=== PATIENT | female | born 1930 | race Caucasian/White ===

== ENCOUNTER 2016-09-17 13:21 | Emergency (ER) | payer MEDICARE ==
[~2016-09-17] VITALS: Ht 160 cm; Wt 59.0 kg
[~2016-09-17 13:21] MED LIST: ACET325T9 PO; AMLO5TAB2 PO; ASPI-630 PO; CALC200T3 PO; CHLO25TA PO; CLON0.1T PO; CLON0.1T12 PO; CRESTOR40 MG PO; DOCU-109 PO; FAMO20TA5 PO; HYDR-2869 PO; LEVO100T5 PO; LEVO112T4 PO; LISI-334 PO; METO50TA10 PO; NITR0.4T SL; POLY17PO5 PO; PRAV80TA2 PO; RANI300T3 PO; VALS320T2 PO
[2016-09-17 13:58] LABS: BASO % 1 % (0-3); EOS # 0.1 x10^3/uL (0.0-0.7); EOS % 2 % (0-3); HEMATOCRIT 37.8 % (36.0-47.0); HEMOGLOBIN 12.8 g/dL (12.0-15.5); LYMPH # 0.8 x10^3/uL (1.0-4.8); LYMPH % 13 % (24-48); MEAN CORPUSCULAR HEMOGLOBIN 30 pg (25-35); MEAN CORPUSCULAR HGB CONC 34 g/dL (31-37); MEAN CORPUSCULAR VOLUME 88 fL (79-100); MONO # 0.6 x10^3/uL (0.0-1.1); MONO % 10 % (0-9); NEUT # 4.7 x10^3uL (1.8-7.7); NEUT % 75 % (31-73); PLATELET COUNT 157 x10^3/uL (140-400); RED BLOOD COUNT 4.28 x10^6/uL (3.50-5.40); RED CELL DISTRIBUTION WIDTH 13.7 % (11.5-14.5); WHITE BLOOD COUNT 6.2 x10^3/uL (4.0-11.0)
--- NOTE | 2016-09-17 14:01 | RAD ---
AP chest, 09/17/2016: History: CVA, leg weakness Comparison is made to a study from 06/15/2016. Surgical clips overlie the lower neck on the right. The heart is at the upper limits of normal in size. There is calcific plaquing of the aorta. A coronary artery stent overlies the superior aspect of the left side of the heart. The pulmonary vascularity is normal. No pulmonary infiltrates are seen. There is no evidence of pleural fluid. IMPRESSION: No acute cardiopulmonary abnormality is detected.
--- NOTE | 2016-09-17 14:01 | RAD ---
Indication sudden onset of weakness and dizziness. Code stroke. Noncontrast images of the head were obtained. No prior imaging of the head is available. Preliminary results were communicated to Dr. Woodard, in the emergency room, at the time of dictation. The calvarium appears unremarkable. The visualized paranasal sinuses appear normal. There is no subdural or epidural hematoma. Ventricles and sulci are normal given the patient's age. 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 There is no mass or midline shift. No hemorrhage is seen. A definite acute finding is not apparent. IMPRESSION: No definite acute finding seen on noncontrast CT images of the head. There are lucencies in the left deep white matter. The chronicity is uncertain but they are probably old PQRS Compliance Statement: One or more of the following individualized dose reduction techniques were utilized for this examination: 1. Automated exposure control 2. Adjustment of the mA and/or kV according to patient size 3. Use of iterative reconstruction technique
--- NOTE | 2016-09-17 14:07 | EKG ---
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
--- NOTE | 2016-09-17 14:11 | PHYS DOC ---
General Chief Complaint: NEURO SYMPTOMS/DEFICITS Stated Complaint: NUMBNESS LOWER EXTREMITIES, DIFFICULTY SWALLOWING Time Seen by MD: 13:33 Source: patient Exam Limitations: no limitations Problems: History of Present Illness Initial Comments Pt is 85/F to ED c/o leg weakness. Pt states immediately prior to arrival she was outside "working in the yard." States she has large yard and works in it meticulously. Today while bending over working states she felt b/l leg weakness. No falls or impaired gait, just felt as if her legs were weak. She had been outside working for some time, also noticed her mouth was dry. No dysphagia/cp/sob/hoyos/focal neurodeficits/ bowel or bladder sx. No trauma. Sx resolved by ED arrival, no pain or weakness complaints and dry mouth resolved with water prior to arrival. 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 Today's sx not consistent with prior CVA. VSS NIHSS reassuring Timing/Duration: 1/2 hour Severity: moderate Modifying Factors: worse with movement, improves with rest Associated Symptoms: weakness, other Allergies: Coded Allergies: Beta-Blockers (Beta-Adrenergic Bloc (Verified Allergy, Intermediate, Bradycardia, 07/01/16) amlodipine (Verified Allergy, Intermediate, 05/28/16) atorvastatin (Verified Allergy, Intermediate, 05/28/16) chlorthalidone (Verified Allergy, Intermediate, hyponatremia, 07/01/16) clonidine (Verified Allergy, Intermediate, bradycardia, 07/01/16) iodine (Verified Allergy, Intermediate, 05/28/16) Past Medical History Medical History: cancer (thyroid), hypertension Surgical History: noncontributory Social History Smoker: non-smoker Alcohol: none Drugs: none Review of Systems Constitutional: see HPI, denies chills, denies fever Respiratory: denies cough, denies shortness of breath, denies wheezing Cardiovascular: denies chest pain, denies palpitations, denies syncope Gastrointestinal: denies abdominal pain, denies diarrhea, denies nausea, denies vomiting Genitourinary: denies discharge, denies frequency, denies hematuria, denies pain Musculoskeletal: denies back pain, denies joint pain, denies joint swelling, denies muscle stiffness, denies neck pain Psychiatric/Neurological: see HPI, denies headache Physical Exam General Appearance: WD/WN, no apparent distress Eyes: bilateral eye normal inspection, bilateral eye PERRL, bilateral eye EOMI Ear, Nose, Throat: hearing grossly normal, normal ENT inspection, normal pharynx Neck: non-tender, supple Respiratory: normal breath sounds, no respiratory distress Cardiovascular: normal peripheral pulses, regular rate, rhythm Gastrointestinal: non tender, soft Back: no CVA tenderness, no vertebral tenderness Extremities: normal range of motion, non-tender, normal inspection 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 PHYSICIAN: RENZO MOORE DO REASON: cva PROCEDURE: CHEST AP ONLY AP chest, 09/17/2016: History: CVA, leg weakness Comparison is made to a study from 06/15/2016. Surgical clips overlie the lower neck on the right. The heart is at the upper limits of normal in size. There is calcific plaquing of the aorta. A coronary artery stent overlies the superior aspect of the left side of the heart. The pulmonary vascularity is normal. No pulmonary infiltrates are seen. There is no evidence of pleural fluid. IMPRESSION: No acute cardiopulmonary abnormality is detected. DICTATED AND SIGNED BY: MAGGIE MAS MD DATE: 09/17/16 [id number] CC: LANNY MAGALLON MD; RENZO MOORE DO ~ PATIENT: STEPHANIE HOUSTON ACCOUNT: [id number] : 1930 LOCATION: ER AGE: 85 SEX: F EXAM STATUS: REG ER ORD. PHYSICIAN: RENZO MOORE DO REASON: cva PROCEDURE: CT CODE STROKE HEAD WO Indication sudden onset of weakness and dizziness. Code stroke. Noncontrast images of the head were obtained. No prior imaging of the head is available. Preliminary results were communicated to Dr. Moore, in the emergency room, at the time of dictation. The calvarium appears unremarkable. The visualized paranasal sinuses appear normal. There is no subdural or epidural hematoma. Ventricles and sulci are normal given the patient's age. 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 There is no mass or midline shift. No hemorrhage is seen. A definite acute finding is not apparent. IMPRESSION: No definite acute finding seen on noncontrast CT images of the head. There are lucencies in the left deep white matter. The chronicity is uncertain but they are probably old PQRS Compliance Statement: One or more of the following individualized dose reduction techniques were utilized for this examination: 1. Automated exposure control 2. Adjustment of the mA and/or kV according to patient size 3. Use of iterative reconstruction technique DICTATED AND SIGNED BY: AMPARO FU MD DATE: 09/17/16 [id number] CC: LANNY MAGALLON MD; RENZO MOORE DO ~ 1517: Time in department 1h 56min. Still waiting for labs/urine, pt will have prolonged ED course due to RAD delay. d-dimer 1.06, BUN 29, Cr 1.2, BNP 1051 1613: Pt ambulated thru ED no weakness, states she feels at baseline. I discussed possibility of OBS admission, pt refuses states she feels at her baseline. "I think I just overdid it in the yard. I'm better now." No new/ progressive sx thru ED course. Will return to ED if needed. Departure Time of Disposition: 16:14 Disposition: 01 HOME, SELF-CARE Diagnosis: weakness NOS, CKD Condition: GOOD Patient Instructions: Chronic Renal Insufficiency, Weakness, [id number] Additional Instructions: Continue current meds/care. Follow up with your doctor Wednesday for recheck. Return to ED with new or changing symptoms. RENZO MOORE DO September 17, 2016 14:11
[2016-09-17 14:14] LABS: ALBUMIN 3.7 g/dL (3.4-5.0); ALBUMIN/GLOBULIN RATIO 1.1 (1.0-1.7); CALCIUM 8.8 mg/dL (8.5-10.1); CREATININE 1.2 mg/dL (0.6-1.0); GFR 42.6; POTASSIUM 4.2 mmol/L (3.5-5.1); TOTAL BILIRUBIN 0.5 mg/dL (0.2-1.0)
[2016-09-17 15:03] LABS: SEDIMENTATION RATE 9 (0-25)
[2016-09-17 15:16] LABS: AMPHETAMINE/METHAMPHETAMINE NEG (NEG); BARBITURATES NEG (NEG); BENZODIAZEPINES NEG (NEG); CANNABINOIDS NEG (NEG); COCAINE NEG (NEG); METHADONE NEG (NEG); OPIATES NEG (NEG); PHENCYCLIDINE NEG (NEG)
[2016-09-17 15:33] LABS: BACTERIA,URINE 0 /HPF (0-FEW); BILIRUBIN,URINE NEG (NEG); CLARITY,URINE CLEAR; COLOR,URINE YELLOW; GLUCOSE,URINE NEG (NEG); NITRITE,URINE NEG (NEG); RBC,URINE 0 /HPF (0-2); SQUAMOUS EPITHELIAL CELL,UR OCC /LPF; UROBILINOGEN,URINE 0.2 mg/dL (0.2 mg/dL); WBC,URINE 0 /HPF (0-4)
[2016-09-17 17:13] VITALS: BP 142/81
== END 2016-09-17 17:13 | disposition home or self-care (01) ==
LOC: ER 13:21
DX: R53.1 Weakness (principal); N18.9 Chronic kidney disease, unspecified; I12.9 Hypertensive chronic kidney disease with stage 1 through stage 4 chronic kidney disease, or unspecified chronic kidney disease; Z88.8 Allergy status to other drugs, medicaments and biological substances; Z91.041 Radiographic dye allergy status
CPT/HCPCS: 36415; 70450; 71010; 80053; 80305; 81001; 82550; 83605; 83690; 83880; 84484; 85027; 85379; 85610; 85651; 85730; 93005; G0481; 99285-25

== ENCOUNTER 2016-11-09 14:31 | Observation (INO) | payer MEDICARE ==
[~2016-11-09] VITALS: Ht 157.5 cm; Wt 59.5 kg
--- NOTE | 2016-11-09 15:09 | EKG ---
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
--- NOTE | 2016-11-09 15:10 | PHYS DOC ---
Past History Past Medical History: CAD, Cancer, Hypertension, [place], Stroke Past Surgical History: Hysterectomy, Other Alcohol Use: None Drug Use: None Adult General Chief Complaint Chief Complaint: DIZZY/LIGHT HEADED HPI HPI Nhung is a 56-year-old female who began having dizziness this morning. She does not describe vertigo. She has been able to walk without difficulty during the day. She describes nasal congestion postnasal drip and ear pressure mainly on the right. She does not have chest pain shortness of breath or abdominal pain. No other associated symptoms. Review of Systems Review of Systems Constitutional: Denies fever or chills [] Eyes: Denies change in visual acuity, redness, or eye pain [] HENT: neg except HPI Respiratory: Denies cough or shortness of breath [] Cardiovascular: No additional information not addressed in HPI [] GI: Denies abdominal pain, nausea, vomiting, bloody stools or diarrhea [] : Denies dysuria or hematuria [] Musculoskeletal: Denies back pain or joint pain [] Integument: Denies rash or skin lesions [] Neurologic: Denies headache, focal weakness or sensory changes [] Endocrine: Denies polyuria or polydipsia [] Allergies Allergies Allergies Coded Allergies Type Severity Reaction Last Updated Verified Beta-Blockers (Beta-Adrenergic Bloc Allergy Intermediate Bradycardia 07/01/16 Yes amlodipine Allergy Intermediate 05/28/16 Yes atorvastatin Allergy Intermediate 05/28/16 Yes chlorthalidone Allergy Intermediate hyponatremia 07/01/16 Yes clonidine Allergy Intermediate bradycardia 07/01/16 Yes iodine Allergy Intermediate 05/28/16 Yes Physical Exam Physical Exam Constitutional: Well developed, well nourished, no acute distress, non-toxic appearance. [] HENT: Normocephalic, atraumatic, bilateral nasal congestion with erythema and mild swelling. Mild ear canal erythema without signs of middle ear infection. TM normal bilaterally Eyes: PERRLA, EOMI, conjunctiva normal, no discharge. [] Neck: Normal range of motion, no tenderness, supple, no stridor. [] Cardiovascular:Heart rate regular rhythm,[] Lungs & Thorax: Bilateral breath sounds clear to auscultation [] Abdomen: Bowel sounds normal, soft, no tenderness, no masses, no pulsatile masses. [] Skin: Warm, dry, no erythema, no rash. [] Back: No tenderness, no CVA tenderness. [] Extremities: No tenderness, no cyanosis, no clubbing, ROM intact, no edema. [] Neurologic: Alert and oriented X 3, normal motor function, normal sensory function, no focal deficits noted. [] Psychologic: Affect normal, judgement normal, mood normal. [] Current Patient Data Vital Signs Vital Signs Date Time Temp Pulse Resp B/P (MAP) Pulse Ox O2 Delivery O2 Flow Rate FiO2 11/09/16 14:43 98.1 89 18 98 Room Air Lab Results Laboratory Tests Test 11/09/16 14:56 11/09/16 15:08 Sodium Level 135 mmol/L Potassium Level 3.9 mmol/L Chloride Level 102 mmol/L Carbon Dioxide Level 25 mmol/L Anion Gap 8 Blood Urea Nitrogen 25 mg/dL Creatinine 1.1 mg/dL Estimated GFR (Cockcroft-Gault) 47.0 Glucose Level 114 mg/dL Calcium Level 8.7 mg/dL White Blood Count 5.5 x10^3/uL Red Blood Count 4.10 x10^6/uL Hemoglobin 12.4 g/dL Hematocrit 35.4 % Mean Corpuscular Volume 86 fL Mean Corpuscular Hemoglobin 30 pg Mean Corpuscular Hemoglobin Concent 35 g/dL Red Cell Distribution Width 13.7 % Platelet Count 137 x10^3/uL Neutrophils (%) (Auto) 78 % Lymphocytes (%) (Auto) 12 % Monocytes (%) (Auto) 8 % Eosinophils (%) (Auto) 1 % Basophils (%) (Auto) 1 % Neutrophils # (Auto) 4.3 x10^3uL Lymphocytes # (Auto) 0.7 x10^3/uL Monocytes # (Auto) 0.5 x10^3/uL Eosinophils # (Auto) 0.1 x10^3/uL Basophils # (Auto) 0.0 x10^3/uL EKG EKG ECG: NSR without changes when compared to previous Radiology/Procedures Radiology/Procedures [] Course & Med Decision Making Course & Med Decision Making She does not feel safe at home Dragon Disclaimer Dragon Disclaimer This chart was dictated in whole or in part using Voice Recognition software in a busy, high-work load, and often noisy Emergency Department environment. It may contain unintended and wholly unrecognized errors or omissions. Departure Departure: Impression: Primary Impression: Upper respiratory infection Additional Impression: Dizziness Disposition: 09 ADMITTED INPATIENT Condition: STABLE Referrals: LANNY MAGALLON MD (PCP) Patient Instructions: Upper Respiratory Infection, Adult Problem Qualifiers Primary Impression: Upper respiratory infection URI type: unspecified viral URI Qualified Codes: J06.9 - Acute upper respiratory infection, unspecified; B97.89 - Other viral agents as the cause of diseases classified elsewhere LANNY ALMENDAREZ MD Nov 09, 2016 15:10
[2016-11-09 15:22] LABS: BASO % 1 % (0-3); EOS # 0.1 x10^3/uL (0.0-0.7); EOS % 1 % (0-3); HEMATOCRIT 35.4 % (36.0-47.0); HEMOGLOBIN 12.4 g/dL (12.0-15.5); LYMPH # 0.7 x10^3/uL (1.0-4.8); LYMPH % 12 % (24-48); MEAN CORPUSCULAR HEMOGLOBIN 30 pg (25-35); MEAN CORPUSCULAR HGB CONC 35 g/dL (31-37); MEAN CORPUSCULAR VOLUME 86 fL (79-100); MONO # 0.5 x10^3/uL (0.0-1.1); MONO % 8 % (0-9); NEUT # 4.3 x10^3uL (1.8-7.7); NEUT % 78 % (31-73); PLATELET COUNT 137 x10^3/uL (140-400); RED CELL DISTRIBUTION WIDTH 13.7 % (11.5-14.5); WHITE BLOOD COUNT 5.5 x10^3/uL (4.0-11.0)
[2016-11-09 15:30] LABS: CALCIUM 8.7 mg/dL (8.5-10.1); CREATININE 1.1 mg/dL (0.6-1.0); POTASSIUM 3.9 mmol/L (3.5-5.1)
[2016-11-09 17:46] VITALS: BP 181/74
[2016-11-09] MEDS ORDERED: ACETAMINOPHEN 325 MG TABLET PO PRN (19:30)
[2016-11-09] MEDS ORDERED: NITROGLYCERIN SUBLINGUAL 0.4 MG BOTTLE OF 25. SL PRN (19:30)
[2016-11-09] MEDS ORDERED: CALCIUM CARBONATE 500 MG TAB.CHEW PO PRN (19:30)
[2016-11-09 19:57] VITALS: BP 163/78
[2016-11-09] MEDS ORDERED: PRAVASTATIN 20 MG TABLET. PO SCH (21:00)
[2016-11-09] MEDS ORDERED: ENOXAPARIN 30 MG/0.3 ML DISP.SYRIN. SQ SCH (21:00)
[2016-11-09] MEDS ORDERED: FAMOTIDINE 20 MG TABLET PO PRN (21:15)
[2016-11-09 22:01] VITALS: BP 155/68
[2016-11-09 22:02] VITALS: BP_SYST 156; BP_SYST 172; BP_DIAS 64; BP_DIAS 67
--- NOTE | 2016-11-10 04:04 | ACF ---
Admission Criteria Forms DIZZINESS Clinical Indications for Admission to Inpatient Care (Place 'X' for any and all applicable criteria): Admission is indicated for ANY ONE of the following(1)(2)(3)(4): [x]I. Inpatient admission required rather than observation care (Also use Dizziness: Observation Care as appropriate) because of ANY ONE of the following: [ ]a) Hemodynamic instability that is severe or persistent [ ]b) Signs or symptoms that are severe or persistent (eg, vomit, orthostasis, inability to ambulate) [ ]c) Cardiac arrhythmias of immediate concern [ ]d) Severe (new) neurologic findings requiring inpatient care as indicated by ANY ONE of the following(6)(7): [ ]1) Cerebral bleeding, ischemia, or vasospasm(8)(9) [ ]2) Increased intracranial pressure or hydrocephalus(10)(11)(12) [ ]3) Papilledema [ ]4) Cerebral edema [ ]5) Mass effect on CT scan [ ]e) Continuous IV infusion of anticoagulation, platelet inhibitor, vasoactive, or antiarrhythmic medication [ ]f) Cerebral bleeding, hydrocephalus, or vasospasm monitoring(14) [ ]g) Increased intracranial pressure or cerebral edema monitoring [ ]h) Vomiting that is severe or persistent [x]i) Other condition, treatment or monitoring requiring inpatient admission [ ]II. A suspected etiology that requires admission for treatment [ ]III. Acute bacterial labyrinthitis [ ]IV. Cerebellar, brainstem, or cerebral ischemia or hemorrhage (5) Extended stay beyond goal length of stay may be needed for evaluating and treating a specific cause of dizziness, including(32) [ ]a) Head injury (Also use Traumatic Brain Injury, Nonsurgical Treatment guideline) [ ]b) New-onset vertebrobasilar vascular insufficiency [ ]c) Acute Meniere disease with intractable symptoms [ ]d) Cardiac arrhythmias or conduction defects [ ]e) Acute neurologic event causing dizziness [ ]f) Myocardial ischemia [ ]g) Acute bacterial labyrinthitis. [ ]h) Severe acute vestibular neuronitis The original [facility] content created by [employer] has been revised. The portions of the content which have been revised are identified through the use of italic text or in bold, and [facility] [employer] [employer] has neither reviewed nor approved the modified material. All other unmodified content is copyright [facility]. Please see references footnoted in the original [facility] edition 2016 Admission Criteria Met?: Yes FELI AGEE Nov 10, 2016 04:04
[2016-11-10 05:20] VITALS: BP 146/59
[2016-11-10] MEDS ORDERED: LEVOTHYROXINE 100 MCG TABLET PO SCH (06:00)
[2016-11-10 06:39] LABS: BASO # 0.1 x10^3/uL (0.0-0.2); BASO % 1 % (0-3); EOS # 0.1 x10^3/uL (0.0-0.7); EOS % 3 % (0-3); HEMATOCRIT 32.7 % (36.0-47.0); HEMOGLOBIN 11.2 g/dL (12.0-15.5); LYMPH # 0.7 x10^3/uL (1.0-4.8); LYMPH % 18 % (24-48); MEAN CORPUSCULAR HEMOGLOBIN 30 pg (25-35); MEAN CORPUSCULAR HGB CONC 34 g/dL (31-37); MEAN CORPUSCULAR VOLUME 87 fL (79-100); MONO # 0.5 x10^3/uL (0.0-1.1); MONO % 13 % (0-9); NEUT # 2.6 x10^3uL (1.8-7.7); NEUT % 65 % (31-73); PLATELET COUNT 140 x10^3/uL (140-400); RED BLOOD COUNT 3.77 x10^6/uL (3.50-5.40); RED CELL DISTRIBUTION WIDTH 13.7 % (11.5-14.5)
[2016-11-10 06:46] LABS: CALCIUM 8.2 mg/dL (8.5-10.1); CREATININE 1.2 mg/dL (0.6-1.0); GFR 42.5; POTASSIUM 3.9 mmol/L (3.5-5.1)
[2016-11-10] MEDS ORDERED: FAMOTIDINE 20 MG TABLET PO SCH (09:00)
[2016-11-10] MEDS ORDERED: DOCUSATE SODIUM 100 MG CAPSULE PO SCH (09:00)
[2016-11-10] MEDS ORDERED: LISINOPRIL 20 MG TABLET PO SCH (09:00)
[2016-11-10] MEDS ORDERED: NITROGLYCERIN 0.2MG/HR PATCH. TD SCH (09:00)
[2016-11-10] MEDS ORDERED: ASPIRIN 81 MG TAB.CHEW PO SCH (09:00)
[2016-11-10] MEDS ORDERED: POLYETHYLENE GLYCOL 3350 17 GM PACKET. PO SCH (09:00)
--- NOTE | 2016-11-10 09:51 | PDOC1 ---
HISTORY & PHYSICAL HPI: HPI: [facility] [address] [place] [address] [id number] Patient: NHUNG HOUSTON Acct:[id number] Unit: [id number] : 1930 Loc: Room/Bed: Age/Sex: 86 / F ADM Status: ADM Date: 11/09/16 Adult General Chief Complaint Chief Complaint: /LIGHT HEADED HPI Nhung is a 86-year-old female who began having lighfheadness this morning. She does not describe vertigo. She has been able to walk without difficulty during the day. She describes nasal congestion postnasal drip and ear pressure mainly on the right. She does not have chest pain shortness of breath or abdominal pain. No other associated symptoms. she denies c-p but explains more l pretty lightheadheness not vertigol.P Past History Past Medical History: CAD, Cancer, Hypertension, [place], Stroke Past Surgical History: Hysterectomy, Other Alcohol Use: None Drug Use: None no smoking FH negtaive Review of Systems Constitutional: Denies fever or chills [] Eyes: Denies change in visual acuity, redness, or eye pain [] HENT: neg except HPI Respiratory: Denies cough or shortness of breath [] Cardiovascular: No additional information not addressed in HPI [] GI: Denies abdominal pain, nausea, vomiting, bloody stools or diarrhea [] : Denies dysuria or hematuria [] Musculoskeletal: Denies back pain or joint pain [] Integument: Denies rash or skin lesions [] Neurologic: Denies headache, focal weakness or sensory changes [] Endocrine: Denies polyuria or polydipsia [] Allergies Coded Allergies Type Severity Reaction Last Updated Verified Beta-Blockers (Beta-Adrenergic Bloc Allergy Intermediate Bradycardia 07/01/16 Yes amlodipine Allergy Intermediate 05/28/16 Yes atorvastatin Allergy Intermediate 05/28/16 Yes chlorthalidone Allergy Intermediate hyponatremia 07/01/16 Yes clonidine Allergy Intermediate bradycardia 07/01/16 Yes iodine Allergy Intermediate 05/28/16 Yes Physical Exam Physical Exam Constitutional: Well developed, well nourished, no acute distress, non-toxic appearance. [] HENT: Normocephalic, atraumatic, bilateral nasal congestion with erythema and mild swelling. Mild ear canal erythema without signs of middle ear infection. TM normal bilaterally Eyes: PERRLA, EOMI, conjunctiva normal, no discharge. [] Neck: Normal range of motion, no tenderness, supple, no stridor. [] Cardiovascular:Heart rate regular rhythm,[] Lungs & Thorax: Bilateral breath sounds clear to auscultation [] Abdomen: Bowel sounds normal, soft, no tenderness, no masses, no pulsatile masses. [] Skin: Warm, dry, no erythema, no rash. [] Back: No tenderness, no CVA tenderness. [] Extremities: No tenderness, no cyanosis, no clubbing, ROM intact, no edema. [] Neurologic: Alert and oriented X 3, normal motor function, normal sensory function, no focal deficits noted. [] Psychologic: Affect normal, judgement normal, mood normal. [] Current Patient Data Vital Signs Vital Signs Date Time Temp Pulse Resp B/P (MAP) Pulse Ox O2 Delivery O2 Flow Rate FiO2 11/09/16 14:43 98.1 89 18 98 Room Air Lab Results Laboratory Tests Test 11/09/16 14:56 11/09/16 15:08 Sodium Level 135 mmol/L Potassium Level 3.9 mmol/L Chloride Level 102 mmol/L Carbon Dioxide Level 25 mmol/L Anion Gap 8 Blood Urea Nitrogen 25 mg/dL Creatinine 1.1 mg/dL Estimated GFR (Cockcroft-Gault) 47.0 Glucose Level 114 mg/dL Calcium Level 8.7 mg/dL White Blood Count 5.5 x10^3/uL Red Blood Count 4.10 x10^6/uL Hemoglobin 12.4 g/dL Hematocrit 35.4 % Mean Corpuscular Volume 86 fL Mean Corpuscular Hemoglobin 30 pg Mean Corpuscular Hemoglobin Concent 35 g/dL Red Cell Distribution Width 13.7 % Platelet Count 137 x10^3/uL Neutrophils (%) (Auto) 78 % Lymphocytes (%) (Auto) 12 % Monocytes (%) (Auto) 8 % Eosinophils (%) (Auto) 1 % Basophils (%) (Auto) 1 % Neutrophils # (Auto) 4.3 x10^3uL Lymphocytes # (Auto) 0.7 x10^3/uL Monocytes # (Auto) 0.5 x10^3/uL Eosinophils # (Auto) 0.1 x10^3/uL Basophils # (Auto) 0.0 x10^3/uL EKG EKG ECG: NSR without changes when compared to previous Radiology/Procedures Radiology/Procedures [] PROBLEMS: Problems lighfgheadnes ALLERGIES: Allergies Coded Allergies Type Severity Reaction Last Updated Verified Beta-Blockers (Beta-Adrenergic Bloc Allergy Intermediate Bradycardia 07/01/16 Yes amlodipine Allergy Intermediate 05/28/16 Yes atorvastatin Allergy Intermediate 05/28/16 Yes chlorthalidone Allergy Intermediate hyponatremia 07/01/16 Yes clonidine Allergy Intermediate bradycardia 07/01/16 Yes iodine Allergy Intermediate 05/28/16 Yes MEDS: MEDICATIONS: Current Medications Medications (Trade) Dose Ordered Sig/Umesh Start Time Stop Time Status Last Admin Dose Admin Acetaminophen (Tylenol) 650 mg PRN Q6HRS PRN 11/09/16 19:30 11/10/16 04:54 650 MG Aspirin (Children'S Aspirin) 81 mg DAILY 11/10/16 09:00 11/10/16 08:28 81 MG Calcium Carbonate/ Glycine (Tums) 250 mg PRN AFTMEALHC PRN 11/09/16 19:30 Docusate Sodium (Colace) 100 mg DAILY 11/10/16 09:00 11/10/16 08:31 100 MG Enoxaparin Sodium (Lovenox) 30 mg Q24H 11/09/16 21:00 11/09/16 20:46 30 MG Famotidine (Pepcid) 20 mg PRN BID PRN 11/09/16 21:15 11/09/16 21:52 20 MG Hydralazine HCl (Apresoline) 100 mg TID 11/09/16 21:00 11/10/16 08:28 100 MG Levothyroxine Sodium (Synthroid) 100 mcg DAILY06 11/10/16 06:00 11/10/16 05:52 100 MCG Lisinopril (Prinivil) 40 mg DAILY 11/10/16 09:00 11/10/16 08:28 40 MG Nitroglycerin (Nitro-Dur 0.2mg) 1 patch DAILY 11/10/16 09:00 11/10/16 08:29 1 PATCH Nitroglycerin (Nitrostat) 0.4 mg PRN Q15MIN PRN 11/09/16 19:30 Polyethylene Glycol (miraLAX) 17 gm DAILY 11/10/16 09:00 11/10/16 08:29 17 GM Pravastatin Sodium (Pravachol) 80 mg QHS 11/09/16 21:00 11/09/16 20:47 80 MG VITALS: Vital Signs Date Time Temp Pulse Resp B/P (MAP) Pulse Ox O2 Delivery O2 Flow Rate FiO2 11/10/16 08:39 Room Air 11/10/16 08:28 60 146/59 11/10/16 05:20 98.0 18 97 LABS: Laboratory Tests Test 11/09/16 14:56 11/09/16 15:08 11/10/16 06:10 Sodium Level 135 mmol/L (136-145) 139 mmol/L (136-145) Potassium Level 3.9 mmol/L (3.5-5.1) 3.9 mmol/L (3.5-5.1) Chloride Level 102 mmol/L (98-107) 105 mmol/L (98-107) Carbon Dioxide Level 25 mmol/L (21-32) 27 mmol/L (21-32) Anion Gap 8 (6-14) 7 (6-14) Blood Urea Nitrogen 25 mg/dL (7-20) 23 mg/dL (7-20) Creatinine 1.1 mg/dL (0.6-1.0) 1.2 mg/dL (0.6-1.0) Estimated GFR (Cockcroft-Gault) 47.0 42.5 Glucose Level 114 mg/dL (70-99) 94 mg/dL (70-99) Calcium Level 8.7 mg/dL (8.5-10.1) 8.2 mg/dL (8.5-10.1) White Blood Count 5.5 x10^3/uL (4.0-11.0) 4.0 x10^3/uL (4.0-11.0) Red Blood Count 4.10 x10^6/uL (3.50-5.40) 3.77 x10^6/uL (3.50-5.40) Hemoglobin 12.4 g/dL (12.0-15.5) 11.2 g/dL (12.0-15.5) Hematocrit 35.4 % (36.0-47.0) 32.7 % (36.0-47.0) Mean Corpuscular Volume 86 fL (79-100) 87 fL (79-100) Mean Corpuscular Hemoglobin 30 pg (25-35) 30 pg (25-35) Mean Corpuscular Hemoglobin Concent 35 g/dL (31-37) 34 g/dL (31-37) Red Cell Distribution Width 13.7 % (11.5-14.5) 13.7 % (11.5-14.5) Platelet Count 137 x10^3/uL (140-400) 140 x10^3/uL (140-400) Neutrophils (%) (Auto) 78 % (31-73) 65 % (31-73) Lymphocytes (%) (Auto) 12 % (24-48) 18 % (24-48) Monocytes (%) (Auto) 8 % (0-9) 13 % (0-9) Eosinophils (%) (Auto) 1 % (0-3) 3 % (0-3) Basophils (%) (Auto) 1 % (0-3) 1 % (0-3) Neutrophils # (Auto) 4.3 x10^3uL (1.8-7.7) 2.6 x10^3uL (1.8-7.7) Lymphocytes # (Auto) 0.7 x10^3/uL (1.0-4.8) 0.7 x10^3/uL (1.0-4.8) Monocytes # (Auto) 0.5 x10^3/uL (0.0-1.1) 0.5 x10^3/uL (0.0-1.1) Eosinophils # (Auto) 0.1 x10^3/uL (0.0-0.7) 0.1 x10^3/uL (0.0-0.7) Basophils # (Auto) 0.0 x10^3/uL (0.0-0.2) 0.1 x10^3/uL (0.0-0.2) VTE PROPHYLAXIS: VTE Prophylaxis Devices: Contrainidicated ASSESSMENT/PLAN ASSESSMENT: lightheheadness near syncope. PLAN: monitor and do pt and ot a use support s tockings iv fluids and monitor for any LANNY MAGALLON MD Nov 10, 2016 09:51
[2016-11-10 11:04] VITALS: BP 121/50
== END 2016-11-10 14:00 | disposition home health service (06) ==
LOC: ER 14:31 → 1 SOUTH 16:54
PROVIDERS: ADMIT Family Medicine; ATTEND Family Medicine
DX: R42 Dizziness and giddiness (principal); R55 Syncope and collapse; I25.10 Atherosclerotic heart disease of native coronary artery without angina pectoris; I10 Essential (primary) hypertension; J06.9 Acute upper respiratory infection, unspecified; I25.2 Old myocardial infarction; Z90.710 Acquired absence of both cervix and uterus; Z85.9 Personal history of malignant neoplasm, unspecified; Z86.73 Personal history of transient ischemic attack (TIA), and cerebral infarction without residual deficits
CPT/HCPCS: 36415; 80048; 85027; 93005; 96372; 97162; 97166; 99285; G0378; G8978; G8979; G8980; G8987; G8989; J1650; G0379

== ENCOUNTER 2016-12-02 17:44 | Inpatient (IN) | payer MEDICARE ==
[~2016-12-02] VITALS: Ht 160 cm; Wt 59.9 kg
[2016-12-02] MEDS ORDERED: IV NORMAL SALINE 1,000ML 1,000 ML IV SCH (18:17)
[2016-12-02] MEDS ORDERED: hydrALAZINE 20 MG/ML VIAL. IV ONE (18:45)
[2016-12-02 18:59] LABS: BASO % 1 % (0-3); EOS # 0.1 x10^3/uL (0.0-0.7); EOS % 2 % (0-3); HEMATOCRIT 34.9 % (36.0-47.0); HEMOGLOBIN 11.9 g/dL (12.0-15.5); LYMPH # 0.7 x10^3/uL (1.0-4.8); LYMPH % 15 % (24-48); MEAN CORPUSCULAR HEMOGLOBIN 30 pg (25-35); MEAN CORPUSCULAR HGB CONC 34 g/dL (31-37); MEAN CORPUSCULAR VOLUME 87 fL (79-100); MONO # 0.5 x10^3/uL (0.0-1.1); MONO % 10 % (0-9); NEUT # 3.4 x10^3uL (1.8-7.7); NEUT % 73 % (31-73); PLATELET COUNT 149 x10^3/uL (140-400); RED BLOOD COUNT 4.02 x10^6/uL (3.50-5.40); RED CELL DISTRIBUTION WIDTH 13.8 % (11.5-14.5); WHITE BLOOD COUNT 4.7 x10^3/uL (4.0-11.0)
[2016-12-02 19:07] LABS: ALBUMIN 3.4 g/dL (3.4-5.0); ALBUMIN/GLOBULIN RATIO 1.1 (1.0-1.7); CALCIUM 8.5 mg/dL (8.5-10.1); CREATININE 1.1 mg/dL (0.6-1.0); MAGNESIUM 1.9 mg/dL (1.8-2.4); POTASSIUM 3.5 mmol/L (3.5-5.1); TOTAL BILIRUBIN 0.6 mg/dL (0.2-1.0); TOTAL PROTEIN 6.6 g/dL (6.4-8.2)
[2016-12-02 19:45] LABS: BILIRUBIN,URINE NEG (NEG); CLARITY,URINE CLOUDY; COLOR,URINE YELLOW; GLUCOSE,URINE NEG (NEG); UROBILINOGEN,URINE 0.2 mg/dL (0.2 mg/dL)
[2016-12-02 19:46] LABS: BACTERIA,URINE 0 /HPF (0-FEW); NITRITE,URINE NEG (NEG); SQUAMOUS EPITHELIAL CELL,UR FEW /LPF; WBC,URINE >40 /HPF (0-4)
--- NOTE | 2016-12-02 20:14 | PHYS DOC ---
Past History Past Medical History: CAD, Cancer, Hypertension, [place], Stroke Past Surgical History: Hysterectomy, Other Alcohol Use: None Drug Use: None Adult General Chief Complaint Chief Complaint: WEAKNESS/GENERALIZED HPI HPI Patient is a 86 year old female who presents with complaint of generalized weakness and high blood pressure. The patient states that her symptoms started worsening upon awakening this morning. Patient has history of hypertension, coronary artery disease, and was recently admitted for treatment of hyponatremia in the hospital. The patient states that she started getting generalized weakness and mild headache. The patient took her blood pressure and noted that it was "high." The patient was evaluated by her home health provider who recommended that the patient come to the emergency department for evaluation. Patient denies any fevers or nausea. Patient states she is having lower abdominal pain which she describes as burning and pressure. The patient states that she had a normal bowel movement yesterday. Patient rates her pain currently as 8 out of 10. Patient has not taken any medications to help with her symptoms at this time. Review of Systems Review of Systems Constitutional: Generalized weakness, chills, denies fever [] Eyes: Denies change in visual acuity, redness, or eye pain [] HENT: Denies nasal congestion or sore throat [] Respiratory: Denies cough or shortness of breath [] Cardiovascular: Denies chest pain or edema [] GI: Lower abdominal pain, denies nausea, vomiting, bloody stools or diarrhea [] : Denies dysuria or hematuria [] Musculoskeletal: Denies back pain or joint pain [] Integument: Denies rash or skin lesions [] Neurologic: Headache, denies focal weakness or sensory changes [] Current Medications Current Medications Current Medications Medications (Trade) Dose Ordered Sig/Umesh Start Time Stop Time Status Last Admin Dose Admin Ceftriaxone Sodium 1 gm/ Sodium Chloride 50 ml @ 100 mls/hr 1X ONCE 12/02/16 20:00 12/02/16 20:29 Hydralazine HCl (Apresoline) 10 mg 1X ONCE 12/02/16 18:45 12/02/16 18:46 DC 12/02/16 18:45 10 MG Sodium Chloride 1,000 ml @ 100 mls/hr Q10H 12/02/16 18:17 12/03/16 04:16 12/02/16 18:49 100 MLS/HR Allergies Allergies Allergies Coded Allergies Type Severity Reaction Last Updated Verified Beta-Blockers (Beta-Adrenergic Bloc Allergy Intermediate Bradycardia 07/01/16 Yes amlodipine Allergy Intermediate 05/28/16 Yes atorvastatin Allergy Intermediate 05/28/16 Yes chlorthalidone Allergy Intermediate hyponatremia 07/01/16 Yes clonidine Allergy Intermediate bradycardia 07/01/16 Yes iodine Allergy Intermediate 05/28/16 Yes Physical Exam Physical Exam Constitutional: Alert, afebrile, appears fatigued. [] HENT: Normocephalic, atraumatic, bilateral external ears normal, oropharynx moist, no oral exudates, nose normal. [] Eyes: PERRLA, EOMI, conjunctiva normal, no discharge. [] Neck: Normal range of motion, no tenderness, supple, no stridor. [] Cardiovascular:Heart rate regular rhythm, no murmur [] Lungs & Thorax: Bilateral breath sounds clear to auscultation [] Abdomen: Bowel sounds normal, soft, suprapubic tenderness to palpation with mild guarding, no rebound tenderness, no masses, no pulsatile masses. [] Skin: Warm, dry, no erythema, no rash. [] Back: No tenderness, no CVA tenderness. [] Extremities: No tenderness, no cyanosis, no clubbing, ROM intact, no edema. [] Neurologic: Alert and oriented X 3, normal motor function, normal sensory function, no focal deficits noted. [] Current Patient Data Vital Signs Vital Signs Date Time Temp Pulse Resp B/P (MAP) Pulse Ox O2 Delivery O2 Flow Rate FiO2 12/02/16 18:45 72 173/68 12/02/16 17:44 98.0 25 98 Room Air Lab Results Laboratory Tests Test 12/02/16 18:45 12/02/16 19:15 White Blood Count 4.7 x10^3/uL (4.0-11.0) Red Blood Count 4.02 x10^6/uL (3.50-5.40) Hemoglobin 11.9 g/dL (12.0-15.5) L Hematocrit 34.9 % (36.0-47.0) L Mean Corpuscular Volume 87 fL (79-100) Mean Corpuscular Hemoglobin 30 pg (25-35) Mean Corpuscular Hemoglobin Concent 34 g/dL (31-37) Red Cell Distribution Width 13.8 % (11.5-14.5) Platelet Count 149 x10^3/uL (140-400) Neutrophils (%) (Auto) 73 % (31-73) Lymphocytes (%) (Auto) 15 % (24-48) L Monocytes (%) (Auto) 10 % (0-9) H Eosinophils (%) (Auto) 2 % (0-3) Basophils (%) (Auto) 1 % (0-3) Neutrophils # (Auto) 3.4 x10^3uL (1.8-7.7) Lymphocytes # (Auto) 0.7 x10^3/uL (1.0-4.8) L Monocytes # (Auto) 0.5 x10^3/uL (0.0-1.1) Eosinophils # (Auto) 0.1 x10^3/uL (0.0-0.7) Basophils # (Auto) 0.0 x10^3/uL (0.0-0.2) Sodium Level 131 mmol/L (136-145) L Potassium Level 3.5 mmol/L (3.5-5.1) Chloride Level 97 mmol/L (98-107) L Carbon Dioxide Level 26 mmol/L (21-32) Anion Gap 8 (6-14) Blood Urea Nitrogen 23 mg/dL (7-20) H Creatinine 1.1 mg/dL (0.6-1.0) H Estimated GFR (Cockcroft-Gault) 47.0 BUN/Creatinine Ratio 21 (6-20) H Glucose Level 99 mg/dL (70-99) Calcium Level 8.5 mg/dL (8.5-10.1) Magnesium Level 1.9 mg/dL (1.8-2.4) Total Bilirubin 0.6 mg/dL (0.2-1.0) Aspartate Amino Transferase (AST) 10 U/L (15-37) L Alanine Aminotransferase (ALT) 11 U/L (14-59) L Alkaline Phosphatase 61 U/L (46-116) Total Protein 6.6 g/dL (6.4-8.2) Albumin 3.4 g/dL (3.4-5.0) Albumin/Globulin Ratio 1.1 (1.0-1.7) Urine Collection Type Void Urine Color Yellow Urine Clarity Cloudy Urine pH 6.5 Urine Specific Mcclure 1.010 Urine Protein Neg (NEG-TRACE) Urine Glucose (UA) Neg mg/dL (NEG) Urine Ketones (Stick) Neg mg/dL (NEG) Urine Blood Neg (NEG) Urine Nitrite Neg (NEG) Urine Bilirubin Neg (NEG) Urine Urobilinogen Dipstick 0.2 mg/dL (0.2 mg/dL) Urine Leukocyte Esterase Large (NEG) Urine RBC 3-5 /HPF (0-2) Urine WBC >40 /HPF (0-4) Urine Squamous Epithelial Cells Few /LPF Urine Transitional Epithelial Cells Few /LPF Urine Bacteria 0 /HPF (0-FEW) EKG EKG Interpreted by me: Heart rate 71, sinus rhythm, normal intervals, left axis deviation, no acute ST/T-wave abnormalities present [] Radiology/Procedures Radiology/Procedures Two-view abdominal x-ray series interpreted by me: Nonobstructive bowel gas pattern, no free air under the diaphragm, moderate amount of retained stool in colon [] Course & Med Decision Making Course & Med Decision Making Pertinent Labs and Imaging studies reviewed. (See chart for details) Patient started on IV fluids in the emergency department and was given IV hydralazine with modest reduction in blood pressure. The patient was found to have urinary tract infection. Due to sudden decrease in functional status with presence of urinary tract infection, the patient will require admission to the hospital for treatment with IV antibiotics and fluids. I spoke with Dr. Alas who accepted care patient in hospital. Dragon Disclaimer Dragon Disclaimer This chart was dictated in whole or in part using Voice Recognition software in a busy, high-work load, and often noisy Emergency Department environment. It may contain unintended and wholly unrecognized errors or omissions. Departure Departure: Impression: Primary Impression: Urinary tract infection Additional Impressions: Generalized weakness Accelerated hypertension Disposition: ADMITTED INPATIENT Admitting Physician: Paco Alas Condition: STABLE Referrals: PACO ALAS MD (PCP) Problem Qualifiers Primary Impression: Urinary tract infection Urinary tract infection type: site unspecified Hematuria presence: without hematuria Qualified Codes: N39.0 - Urinary tract infection, site not specified BISMARK QIU MD Dec 02, 2016 20:14
[2016-12-02] MEDS ORDERED: ACETAMINOPHEN 325 MG TABLET PO PRN ×2 (20:15→22:45)
[2016-12-02] MEDS ORDERED: fentaNYL PF 100 MCG/2 ML VIAL IV PRN (20:15)
[2016-12-02] MEDS ORDERED: ONDANSETRON PF 4 MG/2 ML VIAL. IV PRN (20:15)
[2016-12-02] MEDS ORDERED: IV NORMAL SALINE 50ML 50 ML ONE (20:19)
[2016-12-02] MEDS ORDERED: cefTRIAXone SODIUM 1 GM VIAL IV ONE (20:19)
[2016-12-02] MEDS ORDERED: ONDANSETRON PF 4 MG/2 ML VIAL. ONE (20:20)
[2016-12-02] MEDS: IV NORMAL SALINE 1,000ML 1,000 ML IV SCH (21:55)
[2016-12-02 22:00] VITALS: BP 176/80
[2016-12-02] MEDS ORDERED: RANI150T6 PO (22:25)
[2016-12-02] MEDS ORDERED: DOCU-109 PO (22:37)
[2016-12-02] MEDS ORDERED: POLY17PO5 PO (22:37)
[2016-12-02] MEDS ORDERED: POLYETHYLENE GLYCOL 3350 17 GM PACKET. PO PRN (22:45)
[2016-12-02] MEDS ORDERED: NITROGLYCERIN SUBLINGUAL 0.4 MG BOTTLE OF 25. SL PRN (22:45)
[2016-12-02] MEDS ORDERED: DOCUSATE SODIUM 100 MG CAPSULE PO PRN (22:45)
[2016-12-02] MEDS ORDERED: CALCIUM CARBONATE 500 MG TAB.CHEW PO PRN (22:45)
[2016-12-02] MEDS: PRAVASTATIN 20 MG TABLET. PO SCH (22:51)
[2016-12-02] MEDS: LISINOPRIL 20 MG TABLET PO SCH (22:52)
[2016-12-02 23:06] VITALS: BP 153/77
[2016-12-02 23:54] VITALS: BP 118/56
[2016-12-03] VITALS (8 sets, daily range): BP systolic 122–160; BP diastolic 52–75
--- NOTE | 2016-12-03 01:58 | ACF ---
Admission Criteria Forms URINARY COMPLICATIONS Clinical Indications for Inpatient Care (Place 'X' for any and all applicable criteria): Ongoing inpatient care may be indicated for urinary complications with ANY ONE of the following: [X]I. Urinary tract infection requiring inpatient care as indicated by ANY ONE of the following(8)(19)(20): [ ]a) Severe symptoms (eg, high fever, severe pain) [ ]b) Vomiting or dehydration requiring ongoing inpatient care [X]c) IV antibiotic needs that cannot be managed at lower level of care [ ]d) Hemodynamic instability [ ]e) Obstruction of collecting system by stone or tumor [ ]II. Urinary retention requiring drainage or surgery (3)(4)(5)(17)(18) [ ]III. Renal failure (Use Renal Failure Criteria for further information.) [ ]IV. Oliguria(30) [ ]V. Post obstructive diuresis requiring close monitoring of urine output and intravenous compensation for excessive fluid losses(33) Extended stay beyond goal length of stay for primary condition may be needed until ALL of the following are present(3)(4)(5)(8): [ ]a) Renal function (creatinine) at baseline, or daily decreases in creatinine consistent with renal function return [ ]b) Voiding adequately or with urinary catheter or percutaneous suprapubic tube and management regimen in place that is performable at lower level of care. [ ]c) Urine output adequate [ ]d) Fever absent or resolving [ ]e) Infection absent or treatable at next level of care The original [employer] content created by [employer] has been revised. The portions of the content which have been revised are identified through the use of italic text or in bold, and [facility] has neither reviewed nor approved the modified material. All other unmodified content is copyright [employer] Please see references footnoted in the original [employer] edition 2016 Admission Criteria Met?: Yes FELI AGEE Dec 03, 2016 01:58
[2016-12-03] MEDS: IV NORMAL SALINE 1,000ML 1,000 ML IV SCH ×2 (04:53→19:14)
[2016-12-03] MEDS: LEVOTHYROXINE 100 MCG TABLET PO SCH (05:43)
[2016-12-03 06:41] LABS: BASO % 1 % (0-3); EOS # 0.1 x10^3/uL (0.0-0.7); EOS % 2 % (0-3); HEMATOCRIT 30.3 % (36.0-47.0); HEMOGLOBIN 10.5 g/dL (12.0-15.5); LYMPH # 0.6 x10^3/uL (1.0-4.8); LYMPH % 15 % (24-48); MEAN CORPUSCULAR HEMOGLOBIN 30 pg (25-35); MEAN CORPUSCULAR HGB CONC 35 g/dL (31-37); MEAN CORPUSCULAR VOLUME 88 fL (79-100); MONO # 0.5 x10^3/uL (0.0-1.1); MONO % 13 % (0-9); NEUT # 2.6 x10^3uL (1.8-7.7); NEUT % 69 % (31-73); PLATELET COUNT 132 x10^3/uL (140-400); RED BLOOD COUNT 3.46 x10^6/uL (3.50-5.40); WHITE BLOOD COUNT 3.7 x10^3/uL (4.0-11.0)
[2016-12-03 06:45] LABS: CALCIUM 7.8 mg/dL (8.5-10.1); CREATININE 1.1 mg/dL (0.6-1.0); POTASSIUM 3.9 mmol/L (3.5-5.1)
--- NOTE | 2016-12-03 06:46 | EKG ---
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 RI6.01 Unconfirmed report Electronically Signed On 12-07-2016 9:50:50 CDT by Rishi Culver
[2016-12-03] MEDS: ASPIRIN 81 MG TAB.CHEW PO SCH (08:27)
[2016-12-03] MEDS: LISINOPRIL 20 MG TABLET PO SCH ×2 (08:28→20:11)
[2016-12-03] MEDS: FAMOTIDINE 20 MG TABLET PO SCH (08:28)
--- NOTE | 2016-12-03 08:56 | RAD ---
Two-view abdomen radiographs 12/02/2016 Clinical history: Abdominal pain and distention. Two portable AP erect and AP supine digital radiographs of the abdomen/pelvis were obtained. The lung bases are clear. The abdominal bowel gas pattern is nonobstructive. A moderate amount of stool is seen throughout the colon. No free air is seen. No radiopaque calculus is noted. There is diffuse osteopenia of the visualized bony structures. Mild S-shaped curvature of the thoracolumbar spine is seen. Degenerative changes are seen involving the lower thoracic and throughout the lumbar spine and both hips. Impression: Nonobstructive bowel gas pattern.
[2016-12-03] MEDS ORDERED: RANITIDINE HCL 75 MG PO SCH (09:00)
--- NOTE | 2016-12-03 19:25 | HP ---
ADMIT DATE: 12/02/2016 HISTORY OF PRESENT ILLNESS: An 86-year-old female with generalized weakness and elevated blood pressure. She lives at home, and home health from ___ home health saw her, blood pressure was approximately 210/120. The patient came into the Emergency Room where she was evaluated. She was also having mild headache with generalized weakness. Pain level was 8/10. The patient was found to have a significant urinary tract infection, which may have been contributing along with her hypertension and her dehydration. She is admitted to the hospital for such. PAST MEDICAL HISTORY: Coronary artery disease, cancer, hypertension. She has had previous history of myocardial infarction or stroke. She has had adenoidectomy, tonsillectomy, tinnitus, thyroid disease. She has had cardiac surgery x 2, hypertension, irritable bowel, gastroesophageal reflux, reproductive disorders, hysterectomy, urinary tract infections, __ stress incontinence. She has had problems with thyroid cancer, thyroidectomy and cancer as noted radiation therapy. FAMILY HISTORY: Father with prostate cancer and brother and son, also history of hypertension, and mother and father also had cancer as noted. ALLERGIES: THE PATIENT HAS ALLERGIES TO BETA BLOCKERS, NORVASC, LIPITOR, CHLORTHALIDONE, CLONIDINE, AND IODINE. PRESENT MEDICATIONS: Include that of Tylenol, aspirin 81, Colace, Pepcid 20 mg b.i.d., levofloxacin 100 mcg daily, lisinopril 20 mg a day, nitroglycerin 0.4 mg a day, pravastatin 80, Zantac 150. REVIEW OF SYSTEMS: The patient has generalized weakness, although she denies chest pain, shortness of breath. Denies abdominal pain per se. She does have some epigastric discomfort. She has some mild nausea. Denies problem with her bowels, does have some incontinence of urine. Neurologically baseline, but generalized weakness for this patient. PHYSICAL EXAMINATION: GENERAL: The patient on exam is a very pleasant white female looking stated age, somewhat worn out and tired. VITAL SIGNS: Blood pressure is noted initially was over 200 systolic/68, respiratory rate 25, pulse 70, afebrile. Her oxygen saturation normal. The patient's weight 127 pounds. HEENT: The patient's head was atraumatic, normocephalic. Eyes: PERRLA without jaundice. Mouth and throat show poor dentition. NECK: Supple, without JVD, carotid bruits. No thyromegaly. LUNGS: With diminished throughout, poor movement of air but clear. CARDIOVASCULAR: Regular sinus rhythm, S1, S2, with I/ systolic ejection murmur. ABDOMEN: Soft, nontender, no rebound, no guarding, positive bowel sounds, no hepatosplenomegaly was noted. EXTREMITIES: No clubbing, cyanosis. No edema. NEUROLOGIC: Baseline for her. She has some mild dementia. LABORATORY DATA: White count 4, hemoglobin and hematocrit 11 and 34. The patient's sodium and potassium 131, 3.5; 23 and 1.1. Urine showed greater than 40 white blood cells per high powered field. IMPRESSION: Therefore, systemic inflammatory response syndrome, urgent hypertension, mild dementia, generalized weakness, hyponatremia. PLAN: The patient will be admitted, placed back on her blood pressure medications, make further evaluation on her as indicated per those results. Continue on IV antibiotic therapy as noted. LANNY MAGALLON MD DR: JERRI/richard JOB#: [id number] / [id number]
[2016-12-03] MEDS: PRAVASTATIN 20 MG TABLET. PO SCH (20:07)
[2016-12-04 05:00] VITALS: BP 155/64
[2016-12-04] MEDS: LEVOTHYROXINE 100 MCG TABLET PO SCH (05:12)
[2016-12-04 07:28] LABS: BASO % 1 % (0-3); EOS # 0.2 x10^3/uL (0.0-0.7); EOS % 5 % (0-3); HEMATOCRIT 32.2 % (36.0-47.0); LYMPH # 0.6 x10^3/uL (1.0-4.8); LYMPH % 16 % (24-48); MEAN CORPUSCULAR HEMOGLOBIN 30 pg (25-35); MEAN CORPUSCULAR HGB CONC 34 g/dL (31-37); MEAN CORPUSCULAR VOLUME 88 fL (79-100); MONO # 0.4 x10^3/uL (0.0-1.1); MONO % 10 % (0-9); NEUT # 2.7 x10^3uL (1.8-7.7); NEUT % 68 % (31-73); PLATELET COUNT 131 x10^3/uL (140-400); RED BLOOD COUNT 3.67 x10^6/uL (3.50-5.40); WHITE BLOOD COUNT 3.9 x10^3/uL (4.0-11.0)
[2016-12-04 07:38] LABS: CALCIUM 7.7 mg/dL (8.5-10.1); GFR 52.4; POTASSIUM 4.2 mmol/L (3.5-5.1)
[2016-12-04 08:13] VITALS: BP 189/64
[2016-12-04] MEDS: ASPIRIN 81 MG TAB.CHEW PO SCH (08:39)
[2016-12-04] MEDS: FAMOTIDINE 20 MG TABLET PO SCH (08:39)
[2016-12-04 08:40] VITALS: BP 189/64
[2016-12-04] MEDS: LISINOPRIL 20 MG TABLET PO SCH (08:40)
--- NOTE | 2016-12-09 23:17 | DS ---
DATE OF DISCHARGE: 12/04/2016 HOSPITAL COURSE: The patient came in with generalized weakness, was noted by home health to have a blood pressure 210/120, came in through the Emergency Room and was found to have a significant urinary tract infection. As a result of this, the patient was admitted to the hospital for further evaluation, IV antibiotic therapy. The patient's allover white count was basically unremarkable. Sodium was slightly low at 131. Creatinine was 1.1. Urine did show greater than 40 white blood cells per high-powered field. The patient's urine was nonspecific, but did have greater than 100,000, may have been related to the fact that the urine may have been collected after the antibiotics were started. In any case, the patient made a good progress during the rest of her hospitalization. The patient's blood pressure did come down gradually to approximately 180/64. The patient's blood pressure came down to 189/64, pulse of 57, respiratory rate 18. The patient made a good progress. She was discharged back home for her rate question and she will be followed up as an outpatient and make further evaluation on her as indicated. The patient will be transferred to a skilled unit for further evaluation, IV antibiotic therapy and alike. IMPRESSION: Systemic inflammatory response syndrome, urinary tract infection, organism unspecified, mild dementia, hyponatremia, anemia of chronic disease, generalized weakness, hypertensive urgency. The patient will be discharged to the skilled unit. See MRAD. DISCHARGE INSTRUCTIONS: Decrease activity. PT/OT on that facility. LANNY MAGALLON MD DR: JERRI/richard JOB#: [id number] / [id number]
== END 2016-12-04 14:15 | disposition home health service (06) | DRG 872 ==
LOC: ER 17:44 → ICU 20:00 → 1 SOUTH 12-03 19:06
PROVIDERS: ADMIT Family Medicine; ATTEND Family Medicine
DX: A41.9 Sepsis, unspecified organism (principal); N39.0 Urinary tract infection, site not specified; E87.1 Hypo-osmolality and hyponatremia; F03.90 Unspecified dementia, unspecified severity, without behavioral disturbance, psychotic disturbance, mood disturbance, and anxiety; E86.0 Dehydration; K21.9 Gastro-esophageal reflux disease without esophagitis; K58.9 Irritable bowel syndrome, unspecified; I10 Essential (primary) hypertension; I25.10 Atherosclerotic heart disease of native coronary artery without angina pectoris; I25.2 Old myocardial infarction; Z80.42 Family history of malignant neoplasm of prostate; Z82.49 Family history of ischemic heart disease and other diseases of the circulatory system; Z85.850 Personal history of malignant neoplasm of thyroid; Z86.73 Personal history of transient ischemic attack (TIA), and cerebral infarction without residual deficits; Z90.710 Acquired absence of both cervix and uterus; Z90.49 Acquired absence of other specified parts of digestive tract; Z88.8 Allergy status to other drugs, medicaments and biological substances; Z91.041 Radiographic dye allergy status; D63.8 Anemia in other chronic diseases classified elsewhere; I16.0 Hypertensive urgency
CPT/HCPCS: 36415; 74020; 80048; 80053; 81001; 83605; 83735; 85027; 87040; 87086; 87641; 93005; 96361; 96374; J0360; J0696; J2405; J3010; 97110; 97116; 97530; 99285-25; J7030

== ENCOUNTER 2016-12-10 16:38 | Emergency (ER) | payer MEDICARE ==
[~2016-12-10] VITALS: Ht 160 cm; Wt 61.3 kg
[~2016-12-10 16:38] MED LIST changes: +RANI150T6 PO
[2016-12-10 16:47] VITALS: BP 182/98
--- NOTE | 2016-12-10 16:51 | PHYS DOC ---
Past History Past Medical History: CAD, Cancer, Hypertension, [place], Stroke Past Surgical History: Hysterectomy, Other Alcohol Use: None Drug Use: None Adult General Chief Complaint Chief Complaint: HEMORRHOIDS HPI HPI Patient is a 86 year old female who presents with complaint of rectal hemorrhoids and rectal pain after manual disimpaction for last 2 hours attending to remove constipated bowel. Patient has had a history of hemorrhoids and been seen multiple times in the year for similar complaints to include rectal pain and rectal hemorrhoids formation and lower extremity weakness. Noted the symptoms are not new. She says that she gets constipated with any new medications or change in her medications. She denies abdominal pain, denies any sick contacts, denies any new symptoms. Patient had a normal bowel movement yesterday. Patient rates her pain currently as 6 out of 10. She has taken Metamucil, Colace and manual disimpaction help with her symptoms. Review of Systems Review of Systems Constitutional: Denies fever or chills [] Eyes: Denies change in visual acuity, redness, or eye pain [] HENT: Denies nasal congestion or sore throat [] Respiratory: Denies cough or shortness of breath [] Cardiovascular: No additional information not addressed in HPI [] GI: Denies abdominal pain, nausea, vomiting, bloody stools or diarrhea [] : Denies dysuria or hematuria [] Musculoskeletal: Denies back pain or joint pain [] Integument: Denies rash or skin lesions [] Neurologic: Denies headache, described as weakness in her lower legs bilaterally. Endocrine: Denies polyuria or polydipsia [] Allergies Allergies Allergies Coded Allergies Type Severity Reaction Last Updated Verified Beta-Blockers (Beta-Adrenergic Bloc Allergy Intermediate Bradycardia 07/01/16 Yes amlodipine Allergy Intermediate 05/28/16 Yes atorvastatin Allergy Intermediate 05/28/16 Yes chlorthalidone Allergy Intermediate hyponatremia 07/01/16 Yes clonidine Allergy Intermediate bradycardia 07/01/16 Yes iodine Allergy Intermediate 05/28/16 Yes Physical Exam Physical Exam Vital signs have a heart rate of 74 blood pressure 182/118 saturation 90% on room air. Constitutional: Well developed, well nourished, no acute distress, non-toxic appearance. [] HENT: Normocephalic, atraumatic, bilateral external ears normal, oropharynx moist, no oral exudates, nose normal. [] Cardiovascular:Heart rate regular rhythm, no murmur [] Lungs & Thorax: Bilateral breath sounds clear to auscultation [] Abdomen: Bowel sounds normal, soft, no tenderness, no masses, no pulsatile masses. Exam shows multiple hemorrhoids in various states of inflammation. There is no evidence of perirectal or rectal cellulitis or abscess. There is no rectal fissure she has decent rectal tone on rectal exam she has minimal limited if any stool in the rectal vault. No obvious bleeding is minimal pain on my exam. [] Skin: Warm, dry, no erythema, no rash. [] Extremities: No tenderness, no cyanosis, no clubbing, ROM intact, no edema. [] Neurologic: Alert and oriented X 3, is able to roll on her right and left-sided without issue she is complaining of weakness in her lower legs but nothing new today. Psychologic: Affect normal, judgement normal, mood normal. [] EKG EKG [] Radiology/Procedures Radiology/Procedures [] Review acute abdominal series read by me timed 5:08 PM 12/10/2016 demonstrates no subcutaneous air no subdiaphragmatic air there is significant amount of stool without the colon without evidence of small bowel resection. Patient has scoliosis and noted on the x-ray with some osteoporosis well but no cold fractures. X-rays read by Dr. Calderón Course & Med Decision Making Course & Med Decision Making Pertinent Labs and Imaging studies reviewed. (See chart for details) Impression tells me that she lives alone and is independent and she is able to complete activities of daily living. She is concerned that she was constipated and is unable to have a bowel movement. On my exam very clearly she has minimal stool in the vault she has hemorrhoids that are minimally thrombosed not requiring local excision. There is no evidence of perirectal or rectal cellulitis or rectal abscess. Patient is no blood in her stool is found on exam. Patient's acute abdominal series demonstrates stool throughout the colon without evidence of bowel obstruction. Erp Technical Lead note: Dr. Stubbs Erp Technical Lead called at of the service 4:55 PM Consult called back at 4:55 PM Discussed the case I presented and they agreed with inpatient keep her follow- up appointment tomorrow and placing her on viscous lidocaine for rectal discomfort. [] Dragon Disclaimer Dragon Disclaimer This chart was dictated in whole or in part using Voice Recognition software in a busy, high-work load, and often noisy Emergency Department environment. It may contain unintended and wholly unrecognized errors or omissions. Departure Departure: Impression: Primary Impression: Generalized muscle weakness Additional Impressions: Hypertension Hemorrhoids Constipation Disposition: 01 HOME, SELF-CARE Admitting Physician: Paco Magallon Condition: STABLE Referrals: PACO MAGALLON MD (PCP) Patient Instructions: Constipation, Adult, Hemorrhoids Additional Instructions: Please follow-up with your primary care doctor's scheduled tomorrow. Please return for any new rectal pain, fevers, rectal swelling, despite given viscous lidocaine for your hemorrhoids. Please use Anusol HC as prescribed. Use Colace and stool softeners to help bulk her stool. Please drink a great deal of water in the 6-8 glasses of clear water a day help with your stool movements. Scripts Hydrocortisone Acetate (ANUSOL-HC) 25 Mg Supp.rect 1 SUPP RC BID, #28 SUPP 1 Refill Prov: FLOR CALDERÓN MD 12/10/16 Lidocaine (ANECREAM) 5 Gm Cream..g. 5 GM TP TID for 7 Days, EACH Prov: FLOR CALDERÓN MD 12/10/16 Problem Qualifiers FLOR CALDERÓN MD Dec 10, 2016 16:51
[2016-12-10] MEDS ORDERED: LIDO5CRE9 TP (17:12)
[2016-12-10] MEDS ORDERED: HYDR25SU18 RC (17:12)
[2016-12-10] MEDS ORDERED: LIDOCAINE 5% TOPICAL OINTMENT 35GM TUBE. TP ONE (17:15)
--- NOTE | 2016-12-10 17:16 | RAD ---
Acute abdomen series with chest, 3 views, 12/10/2016: History: Constipation with hemorrhoids There is a moderate amount of stool scattered throughout the colon. The abdominal gas pattern is otherwise unremarkable. No free air is seen in the abdomen. There is no evidence of organomegaly. Scattered arterial calcifications are present. There is moderate multilevel degenerative change in the spine. The bony structures are demineralized. The left ventricle is mildly prominent. The pulmonary vascularity is normal. No pulmonary infiltrates are seen. There is no evidence of pleural fluid. Surgical clips are projected over the right supraclavicular region. IMPRESSION: 1. Increased stool in the colon. 2. Otherwise no acute abdominal abnormality is detected.
== END 2016-12-10 18:40 | disposition home or self-care (01) ==
LOC: ER 16:38
DX: K64.8 Other hemorrhoids (principal); K59.00 Constipation, unspecified; R53.1 Weakness; I25.10 Atherosclerotic heart disease of native coronary artery without angina pectoris; I10 Essential (primary) hypertension; I25.2 Old myocardial infarction; Z86.73 Personal history of transient ischemic attack (TIA), and cerebral infarction without residual deficits; Z88.8 Allergy status to other drugs, medicaments and biological substances; Z91.041 Radiographic dye allergy status
CPT/HCPCS: 74022; 99284

== ENCOUNTER 2016-12-21 12:31 | Inpatient (IN) | payer MEDICARE ==
[~2016-12-21] VITALS: Ht 160 cm; Wt 58.1 kg
[~2016-12-21 12:31] MED LIST changes: +HYDR25SU18 RC; +LIDO5CRE9 TP
[2016-12-21 13:02] VITALS: BP 197/77
[2016-12-21] MEDS ORDERED: PHENYLEPH/MINERAL OIL/PETROLAT RECTAL OINTMENT 28GM TUBE. RC PRN (13:15)
[2016-12-21] MEDS ORDERED: GLYCERIN/WITCH HAZEL TOPICAL PADS 40'S JAR. TP ONE (13:15)
[2016-12-21] MEDS ORDERED: GLYCERIN/WITCH HAZEL TOPICAL PADS 40'S JAR. TP PRN (13:45)
[2016-12-21] MEDS ORDERED: MAGNESIUM CITRATE 296 ML SOLUTION. PO ONE (13:45)
[2016-12-21 13:48] LABS: BASO % 1 % (0-3); EOS % 1 % (0-3); HEMATOCRIT 33.9 % (36.0-47.0); HEMOGLOBIN 11.7 g/dL (12.0-15.5); LYMPH # 0.6 x10^3/uL (1.0-4.8); LYMPH % 14 % (24-48); MEAN CORPUSCULAR HEMOGLOBIN 30 pg (25-35); MEAN CORPUSCULAR HGB CONC 35 g/dL (31-37); MEAN CORPUSCULAR VOLUME 86 fL (79-100); MONO # 0.4 x10^3/uL (0.0-1.1); MONO % 10 % (0-9); NEUT # 3.1 x10^3uL (1.8-7.7); NEUT % 75 % (31-73); PLATELET COUNT 151 x10^3/uL (140-400); RED BLOOD COUNT 3.94 x10^6/uL (3.50-5.40); RED CELL DISTRIBUTION WIDTH 13.8 % (11.5-14.5); WHITE BLOOD COUNT 4.1 x10^3/uL (4.0-11.0)
[2016-12-21] MEDS: IV NORMAL SALINE 1,000ML 1,000 ML IV SCH ×2 (13:54→22:59)
[2016-12-21] MEDS: ENOXAPARIN 30 MG/0.3 ML DISP.SYRIN. SQ SCH (13:58)
[2016-12-21 14:00] LABS: ALBUMIN 3.5 g/dL (3.4-5.0); ALBUMIN/GLOBULIN RATIO 1.2 (1.0-1.7); CALCIUM 8.8 mg/dL (8.5-10.1); GFR 52.4; MAGNESIUM 1.7 mg/dL (1.8-2.4); POTASSIUM 3.7 mmol/L (3.5-5.1); TOTAL BILIRUBIN 0.9 mg/dL (0.2-1.0); TOTAL PROTEIN 6.4 g/dL (6.4-8.2)
[2016-12-21 15:54] VITALS: BP 193/70
[2016-12-21 15:57] VITALS: BP 178/71
[2016-12-21 16:00] VITALS: BP 151/73
[2016-12-21 17:09] LABS: BACTERIA,URINE 0 /HPF (0-FEW); BILIRUBIN,URINE NEG (NEG); CLARITY,URINE CLEAR; COLOR,URINE YELLOW; GLUCOSE,URINE NEG (NEG); NITRITE,URINE NEG (NEG); SQUAMOUS EPITHELIAL CELL,UR FEW /LPF; UROBILINOGEN,URINE 0.2 mg/dL (0.2 mg/dL)
[2016-12-21] MEDS ORDERED: CALCIUM CARBONATE 500 MG TAB.CHEW PO PRN (18:15)
[2016-12-21] MEDS ORDERED: POLYETHYLENE GLYCOL 3350 17 GM PACKET. PO PRN (18:15)
[2016-12-21] MEDS ORDERED: DOCUSATE SODIUM 100 MG CAPSULE PO PRN (18:15)
[2016-12-21] MEDS ORDERED: NITROGLYCERIN SUBLINGUAL 0.4 MG BOTTLE OF 25. SL PRN (18:15)
[2016-12-21] MEDS ORDERED: ACETAMINOPHEN 325 MG TABLET PO PRN (18:15)
[2016-12-21 19:42] VITALS: BP 168/63
[2016-12-21] MEDS: LISINOPRIL 20 MG TABLET PO SCH (20:12)
[2016-12-21] MEDS: HYDROCORTISONE ACETATE 25 MG SUPP.RECT RC SCH (20:13)
[2016-12-21] MEDS ORDERED: LIDOCAINE TP SCH (21:00)
[2016-12-21 22:44] VITALS: BP 121/55
[2016-12-22 04:08] VITALS: BP 160/70
[2016-12-22] MEDS: LEVOTHYROXINE 100 MCG TABLET PO SCH (04:19)
[2016-12-22] MEDS ORDERED: PANTOPRAZOLE IV PUSH 40 MG VIAL. IVP SCH (07:30)
[2016-12-22 08:20] LABS: CALCIUM 8.4 mg/dL (8.5-10.1); CREATININE 0.9 mg/dL (0.6-1.0); GFR 59.2; POTASSIUM 3.9 mmol/L (3.5-5.1)
[2016-12-22 08:24] LABS: BASO % 1 % (0-3); EOS % 1 % (0-3); HEMOGLOBIN 10.6 g/dL (12.0-15.5); LYMPH # 0.5 x10^3/uL (1.0-4.8); LYMPH % 20 % (24-48); MEAN CORPUSCULAR HEMOGLOBIN 30 pg (25-35); MEAN CORPUSCULAR HGB CONC 34 g/dL (31-37); MEAN CORPUSCULAR VOLUME 87 fL (79-100); MONO # 0.3 x10^3/uL (0.0-1.1); MONO % 14 % (0-9); NEUT # 1.7 x10^3uL (1.8-7.7); NEUT % 64 % (31-73); PLATELET COUNT 135 x10^3/uL (140-400); RED BLOOD COUNT 3.57 x10^6/uL (3.50-5.40); RED CELL DISTRIBUTION WIDTH 13.7 % (11.5-14.5); WHITE BLOOD COUNT 2.6 x10^3/uL (4.0-11.0)
[2016-12-22] MEDS: IV NORMAL SALINE 1,000ML 1,000 ML IV SCH ×2 (08:49→19:36)
[2016-12-22] MEDS: HYDROCORTISONE ACETATE 25 MG SUPP.RECT RC SCH ×2 (08:55→20:34)
[2016-12-22] MEDS: LISINOPRIL 20 MG TABLET PO SCH ×2 (08:56→20:35)
[2016-12-22] MEDS: ASPIRIN 81 MG TAB.CHEW PO SCH (08:57)
[2016-12-22] MEDS ORDERED: FAMOTIDINE 20 MG TABLET PO SCH (09:00)
[2016-12-22 09:19] VITALS: BP 180/72
--- NOTE | 2016-12-22 10:15 | RAD ---
AP portable chest radiograph 12/21/2016 Clinical History: Shortness of breath. An AP portable erect digital radiograph of the chest was obtained. Comparison study is dated 12/10/2016. The cardiac silhouette is mildly enlarged. Atherosclerotic calcification of the thoracic aorta is seen. The thoracic aorta is mildly tortuous. Surgical clips overlie the base of the neck. No acute pulmonary infiltrate is seen. No pleural effusion or pneumothorax is noted. The osseous structures are unchanged. Impression: No acute abnormality is seen.
[2016-12-22] MEDS: ENOXAPARIN 30 MG/0.3 ML DISP.SYRIN. SQ SCH (14:40)
[2016-12-22 14:46] VITALS: BP 153/71
[2016-12-22 16:53] VITALS: BP 148/62
[2016-12-22 19:14] VITALS: BP 153/70
[2016-12-22 22:46] VITALS: BP 141/78
[2016-12-23] MEDS: IV NORMAL SALINE 1,000ML 1,000 ML IV SCH (05:17)
[2016-12-23] MEDS: LEVOTHYROXINE 100 MCG TABLET PO SCH (05:17)
[2016-12-23 05:26] VITALS: BP 144/68
[2016-12-23] MEDS ORDERED: PANTOPRAZOLE 40 MG TABLET. PO SCH (07:30)
[2016-12-23] MEDS: LISINOPRIL 20 MG TABLET PO SCH ×2 (08:31→21:24)
[2016-12-23] MEDS: ASPIRIN 81 MG TAB.CHEW PO SCH (08:32)
[2016-12-23] MEDS: HYDROCORTISONE ACETATE 25 MG SUPP.RECT RC SCH ×2 (08:37→21:00)
[2016-12-23 11:00] VITALS: BP 177/70
[2016-12-23] MEDS: ENOXAPARIN 30 MG/0.3 ML DISP.SYRIN. SQ SCH (14:35)
[2016-12-23 15:00] VITALS: BP 152/59
--- NOTE | 2016-12-23 20:07 | PN ---
DATE: 12/22/2016 SUBJECTIVE: The patient was admitted yesterday with generalized weakness, unable to stand, and she was falling down. Her sodium was low at 127 and basically was 2-week to mobilize. The patient was also had a bad urinary tract infection and the patient says she is feeling a little better today. She is receiving physical and occupational therapy was given some normal saline and electrolytes were adjusted. OBJECTIVE: VITAL SIGNS: Blood pressure 140/70, respiration 18, pulse 60, afebrile. GENERAL: The patient more alert. We had physical therapy working with her generalized weakness trying to plan on her to be discharged at some type of skilled facility the patient otherwise. LUNGS: Diminished, but clear. CARDIOVASCULAR: Regular sinus rhythm. ABDOMEN: Soft, nontender. PLAN: The patient has some mild memory deficit and we will continue to monitor the patient accordingly and continue with IV fluids. For now repeat electrolytes in the morning. IMPRESSION: Generalized weakness, syncope, urinary tract infection, hyponatremia, generalized failure to thrive. LANNY MAGALLON MD DR: JERRI/richard JOB#: [id number] / [id number]
[2016-12-23 21:19] VITALS: BP 143/61
[2016-12-23 21:25] VITALS: BP 143/61
--- NOTE | 2016-12-24 00:32 | PN ---
DATE: 12/23/2016 SUBJECTIVE: An 86-year-old female in with generalized weakness, failure to thrive. The patient is resting fairly comfortably, although still very weak on her legs. The patient's white count went down to 2.6, hemoglobin 10 and 31. Electrolytes are much improved with sodium coming up from 127 up to 136. In any case, the patient seems to be making fairly good progress overall. We will continue his rehabilitation and probable transfer to the situation there on the skilled unit. 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 LANNY MAGALLON MD DR: JERRI/richard JOB#: [id number] / [id number]
== END 2016-12-23 21:30 | DRG 644 ==
LOC: 1 SOUTH 12:33
PROVIDERS: ADMIT Family Medicine; ATTEND Family Medicine
DX: E22.2 Syndrome of inappropriate secretion of antidiuretic hormone (principal); N39.0 Urinary tract infection, site not specified; E86.0 Dehydration; I69.891 Dysphagia following other cerebrovascular disease; I10 Essential (primary) hypertension; R62.7 Adult failure to thrive; R55 Syncope and collapse; I25.10 Atherosclerotic heart disease of native coronary artery without angina pectoris; K21.9 Gastro-esophageal reflux disease without esophagitis; E78.00 Pure hypercholesterolemia, unspecified; K58.9 Irritable bowel syndrome, unspecified; Z95.5 Presence of coronary angioplasty implant and graft; Z82.49 Family history of ischemic heart disease and other diseases of the circulatory system; Z80.42 Family history of malignant neoplasm of prostate; Z79.82 Long term (current) use of aspirin; Z79.899 Other long term (current) drug therapy; Z91.041 Radiographic dye allergy status; Z88.8 Allergy status to other drugs, medicaments and biological substances; Z90.49 Acquired absence of other specified parts of digestive tract; Z90.711 Acquired absence of uterus with remaining cervical stump
CPT/HCPCS: 36415; 71010; 80048; 80053; 81001; 83605; 83735; 85025; 87086; C9113; J1650; 92610; 97110; 97530; 97535; J7030

== ENCOUNTER 2016-12-23 21:30 | Inpatient (IN) | payer MEDICARE ==
[~2016-12-23] VITALS: Ht 160 cm; Wt 57.8 kg
[2016-12-23 21:30] VITALS: BP 143/61
[2016-12-23] MEDS ORDERED: POLYETHYLENE GLYCOL 3350 17 GM PACKET. PO PRN (23:45)
[2016-12-23] MEDS ORDERED: NITROGLYCERIN SUBLINGUAL 0.4 MG BOTTLE OF 25. SL PRN (23:45)
[2016-12-23] MEDS ORDERED: CALCIUM CARBONATE 500 MG TAB.CHEW PO PRN (23:45)
[2016-12-24] MEDS: LEVOTHYROXINE 100 MCG TABLET PO SCH (05:09)
[2016-12-24 05:13] VITALS: BP 185/75
[2016-12-24] MEDS ORDERED: LISINOPRIL 20 MG TABLET ONE (05:19)
[2016-12-24] MEDS: LISINOPRIL 20 MG TABLET PO SCH ×2 (05:22→20:27)
[2016-12-24] MEDS: DOCUSATE SODIUM 100 MG CAPSULE PO PRN (08:36)
[2016-12-24] MEDS: FAMOTIDINE 20 MG TABLET PO SCH (08:36)
[2016-12-24] MEDS: ASPIRIN 81 MG TAB.CHEW PO SCH (08:36)
[2016-12-24] MEDS: HYDROCORTISONE ACETATE 25 MG SUPP.RECT RC SCH ×2 (08:37→20:29)
[2016-12-24] MEDS ORDERED: RANITIDINE HCL 75 MG PO SCH (09:00)
[2016-12-24 14:14] VITALS: BP 179/76
[2016-12-24 18:48] VITALS: BP 170/78
[2016-12-24] MEDS: PRAVASTATIN 20 MG TABLET. PO SCH (20:27)
[2016-12-25] MEDS: LEVOTHYROXINE 100 MCG TABLET PO SCH (05:39)
[2016-12-25 05:40] VITALS: BP 172/65
[2016-12-25] MEDS: FAMOTIDINE 20 MG TABLET PO SCH (08:09)
[2016-12-25] MEDS: LISINOPRIL 20 MG TABLET PO SCH ×2 (08:09→20:34)
[2016-12-25] MEDS: ASPIRIN 81 MG TAB.CHEW PO SCH (08:09)
[2016-12-25] MEDS: HYDROCORTISONE ACETATE 25 MG SUPP.RECT RC SCH ×2 (09:00→20:34)
[2016-12-25] MEDS ORDERED: OLME20TA19 PO (14:58)
[2016-12-25] MEDS ORDERED: LOSARTAN 50 MG TABLET. PO SCH (15:30)
[2016-12-25] MEDS ORDERED: LOSARTAN 50 MG TABLET. PO PRN (15:30)
[2016-12-25 16:35] VITALS: BP 189/84
[2016-12-25] MEDS ORDERED: NIFEdipine 10 MG CAPSULE PO SCH (17:30)
[2016-12-25 18:17] VITALS: BP 159/84
[2016-12-25 20:16] VITALS: BP 164/84
[2016-12-25] MEDS: PRAVASTATIN 20 MG TABLET. PO SCH (20:33)
[2016-12-26 05:47] VITALS: BP 162/79
[2016-12-26] MEDS: ASPIRIN 81 MG TAB.CHEW PO SCH (07:41)
[2016-12-26] MEDS: LISINOPRIL 20 MG TABLET PO SCH ×2 (07:43→20:22)
[2016-12-26] MEDS: LEVOTHYROXINE 100 MCG TABLET PO SCH (07:43)
[2016-12-26] MEDS: FAMOTIDINE 20 MG TABLET PO SCH (07:44)
[2016-12-26] MEDS: HYDROCORTISONE ACETATE 25 MG SUPP.RECT RC SCH ×2 (07:46→21:00)
[2016-12-26] MEDS: ACETAMINOPHEN 325 MG TABLET PO PRN ×2 (08:24→20:44)
[2016-12-26 11:55] VITALS: BP 130/67
[2016-12-26 18:04] VITALS: BP 145/96
[2016-12-26] MEDS: PRAVASTATIN 20 MG TABLET. PO SCH (20:21)
[2016-12-27 05:14] VITALS: BP 158/63
[2016-12-27] MEDS: LEVOTHYROXINE 100 MCG TABLET PO SCH (05:46)
[2016-12-27 08:30] VITALS: BP 136/65
[2016-12-27] MEDS: ASPIRIN 81 MG TAB.CHEW PO SCH (08:44)
[2016-12-27] MEDS: FAMOTIDINE 20 MG TABLET PO SCH (08:44)
[2016-12-27] MEDS: LISINOPRIL 20 MG TABLET PO SCH ×2 (08:45→19:32)
[2016-12-27] MEDS: HYDROCORTISONE ACETATE 25 MG SUPP.RECT RC SCH ×2 (09:00→19:33)
[2016-12-27] MEDS: DOCUSATE SODIUM 100 MG CAPSULE PO PRN (14:26)
[2016-12-27 19:03] VITALS: BP 145/62
[2016-12-27] MEDS: PRAVASTATIN 20 MG TABLET. PO SCH (19:33)
[2016-12-28 04:05] VITALS: BP 157/67
[2016-12-28] MEDS: ACETAMINOPHEN 325 MG TABLET PO PRN (04:05)
[2016-12-28] MEDS: LEVOTHYROXINE 100 MCG TABLET PO SCH (05:17)
[2016-12-28] MEDS: HYDROCORTISONE ACETATE 25 MG SUPP.RECT RC SCH ×2 (07:54→20:05)
[2016-12-28] MEDS: FAMOTIDINE 20 MG TABLET PO SCH (09:13)
[2016-12-28] MEDS: ASPIRIN 81 MG TAB.CHEW PO SCH (09:13)
[2016-12-28] MEDS: DOCUSATE SODIUM 100 MG CAPSULE PO PRN ×2 (09:13→20:05)
[2016-12-28] MEDS: LISINOPRIL 20 MG TABLET PO SCH ×2 (09:14→20:05)
[2016-12-28 13:01] VITALS: BP 179/78
[2016-12-28 17:44] VITALS: BP 149/70
[2016-12-28] MEDS: PRAVASTATIN 20 MG TABLET. PO SCH (20:05)
[2016-12-29] MEDS: LEVOTHYROXINE 100 MCG TABLET PO SCH (05:02)
[2016-12-29 05:05] VITALS: BP 138/58
[2016-12-29] MEDS: HYDROCORTISONE ACETATE 25 MG SUPP.RECT RC SCH (09:00)
[2016-12-29] MEDS: ASPIRIN 81 MG TAB.CHEW PO SCH (09:15)
[2016-12-29] MEDS: FAMOTIDINE 20 MG TABLET PO SCH (09:15)
[2016-12-29] MEDS: LISINOPRIL 20 MG TABLET PO SCH (09:16)
[2016-12-29 10:00] VITALS: BP 164/84
== END 2016-12-29 11:30 | disposition home health service (06) | DRG 392 ==
LOC: LND 21:30
PROVIDERS: ADMIT Family Medicine; ATTEND Family Medicine
DX: R13.10 Dysphagia, unspecified (principal); E86.0 Dehydration; I69.891 Dysphagia following other cerebrovascular disease; I10 Essential (primary) hypertension; I25.10 Atherosclerotic heart disease of native coronary artery without angina pectoris; K64.9 Unspecified hemorrhoids; R42 Dizziness and giddiness; K21.9 Gastro-esophageal reflux disease without esophagitis; Z90.711 Acquired absence of uterus with remaining cervical stump; Z95.5 Presence of coronary angioplasty implant and graft; Z90.49 Acquired absence of other specified parts of digestive tract; Z85.850 Personal history of malignant neoplasm of thyroid; Z82.49 Family history of ischemic heart disease and other diseases of the circulatory system; Z80.42 Family history of malignant neoplasm of prostate; I25.2 Old myocardial infarction
CPT/HCPCS: 97110; 97116; 97530; 97535

== ENCOUNTER 2017-03-23 18:00 | Inpatient (IN) | payer MEDICARE ==
[~2017-03-23] VITALS: Ht 160 cm; Wt 59.4 kg
[~2017-03-23 18:00] MED LIST changes: -METO50TA10 PO; +METO50TA29 PO; +OLME20TA19 PO
--- NOTE | 2017-03-23 18:13 | ED.ADGEN ---
Past History Past Medical History: CAD, Cancer, CHF, Hypertension, ME, Stroke, Other Past Surgical History: Hysterectomy, Other Alcohol Use: None Drug Use: None Adult General Chief Complaint Chief Complaint " I just don't feel well.. tired, weak, my BP is off..." " I get short of breath.. and dizzy if I get up to quick.." HPI HPI Patient is a 86 year old female who presents with above hx and complaints of generalized fatigue, dizziness, malaise, and increased dyspnea. Pt. normally follows with Dr. Alas. Recent Dx. of UTI, Accelerated Hypertension, Deconditioning. Pt. lives at home with assistance of [facility]. Review of Systems Review of Systems Constitutional: Denies fever or chills [] Eyes: Denies change in visual acuity, redness, or eye pain [] HENT: Denies nasal congestion or sore throat [] Respiratory: Complaints of shortness of breath [] Cardiovascular: No additional information not addressed in HPI [] GI: Denies abdominal pain, nausea, vomiting, bloody stools or diarrhea [] : Denies dysuria or hematuria [] Musculoskeletal: Complaints of generalized myalgia and arthralgia back pain or joint pain []complaints of generalized weakness Integument: Denies rash or skin lesions [] Neurologic: Denies headache, focal weakness or sensory changes, complaints of dizziness Endocrine: Denies polyuria or polydipsia [] All other systems were reviewed and found to be within normal limits, except as documented in this note. Family History Family History Non-contributory Current Medications Current Medications Current Medications Medications (Trade) Dose Ordered Sig/Umesh Start Time Stop Time Status Last Admin Dose Admin Aspirin (Children'S Aspirin) 324 mg 1X ONCE 03/23/17 18:30 03/23/17 18:31 DC 03/23/17 18:23 81 MG Furosemide (Lasix) 40 mg 1X ONCE 03/23/17 19:30 03/23/17 19:31 DC 03/23/17 19:29 40 MG Sodium Chloride 1,000 ml @ 100 mls/hr Q10H 03/23/17 18:17 03/24/17 04:16 03/23/17 18:23 100 MLS/HR Allergies Allergies Allergies Coded Allergies Type Severity Reaction Last Updated Verified Beta-Blockers (Beta-Adrenergic Bloc Allergy Intermediate Bradycardia 07/01/16 Yes amlodipine Allergy Intermediate 05/28/16 Yes atorvastatin Allergy Intermediate 05/28/16 Yes chlorthalidone Allergy Intermediate hyponatremia 07/01/16 Yes clonidine Allergy Intermediate bradycardia 07/01/16 Yes iodine Allergy Intermediate 05/28/16 Yes Physical Exam Physical Exam Constitutional: Mild distress, non-toxic appearance. [] HENT: Normocephalic, atraumatic, bilateral external ears normal, oropharynx moist, no oral exudates, nose normal. JVD in sitting position Eyes: PERRLA, EOMI, conjunctiva normal, no discharge. [] Neck: Normal range of motion, no tenderness, supple, no stridor. [] Cardiovascular: Bradycardia Heart rate regular rhythm, no murmur, PMI to the left Lungs & Thorax: Bilateral breath sounds equal at apexes with basilar crackles on auscultation [] Abdomen: Bowel sounds normal, soft, no tenderness, no masses, no pulsatile masses. [] Skin: Warm, dry, no erythema, no rash. [] Back: No tenderness, no CVA tenderness. [] Extremities: No tenderness, no cyanosis, no clubbing, ROM intact, no edema. Arthritic changes Neurologic: Alert and oriented X 3, normal motor function, normal sensory function, no focal deficits noted. [] Psychologic: Affect anxious, judgement normal, mood normal. [] Current Patient Data Vital Signs Vital Signs Date Time Temp Pulse Resp B/P (MAP) Pulse Ox O2 Delivery O2 Flow Rate FiO2 03/23/17 19:06 61 182/70 (107) 03/23/17 18:29 98.1 14 98 Room Air Lab Results Laboratory Tests Test 03/23/17 18:10 White Blood Count 5.1 x10^3/uL (4.0-11.0) Red Blood Count 4.25 x10^6/uL (3.50-5.40) Hemoglobin 12.8 g/dL (12.0-15.5) Hematocrit 36.9 % (36.0-47.0) Mean Corpuscular Volume 87 fL (79-100) Mean Corpuscular Hemoglobin 30 pg (25-35) Mean Corpuscular Hemoglobin Concent 35 g/dL (31-37) Red Cell Distribution Width 13.6 % (11.5-14.5) Platelet Count 188 x10^3/uL (140-400) Neutrophils (%) (Auto) 71 % (31-73) Lymphocytes (%) (Auto) 17 % (24-48) L Monocytes (%) (Auto) 9 % (0-9) Eosinophils (%) (Auto) 2 % (0-3) Basophils (%) (Auto) 1 % (0-3) Neutrophils # (Auto) 3.6 x10^3uL (1.8-7.7) Lymphocytes # (Auto) 0.9 x10^3/uL (1.0-4.8) L Monocytes # (Auto) 0.5 x10^3/uL (0.0-1.1) Eosinophils # (Auto) 0.1 x10^3/uL (0.0-0.7) Basophils # (Auto) 0.0 x10^3/uL (0.0-0.2) Prothrombin Time 9.5 SEC (9.4-11.4) Prothrombin Time INR 0.9 (0.9-1.1) PTT 25 SEC (23-33) D-Dimer (Annette) 0.51 mg/L (0.00-0.50) H Sodium Level 131 mmol/L (136-145) L Potassium Level 4.1 mmol/L (3.5-5.1) Chloride Level 96 mmol/L (98-107) L Carbon Dioxide Level 27 mmol/L (21-32) Anion Gap 8 (6-14) Blood Urea Nitrogen 20 mg/dL (7-20) Creatinine 1.1 mg/dL (0.6-1.0) H Estimated GFR (Cockcroft-Gault) 47.0 Glucose Level 117 mg/dL (70-99) H Calcium Level 8.9 mg/dL (8.5-10.1) Magnesium Level 1.7 mg/dL (1.8-2.4) L Total Bilirubin 0.4 mg/dL (0.2-1.0) Direct Bilirubin 0.1 mg/dL (0.0-0.2) Aspartate Amino Transferase (AST) 15 U/L (15-37) Alanine Aminotransferase (ALT) 17 U/L (14-59) Alkaline Phosphatase 65 U/L (46-116) Creatine Kinase 59 U/L (26-192) Creatine Kinase MB (Mass) 1.9 ng/mL (0.0-3.6) Creatine Kinase MB Relative Index 3.2 % (0-4) Troponin I Quantitative 0.018 ng/mL (0-0.055) VY-Cio-C-Type Natriuretic Peptide 1657 pg/mL (0-449) H Total Protein 6.9 g/dL (6.4-8.2) Albumin 3.6 g/dL (3.4-5.0) Lipase 104 U/L (73-393) EKG EKG Dictation of EKG shows a sinus rhythm at 69 bpm. There is prolonged VA interval and some left axis deviation. Mild delay in anterior fascicular block. But no findings acute STEMI with contralateral changes[] Radiology/Procedures Radiology/Procedures I interpretation of chest x-ray shows borderline cardiomegaly. Does have some increased cephalization. Has clips from previous surgery and neck. Mild degenerative joint changes.[] Course & Med Decision Making Course & Med Decision Making Pertinent Labs and Imaging studies reviewed. (See chart for details). Discussed presentation testing and treatment plan with Dr. Alas- Admit for further tx. and evaluation. [] Final Impression Final Impression 1. Malaise[] 2. Arthralgia 3. CHF 4. Bradycardia 5. Hypo-magnesium 6. Hyponatremia 7. Elevated creatinine 8. HTN 9. Elevated D-dimer Problems: Dragon Disclaimer Dragon Disclaimer This electronic medical record was generated, in whole or in part, using a voice recognition dictation system. JOSE CARLOS REILLY MD Mar 23, 2017 18:12
[2017-03-23] MEDS ORDERED: IV NORMAL SALINE 1,000ML 1,000 ML IV SCH (18:17)
--- NOTE | 2017-03-23 18:27 | EKG ---
[address] [address] Test Date: 2017-03-23 Test Time: 18:20:08 Pat Name: STEPHANIE HOUSTON Department: Room: Gender: F Thread Winder Automatic: SARA : [id number] Requested By: JOSE CARLOS REILLY Order Number: [id number] Reading MD: Abilio Iqbal Measurements Intervals [place] Rate: 69 P: 90 MO: 228 QRS: -32 QRSD: 96 T: 41 QT: 412 QTc: 443 Interpretive Statements SINUS RHYTHM PROLONGED MO INTERVAL ABNORMAL LEFT AXIS DEVIATION LEFT ANTERIOR FASCICULAR BLOCK ABNORMAL ECG Electronically Signed On 03-29-2017 14:40:23 CORPORATE LEGAL INTERN by Abilio Iqbal
[2017-03-23] MEDS ORDERED: ASPIRIN 81 MG TAB.CHEW PO ONE (18:30)
[2017-03-23 18:55] LABS: BASO % 1 % (0-3); EOS # 0.1 x10^3/uL (0.0-0.7); EOS % 2 % (0-3); HEMATOCRIT 36.9 % (36.0-47.0); HEMOGLOBIN 12.8 g/dL (12.0-15.5); LYMPH # 0.9 x10^3/uL (1.0-4.8); LYMPH % 17 % (24-48); MEAN CORPUSCULAR HEMOGLOBIN 30 pg (25-35); MEAN CORPUSCULAR HGB CONC 35 g/dL (31-37); MEAN CORPUSCULAR VOLUME 87 fL (79-100); MONO # 0.5 x10^3/uL (0.0-1.1); MONO % 9 % (0-9); NEUT # 3.6 x10^3uL (1.8-7.7); NEUT % 71 % (31-73); PLATELET COUNT 188 x10^3/uL (140-400); RED BLOOD COUNT 4.25 x10^6/uL (3.50-5.40); RED CELL DISTRIBUTION WIDTH 13.6 % (11.5-14.5); WHITE BLOOD COUNT 5.1 x10^3/uL (4.0-11.0)
[2017-03-23 19:06] LABS: ALBUMIN 3.6 g/dL (3.4-5.0); CALCIUM 8.9 mg/dL (8.5-10.1); CREATININE 1.1 mg/dL (0.6-1.0); DIRECT BILIRUBIN 0.1 mg/dL (0.0-0.2); MAGNESIUM 1.7 mg/dL (1.8-2.4); POTASSIUM 4.1 mmol/L (3.5-5.1); TOTAL BILIRUBIN 0.4 mg/dL (0.2-1.0); TOTAL PROTEIN 6.9 g/dL (6.4-8.2)
[2017-03-23] MEDS ORDERED: FUROSEMIDE 40 MG/4 ML VIAL IVP ONE (19:30)
[2017-03-23] MEDS ORDERED: ENOXAPARIN ** NOTE DOSE ** SYRINGE SQ ONE (20:00)
[2017-03-23] MEDS ORDERED: NITROGLYCERIN OINT 1 GM PACKET. TP ONE (20:00)
[2017-03-23 20:08] LABS: BACTERIA,URINE 0 /HPF (0-FEW); BILIRUBIN,URINE NEG (NEG); CLARITY,URINE CLEAR; COLOR,URINE YELLOW; GLUCOSE,URINE NEG (NEG); NITRITE,URINE NEG (NEG); SQUAMOUS EPITHELIAL CELL,UR OCC /LPF; UROBILINOGEN,URINE 0.2 mg/dL (0.2 mg/dL)
[2017-03-23 20:11] LABS: BARBITURATES NEG (NEG); BENZODIAZEPINES NEG (NEG); CANNABINOIDS NEG (NEG); COCAINE NEG (NEG); METHADONE NEG (NEG); OPIATES NEG (NEG); PHENCYCLIDINE NEG (NEG)
[2017-03-23 20:12] LABS: AMPHETAMINE/METHAMPHETAMINE NEG (NEG)
--- NOTE | 2017-03-23 20:28 | RAD ---
CT Head W/O Contrast: History: Dizziness, numbness in bilateral upper and lower extremities
Sent previous CT Head 08/2016 for comparison Comparison: September 17, 2016 Axial images were obtained without contrast. There is moderate diffuse atrophy. There is no mass effect, extraaxial fluid collections or hydrocephalus. There is no gross bleed. Moderate, patchy periventricular and subcortical white matter hypoattenuation is seen. There is no focal loss of rg-white matter distinction to suggest acute ischemia, i.e. stroke. Impression: Moderate atrophy and chronic white matter changes. Old lacunar infarcts are possible. No acute findings. PQRS Compliance Statement: One or more of the following individualized dose reduction techniques were utilized for this examination: 1. Automated exposure control 2. Adjustment of the mA and/or kV according to patient size 3. Use of iterative reconstruction technique Electronically signed by: Manav Randall III, MD (03/23/2017 8:25 PM) [facility]
[2017-03-23] MEDS ORDERED: LIDO5CRE9 TP (21:29)
[2017-03-23] MEDS ORDERED: HYDR25SU18 RC (21:31)
[2017-03-23 21:36] VITALS: BP 179/68
[2017-03-23] MEDS ORDERED: LIDOCAINE TP PRN (21:45)
[2017-03-23] MEDS ORDERED: MAGNESIUM SULFATE 2GM 50 ML IV ONE (21:45)
[2017-03-23] MEDS ORDERED: HYDROCORTISONE ACETATE 25 MG SUPP.RECT RC PRN (21:45)
[2017-03-23] MEDS ORDERED: ACETAMINOPHEN 325 MG TABLET PO PRN (21:45)
[2017-03-23] MEDS ORDERED: POLYETHYLENE GLYCOL 3350 17 GM PACKET. PO PRN (21:45)
[2017-03-23] MEDS ORDERED: NITROGLYCERIN SUBLINGUAL 0.4 MG BOTTLE OF 25. SL PRN (21:45)
[2017-03-23] MEDS ORDERED: CALCIUM CARBONATE 500 MG TAB.CHEW PO PRN (22:00)
[2017-03-23] MEDS: PRAVASTATIN 20 MG TABLET. PO SCH (22:02)
[2017-03-23] MEDS: LISINOPRIL 20 MG TABLET PO SCH (22:03)
[2017-03-23 23:46] VITALS: BP 97/57
[2017-03-24 05:04] VITALS: BP 129/69
[2017-03-24] MEDS: LEVOTHYROXINE 100 MCG TABLET PO SCH (05:23)
[2017-03-24 06:50] LABS: BASO % 1 % (0-3); EOS # 0.1 x10^3/uL (0.0-0.7); EOS % 2 % (0-3); HEMATOCRIT 33.1 % (36.0-47.0); HEMOGLOBIN 11.7 g/dL (12.0-15.5); LYMPH # 0.6 x10^3/uL (1.0-4.8); LYMPH % 16 % (24-48); MEAN CORPUSCULAR HEMOGLOBIN 30 pg (25-35); MEAN CORPUSCULAR HGB CONC 35 g/dL (31-37); MEAN CORPUSCULAR VOLUME 86 fL (79-100); MONO # 0.5 x10^3/uL (0.0-1.1); MONO % 14 % (0-9); NEUT # 2.5 x10^3uL (1.8-7.7); NEUT % 67 % (31-73); PLATELET COUNT 172 x10^3/uL (140-400); RED BLOOD COUNT 3.84 x10^6/uL (3.50-5.40); RED CELL DISTRIBUTION WIDTH 13.6 % (11.5-14.5); WHITE BLOOD COUNT 3.7 x10^3/uL (4.0-11.0)
[2017-03-24 07:02] LABS: ALBUMIN 3.2 g/dL (3.4-5.0); ALBUMIN/GLOBULIN RATIO 1.1 (1.0-1.7); CALCIUM 8.4 mg/dL (8.5-10.1); CREATININE 1.1 mg/dL (0.6-1.0); MAGNESIUM 2.4 mg/dL (1.8-2.4); POTASSIUM 3.7 mmol/L (3.5-5.1); TOTAL BILIRUBIN 0.5 mg/dL (0.2-1.0); TOTAL PROTEIN 6.2 g/dL (6.4-8.2)
[2017-03-24] MEDS: NITROGLYCERIN OINT 1 GM PACKET. TP SCH ×3 (08:00→21:21)
--- NOTE | 2017-03-24 08:50 | RAD ---
Portable chest, 03/23/2017: History: Dizziness Comparison is made to a study from 12/21/2016. The left ventricle is mildly prominent. The pulmonary vascularity is normal. No pulmonary infiltrates are seen. There is no evidence of pleural fluid. Numerous surgical clips are present near the thoracic inlet, centered to the right of midline. IMPRESSION: No acute cardiopulmonary abnormality is detected.
[2017-03-24] MEDS ORDERED: LOSARTAN 50 MG TABLET. PO PRN (09:00)
[2017-03-24] MEDS: FAMOTIDINE 20 MG TABLET PO SCH (09:15)
[2017-03-24] MEDS: ENOXAPARIN ** NOTE DOSE ** SYRINGE SQ SCH ×2 (09:15→20:41)
[2017-03-24] MEDS: ASPIRIN 81 MG TAB.CHEW PO SCH (09:15)
[2017-03-24] MEDS: LISINOPRIL 20 MG TABLET PO SCH ×2 (09:16→20:42)
[2017-03-24] MEDS ORDERED: FUROSEMIDE 20 MG/2 ML VIAL IVP SCH (10:30)
[2017-03-24 11:24] VITALS: BP 144/64
--- NOTE | 2017-03-24 13:42 | PDOC2 ---
CONSULT The patient has been seen and examined and the full consult has been dictated.~ I have summarized the most important points for review while the note is being transcribed.~ Please see the dictation for complete details. Summary: Hypertension: We will try her on nifedipine. She has had edema with amlodipine. Elevated proBNP: There is no clinical or radiological or symptomatic evidence of congestive heart failure. I will discontinue her IV Lasix Problems: ANDREI SALCEDO MD Mar 24, 2017 13:42
[2017-03-24 14:15] VITALS: BP 157/76
--- NOTE | 2017-03-24 15:49 | HP ---
ADMIT DATE: 03/23/2017 HISTORY OF PRESENT ILLNESS: The patient is an 86-year-old female who came in through the Emergency Room feeling tired, weak, low blood pressure, felt dizzy, felt like she was going to pass out. The patient had increased dyspnea, was found to be in congestive heart failure. The patient was admitted to the hospital for further evaluation and treatment of her acute on top of chronic congestive heart failure. The patient lives alone, noncompliant with some of her medications. PAST MEDICAL HISTORY: Thyroid disease, tinnitus, tonsillectomy, adenoidectomy, CVA, numbness, heart attack, coronary artery disease, cardiac surgery, hypercholesterolemia, hypertension, irritable bowel syndrome, hemorrhoidectomy, gastroesophageal reflux, reproductive disorders, hysterectomy, urinary tract infections, incontinence, musculoskeletal disease, thyroid cancer, thyroidectomy, cancer. Influenza and pneumococcal vaccines up-to-date. FAMILY HISTORY: Prostate cancer in a brother. Mother, father with cancer, brother and son with hypertension. ALLERGIES: THE PATIENT HAS ALLERGIES TO BETA BLOCKERS, BETA ADRENERGIC BLOCKADE. AMLODIPINE, NORVASC, LIPITOR, CHLORTHALIDONE, CLONIDINE, AND IODINE. HOME MEDICATIONS: Include Tylenol, aspirin 81, calcium carbonate, docusate sodium, hydralazine 50, hydrocortisone, levothyroxine 100 mcg daily, Lidoderm patch, lisinopril 40 mg b.i.d., nitroglycerin 0.4, Benicar 20 mg a day, pravastatin 80, ranitidine 150 mg daily. SOCIAL HISTORY: The patient denies smoking, alcohol or drug use. Lives at home by herself. REVIEW OF SYSTEMS: Increased shortness of breath, dyspnea, weakness. Denies chest pain per se, but does have generalized weakness. PHYSICAL EXAMINATION: GENERAL: This is a pleasant white female, in moderate amount of distress. VITAL SIGNS: Blood pressure 180/68, respiratory rate 16, pulse 18, afebrile, though blood pressure does drop down to 97/57. HEENT: The patient's head was atraumatic, normocephalic. Eyes were without jaundice. Mouth and throat were normal. NECK: Supple, without JVD, carotid bruits. No thyromegaly. LUNGS: Diminished throughout, but clear. CARDIOVASCULAR: Regular sinus rhythm, S1, S2, without murmur, rub, thrill, or extra heart sounds. ABDOMEN: Soft, nontender, no rebound or guarding. Positive bowel sounds, no hepatosplenomegaly. EXTREMITIES: There was no clubbing, cyanosis or edema. NEUROLOGIC: The patient was alert and oriented x 3. The patient's D-dimer elevated at 0.51. We will continue to monitor the patient on that, get a venous Doppler on her on that, make further evaluation as indicated. Otherwise, we will get a CTA or V/Q depending on her chemistries to make further evaluation on her as indicated. IMPRESSION: Congestive heart failure, elevated D-dimer, chronic kidney failure, acute on top of chronic diastolic heart failure, elevated troponins, slight dementia, generalized weakness. The patient will continued to be monitored carefully and make further evaluation on her as indicated. We will have Cardiology see her for consultation. LANNY MAGALLON MD DR: JERRI/richard JOB#: [id number] / [id number]
--- NOTE | 2017-03-24 15:49 | RAD ---
Bilateral lower extremity venous ultrasound, 03/24/2017: History: Elevated d-dimer Duplex evaluation of the deep veins in the lower extremities was performed including grayscale, color-flow and spectral Doppler analysis. The femoral and popliteal veins demonstrate normal compressibility and normal responses to distal augmentation maneuvers. Color imaging of those vessels shows no evidence of intraluminal clot. The visualized deep veins in both calves are patent. Incidental note is made of a small hypoechoic mass in the left popliteal fossa. It measures 2.8 x 1.9 x 1.5 cm. Its margins are lobulated. There is internal vascularity. IMPRESSION: 1. There is no sonographic evidence of deep vein thrombosis in either lower extremity. 2. Small left popliteal fossa mass. A neoplastic etiology cannot be excluded.
[2017-03-24 20:15] VITALS: BP_SYST 120; BP_SYST 125; BP_DIAS 76; BP_DIAS 80
[2017-03-24] MEDS: PRAVASTATIN 20 MG TABLET. PO SCH (20:41)
[2017-03-24] MEDS: DOCUSATE SODIUM 100 MG CAPSULE PO PRN (20:45)
[2017-03-24 23:34] VITALS: BP 134/59
--- NOTE | 2017-03-25 02:16 | CONS ---
DATE OF CONSULTATION: REASON FOR CONSULTATION: Elevated proBNP, ? congestive heart failure. HISTORY OF PRESENT ILLNESS: This is an 86-year-old white female followed in our office with a history of coronary artery disease, hypertension with intolerance to medications, who checked her blood pressure and found it to be high in the 200 range, and felt dizzy and came to the hospital. Her initial blood pressure over here was 182/70. She denied any chest pain or shortness of breath. She denies any edema. Her proBNP was checked and was 1600. Since admission, she has been on IV diuretics. Her blood pressure is trending down, although has been intermittently high. REVIEW OF SYSTEMS: No chest pain, shortness of breath or palpitations. Rest of the 12 organ review of systems negative. PREVIOUS MEDICAL HISTORY: She has a history of coronary artery disease, and has had stents put in, the last one in 2011. She has a history of hypertension, hyperlipidemia, chronic kidney disease, and history of TIA. She has had thyroid cancer. She has a history of supraventricular ectopics and pauses. ALLERGIES: AMLODIPINE CAUSE EDEMA. BETA BLOCKERS CAUSE BRADYCARDIA. IODINE CAUSE DIARRHEA. LIPITOR MADE HER DIZZY. MEDICATIONS: Lisinopril 40 mg p.o. every day, hydralazine 100 mg t.i.d., levothyroxine, Benicar p.r.n., aspirin, Nitrostat, ranitidine. SOCIAL HISTORY: She lives alone and is . She does not smoke or take alcohol. She tries to cook healthy, but does use canned foods. FAMILY HISTORY: There is no family history of premature coronary artery disease. There is a family history of strokes and hypertension. PHYSICAL EXAMINATION: GENERAL: She appears comfortable, lying supine. VITAL SIGNS: Pulse rate is 58 and regular, blood pressure 144/64. HEENT: The pupils are equal and reactive. Extraocular movements are normal. Sclerae clear. Mucous membranes are moist. Tongue is normal. NECK: Supple. No carotid bruits. She has mild swelling around the thyroid area. Jugular venous pressure is not elevated. CARDIOVASCULAR: Revealed normal first and second heart sounds with a 2/6 ejection systolic murmur widely heard over the precordium, but best at the base of the heart. There are no diastolic murmurs. CHEST: Normal to percuss with equal breath sounds bilaterally without any adventitious sounds. ABDOMEN: Soft, without any palpable mass or pulsations. No bruits. EXTREMITIES: Reveal no edema. Distal pulses are well felt. There are no cyanosis or clubbing. No tremors. NEUROLOGIC: There is no facial asymmetry. There are no motor or sensory deficits. There are no skin rashes. She does ambulate with a walker. IMPRESSION: 1. Accelerated hypertension: She presents with a blood pressure over 200 with dizziness. She denies missing any of her medications or having a salty meal. Her blood pressure is looking better with some diuresis. Unfortunately, she has a problem with multiple medications including amlodipine causing edema, bradycardia with beta blockers, and hyponatremia, which makes thiazide diuretics a difficult choice. We will give her an alternate, but lower dose calcium antagonist, nifedipine 30 mg p.o. daily and see how she does. 2. Elevated proBNP: She has no clinical evidence of congestive heart failure. She has had normal LV function. She denies any shortness of breath and x-ray does not show any evidence of congestive heart failure. This could be related to left ventricular strain from hypertension. 3. Coronary artery disease: She is status post stents, the last in 2011. She denies any angina. 4. Hyperlipidemia: She is on a statin. 5. Chronic kidney disease: Creatinine is 1.1, currently with a GFR of 47. Her BUN is going up. I will discontinue her Lasix. ANDREI SALCEDO MD DR: ALVARADO/richard JOB#: [id number] / [id number] LANNY eLon MD
[2017-03-25] MEDS: LEVOTHYROXINE 100 MCG TABLET PO SCH (04:40)
[2017-03-25] MEDS: NITROGLYCERIN OINT 1 GM PACKET. TP SCH ×3 (04:40→22:00)
[2017-03-25 05:21] VITALS: BP 153/84
[2017-03-25 06:36] LABS: CALCIUM 8.5 mg/dL (8.5-10.1); CREATININE 1.2 mg/dL (0.6-1.0); GFR 42.5; POTASSIUM 3.7 mmol/L (3.5-5.1)
[2017-03-25 06:39] LABS: BASO % 1 % (0-3); EOS # 0.2 x10^3/uL (0.0-0.7); EOS % 4 % (0-3); LYMPH # 0.7 x10^3/uL (1.0-4.8); LYMPH % 18 % (24-48); MEAN CORPUSCULAR HEMOGLOBIN 31 pg (25-35); MEAN CORPUSCULAR HGB CONC 35 g/dL (31-37); MEAN CORPUSCULAR VOLUME 87 fL (79-100); MONO # 0.5 x10^3/uL (0.0-1.1); MONO % 12 % (0-9); NEUT # 2.5 x10^3uL (1.8-7.7); NEUT % 65 % (31-73); PLATELET COUNT 173 x10^3/uL (140-400); RED BLOOD COUNT 3.92 x10^6/uL (3.50-5.40); RED CELL DISTRIBUTION WIDTH 13.6 % (11.5-14.5); WHITE BLOOD COUNT 3.9 x10^3/uL (4.0-11.0)
[2017-03-25] MEDS: LISINOPRIL 20 MG TABLET PO SCH ×2 (08:38→19:53)
[2017-03-25] MEDS: FAMOTIDINE 20 MG TABLET PO SCH (08:38)
[2017-03-25] MEDS: ASPIRIN 81 MG TAB.CHEW PO SCH (08:38)
[2017-03-25] MEDS: DOCUSATE SODIUM 100 MG CAPSULE PO PRN (08:38)
[2017-03-25] MEDS: ENOXAPARIN ** NOTE DOSE ** SYRINGE SQ SCH ×2 (08:39→19:52)
[2017-03-25 11:04] VITALS: BP 144/78
--- NOTE | 2017-03-25 12:37 | PDOC ---
REFUGIO STONE LOGGING OPERATIONS INSPECTOR 03/25/17 1237: PROGRESS NOTES Diagnosis Problem Problems Medical Problems: (1) Hypertensive urgency Status: Acute Assessment We are seeing the patient for accelerated hypertension 1. Hypertension: Improved control with diuresis and Nifedipine. 2. Elevated proBNP: No clinical evidence of congestive heart failure. Likely related to left ventricular strain from hypertension. 3. Coronary artery disease: She is status post stents, the last in 2011. She denies any angina. 4. Hyperlipidemia: She is on a statin. Problems: Subjective She is feeling much better today and is able to walk around the room without any chest pain or shortness of breath. She slept well and has a good appetite. Objective Vital Signs Date Time Temp Pulse Resp B/P (MAP) Pulse Ox O2 Delivery O2 Flow Rate FiO2 03/25/17 11:04 98.2 69 20 144/78 (100) 98 Room Air Intake and Output 03/25/17 07:00 Intake Total 1480 ml Output Total 950 ml Balance 530 ml Intake Oral 1480 ml Output Urine Total 950 ml # Voids 3 Abdomen: Normal bowel sounds, Soft, No tenderness Heart: Regular rate, Normal S1, Normal S2, Other (Positive systolic murmur) Extremities: No edema, Normal pulses General: Alert, Oriented X3, Cooperative, No acute distress Lungs: Clear to auscultation, Normal air movement Psych/Mental Status: Mental status NL, Mood NL Review of Relevant I have reviewed the following items gab (where applicable) has been applied. Labs Laboratory Tests Test 03/23/17 18:10 03/23/17 19:40 03/24/17 06:30 03/25/17 06:09 White Blood Count 5.1 x10^3/uL (4.0-11.0) 3.7 x10^3/uL (4.0-11.0) 3.9 x10^3/uL (4.0-11.0) Red Blood Count 4.25 x10^6/uL (3.50-5.40) 3.84 x10^6/uL (3.50-5.40) 3.92 x10^6/uL (3.50-5.40) Hemoglobin 12.8 g/dL (12.0-15.5) 11.7 g/dL (12.0-15.5) 12.0 g/dL (12.0-15.5) Hematocrit 36.9 % (36.0-47.0) 33.1 % (36.0-47.0) 34.0 % (36.0-47.0) Mean Corpuscular Volume 87 fL (79-100) 86 fL (79-100) 87 fL (79-100) Mean Corpuscular Hemoglobin 30 pg (25-35) 30 pg (25-35) 31 pg (25-35) Mean Corpuscular Hemoglobin Concent 35 g/dL (31-37) 35 g/dL (31-37) 35 g/dL (31-37) Red Cell Distribution Width 13.6 % (11.5-14.5) 13.6 % (11.5-14.5) 13.6 % (11.5-14.5) Platelet Count 188 x10^3/uL (140-400) 172 x10^3/uL (140-400) 173 x10^3/uL (140-400) Neutrophils (%) (Auto) 71 % (31-73) 67 % (31-73) 65 % (31-73) Lymphocytes (%) (Auto) 17 % (24-48) 16 % (24-48) 18 % (24-48) Monocytes (%) (Auto) 9 % (0-9) 14 % (0-9) 12 % (0-9) Eosinophils (%) (Auto) 2 % (0-3) 2 % (0-3) 4 % (0-3) Basophils (%) (Auto) 1 % (0-3) 1 % (0-3) 1 % (0-3) Neutrophils # (Auto) 3.6 x10^3uL (1.8-7.7) 2.5 x10^3uL (1.8-7.7) 2.5 x10^3uL (1.8-7.7) Lymphocytes # (Auto) 0.9 x10^3/uL (1.0-4.8) 0.6 x10^3/uL (1.0-4.8) 0.7 x10^3/uL (1.0-4.8) Monocytes # (Auto) 0.5 x10^3/uL (0.0-1.1) 0.5 x10^3/uL (0.0-1.1) 0.5 x10^3/uL (0.0-1.1) Eosinophils # (Auto) 0.1 x10^3/uL (0.0-0.7) 0.1 x10^3/uL (0.0-0.7) 0.2 x10^3/uL (0.0-0.7) Basophils # (Auto) 0.0 x10^3/uL (0.0-0.2) 0.0 x10^3/uL (0.0-0.2) 0.0 x10^3/uL (0.0-0.2) Prothrombin Time 9.5 SEC (9.4-11.4) Prothromb Time International Ratio 0.9 (0.9-1.1) Activated Partial Thromboplast Time 25 SEC (23-33) D-Dimer (Annette) 0.51 mg/L (0.00-0.50) Sodium Level 131 mmol/L (136-145) 135 mmol/L (136-145) 136 mmol/L (136-145) Potassium Level 4.1 mmol/L (3.5-5.1) 3.7 mmol/L (3.5-5.1) 3.7 mmol/L (3.5-5.1) Chloride Level 96 mmol/L (98-107) 99 mmol/L (98-107) 99 mmol/L (98-107) Carbon Dioxide Level 27 mmol/L (21-32) 28 mmol/L (21-32) 28 mmol/L (21-32) Anion Gap 8 (6-14) 8 (6-14) 9 (6-14) Blood Urea Nitrogen 20 mg/dL (7-20) 23 mg/dL (7-20) 23 mg/dL (7-20) Creatinine 1.1 mg/dL (0.6-1.0) 1.1 mg/dL (0.6-1.0) 1.2 mg/dL (0.6-1.0) Estimated GFR (Cockcroft-Gault) 47.0 47.0 42.5 Glucose Level 117 mg/dL (70-99) 104 mg/dL (70-99) 154 mg/dL (70-99) Calcium Level 8.9 mg/dL (8.5-10.1) 8.4 mg/dL (8.5-10.1) 8.5 mg/dL (8.5-10.1) Magnesium Level 1.7 mg/dL (1.8-2.4) 2.4 mg/dL (1.8-2.4) Total Bilirubin 0.4 mg/dL (0.2-1.0) 0.5 mg/dL (0.2-1.0) Direct Bilirubin 0.1 mg/dL (0.0-0.2) Aspartate Amino Transf (AST/SGOT) 15 U/L (15-37) 11 U/L (15-37) Alanine Aminotransferase (ALT/SGPT) 17 U/L (14-59) 13 U/L (14-59) Alkaline Phosphatase 65 U/L (46-116) 57 U/L (46-116) Creatine Kinase 59 U/L (26-192) Creatine Kinase MB (Mass) 1.9 ng/mL (0.0-3.6) Creatine Kinase MB Relative Index 3.2 % (0-4) Troponin I Quantitative 0.018 ng/mL (0-0.055) NH-Wku-C-Type Natriuretic Peptide 1657 pg/mL (0-449) Total Protein 6.9 g/dL (6.4-8.2) 6.2 g/dL (6.4-8.2) Albumin 3.6 g/dL (3.4-5.0) 3.2 g/dL (3.4-5.0) Lipase 104 U/L (73-393) Thyroid Stimulating Hormone (TSH) 0.670 uIU/mL (0.358-3.740) Urine Collection Type Unknown Urine Color Yellow Urine Clarity Clear Urine pH 7.0 Urine Specific [place] 1.010 Urine Protein Neg (NEG-TRACE) Urine Glucose (UA) Neg mg/dL (NEG) Urine Ketones (Stick) Neg mg/dL (NEG) Urine Blood Neg (NEG) Urine Nitrite Neg (NEG) Urine Bilirubin Neg (NEG) Urine Urobilinogen Dipstick 0.2 mg/dL (0.2 mg/dL) Urine Leukocyte Esterase Neg (NEG) Urine RBC 1-2 /HPF (0-2) Urine WBC 1-4 /HPF (0-4) Urine Squamous Epithelial Cells Occ /LPF Urine Bacteria 0 /HPF (0-FEW) Urine Opiates Screen Neg (NEG) Urine Methadone Screen Neg (NEG) Urine Barbiturates Neg (NEG) Urine Phencyclidine Screen Neg (NEG) Urine Amphetamine/Methamphetamine Neg (NEG) Urine Benzodiazepines Screen Neg (NEG) Urine Cocaine Screen Neg (NEG) Urine Cannabinoids Screen Neg (NEG) Urine Ethyl Alcohol Neg (NEG) BUN/Creatinine Ratio 21 (6-20) Albumin/Globulin Ratio 1.1 (1.0-1.7) Medications Current Medications Aspirin (Children'S Aspirin) 324 mg 1X ONCE PO Last administered on 18:23; Start 03/23/17 at 18:30; Stop 03/23/17 at 18:31; Status DC Sodium Chloride 1,000 ml @ 100 mls/hr Q10H IV Last administered on 03/23/17 18:23; Start 03/23/17 at 18:17; Stop 03/24/17 at 04:16; Status DC Furosemide (Lasix) 40 mg 1X ONCE IVP Last administered on 03/23/17 19:29; Start 03/23/17 at 19:30; Stop 03/23/17 at 19:31; Status DC Nitroglycerin (Nitro-Bid Oint) 0.5 inch 1X ONCE TP Last administered on 22:04; Start 03/23/17 at 20:00; Stop 03/23/17 at 20:01; Status DC Enoxaparin Sodium (Lovenox 60mg Syringe) 60 mg 1X ONCE SQ Last administered on 03/23/17 22:04; Start 03/23/17 at 20:00; Stop 03/23/17 at 20:01; Status DC Magnesium Sulfate 50 ml @ 25 mls/hr 1X ONCE IV Last administered on 22:05; Start 03/23/17 at 21:45; Stop 03/23/17 at 23:45; Status DC Nitroglycerin (Nitro-Bid Oint) 1 inch Q8HRS TP ; Start 03/24/17 at 08:00 Enoxaparin Sodium (Lovenox 60mg Syringe) 60 mg Q12HR SQ Last administered on 08:39; Start 03/24/17 at 09:00 Acetaminophen (Tylenol) 650 mg PRN Q6HRS PRN PO PAIN Last administered on 03/24 20:41; Start 03/23/17 at 21:45 Aspirin (Children'S Aspirin) 81 mg DAILY PO Last administered on 03/25/17 08: 38; Start 03/24/17 at 09:00 Calcium Carbonate/ Glycine (Tums) 250 mg PRN AFTMEALHC PRN PO INDIGESTION; Start 03/23/17 at 22:00 Docusate Sodium (Colace) 100 mg PRN DAILY PRN PO CONSTIPATION Last administered on 03/25/17 08:38; Start 03/23/17 at 21:45 Hydralazine HCl (Apresoline) 100 mg TID PO Last administered on 03/25/17 08: 37; Start 03/23/17 at 22:00 Hydrocortisone Acetate (Anucort-Hc) 25 mg PRN BID PRN RC HEMORRHOIDS; Start at 21:45 Levothyroxine Sodium (Synthroid) 100 mcg DAILY06 PO Last administered on 04:40; Start 03/24/17 at 06:00 Lisinopril (Prinivil) 40 mg BID PO Last administered on 03/25/17 08:38; Start 03/23/17 at 22:00 Nitroglycerin (Nitrostat) 0.4 mg PRN Q15MIN PRN SL CHEST PAIN; Start 03/23/17 at 21:45 Polyethylene Glycol (miraLAX) 17 gm PRN DAILY PRN PO CONSTIPATION; Start 03/23 at 21:45 Non-Formulary Medication 1 darian PRN TID PRN TP HEMORRHOID PAIN; Start 03/23/17 at 21:45; Stop 03/23/17 at 22:01; Status DC Losartan Potassium (Cozaar) 100 mg PRN DAILY PRN PO HTN; Start 03/24/17 at 09: 00 Pravastatin Sodium (Pravachol) 80 mg QHS PO Last administered on 03/24/17 20: 41; Start 03/23/17 at 22:00 Famotidine (Pepcid) 20 mg DAILY PO Last administered on 03/25/17 08:38; Start 03/24/17 at 09:00 Furosemide (Lasix) 20 mg DAILY IVP Last administered on 03/24/17 12:15; Start 03/24/17 at 10:30; Stop 03/24/17 at 13:35; Status DC Nifedipine (Procardia Xl) 30 mg DAILY PO Last administered on 03/25/17 08:37 ; Start 03/24/17 at 14:00 Active Scripts Active Hydralazine Hcl 50 Mg Tablet 100 Mg PO TID Lisinopril 20 Mg Tablet 40 Mg PO BID Reported Anusol-Hc (Hydrocortisone Acetate) 25 Mg Supp.rect 1 Supp RC BID PRN Anecream (Lidocaine) 5 Gm Cream..g. 1 Darian TP PRN TID PRN Benicar (Olmesartan Medoxomil) 20 Mg Tablet 1 Tab PO DAILY PRN Miralax (Polyethylene Glycol 3350) 17 Gm Powd.pack 17 Gm PO PRN DAILY PRN Not given this admission. Take as needed for constipation. Colace (Docusate Sodium) 100 Mg Capsule 100 Mg PO PRN DAILY PRN Last dose given 12/28 in the evening. Take as needed for constipation. Zantac (Ranitidine Hcl) 150 Mg Tablet 150 Mg PO DAILY last dose this morning. next dose tomorrow morning. Tums (Calcium Carbonate) 200 Mg Tab.chew 200 Mg PO PRN AFTMEALHC PRN Not given this admission. Take if needed for hearburn. use as needed Tylenol (Acetaminophen) 325 Mg Tablet 2 Tab PO PRN Q6HRS PRN last dose yesterday morning. take as needed for pain or fever. Levothyroxine Sodium 100 Mcg Tablet 1 Tab PO DAILY06 last dose this morning next dose tomorrow Pravastatin Sodium 80 Mg Tablet 1 Tab PO QHS last dose last night next dose tonight Nitrostat (Nitroglycerin) 0.4 Mg Tab.subl 0.4 Mg SL PRN Q15MIN PRN Not given this admission. Take as needed for chest pain. Aspirin 81 Mg Tab.chew 81 Mg PO DAILY last dose this morning next dose tomorrow Vitals/I & O Vital Sign - Last 24 Hours 03/24/17 03/24/17 03/24/17 03/24/17 14:15 14:20 14:21 20:00 Temp 98.2 Pulse 61 61 61 Resp 20 B/P (MAP) 157/76 (103) 157/76 157/76 Pulse Ox 97 O2 Delivery Room Air Room Air 03/24/17 03/24/17 03/24/17 03/24/17 20:15 20:42 20:42 21:21 Temp 98.0 Pulse 57 57 57 57 Resp 20 B/P (MAP) 125/76 (92) 125/76 125/76 125/76 Pulse Ox 90 O2 Delivery Room Air 03/24/17 03/25/17 03/25/17 03/25/17 23:34 05:21 08:00 08:37 Temp 97.5 97.4 Pulse 55 59 59 Resp 18 18 B/P (MAP) 134/59 (84) 153/84 (107) 153/84 Pulse Ox 95 97 O2 Delivery Room Air Room Air Room Air 03/25/17 03/25/17 03/25/17 08:37 08:38 11:04 Temp 98.2 Pulse 59 59 69 Resp 20 B/P (MAP) 153/84 153/84 144/78 (100) Pulse Ox 98 O2 Delivery Room Air Intake and Output 03/24/17 03/24/17 03/25/17 15:00 23:00 07:00 Intake Total 600 ml 640 ml 240 ml Output Total 600 ml 350 ml Balance 0 ml 640 ml -110 ml BERNARD GILLESPIE Jr, MD 03/26/17 0915: PROGRESS NOTES Assessment The patient was seen by Refugio Stone APRN and I have reviewed her findings and plan and agree with above. Due to staffing constraints, we did not have an attending available on this day to see the patient. Problems: REFUGIO STONE APRN Mar 25, 2017 12:37 BERNARD GILLESPIE Jr, MD Mar 26, 2017 09:15
[2017-03-25 14:42] VITALS: BP 189/76
[2017-03-25] MEDS: NEOMYC/POLYMYXN/GRAMICDN OPHTH SOLUTION 10ML BOTTLE. OS SCH ×2 (17:07→19:51)
[2017-03-25 18:38] VITALS: BP 152/65
[2017-03-25] MEDS: PRAVASTATIN 20 MG TABLET. PO SCH (19:52)
[2017-03-25 22:34] VITALS: BP 153/63
--- NOTE | 2017-03-26 00:24 | PN ---
DATE: 03/25/2017 SUBJECTIVE: An 86-year-old female in with congestive heart failure. The patient is being seen by Dr. Orosco, noted manager configuration. The patient also has history of coronary artery disease. The patient is feeling somewhat better this morning and making fairly good progress overall with her diuresis. OBJECTIVE: VITAL SIGNS: The patient's blood pressure 150/80, respiratory rate 18, pulse 60, afebrile. GENERAL: The patient is alert and oriented x 3. LUNGS: Diminished throughout, poor movement of air. CARDIOVASCULAR: Regular sinus rhythm, S1, S2, without murmur, rub, thrill, or extra heart sounds. ABDOMEN: Soft, nontender, no rebound or guarding. Positive bowel sounds. No hepatosplenomegaly was noted. EXTREMITIES: No clubbing, cyanosis, nor edema. NEUROLOGIC: The patient was alert and oriented x 3. ASSESSMENT AND PLAN: The patient otherwise will be monitored carefully her accelerated hypertension, blood pressure over 200, elevated BNP, history of coronary artery disease, hyperlipidemia, chronic kidney disease, GFR of 47. We will continue with PT, OT and make further evaluation on her, possible placement into a nursing facility as well. LANNY MAGALLON MD DR: JERRI/richard JOB#: [id number] / [id number]
[2017-03-26] MEDS: LEVOTHYROXINE 100 MCG TABLET PO SCH (05:35)
[2017-03-26 05:51] VITALS: BP 167/62
[2017-03-26] MEDS: NITROGLYCERIN OINT 1 GM PACKET. TP SCH (06:00)
--- NOTE | 2017-03-26 08:33 | PDOC ---
REFUGIO STONE CANS VACUUM TESTER 03/26/17 0833: PROGRESS NOTES Diagnosis Problem Problems Medical Problems: (1) Hypertensive urgency Status: Acute Assessment We are seeing the patient for accelerated hypertension 1. Hypertension: Plan to increase Nifedipine 60 mg daily. 2. Elevated proBNP: No clinical evidence of congestive heart failure. Likely related to left ventricular strain from hypertension. 3. Coronary artery disease: She is status post stents, the last in 2011. She denies any angina. 4. Hyperlipidemia: She is on a statin. Problems: Subjective She is up at bedside without problems. Eating breakfast and avoiding sodium. She denies any chest pain, shortness of breath and palpitations. Objective Vital Signs Date Time Temp Pulse Resp B/P (MAP) Pulse Ox O2 Delivery O2 Flow Rate FiO2 03/26/17 08:00 Room Air 03/26/17 06:00 64 167/62 03/26/17 05:51 97.9 18 96 Intake and Output 03/26/17 07:00 Intake Total 1480 ml Output Total 2250 ml Balance -770 ml Intake Oral 1480 ml Output Urine Total 2250 ml Abdomen: Normal bowel sounds, Soft, No tenderness Heart: Regular rate, Normal S1, Normal S2, No murmurs Extremities: No edema, Normal pulses Lungs: Clear to auscultation Neuro: Normal gait, Normal tone Review of Relevant I have reviewed the following items gab (where applicable) has been applied. Labs Laboratory Tests Test 03/25/17 06:09 White Blood Count 3.9 x10^3/uL (4.0-11.0) Red Blood Count 3.92 x10^6/uL (3.50-5.40) Hemoglobin 12.0 g/dL (12.0-15.5) Hematocrit 34.0 % (36.0-47.0) Mean Corpuscular Volume 87 fL (79-100) Mean Corpuscular Hemoglobin 31 pg (25-35) Mean Corpuscular Hemoglobin Concent 35 g/dL (31-37) Red Cell Distribution Width 13.6 % (11.5-14.5) Platelet Count 173 x10^3/uL (140-400) Neutrophils (%) (Auto) 65 % (31-73) Lymphocytes (%) (Auto) 18 % (24-48) Monocytes (%) (Auto) 12 % (0-9) Eosinophils (%) (Auto) 4 % (0-3) Basophils (%) (Auto) 1 % (0-3) Neutrophils # (Auto) 2.5 x10^3uL (1.8-7.7) Lymphocytes # (Auto) 0.7 x10^3/uL (1.0-4.8) Monocytes # (Auto) 0.5 x10^3/uL (0.0-1.1) Eosinophils # (Auto) 0.2 x10^3/uL (0.0-0.7) Basophils # (Auto) 0.0 x10^3/uL (0.0-0.2) Sodium Level 136 mmol/L (136-145) Potassium Level 3.7 mmol/L (3.5-5.1) Chloride Level 99 mmol/L (98-107) Carbon Dioxide Level 28 mmol/L (21-32) Anion Gap 9 (6-14) Blood Urea Nitrogen 23 mg/dL (7-20) Creatinine 1.2 mg/dL (0.6-1.0) Estimated GFR (Cockcroft-Gault) 42.5 Glucose Level 154 mg/dL (70-99) Calcium Level 8.5 mg/dL (8.5-10.1) Medications Current Medications Aspirin (Children'S Aspirin) 324 mg 1X ONCE PO Last administered on 18:23; Start 03/23/17 at 18:30; Stop 03/23/17 at 18:31; Status DC Sodium Chloride 1,000 ml @ 100 mls/hr Q10H IV Last administered on 03/23/17 18:23; Start 03/23/17 at 18:17; Stop 03/24/17 at 04:16; Status DC Furosemide (Lasix) 40 mg 1X ONCE IVP Last administered on 03/23/17 19:29; Start 03/23/17 at 19:30; Stop 03/23/17 at 19:31; Status DC Nitroglycerin (Nitro-Bid Oint) 0.5 inch 1X ONCE TP Last administered on 22:04; Start 03/23/17 at 20:00; Stop 03/23/17 at 20:01; Status DC Enoxaparin Sodium (Lovenox 60mg Syringe) 60 mg 1X ONCE SQ Last administered on 03/23/17 22:04; Start 03/23/17 at 20:00; Stop 03/23/17 at 20:01; Status DC Magnesium Sulfate 50 ml @ 25 mls/hr 1X ONCE IV Last administered on 22:05; Start 03/23/17 at 21:45; Stop 03/23/17 at 23:45; Status DC Nitroglycerin (Nitro-Bid Oint) 1 inch Q8HRS TP ; Start 03/24/17 at 08:00 Enoxaparin Sodium (Lovenox 60mg Syringe) 60 mg Q12HR SQ Last administered on 19:52; Start 03/24/17 at 09:00 Acetaminophen (Tylenol) 650 mg PRN Q6HRS PRN PO PAIN Last administered on 03/24 20:41; Start 03/23/17 at 21:45 Aspirin (Children'S Aspirin) 81 mg DAILY PO Last administered on 03/25/17 08: 38; Start 03/24/17 at 09:00 Calcium Carbonate/ Glycine (Tums) 250 mg PRN AFTMEALHC PRN PO INDIGESTION; Start 03/23/17 at 22:00 Docusate Sodium (Colace) 100 mg PRN DAILY PRN PO CONSTIPATION Last administered on 03/25/17 08:38; Start 03/23/17 at 21:45 Hydralazine HCl (Apresoline) 100 mg TID PO Last administered on 03/25/17 19: 53; Start 03/23/17 at 22:00 Hydrocortisone Acetate (Anucort-Hc) 25 mg PRN BID PRN RC HEMORRHOIDS; Start at 21:45 Levothyroxine Sodium (Synthroid) 100 mcg DAILY06 PO Last administered on 05:35; Start 03/24/17 at 06:00 Lisinopril (Prinivil) 40 mg BID PO Last administered on 03/25/17 19:53; Start 03/23/17 at 22:00 Nitroglycerin (Nitrostat) 0.4 mg PRN Q15MIN PRN SL CHEST PAIN; Start 03/23/17 at 21:45 Polyethylene Glycol (miraLAX) 17 gm PRN DAILY PRN PO CONSTIPATION; Start 03/23 at 21:45 Non-Formulary Medication 1 darian PRN TID PRN TP HEMORRHOID PAIN; Start 03/23/17 at 21:45; Stop 03/23/17 at 22:01; Status DC Losartan Potassium (Cozaar) 100 mg PRN DAILY PRN PO HTN; Start 03/24/17 at 09: 00 Pravastatin Sodium (Pravachol) 80 mg QHS PO Last administered on 03/25/17 19: 52; Start 03/23/17 at 22:00 Famotidine (Pepcid) 20 mg DAILY PO Last administered on 03/25/17 08:38; Start 03/24/17 at 09:00 Furosemide (Lasix) 20 mg DAILY IVP Last administered on 03/24/17 12:15; Start 03/24/17 at 10:30; Stop 03/24/17 at 13:35; Status DC Nifedipine (Procardia Xl) 30 mg DAILY PO Last administered on 03/25/17 08:37 ; Start 03/24/17 at 14:00 Neomycin/ Polymyxin/ Gramicidin (Neosporin Ophth) 2 drop TID OS Last administered on 03/25/17 19:51; Start 03/25/17 at 17:00 Active Scripts Active Hydralazine Hcl 50 Mg Tablet 100 Mg PO TID Lisinopril 20 Mg Tablet 40 Mg PO BID Reported Anusol-Hc (Hydrocortisone Acetate) 25 Mg Supp.rect 1 Supp RC BID PRN Anecream (Lidocaine) 5 Gm Cream..g. 1 Darian TP PRN TID PRN Benicar (Olmesartan Medoxomil) 20 Mg Tablet 1 Tab PO DAILY PRN Miralax (Polyethylene Glycol 3350) 17 Gm Powd.pack 17 Gm PO PRN DAILY PRN Not given this admission. Take as needed for constipation. Colace (Docusate Sodium) 100 Mg Capsule 100 Mg PO PRN DAILY PRN Last dose given 9 in the evening. Take as needed for constipation. Zantac (Ranitidine Hcl) 150 Mg Tablet 150 Mg PO DAILY last dose this morning. next dose tomorrow morning. Tums (Calcium Carbonate) 200 Mg Tab.chew 200 Mg PO PRN AFTMEALHC PRN Not given this admission. Take if needed for hearburn. use as needed Tylenol (Acetaminophen) 325 Mg Tablet 2 Tab PO PRN Q6HRS PRN last dose yesterday morning. take as needed for pain or fever. Levothyroxine Sodium 100 Mcg Tablet 1 Tab PO DAILY06 last dose this morning next dose tomorrow Pravastatin Sodium 80 Mg Tablet 1 Tab PO QHS last dose last night next dose tonight Nitrostat (Nitroglycerin) 0.4 Mg Tab.subl 0.4 Mg SL PRN Q15MIN PRN Not given this admission. Take as needed for chest pain. Aspirin 81 Mg Tab.chew 81 Mg PO DAILY last dose this morning next dose tomorrow Vitals/I & O Vital Sign - Last 24 Hours 03/25/17 03/25/17 03/25/17 03/25/17 08:37 08:37 08:38 11:04 Temp 98.2 Pulse 59 59 59 69 Resp 20 B/P (MAP) 153/84 153/84 153/84 144/78 (100) Pulse Ox 98 O2 Delivery Room Air 03/25/17 03/25/17 03/25/17 03/25/17 14:40 14:42 18:38 19:53 Temp 97.9 97.9 Pulse 72 72 69 69 Resp 20 20 B/P (MAP) 189/76 189/76 (113) 152/65 (94) 152/65 Pulse Ox 96 96 O2 Delivery Room Air Room Air 03/25/17 03/25/17 03/25/17 03/25/17 19:53 20:00 22:00 22:34 Temp 98.0 Pulse 69 69 61 Resp 20 B/P (MAP) 152/65 152/65 153/63 (93) Pulse Ox 97 O2 Delivery Room Air Room Air 03/26/17 03/26/17 03/26/17 05:51 06:00 08:00 Temp 97.9 Pulse 64 64 Resp 18 B/P (MAP) 167/62 (97) 167/62 Pulse Ox 96 O2 Delivery Room Air Room Air Intake and Output 03/25/17 03/25/17 03/26/17 15:00 23:00 07:00 Intake Total 600 ml 760 ml 120 ml Output Total 800 ml 950 ml 500 ml Balance -200 ml -190 ml -380 ml BERNARD GILLESPIE Jr, MD 03/26/17 0920: PROGRESS NOTES Assessment Hypertensive urgency. Symptoms improved. BP better with Nifedipine. Okay for discharge today from cardiac standpoint. She has an appointment to see us in our office on Wednesday. CAD. She is not having angina. Continue present medications. Hypercholesterolemia. Continue statin. Problems: Subjective We are seeing her for hypertensive urgency. S: She feels better. Edema is resolved. She denies chest pain, dyspnea, palpitations, syncope. She feels like she is ready for discharge. Abdomen: Normal bowel sounds, Soft Heart: Regular rate, Normal S1, Normal S2, No murmurs Extremities: No clubbing, No cyanosis, No edema, Normal pulses General: Alert, Oriented X3, Cooperative, No acute distress HEENT: Atraumatic, EOMI, Mucous membr. moist/pink Lungs: Clear to auscultation, Normal air movement Neck: Supple, No JVD, +2 carotid pulse wo bruit Neuro: Normal gait, Normal speech, Strength at 5/5 X4 ext, Normal tone, Cranial nerves 3-12 NL Psych/Mental Status: Mental status NL, Mood NL Skin: No rashes, No breakdown, No significant lesion REFUGIO STONE APRN Mar 26, 2017 08:33 BERNARD GILLESPIE Jr, MD Mar 26, 2017 09:20
[2017-03-26] MEDS: ASPIRIN 81 MG TAB.CHEW PO SCH (09:00)
[2017-03-26] MEDS: NEOMYC/POLYMYXN/GRAMICDN OPHTH SOLUTION 10ML BOTTLE. OS SCH (09:00)
[2017-03-26] MEDS: LISINOPRIL 20 MG TABLET PO SCH (09:00)
[2017-03-26] MEDS: FAMOTIDINE 20 MG TABLET PO SCH (09:00)
[2017-03-26] MEDS: ENOXAPARIN ** NOTE DOSE ** SYRINGE SQ SCH (09:00)
[2017-03-26 09:01] VITALS: BP 167/62
[2017-03-26] MEDS ORDERED: OLME20TA19 PO (09:21)
[2017-03-26] MEDS ORDERED: NEOM10DR9 OS (09:21)
[2017-03-26] MEDS ORDERED: NIFE30TA17 PO (09:21)
--- NOTE | 2017-03-26 17:00 | DS ---
DATE OF DISCHARGE: 03/26/2017 HOSPITAL COURSE: The patient is admitted with generalized weakness, feeling she was going to pass out. The patient was noted to have slightly decompensated chronic congestive heart failure, swelling in her legs. The patient was diuresed very well there. Potassium was monitored as well as her other tests. Anyway, the patient made good progress during the rest of her hospitalization and she was discharged home. See MRAD. Decreased activity. She will be on heart healthy low sodium diet. Return to clinic in 7-10 days or sooner as needed. IMPRESSION: Chronic systolic heart failure, essential hypertension, [id number] protein malnutrition, chronic kidney disease, 3. We will get a sonogram of her leg as an outpatient, decreased activity, follow up with cardiology. LANNY MAGALLON MD DR: JERRI/richard JOB#: [id number] / [id number]
== END 2017-03-26 11:00 | disposition home health service (06) | DRG 291 ==
LOC: ER 18:00 → 1 SOUTH 19:30
PROVIDERS: ADMIT Family Medicine; ATTEND Family Medicine
DX: I13.0 Hypertensive heart and chronic kidney disease with heart failure and stage 1 through stage 4 chronic kidney disease, or unspecified chronic kidney disease (principal); I50.43 Acute on chronic combined systolic (congestive) and diastolic (congestive) heart failure; E44.0 Moderate protein-calorie malnutrition; F03.90 Unspecified dementia, unspecified severity, without behavioral disturbance, psychotic disturbance, mood disturbance, and anxiety; E87.1 Hypo-osmolality and hyponatremia; E83.42 Hypomagnesemia; I16.0 Hypertensive urgency; Z68.23 Body mass index [BMI] 23.0-23.9, adult; E78.00 Pure hypercholesterolemia, unspecified; E78.5 Hyperlipidemia, unspecified; I25.10 Atherosclerotic heart disease of native coronary artery without angina pectoris; K21.9 Gastro-esophageal reflux disease without esophagitis; M25.50 Pain in unspecified joint; R00.1 Bradycardia, unspecified; N18.3 Chronic kidney disease, stage 3 (moderate); Z60.2 Problems related to living alone; K58.9 Irritable bowel syndrome, unspecified; I25.2 Old myocardial infarction; Z80.9 Family history of malignant neoplasm, unspecified; Z82.3 Family history of stroke; Z82.49 Family history of ischemic heart disease and other diseases of the circulatory system; Z85.850 Personal history of malignant neoplasm of thyroid; Z86.73 Personal history of transient ischemic attack (TIA), and cerebral infarction without residual deficits; Z90.710 Acquired absence of both cervix and uterus; Z91.14 Patient's other noncompliance with medication regimen; Z88.8 Allergy status to other drugs, medicaments and biological substances; Z91.041 Radiographic dye allergy status; Z98.61 Coronary angioplasty status
CPT/HCPCS: 36415; 70450; 71010; 80048; 80053; 80076; 80307; 81001; 82553; 83690; 83735; 83880; 84443; 84484; 85025; 85379; 85610; 85730; 93005; 93970; J1650; J1940; J3475; 97530; G0479; J7030

== ENCOUNTER 2017-04-02 12:25 | Emergency (ER) | payer MEDICARE ==
[~2017-04-02] VITALS: Ht 160 cm; Wt 61.3 kg
[~2017-04-02 12:25] MED LIST changes: +NEOM10DR9 OS; +NIFE30TA17 PO
[2017-04-02] MEDS ORDERED: IV NORMAL SALINE 1,000ML 1,000 ML IV ONE (13:30)
[2017-04-02] MEDS ORDERED: hydrALAZINE 10 MG TABLET PO ONE (13:30)
--- NOTE | 2017-04-02 13:49 | PHYS DOC ---
Past History Past Medical History: CAD, Cancer, CHF, Hypertension, MA, Stroke, Other Past Surgical History: Hysterectomy, Other Alcohol Use: None Drug Use: None Adult General Chief Complaint Chief Complaint: HYPERTENSION HPI HPI Patient is a 86 year old F who presents with high blood pressure. Nhung was seen at her primary care doctor's clinic for hospital follow-up. At that time she was found to have high blood pressure. She was given Benicar by mouth at that time and advised to follow-up in the emergency room prior to her evaluation in the emergency room she did have ringing in her ears which is since resolved. At this time she has no symptoms. She has no exacerbating or alleviating factors. She has no other noted associated symptoms. Review of Systems Review of Systems Constitutional: Denies fever or chills [] Eyes: Denies change in visual acuity, redness, or eye pain [] HENT: Denies nasal congestion or sore throat [] Respiratory: Denies cough or shortness of breath [] Cardiovascular: No additional information not addressed in HPI [] GI: Denies abdominal pain, nausea, vomiting, bloody stools or diarrhea [] : Denies dysuria or hematuria [] Musculoskeletal: Denies back pain or joint pain [] Integument: Denies rash or skin lesions [] Neurologic: Denies headache, focal weakness or sensory changes [] Endocrine: Denies polyuria or polydipsia [] All other systems were reviewed and found to be within normal limits, except as documented in this note. Family History Family History No pertinent family history reported Current Medications Current Medications Current medications were reviewed Current Medications Medications (Trade) Dose Ordered Sig/Umesh Start Time Stop Time Status Last Admin Dose Admin Hydralazine HCl (Apresoline) 100 mg 1X ONCE 04/02/17 13:30 04/02/17 13:32 DC 04/02/17 13:36 100 MG Sodium Chloride 1,000 ml @ 1,000 mls/hr 1X ONCE 04/02/17 13:30 04/02/17 13:30 DC Allergies Allergies Allergies Coded Allergies Type Severity Reaction Last Updated Verified Beta-Blockers (Beta-Adrenergic Bloc Allergy Intermediate Bradycardia 07/01/16 Yes amlodipine Allergy Intermediate ADEMA 03/24/17 Yes atorvastatin Allergy Intermediate 05/28/16 Yes chlorthalidone Allergy Intermediate hyponatremia 07/01/16 Yes clonidine Allergy Intermediate bradycardia 07/01/16 Yes iodine Allergy Intermediate 05/28/16 Yes Physical Exam Physical Exam Constitutional: Well developed, well nourished, no acute distress, non-toxic appearance. [] HENT: Normocephalic, atraumatic, bilateral external ears normal, oropharynx moist, no oral exudates, nose normal. [] Eyes: EOMI, conjunctiva normal, no discharge. [] Neck: Normal range of motion, no tenderness, supple, no stridor. [] Cardiovascular:Heart rate regular rhythm, Lungs & Thorax: Bilateral breath sounds clear to auscultation [] Abdomen: Bowel sounds normal, soft, no tenderness, no masses, no pulsatile masses. [] Skin: Warm, dry, no erythema, no rash. [] Back: No tenderness, no CVA tenderness. [] Extremities: No tenderness, no cyanosis, no clubbing, ROM intact, no edema. [] Neurologic: Alert and oriented X 3, normal motor function, normal sensory function, no focal deficits noted. [] Psychologic: Affect normal, judgement normal, mood normal. [] Current Patient Data Vital Signs Vital Signs Date Time Temp Pulse Resp B/P (MAP) Pulse Ox O2 Delivery O2 Flow Rate FiO2 04/02/17 13:36 61 181/69 04/02/17 12:25 98.4 18 98 Room Air EKG EKG [] Radiology/Procedures Radiology/Procedures [] Course & Med Decision Making Course & Med Decision Making Pertinent Labs and Imaging studies reviewed. (See chart for details) Dr. Alas was attempted to be contacted by phone. Her case was reviewed and no additional recommendations were made Dragon Disclaimer Dragon Disclaimer This electronic medical record was generated, in whole or in part, using a voice recognition dictation system. Departure Departure: Impression: Primary Impression: Hypertension Disposition: HOME, SELF-CARE Condition: STABLE Referrals: LANNY ALAS MD (PCP) Patient Instructions: Hypertension Additional Instructions: Nhung was seen in the emergency department for hypertension. No emergency medical condition was found on history or physical exam. Her blood pressure was controlled prior to discharge. She was advised follow-up with her primary care doctor in the next 3-5 days for further management. Problem Qualifiers Primary Impression: Hypertension Hypertension type: unspecified Qualified Codes: I10 - Essential (primary) hypertension LANNY ALMENDAREZ MD Apr 02, 2017 13:49
[2017-04-02 14:06] VITALS: BP 165/59
== END 2017-04-02 14:10 | disposition home or self-care (01) ==
LOC: ER 12:25
DX: I11.0 Hypertensive heart disease with heart failure (principal); I50.9 Heart failure, unspecified; I25.2 Old myocardial infarction; I25.10 Atherosclerotic heart disease of native coronary artery without angina pectoris; Z86.73 Personal history of transient ischemic attack (TIA), and cerebral infarction without residual deficits; Z88.8 Allergy status to other drugs, medicaments and biological substances; Z91.041 Radiographic dye allergy status
CPT/HCPCS: 99282

== ENCOUNTER 2017-04-06 06:53 | Emergency (ER) | payer MEDICARE ==
[~2017-04-06] VITALS: Ht 160 cm; Wt 61.3 kg
[2017-04-06] MEDS ORDERED: OXYM30SP NS (07:18)
--- NOTE | 2017-04-06 07:22 | PHYS DOC ---
Past History Past Medical History: CAD, CVA, GERD, High Cholesterol, Hypertension, Other Past Surgical History: Hysterectomy Alcohol Use: None Drug Use: None Adult General Chief Complaint Chief Complaint: NOSEBLEED HPI HPI She is a pleasant 86-year-old female with a history of multiple medical problems who was brought in by EMS for spontaneous epistaxis from the right side of the nose. Patient's been in normal state of health acting normally this morning was drinking coffee and eating her oatmeal which is spontaneous nosebleed from the right side of the nose. She denies any recent trauma, denies any recent URI symptoms, nosebleed or sore throat prior to this event. Patient denies any coughing episode, shortness of breath, abdominal pain, headache, lightheadedness, dark tarry stools or diarrhea. Patient is not in any medication that would cause her blood weekend or platelets to poisoned. She denies any falls or abuse at home. Patient is independent and lives by herself. Patient is just recently started using the heater in her home.[] Review of Systems Review of Systems Constitutional: Denies fever or chills [] Eyes: Denies change in visual acuity, HENT: Denies nasal congestion or sore throat [] Respiratory: Denies cough Cardiovascular: No additional information not addressed in HPI [] GI: Denies abdominal pain, nausea, vomiting, bloody stools or diarrhea [] : Denies dysuria or hematuria [] Musculoskeletal: Denies back pain or joint pain [] Integument: Denies rash or skin lesions [] Neurologic: Denies headache, focal weakness or sensory changes [] Endocrine: Denies polyuria or polydipsia [] All other systems were reviewed and found to be within normal limits, except as documented in this note. Allergies Allergies Allergies Coded Allergies Type Severity Reaction Last Updated Verified Beta-Blockers (Beta-Adrenergic Bloc Allergy Intermediate Bradycardia 07/01/16 Yes amlodipine Allergy Intermediate ADEMA 03/24/17 Yes atorvastatin Allergy Intermediate 05/28/16 Yes chlorthalidone Allergy Intermediate hyponatremia 07/01/16 Yes clonidine Allergy Intermediate bradycardia 07/01/16 Yes iodine Allergy Intermediate 05/28/16 Yes Physical Exam Physical Exam of the vital signs recorded on the chart patient noted to be hypertensive which is chronic in nature. Constitutional: Well developed, well nourished, no acute distress, non-toxic appearance. [] HENT: Normocephalic, atraumatic, bilateral external ears normal, oropharynx moist, no oral exudates, nose normal. No active bleeding noted in the anterior portion of the left and right nose. There is no bleeding in the oropharynx. There is no foreign body.[] Eyes: PERRLA, EOMI, conjunctiva normal, no discharge. [] Neck: Normal range of motion, no tenderness, supple, no stridor. [] Cardiovascular:Heart rate regular rhythm, no murmur [] Lungs & Thorax: Bilateral breath sounds clear to auscultation [] Skin: Warm, dry, no erythema, no rash. [] Neurologic: Alert and oriented X 3, normal motor function, normal sensory function, no focal deficits noted. [] Psychologic: Affect normal, judgement normal, mood normal. [] Current Patient Data Vital Signs Vital Signs Date Time Temp Pulse Resp B/P (MAP) Pulse Ox O2 Delivery O2 Flow Rate FiO2 04/06/17 07:03 98.0 72 22 99 Room Air EKG EKG [] Radiology/Procedures Radiology/Procedures [] Course & Med Decision Making Course & Med Decision Making Pertinent Labs and Imaging studies reviewed. (See chart for details) She is hemodynamically stable with a history of hypertension noted on vital signs. Patient is having no active bleeding on exam. Patient has no problems with breathing, no abnormalities of dizziness or neurologic changes. We will instruct her about how to treat her bleeding if necessary from home. []Patient has no no active signs of bleeding Dragon Disclaimer Dragon Disclaimer This electronic medical record was generated, in whole or in part, using a voice recognition dictation system. Departure Departure: Impression: Primary Impression: Hypertension Additional Impression: Bleeding nose Disposition: 01 HOME, SELF-CARE Condition: STABLE Referrals: LANNY MAGALLON MD (PCP) Patient Instructions: Nosebleed Additional Instructions: discharge: I've spoken with the patient and/or caregivers. I've explained the patient's condition, diagnosis and treatment plan based on information available to me at this time. I've answered the patient's and/or caregivers questions and addressed any concerns. The patient and/or caregivers have a good understanding the patient's diagnosis, condition and treatment plan as can be expected at this point. Vital signs have been stabilized. The patient's condition is stable for discharge from the emergency department. The patient will pursue further outpatient evaluation with her primary care provider or other designated consulting physician as outlined in the discharge instructions. Patient and/or caregivers are agreeable to this plan of care and follow-up instructions have been explained in detail. The patient and/or caregivers have received these instructions in written format and expressed understanding of these discharge instructions. The patient and her caregivers are aware that if any significant change in condition or worsening of symptoms should prompt him to immediately return to this of the closest emergency department. If an emergent department is not readily available I would encourage him to call 911. Scripts Oxymetazoline Hcl (AFRIN) 30 Ml [place] 30 ML NS QID for 3 Days, SPRAY Prov: FLOR CALDERÓN MD 04/06/17 Problem Qualifiers FLOR CALDERÓN MD Apr 06, 2017 07:22
[2017-04-06 07:50] VITALS: BP 163/74
== END 2017-04-06 07:27 | disposition home or self-care (01) ==
LOC: ER 06:53
DX: R04.0 Epistaxis (principal); I10 Essential (primary) hypertension; E78.00 Pure hypercholesterolemia, unspecified; I25.10 Atherosclerotic heart disease of native coronary artery without angina pectoris; K21.9 Gastro-esophageal reflux disease without esophagitis; Z86.73 Personal history of transient ischemic attack (TIA), and cerebral infarction without residual deficits; Z88.8 Allergy status to other drugs, medicaments and biological substances; Z91.041 Radiographic dye allergy status
CPT/HCPCS: 99283

== ENCOUNTER 2017-05-06 12:12 | Emergency (ER) | payer MEDICARE ==
[~2017-05-06] VITALS: Ht 160 cm; Wt 61.3 kg
[~2017-05-06 12:12] MED LIST changes: +OXYM30SP NS
[2017-05-06] MEDS ORDERED: IV NORMAL SALINE 1,000ML 1,000 ML IV ONE (12:45)
--- NOTE | 2017-05-06 13:59 | PHYS DOC ---
Past History Past Medical History: CAD, CVA, GERD, High Cholesterol, Hypertension, Other Past Surgical History: Hysterectomy, Other Alcohol Use: None Drug Use: None Adult General Chief Complaint Chief Complaint: DIFFICULTY SWALLOWING HPI HPI Patient is a 86 year old F who presents with difficulty swallowing this started this morning. Lukasz states that she was unable to take her medications this morning. Upon arrival she was able to swallow without difficulty. This improvement came without intervention. She also describes nasal congestion and posterior nasal drip. She states that she is coughing up white phlegm. She denies difficulty breathing or chest pain. She has no other associated symptoms. She has no other exacerbating or alleviating factors. Review of Systems Review of Systems Constitutional: Denies fever or chills [] Eyes: Denies change in visual acuity, redness, or eye pain [] HENT: Negative except history of present illness Respiratory: Denies cough or shortness of breath [] Cardiovascular: No additional information not addressed in HPI [] GI: Denies abdominal pain, nausea, vomiting, bloody stools or diarrhea [] : Denies dysuria or hematuria [] Musculoskeletal: Denies back pain or joint pain [] Integument: Denies rash or skin lesions [] Neurologic: Denies headache, focal weakness or sensory changes [] Endocrine: Denies polyuria or polydipsia [] All other systems were reviewed and found to be within normal limits, except as documented in this note. Family History Family History No pertinent family medical history was reported Current Medications Current Medications Current Medications Medications (Trade) Dose Ordered Sig/[facility] Start Time Stop Time Status Last Admin Dose Admin Sodium Chloride 1,000 ml @ 1,000 mls/hr 1X ONCE 05/06/17 12:45 05/06/17 13:44 DC 05/06/17 12:56 1,000 MLS/HR Allergies Allergies Allergies Coded Allergies Type Severity Reaction Last Updated Verified Beta-Blockers (Beta-Adrenergic Bloc Allergy Intermediate Bradycardia 07/01/16 Yes amlodipine Allergy Intermediate ADEMA 03/24/17 Yes atorvastatin Allergy Intermediate 05/28/16 Yes chlorthalidone Allergy Intermediate hyponatremia 07/01/16 Yes clonidine Allergy Intermediate bradycardia 07/01/16 Yes iodine Allergy Intermediate 05/28/16 Yes Physical Exam Physical Exam Constitutional: Well developed, well nourished, no acute distress, non-toxic appearance. [] HENT: Normocephalic, atraumatic, bilateral external ears normal, oropharynx moist, no oral exudates mild nasal mucosa erythema and edema bilaterally Eyes: EOMI, conjunctiva normal, no discharge. [] Neck: Normal range of motion, no tenderness, supple, no stridor. [] Cardiovascular:Heart rate regular rhythm, no murmur [] Lungs & Thorax: Bilateral breath sounds clear to auscultation [] Abdomen: Bowel sounds normal, soft, no tenderness, no masses, no pulsatile masses. [] Skin: Warm, dry, no erythema, no rash. [] Extremities: No tenderness, no cyanosis, no clubbing, ROM intact, no edema. [] Neurologic: Alert and oriented X 3, normal motor function, normal sensory function, no focal deficits noted. [] Psychologic: Affect normal, judgement normal, mood normal. [] Current Patient Data Vital Signs Vital Signs Date Time Temp Pulse Resp B/P (MAP) Pulse Ox O2 Delivery O2 Flow Rate FiO2 05/06/17 12:15 97.8 80 15 98 Room Air Lab Results Labs were declined EKG EKG [] Radiology/Procedures Radiology/Procedures Imaging was declined Course & Med Decision Making Course & Med Decision Making Pertinent Labs and Imaging studies reviewed. (See chart for details) Nhung was accompanied by her granddaughter, son and [id number]. More than 30 minutes of time was spent counseling both the patient and her family. All questions and concerns were addressed prior to discharge. Each family member and Nhung separately stated that they had no other questions or concerns and were comfortable with discharging home. At no point during Nhung's evaluation that she have difficulty swallowing. Dragon Disclaimer Dragon Disclaimer This electronic medical record was generated, in whole or in part, using a voice recognition dictation system. Departure Departure: Impression: Primary Impression: Encounter for medical screening examination Additional Impression: Upper respiratory infection Disposition: 01 HOME, SELF-CARE Condition: LEFT WITHOUT BEING SEEN Referrals: LANNY MAGALLON MD (PCP) Patient Instructions: Medical Screening Exam Additional Instructions: Nhung was seen in the emergency department for difficulty swallowing. No emergency medical condition was found on history or physical exam. She did pass a swallowing test in the emergency room. She was found to have symptoms consistent with an upper respiratory infection. She was advised follow-up with her primary care doctor as needed for further management. Problem Qualifiers Additional Impression: Upper respiratory infection URI type: unspecified URI Qualified Codes: J06.9 - Acute upper respiratory infection, unspecified LANNY ALMENDAREZ MD May 06, 2017 13:59
[2017-05-06 14:33] VITALS: BP 155/79
== END 2017-05-06 14:33 | disposition home or self-care (01) ==
LOC: ER 12:12
DX: J06.9 Acute upper respiratory infection, unspecified (principal); I25.10 Atherosclerotic heart disease of native coronary artery without angina pectoris; E78.00 Pure hypercholesterolemia, unspecified; I10 Essential (primary) hypertension; K21.9 Gastro-esophageal reflux disease without esophagitis; Z86.73 Personal history of transient ischemic attack (TIA), and cerebral infarction without residual deficits; Z88.8 Allergy status to other drugs, medicaments and biological substances; Z91.041 Radiographic dye allergy status
CPT/HCPCS: 96360; 96361; 99285-25; J7030

== ENCOUNTER 2017-05-14 03:05 | Emergency (ER) | payer MEDICARE ==
[~2017-05-14] VITALS: Ht 160 cm; Wt 60.7 kg
--- NOTE | 2017-05-14 03:15 | ED.ADGEN ---
Past History Past Medical History: CAD, CVA, GERD, High Cholesterol, Hypertension, Other Past Surgical History: Hysterectomy, Other Alcohol Use: None Drug Use: None Adult General Chief Complaint Chief Complaint " My nose started bleeding again... It had a spell last week.. " HPI HPI Patient is a 86 year old female who presents with above hx and complaints of epistaxis. Pt. has recurrent episodes of epistaxis in winter with onset of dry heat from home furnace. Pt. does take ASA, and is hypertensive. Pt.. normally follows with Dr. Alas. No hx of trauma, recent ill contacts or travel. Review of Systems Review of Systems Constitutional: Denies fever or chills [] Eyes: Denies change in visual acuity, redness, or eye pain [] HENT: Hx. of nasal congestion and epistaxis Respiratory: Denies cough or shortness of breath [] Cardiovascular: No additional information not addressed in HPI [] GI: Denies abdominal pain, nausea, vomiting, bloody stools or diarrhea [] : Denies dysuria or hematuria [] Musculoskeletal: Denies back pain or joint pain [] Integument: Denies rash or skin lesions [] Neurologic: Denies headache, focal weakness or sensory changes [] Endocrine: Denies polyuria or polydipsia [] All other systems were reviewed and found to be within normal limits, except as documented in this note. Family History Family History Non-contributory Current Medications Current Medications Current Medications Medications (Trade) Dose Ordered Sig/Umesh Start Time Stop Time Status Last Admin Dose Admin Bacitracin/ Polymyxin B Sulfate (Polysporin) 1 tommy 1X ONCE 05/14/17 03:30 05/14/17 03:31 DC 05/14/17 03:30 1 TOMMY Benzocaine (Hurricaine One) 1 spray 1X ONCE 05/14/17 03:45 05/14/17 03:46 DC 05/14/17 03:39 1 SPRAY Cocaine HCl 4 ml 1X ONCE 05/14/17 03:30 05/14/17 03:31 DC 05/14/17 03:29 4 ML Hydralazine HCl (Apresoline) 10 mg 1X ONCE 05/14/17 04:15 05/14/17 04:16 DC Lidocaine/ Epinephrine (Xylocaine 2%-Epi 1:100,000) 20 ml 1X ONCE 05/14/17 04:00 05/14/17 04:01 DC 05/14/17 03:33 20 ML Nifedipine (Procardia) 20 mg 1X ONCE 05/14/17 04:00 05/14/17 04:01 DC 05/14/17 04:03 20 MG Ondansetron HCl (Zofran Odt) 8 mg 1X ONCE 05/14/17 06:15 05/14/17 06:17 DC Oxymetazoline HCl (Afrin) 2 spray 1X ONCE 05/14/17 03:30 05/14/17 03:31 DC 05/14/17 03:30 2 SPRAY Phenylephrine HCl (Silvio-Synephrine 1% Nasal) 2 drop 1X ONCE 05/14/17 03:30 05/14/17 03:31 DC 05/14/17 03:30 2 DROP See Nursing for home meds Allergies Allergies Allergies Coded Allergies Type Severity Reaction Last Updated Verified Beta-Blockers (Beta-Adrenergic Bloc Allergy Intermediate Bradycardia 07/01/16 Yes amlodipine Allergy Intermediate ADEMA 03/24/17 Yes atorvastatin Allergy Intermediate 05/28/16 Yes chlorthalidone Allergy Intermediate hyponatremia 07/01/16 Yes clonidine Allergy Intermediate bradycardia 07/01/16 Yes iodine Allergy Intermediate 05/28/16 Yes Physical Exam Physical Exam Constitutional: mild distress, non-toxic appearance. [] HENT: Normocephalic, atraumatic, bilateral external ears normal, oropharynx moist, no oral exudates, nose epistaxis Rt. [place] area. Eyes: PERRLA, EOMI, conjunctiva normal, no discharge. [] Neck: Normal range of motion, no tenderness, supple, no stridor. [] Old surgery scar. Cardiovascular:Heart rate regular rhythm, no murmur [] Lungs & Thorax: Bilateral breath sounds equal at apexes on auscultation [] Abdomen: Bowel sounds normal, soft, no tenderness, no masses, no pulsatile masses. [] Skin: Warm, dry, no erythema, no rash. Poor turgor Back: No tenderness, no CVA tenderness. [] Extremities: No tenderness, no cyanosis, no clubbing, ROM intact, no edema. Arthritic changes Neurologic: Alert and oriented X 3, normal motor function, normal sensory function, no focal deficits noted. [] Psychologic: Affect anxious, judgement normal, mood normal. [] Current Patient Data Vital Signs Vital Signs Date Time Temp Pulse Resp B/P (MAP) Pulse Ox O2 Delivery O2 Flow Rate FiO2 05/14/17 05:21 73 16 140/59 (86) 97 Room Air 05/14/17 03:12 97.8 Lab Results Laboratory Tests Test 05/14/17 03:30 White Blood Count 3.8 x10^3/uL (4.0-11.0) L Red Blood Count 4.49 x10^6/uL (3.50-5.40) Hemoglobin 13.5 g/dL (12.0-15.5) Hematocrit 38.9 % (36.0-47.0) Mean Corpuscular Volume 87 fL (79-100) Mean Corpuscular Hemoglobin 30 pg (25-35) Mean Corpuscular Hemoglobin Concent 35 g/dL (31-37) Red Cell Distribution Width 13.8 % (11.5-14.5) Platelet Count 192 x10^3/uL (140-400) Neutrophils (%) (Auto) 68 % (31-73) Lymphocytes (%) (Auto) 18 % (24-48) L Monocytes (%) (Auto) 10 % (0-9) H Eosinophils (%) (Auto) 2 % (0-3) Basophils (%) (Auto) 1 % (0-3) Neutrophils # (Auto) 2.6 x10^3uL (1.8-7.7) Lymphocytes # (Auto) 0.7 x10^3/uL (1.0-4.8) L Monocytes # (Auto) 0.4 x10^3/uL (0.0-1.1) Eosinophils # (Auto) 0.1 x10^3/uL (0.0-0.7) Basophils # (Auto) 0.0 x10^3/uL (0.0-0.2) Prothrombin Time 9.7 SEC (9.4-11.4) Prothrombin Time INR 0.9 (0.9-1.1) PTT 23 SEC (23-33) Sodium Level 133 mmol/L (136-145) L Potassium Level 3.8 mmol/L (3.5-5.1) Chloride Level 96 mmol/L (98-107) L Carbon Dioxide Level 29 mmol/L (21-32) Anion Gap 8 (6-14) Blood Urea Nitrogen 21 mg/dL (7-20) H Creatinine 1.0 mg/dL (0.6-1.0) Estimated GFR (Cockcroft-Gault) 52.4 Glucose Level 112 mg/dL (70-99) H Calcium Level 9.0 mg/dL (8.5-10.1) Total Bilirubin 0.6 mg/dL (0.2-1.0) Direct Bilirubin 0.2 mg/dL (0.0-0.2) Aspartate Amino Transferase (AST) 14 U/L (15-37) L Alanine Aminotransferase (ALT) 19 U/L (14-59) Alkaline Phosphatase 64 U/L (46-116) [id number]-Type Natriuretic Peptide 807 pg/mL (0-449) H Total Protein 7.6 g/dL (6.4-8.2) Albumin 4.0 g/dL (3.4-5.0) EKG EKG [] Radiology/Procedures Radiology/Procedures [] Course & Med Decision Making Course & Med Decision Making Pertinent Labs and Imaging studies reviewed. (See chart for details) Pt to not blow nose. Use polysporin a small amount 4 x day. Follow up with Dr. Alas. Hold ASA for two days. [] Final Impression Final Impression 1. Epistaxis 2. HTN- accelerated Problems: Dragon Disclaimer Dragon Disclaimer This electronic medical record was generated, in whole or in part, using a voice recognition dictation system. JOSE CARLOS REILLY MD May 14, 2017 03:15
[2017-05-14] MEDS ORDERED: BACITRACIN/POLYMYXIN B TOPICAL OINT 15GM TUBE. TP ONE (03:30)
[2017-05-14] MEDS ORDERED: OXYMETAZOLINE 0.05% NASAL SPRAY 15ML BOTTLE. NS ONE (03:30)
[2017-05-14] MEDS ORDERED: PHENYLEPHRINE 1% NASAL DROP 30ML BOTTLE. NS ONE (03:30)
[2017-05-14] MEDS ORDERED: BENZOCAINE ONE 20% MUCOSAL SPRAY. MM ×2 (03:30→03:45)
[2017-05-14] MEDS ORDERED: COCAINE 4% TOPICAL SOLUTION TP ONE (03:30)
[2017-05-14 03:54] LABS: BASO % 1 % (0-3); EOS # 0.1 x10^3/uL (0.0-0.7); EOS % 2 % (0-3); HEMATOCRIT 38.9 % (36.0-47.0); HEMOGLOBIN 13.5 g/dL (12.0-15.5); LYMPH # 0.7 x10^3/uL (1.0-4.8); LYMPH % 18 % (24-48); MEAN CORPUSCULAR HEMOGLOBIN 30 pg (25-35); MEAN CORPUSCULAR HGB CONC 35 g/dL (31-37); MEAN CORPUSCULAR VOLUME 87 fL (79-100); MONO # 0.4 x10^3/uL (0.0-1.1); MONO % 10 % (0-9); NEUT # 2.6 x10^3uL (1.8-7.7); NEUT % 68 % (31-73); PLATELET COUNT 192 x10^3/uL (140-400); RED BLOOD COUNT 4.49 x10^6/uL (3.50-5.40); RED CELL DISTRIBUTION WIDTH 13.8 % (11.5-14.5); WHITE BLOOD COUNT 3.8 x10^3/uL (4.0-11.0)
[2017-05-14] MEDS ORDERED: LIDOCAINE 2%/EPI 1:100,000 20 ML VIAL. IJ ONE (04:00)
[2017-05-14] MEDS ORDERED: NIFEdipine 10 MG CAPSULE PO ONE (04:00)
[2017-05-14 04:03] LABS: DIRECT BILIRUBIN 0.2 mg/dL (0.0-0.2); GFR 52.4; POTASSIUM 3.8 mmol/L (3.5-5.1); TOTAL BILIRUBIN 0.6 mg/dL (0.2-1.0); TOTAL PROTEIN 7.6 g/dL (6.4-8.2)
[2017-05-14] MEDS ORDERED: hydrALAZINE 20 MG/ML VIAL. IV ONE (04:15)
[2017-05-14 05:21] VITALS: BP 140/59
[2017-05-14] MEDS ORDERED: ONDANSETRON ODT 4 MG TAB.RAPDIS PO ONE (06:15)
== END 2017-05-14 05:24 | disposition home or self-care (01) ==
LOC: ER 03:05
DX: R04.0 Epistaxis (principal); I10 Essential (primary) hypertension; E78.00 Pure hypercholesterolemia, unspecified; I25.10 Atherosclerotic heart disease of native coronary artery without angina pectoris; K21.9 Gastro-esophageal reflux disease without esophagitis; Z86.73 Personal history of transient ischemic attack (TIA), and cerebral infarction without residual deficits; Z79.82 Long term (current) use of aspirin; Z88.8 Allergy status to other drugs, medicaments and biological substances; Z91.041 Radiographic dye allergy status
CPT/HCPCS: 36415; 80048; 80076; 83880; 85025; 85610; 85730; 96372; 99284

== ENCOUNTER 2017-05-14 05:46 | Emergency (ER) | payer MEDICARE ==
[~2017-05-14] VITALS: Ht 160 cm; Wt 60.7 kg
[2017-05-14 05:48] VITALS: BP 148/66
[2017-05-14] MEDS ORDERED: ONDANSETRON ODT 4 MG TAB.RAPDIS ONE (05:49)
--- NOTE | 2017-05-14 05:55 | ED.ADGEN ---
Past History Past Medical History: CAD, CVA, GERD, High Cholesterol, Hypertension, CA, Stroke, Other (JOSE CARLOS REILLY MD) Past Surgical History: Hysterectomy, Other (JOSE CARLOS REILLY MD) Alcohol Use: None Drug Use: None (JOSE CARLOS REILLY MD) Adult General Chief Complaint Chief Complaint " I am feeling nauseated now..." (JOSE CARLOS REILLY MD) HPI HPI Patient is a 86 year old female who presents with nausea immediately after discharge for epistaxis and hypertension. Pt. unable to get a hold of son. 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 Pt. follows with Dr. Alas. (JOSE CARLOS REILLY MD) Review of Systems Review of Systems Constitutional: Denies fever or chills [] Eyes: Denies change in visual acuity, redness, or eye pain [] HENT: Hx of nasal congestion and epistaxis Respiratory: Denies cough or shortness of breath [] Cardiovascular: No additional information not addressed in HPI [] GI: Denies abdominal pain, , vomiting, bloody stools or diarrhea []Complaints of nausea. : Denies dysuria or hematuria [] Musculoskeletal: Denies back pain or joint pain [] Integument: Denies rash or skin lesions [] Neurologic: Denies headache, focal weakness or sensory changes [] Endocrine: Denies polyuria or polydipsia [] All other systems were reviewed and found to be within normal limits, except as documented in this note. (JOSE CARLOS REILLY MD) Family History Family History Non- contributory (JOSE CARLOS REILLY MD) Current Medications Current Medications Current Medications Medications (Trade) Dose Ordered Sig/Umesh Start Time Stop Time Status Last Admin Dose Admin Ondansetron HCl (Zofran Odt) 8 mg 1X ONCE 05/14/17 06:15 05/14/17 06:17 DC 05/14/17 06:00 8 MG (RENZO MOORE DO) Current Medications See [facility] meds (JOSE CARLOS REILLY MD) Allergies Allergies Allergies Coded Allergies Type Severity Reaction Last Updated Verified Beta-Blockers (Beta-Adrenergic Bloc Allergy Intermediate Bradycardia 07/01/16 Yes amlodipine Allergy Intermediate ADEMA 03/24/17 Yes atorvastatin Allergy Intermediate 05/28/16 Yes chlorthalidone Allergy Intermediate hyponatremia 07/01/16 Yes clonidine Allergy Intermediate bradycardia 07/01/16 Yes iodine Allergy Intermediate 05/28/16 Yes (RENZO MOORE DO) Physical Exam Physical Exam Constitutional: mild to moderate distress, non-toxic appearance. [] HENT: Normocephalic, atraumatic, bilateral external ears normal, oropharynx moist, no oral exudates, nose epistaxis site stable in Rt nares. No active bleeding Eyes: PERRLA, EOMI, conjunctiva normal, no discharge. [] Neck: Normal range of motion, no tenderness, supple, no stridor. Old surgery scar. Cardiovascular:Heart rate regular rhythm, no murmur [] Lungs & Thorax: Bilateral breath sounds clear to auscultation [] Abdomen: Bowel sounds normal, soft, no tenderness, no masses, no pulsatile masses. [] Skin: Warm, dry, no erythema, no rash. Poor turgor. Back: No tenderness, no CVA tenderness. [] Extremities: No tenderness, no cyanosis, no clubbing, ROM intact, no edema. Arthritic changes. Neurologic: Alert and oriented X 3, normal motor function, normal sensory function, no focal deficits noted. [] Psychologic: Affect anxious, judgement normal, mood normal. [] (JOSE CARLOS REILLY MD) Current Patient Data Vital Signs Vital Signs Date Time Temp Pulse Resp B/P (MAP) Pulse Ox O2 Delivery O2 Flow Rate FiO2 05/14/17 05:48 97.7 75 16 97 Room Air (RENZO MOORE DO) Lab Results Laboratory Tests Test 05/14/17 06:09 POC Troponin I 0.03 ng/ml (<0.08) (RENZO MOORE DO) Lab Results Laboratory Tests Test 05/14/17 06:09 POC Troponin I 0.03 ng/ml (<0.08) (JOSE CARLOS REILLY MD) EKG EKG [] (JOSE CARLOS REILLY MD) Radiology/Procedures Radiology/Procedures [] (JOSE CARLOS REILLY MD) Course & Med Decision Making Course & Med Decision Making Pertinent Labs and Imaging studies reviewed. (See chart for details) Dr. Moore will make disposition of pt. [] (JOSE CARLOS REILLY MD) Course & Med Decision Making Patient signed out to me at 6 AM shift change. Patient was apparently seen for epistaxis and hypertension treated and discharged. Upon finding out that she would have to wait in the waiting room for a ride she reportedly became angry complaining of nausea and requesting to go back into an exam room says she could lay down to go to sleep. It is reported to me that ED staff has just checked upon the status of the patient and when asked if she was feeling any better she replied "I will be if you have a ride home for me." Apparently ED staff was able to secure resources to provide the patient with Money home however the patient refused that option as she says she has a slippery driveway and will need someone to walk her up into her door. She has stated that she is choosing to remain ill until a family member or her son may be reached by phone to come get her. Prior to emergency medicine physician did initiate some labs and workup for the patient's nausea, part of that included an i-STAT troponin which is reported to me as 0.03 within normal limits. EKG: Normal sinus rhythm 68 bpm, prolonged VT with left axis deviation and left anterior fascicular block, nonspecific T contour abnormality no ST segment elevation interpreted by me 0719: Patient rechecked, "I think I swallowed too much blood in the made me sick to my stomach." She states that she's feeling better, her systolic blood pressure is 160 she states that she hasn't had her medications yet this morning. Due to the patient's comorbidities I did offer inpatient admission for observation although her story does make sense and she denies any chest pain shortness of breath headache or focal neurologic symptoms. She is reassured that her son is on the way to pick her up and states that she is ready for discharge home and agrees to follow-up with her primary care physician on Wednesday. I discussed signs and symptoms to monitor as well as indications for urgent return to the department. I discussed outpatient nosebleed treatments and the patient expressed agreement and understanding of treatment plan. (RENZO MOORE DO) Final Impression Final Impression 1. Nausea 2. Hx. HTN 3. Hx. Epistaxis[] Problems: (JOSE CARLOS REILLY MD) Dragon Disclaimer Dragon Disclaimer This electronic medical record was generated, in whole or in part, using a voice recognition dictation system. (JOSE CARLOS REILLY MD) Departure Time of Disposition: 07:20 (RENZO MOORE DO) Disposition: 01 HOME, SELF-CARE Diagnosis: nausea, epistaxis, hypertension Condition: IMPROVED Patient Instructions: Nosebleed, [id number] Additional Instructions: Observe discharge instructions from those given earlier this morning. Continue current medications Follow-up with your doctor on Wednesday for recheck. Return to ED with new or changing symptoms. JOSE CARLOS REILLY MD May 14, 2017 05:54 RENZO MOORE DO May 14, 2017 06:30
[2017-05-14] MEDS ORDERED: ONDANSETRON ODT 4 MG TAB.RAPDIS PO ONE (06:15)
--- NOTE | 2017-05-14 17:37 | EKG ---
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
== END 2017-05-14 07:27 | disposition home or self-care (01) ==
LOC: ER 05:46
DX: R11.0 Nausea (principal); R04.0 Epistaxis; I10 Essential (primary) hypertension; K21.9 Gastro-esophageal reflux disease without esophagitis; E78.00 Pure hypercholesterolemia, unspecified; I25.10 Atherosclerotic heart disease of native coronary artery without angina pectoris; I25.2 Old myocardial infarction; Z86.73 Personal history of transient ischemic attack (TIA), and cerebral infarction without residual deficits; Z88.8 Allergy status to other drugs, medicaments and biological substances; Z91.041 Radiographic dye allergy status
CPT/HCPCS: 84484; 93005; 99283; Q0162

== ENCOUNTER 2017-05-19 16:22 | Inpatient (IN) | payer MEDICARE ==
[~2017-05-19] VITALS: Ht 160 cm; Wt 57.4 kg
[2017-05-19] MEDS ORDERED: IV NORMAL SALINE 1,000ML 1,000 ML IV SCH (16:41)
[2017-05-19] MEDS ORDERED: 0.9 % SODIUM CHLORIDE 10 ML DISP.SYRIN. IV PRN (16:45)
--- NOTE | 2017-05-19 16:56 | PHYS DOC ---
Past History Past Medical History: CAD, CVA, Hypothyroid, IBS, ME, UTI Past Surgical History: Cancer Surgery, Tonsillectomy Alcohol Use: None Drug Use: None Adult General Chief Complaint Chief Complaint: WEAKNESS/GENERALIZED HPI HPI Patient is a pleasant 86-year-old female who lives alone but presents with generalized weakness that has been plaguing her for about 12 hours. Patient's been seen in our emergency department on multiple occasions for hypertension, epistaxis, generalized weakness and other complaints of chest pain and shortness of breath. She was just seen and released from our emergency department earlier last week for evidence of urgency and epistaxis. Patient returns today because of generalized weakness as she woke up this morning. She is no specific focal neurologic deficit, no problems with speech, no problems with vision, just generalized weakness. She denies any chest pain but has noted her blood pressure severely elevated at 190s over 120s. Patient denies any medication changes are missed medications. Patient denies any fever, chills, abdominal pain, nausea, vomiting, shortness of breath, chest pain. She says decreased energy and when the home health nurse visit her today and she stop her elevated blood pressure and her generalized weakness EMS was dispatched to the facility to Pending her for an evaluation here in the emergency department. Patient denies any flulike symptoms, denies any trauma. Her primary care doctor Dr. Lanny Magallon Review of Systems Review of Systems Constitutional: Subjective fevers and chills and flulike symptoms Eyes: Denies change in visual acuity, redness, or eye pain [] HENT: Denies nasal congestion or sore throat patient did have epistaxis earlier last week that is now resolved. [] Respiratory: Denies cough or shortness of breath [] Cardiovascular: No additional information not addressed in HPI [] GI: Denies abdominal pain, nausea, vomiting, bloody stools or diarrhea [] : Denies dysuria or hematuria [] Musculoskeletal: Denies back pain or joint pain [] Integument: Denies rash or skin lesions [] Neurologic: Denies headache, focal weakness or sensory changes patient complains of generalized weakness she does have some residual deficits in the right upper and right lower extremity from prior stroke. [] Endocrine: Denies polyuria or polydipsia [] All other systems were reviewed and found to be within normal limits, except as documented in this note. Current Medications Current Medications Current Medications Medications (Trade) Dose Ordered Sig/Umesh Start Time Stop Time Status Last Admin Dose Admin Sodium Chloride (Normal Saline Flush) 10 ml QSHIFT PRN 05/19/17 16:45 UNV Allergies Allergies Allergies Coded Allergies Type Severity Reaction Last Updated Verified Beta-Blockers (Beta-Adrenergic Bloc Allergy Intermediate Bradycardia 07/01/16 Yes amlodipine Allergy Intermediate ADEMA 03/24/17 Yes atorvastatin Allergy Intermediate 05/28/16 Yes chlorthalidone Allergy Intermediate hyponatremia 07/01/16 Yes clonidine Allergy Intermediate bradycardia 07/01/16 Yes iodine Allergy Intermediate 05/28/16 Yes Physical Exam Physical Exam Other vital signs recorded on the chart patient noted to be hypertensive, and mildly tachypnea Constitutional: Patient is thin poorly nourished she looks tired but she is nontoxic. Patient's dry mucous membranes significant redness and erythema to her face HENT: Normocephalic, atraumatic, bilateral external ears normal, oropharynx dry , no oral exudates, nose normal. [] Eyes: PERRLA, EOMI, conjunctiva injected with some limbic injection and redness. , no discharge. [] Neck: Normal range of motion, no tenderness, supple, no stridor. [] Cardiovascular:Heart rate regular rhythm, she has noted 2/6 systolic ejection murmur is holosystolic[] Lungs & Thorax: Bilateral breath sounds clear to auscultation [] Abdomen: Bowel sounds normal, soft, no tenderness, no masses, no pulsatile masses. [] Skin: Warm, dry, patient's skin shows decreased skin turgor Back: No tenderness, no CVA tenderness. [] Extremities: No tenderness, no cyanosis, no clubbing, ROM intact, no edema. [] Neurologic: Alert and oriented X 3, patient demonstrates some weakness and her left lower and right lower limbs and her right upper limb. She shows 4-5 strength in the left lower leg Psychologic: Affect normal, judgement normal, mood normal. [] Based on patient's presentation and physical exam findings patient's stroke scale at this point is 3 although this may be old weakness. 1a. Level of consciousness: 0 = Alert; keenly responsive. 1 = Not alert; but arousable by minor stimulation to obey, answer, or respond. 2 = Not alert; requires repeated stimulation to attend, or is obtunded and requires strong or painful stimulation to make movements (not stereotyped). 3 = Responds only with reflex motor or autonomic effects or totally unresponsive , flaccid, and areflexic. 1b. LOC questions: 0 = Answers both questions correctly. 1 = Answers one question correctly. 2 = Answers neither question correctly. 1c. LOC commands: 0 = Performs both tasks correctly. 1 = Performs one task correctly. 2 = Performs neither task correctly. 2. Best gaze: 0 = Normal. 1 = Partial gaze palsy; gaze is abnormal in one or both eyes, but forced deviation or total gaze paresis is not present. 2 = Forced deviation, or total gaze paresis not overcome by the oculocephalic maneuver. 3. Visual: 0 = No visual loss. 1 = Partial hemianopia. 2 = Complete hemianopia. 3 = Bilateral hemianopia (blind including cortical blindness). 4. Facial palsy: 0 = Normal symmetrical movements. 1 = Minor paralysis (flattened nasolabial fold, asymmetry on smiling). 2 = Partial paralysis (total or near-total paralysis of lower face). 3 = Complete paralysis of one or both sides (absence of facial movement in the upper and lower face). 5. Motor arm: 0 = No drift; limb holds 90 (or 45) degrees for full 10 seconds. 1 = Drift; limb holds 90 (or 45) degrees, but drifts down before full 10 seconds ; does not hit bed or other support. 2 = Some effort against gravity; limb cannot get to or maintain (if cued) 90 ( or 45) degrees, drifts down to bed, but has some effort against gravity. 3 = No effort against gravity; limb falls. 4 = No movement. UN = Amputation or joint fusion, explain: 5a. Left arm 0 5b. Right arm 1 6. Motor le = No drift; leg holds 30-degree position for full 5 seconds. 1 = Drift; leg falls by the end of the 5-second period but does not hit bed. 2 = Some effort against gravity; leg falls to bed by 5 seconds, but has some effort against gravity. 3 = No effort against gravity; leg falls to bed immediately. 4 = No movement. UN = Amputation or joint fusion, explain: 6a. Left leg 1 6b. Right leg 1 7. Limb ataxia: 0 = Absent. 1 = Present in one limb. 2 = Present in two limbs. UN = Amputation or joint fusion 8. Sensory: 0 = Normal; no sensory loss. 1 = Owry-dn-mrqbvhgm sensory loss; patient feels pinprick is less sharp or is dull on the affected side; or there is a loss of superficial pain with pinprick , but patient is aware of being touched. 2 = Severe to total sensory loss; patient is not aware of being touched in the face, arm, and leg. 9. Best language: 0 = No aphasia; normal. 1 = Cbor-zu-wwrzcqiq aphasia; some obvious loss of fluency or facility of comprehension, without significant limitation on ideas expressed or form of expression. Reduction of speech and/or comprehension, however, makes conversation about provided materials difficult or impossible. For example, in conversation about provided materials, examiner can identify picture or naming card content from patient's response. 2 = Severe aphasia; all communication is through fragmentary expression; great need for inference, questioning, and guessing by the listener. Range of information that can be exchanged is limited; listener carries burden of communication. Examiner cannot identify materials provided from patient response. 3 = Mute, global aphasia; no usable speech or auditory comprehension. 10. Dysarthria: 0 = Normal. 1 = Pnsc-yt-bspkiret dysarthria; patient slurs at least some words and, at worst , can be understood with some difficulty. 2 = Severe dysarthria; patient's speech is so slurred as to be unintelligible in the absence of or out of proportion to any dysphasia, or is mute/anarthric. UN = Intubated or other physical barrier, explain: 11. Extinction and inattention (formerly neglect): 0 = No abnormality. 1 = Visual, tactile, auditory, spatial, or personal inattention or extinction to bilateral simultaneous stimulation in one of the sensory modalities. 2 = Profound mi-inattention or extinction to more than one modality; does not recognize own hand or orients to only one side of space. Current Patient Data Vital Signs Vital Signs Date Time Temp Pulse Resp B/P (MAP) Pulse Ox O2 Delivery O2 Flow Rate FiO2 05/19/17 16:39 98.0 80 22 98 Room Air EKG EKG Patient's EKG 4:57 PM demonstrates a heart rate of 74. This is sinus rhythm with a P wave there were QRS. Interval is elongated first-degree AV block with a MD interval 216. Patient's QRS width is 94 which is normal, patient's QTc is 432 normal, patient is a left anterior is fascicular block she has no ST segment or T-wave changes consistent with acute cord ischemia she does have inverted T waves in V1 and V2, this EKG was read by me it is abnormal[] Radiology/Procedures Radiology/Procedures [] [address] [address] IMAGING REPORT Signed PATIENT: STEPHANEI HOUSTON ACCOUNT: [id number] : 1930 LOCATION: ER AGE: 86 SEX: F EXAM STATUS: REG ER ORD. PHYSICIAN: FLOR CALDERÓN MD REASON: generalized weakness PROCEDURE: PORTABLE CHEST 1V EXAM: Chest one view. HISTORY: Weakness. COMPARISON: March 23, 2017. FINDINGS: A frontal view of the chest is obtained. There are surgical clips at the right base of the neck. Hyperinflation is consistent with chronic obstructive pulmonary disease. There are no confluent infiltrates. There is no pneumothorax or pleural effusion. The heart is at the upper limits of normal size. IMPRESSION: 1. Chronic obstructive pulmonary disease. No confluent infiltrates. Electronically signed by: Susie Gutierrez MD (05/19/2017 4:58 PM) [facility] [place] DICTATED AND SIGNED BY: MARYANN GUTIERREZ MD DATE: 05/19/17 1155 CC: FLOR CALDERÓN MD; LANNY MAGALLON MD ~ Course & Med Decision Making Course & Med Decision Making Pertinent Labs and Imaging studies reviewed. (See chart for details) []She presents with generalized weakness and hypertension with no other major complaints. She is here frequently with similar symptoms and I believe that she may be unable to take care of herself adequately at home. Patient's chest x-ray reviewed by me AP chest demonstrates no acute infiltrate, she has hyperinflation consistent with COPD but no other acute findings. Patient's labs are still pending at this time as was troponin, CMP, urinalysis and influenza swabs. I will turn care over to the oncoming physician Dr. Sumaya Eubanks final disposition. My concern is based on patient's frequent use of the emergency department for nonemergent conditions she may benefit from admission to the hospital and has been in a long term facility or rehabilitation facility and twitches and strength to take care of herself. I believe family should be involved in this particular decision as well as the patient. Dragon Disclaimer Dragon Disclaimer This electronic medical record was generated, in whole or in part, using a voice recognition dictation system. Departure Departure: Impression: Primary Impression: Dehydration Additional Impressions: Hypertension Weakness Disposition: ADMITTED INPATIENT Admitting Physician: Lanny Magallon Condition: STABLE Referrals: LANNY MAGALLON MD (PCP) Assessment/Plan Assessment/Plan 86-year-old female presenting to the emergency department today with generalized weakness signed out to me at 6 PM with plans to follow-up on blood work and results. I went to examine the patient she has no neurologic deficits. She is awake oriented and alert. CT neuro exam below. She shows no sign of trauma to the head or neck. She describes feeling generally weak without any focal deficits. Blood work obtained which shows mild dehydration uremia. Chest x -ray unremarkable. She was notably quite hypertensive here in the emergency room at 190 systolic. I gave her some hydralazine which mildly improved her blood pressure. I discussed risks and benefits also admission versus discharge with the patient and the patient's primary care physician Dr. Stubbs. At that point in time it was decided that he would benefit patient to obtain a bed for her in the hospital treat her blood pressure give her IV fluids and monitor her with serial troponins and establish a disposition to adequately support the patient's long-term needs potentially have her case briefer eval and give recs. neuro exam. Mental status: Awake oriented and alert x3 Cranial nerves: Extraocular movements intact, eyebrows laura bilaterally, smile symmetric, uvula elevation nl, shoulder shrug intact bilaterally, tongue protrusion normal DTRs: 2+ Sensation: equal and normal in all extremities Strength: 5/5 in upper and lower extremities bilaterally Problem Qualifiers FLOR CALDERÓN MD May 19, 2017 16:56 SUMAYA EUBANKS MD May 19, 2017 19:20
--- NOTE | 2017-05-19 17:01 | RAD ---
EXAM: Chest one view. HISTORY: Weakness. COMPARISON: March 23, 2017. FINDINGS: A frontal view of the chest is obtained. There are surgical clips at the right base of the neck. Hyperinflation is consistent with chronic obstructive pulmonary disease. There are no confluent infiltrates. There is no pneumothorax or pleural effusion. The heart is at the upper limits of normal size. IMPRESSION: 1. Chronic obstructive pulmonary disease. No confluent infiltrates. Electronically signed by: Susie Gutierrez MD (05/19/2017 4:58 PM) [facility] [place]
[2017-05-19 17:41] LABS: BASO % 1 % (0-3); EOS % 1 % (0-3); HEMATOCRIT 35.1 % (36.0-47.0); HEMOGLOBIN 12.2 g/dL (12.0-15.5); LYMPH # 0.5 x10^3/uL (1.0-4.8); LYMPH % 11 % (24-48); MEAN CORPUSCULAR HEMOGLOBIN 30 pg (25-35); MEAN CORPUSCULAR HGB CONC 35 g/dL (31-37); MEAN CORPUSCULAR VOLUME 87 fL (79-100); MONO # 0.5 x10^3/uL (0.0-1.1); MONO % 12 % (0-9); NEUT # 3.6 x10^3uL (1.8-7.7); NEUT % 76 % (31-73); PLATELET COUNT 178 x10^3/uL (140-400); RED BLOOD COUNT 4.05 x10^6/uL (3.50-5.40); RED CELL DISTRIBUTION WIDTH 13.7 % (11.5-14.5); WHITE BLOOD COUNT 4.7 x10^3/uL (4.0-11.0)
[2017-05-19 17:43] LABS: INFLUENZA A PATIENT NEGATIVE (NEGATIVE); INFLUENZA B PATIENT NEGATIVE (NEGATIVE)
[2017-05-19 17:57] LABS: ALBUMIN 3.7 g/dL (3.4-5.0); CALCIUM 8.9 mg/dL (8.5-10.1); CREATININE 0.9 mg/dL (0.6-1.0); DIRECT BILIRUBIN 0.2 mg/dL (0.0-0.2); GFR 59.2; MAGNESIUM 1.9 mg/dL (1.8-2.4); POTASSIUM 3.6 mmol/L (3.5-5.1); TOTAL BILIRUBIN 0.6 mg/dL (0.2-1.0)
[2017-05-19 18:41] LABS: BILIRUBIN,URINE NEG (NEG); CLARITY,URINE CLEAR; COLOR,URINE STRAW; GLUCOSE,URINE NEG (NEG); NITRITE,URINE NEG (NEG); UROBILINOGEN,URINE 0.2 mg/dL (0.2 mg/dL)
[2017-05-19 18:42] LABS: BACTERIA,URINE FEW /HPF (0-FEW); SQUAMOUS EPITHELIAL CELL,UR FEW /LPF
[2017-05-19] MEDS ORDERED: hydrALAZINE 20 MG/ML VIAL. IV ONE (18:45)
[2017-05-19] MEDS ORDERED: ONDANSETRON PF 4 MG/2 ML VIAL. IV PRN (19:00)
[2017-05-19] MEDS ORDERED: MORPHINE SULFATE 2 MG/ML DISP.SYRIN. IV PRN (19:00)
[2017-05-19] MEDS ORDERED: HYDROCORTISONE ACETATE 25 MG SUPP.RECT RC PRN (20:45)
[2017-05-19] MEDS ORDERED: POLYETHYLENE GLYCOL 3350 17 GM PACKET. PO PRN (20:45)
[2017-05-19] MEDS ORDERED: CALCIUM CARBONATE 500 MG TAB.CHEW PO PRN (20:45)
[2017-05-19] MEDS ORDERED: NITROGLYCERIN SUBLINGUAL 0.4 MG BOTTLE OF 25. SL PRN (20:45)
[2017-05-19 20:50] VITALS: BP 169/73
[2017-05-19] MEDS: PRAVASTATIN 20 MG TABLET. PO SCH (21:27)
[2017-05-19] MEDS: LISINOPRIL 20 MG TABLET PO SCH (21:28)
[2017-05-19] MEDS: IV NORMAL SALINE 1,000ML 1,000 ML IV SCH (21:29)
--- NOTE | 2017-05-19 21:44 | EKG ---
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
[2017-05-19 23:06] VITALS: BP 144/58
--- NOTE | 2017-05-19 23:50 | NUR ---
The patient, STEPHANIE HOUSTON, 86 y/o, F admitted by LANNY MAGALLON MD, was given written information regarding hospital policies, unit procedures and contact persons. Valuables were checked and in left room with pt. Pt admitted for weakness and HTN. 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 Pt lives home alone with home health services.
[2017-05-20] MEDS: IV NORMAL SALINE 1,000ML 1,000 ML IV SCH ×2 (04:16→18:15)
[2017-05-20] MEDS: LEVOTHYROXINE 100 MCG TABLET PO SCH (05:06)
[2017-05-20 06:01] VITALS: BP 155/65
[2017-05-20 06:42] LABS: BASO % 1 % (0-3); EOS % 1 % (0-3); HEMATOCRIT 31.2 % (36.0-47.0); HEMOGLOBIN 10.7 g/dL (12.0-15.5); LYMPH # 0.5 x10^3/uL (1.0-4.8); LYMPH % 18 % (24-48); MEAN CORPUSCULAR HEMOGLOBIN 30 pg (25-35); MEAN CORPUSCULAR HGB CONC 34 g/dL (31-37); MEAN CORPUSCULAR VOLUME 88 fL (79-100); MONO # 0.3 x10^3/uL (0.0-1.1); MONO % 11 % (0-9); NEUT # 2.1 x10^3uL (1.8-7.7); NEUT % 69 % (31-73); PLATELET COUNT 162 x10^3/uL (140-400); RED BLOOD COUNT 3.57 x10^6/uL (3.50-5.40); RED CELL DISTRIBUTION WIDTH 13.9 % (11.5-14.5); WHITE BLOOD COUNT 3.1 x10^3/uL (4.0-11.0)
[2017-05-20 06:45] LABS: CALCIUM 8.2 mg/dL (8.5-10.1); CREATININE 0.9 mg/dL (0.6-1.0); GFR 59.2; POTASSIUM 3.7 mmol/L (3.5-5.1)
[2017-05-20] MEDS: LISINOPRIL 20 MG TABLET PO SCH ×2 (08:17→20:30)
[2017-05-20] MEDS: ASPIRIN 81 MG TAB.CHEW PO SCH (08:18)
[2017-05-20] MEDS: FAMOTIDINE 20 MG TABLET PO SCH (08:18)
[2017-05-20] MEDS ORDERED: OLMESARTAN MEDOXOMIL PO SCH (09:00)
[2017-05-20 10:03] VITALS: BP 121/57
[2017-05-20 14:19] VITALS: BP_SYST 143; BP_SYST 146; BP_DIAS 71; BP_DIAS 72
[2017-05-20 14:20] VITALS: BP 123/61
[2017-05-20 19:36] VITALS: BP 144/96
--- NOTE | 2017-05-20 19:50 | HP ---
ADMIT DATE: 05/19/2017 HISTORY OF PRESENT ILLNESS: An 86-year-old female came in through the Emergency Room yesterday, apparently was seen by her home health agent and said she looked very pale, weak, tired and was extremely lightheaded. The patient notes that for the last 12 hours or so, she has had problems with generalized weakness and multiple other problems. She was admitted for observation, for further evaluation, for generalized weakness and other possible medical problems. PAST MEDICAL AND SURGICAL HISTORY: Includes hypertension, epistaxis, generalized weakness. Complains of chest pain and shortness of breath. She has had cancer surgery and tonsillectomy, hypothyroidism, IBS and multiple UTIs and history of stroke and coronary artery disease. The patient had a cardiac catheterization x2 with 3 stents, hypercholesterolemia, hysterectomy, incontinence, hypothyroidism, thyroid cancer, thyroidectomy, depression, anxiety, adenoidectomy, tinnitus, thyroid disease. FAMILY HISTORY: Prostate cancer in a brother, hypertension in a son, cancer confirmed with a brother, father and mother. ALLERGIES: BETA BLOCKERS, AMLODIPINE, LIPITOR, CHLORTHALIDONE, CLONIDINE, AND IODINE. HOME MEDICATIONS: Include Tylenol, aspirin 81, calcium carbonate, Colace, hydralazine 50, Anusol-HC, levothyroxine, ____, lisinopril 40 mg daily, nifedipine 30 mg daily, Nitrostat, Afrin nasal spray, MiraLax, pravastatin 80 mg daily, and Zantac 75 mg daily. SOCIAL HISTORY: The patient denies smoking, alcohol or drug use. REVIEW OF SYSTEMS: The patient denies chest pain, shortness of breath, abdominal pain, nausea, vomiting, melena, hematochezia, or hematemesis. Denies fever or chills. The patient, however, does have generalized weakness. PHYSICAL EXAMINATION: GENERAL: This is a pleasant white female, does show some orthostasis. VITAL SIGNS: Blood pressure 170/73 supine and standing drops down to 123/61, respiratory rate 20, pulse 75, afebrile. NEUROLOGIC: The patient is alert and oriented x3. Speech fluent, spontaneous, appropriate. Cranial nerves 2-12 grossly intact. LUNGS: Diminished throughout, poor movement of air. CARDIOVASCULAR: Regular sinus rhythm. ABDOMEN: Soft, nontender, no rebounding or guarding. Positive bowel sounds, no hepatosplenomegaly was noted. EXTREMITIES: No clubbing, cyanosis, nor edema. IMPRESSION: The patient notes generalized weakness, especially when standing up and feels lightheaded. Of course, this may be related to her orthostasis. The patient otherwise is alert, but shows some signs of early dementia with short-term memory loss and difficulty recalling several items when asked to repeat them. In any case, impression, change in mental status, weakness, orthostatic hypotension. The patient will be monitored carefully, make further evaluation on her IV fluids and try to correct her orthostasis, look into social services specialist about her going into some type of nursing facility, as she is not really capable of taking care of herself on a daily basis. LANNY MAGALLON MD DR: JERRI/richard JOB#: [id number] / [id number]
[2017-05-20] MEDS: DOCUSATE SODIUM 100 MG CAPSULE PO PRN (20:28)
[2017-05-20] MEDS: PRAVASTATIN 20 MG TABLET. PO SCH (20:28)
[2017-05-20] MEDS: ACETAMINOPHEN 325 MG TABLET PO PRN (20:28)
[2017-05-20 23:07] VITALS: BP 157/59
[2017-05-21] MEDS: LEVOTHYROXINE 100 MCG TABLET PO SCH (05:03)
[2017-05-21 05:49] VITALS: BP 166/69
[2017-05-21 06:47] LABS: BASO % 1 % (0-3); EOS # 0.1 x10^3/uL (0.0-0.7); EOS % 2 % (0-3); HEMATOCRIT 33.1 % (36.0-47.0); HEMOGLOBIN 11.5 g/dL (12.0-15.5); LYMPH # 0.6 x10^3/uL (1.0-4.8); LYMPH % 17 % (24-48); MEAN CORPUSCULAR HEMOGLOBIN 30 pg (25-35); MEAN CORPUSCULAR HGB CONC 35 g/dL (31-37); MEAN CORPUSCULAR VOLUME 88 fL (79-100); MONO # 0.4 x10^3/uL (0.0-1.1); MONO % 12 % (0-9); NEUT # 2.3 x10^3uL (1.8-7.7); NEUT % 68 % (31-73); PLATELET COUNT 145 x10^3/uL (140-400); RED BLOOD COUNT 3.78 x10^6/uL (3.50-5.40); RED CELL DISTRIBUTION WIDTH 14.1 % (11.5-14.5); WHITE BLOOD COUNT 3.4 x10^3/uL (4.0-11.0)
[2017-05-21 07:00] LABS: CALCIUM 8.3 mg/dL (8.5-10.1); CREATININE 0.8 mg/dL (0.6-1.0); GFR 67.8; POTASSIUM 3.7 mmol/L (3.5-5.1)
[2017-05-21] MEDS: FAMOTIDINE 20 MG TABLET PO SCH (08:25)
[2017-05-21] MEDS: ASPIRIN 81 MG TAB.CHEW PO SCH (08:25)
[2017-05-21] MEDS: LISINOPRIL 20 MG TABLET PO SCH ×2 (08:26→20:02)
[2017-05-21 10:43] VITALS: BP 179/77
[2017-05-21 13:46] VITALS: BP 180/74
[2017-05-21 19:55] VITALS: BP 178/65
[2017-05-21] MEDS: PRAVASTATIN 20 MG TABLET. PO SCH (20:01)
[2017-05-21] MEDS: DOCUSATE SODIUM 100 MG CAPSULE PO PRN (20:01)
[2017-05-21 22:56] VITALS: BP 172/73
[2017-05-21] MEDS: ACETAMINOPHEN 325 MG TABLET PO PRN (23:59)
[2017-05-22] MEDS: LEVOTHYROXINE 100 MCG TABLET PO SCH (05:07)
[2017-05-22 06:02] VITALS: BP 174/70
[2017-05-22] MEDS: DOCUSATE SODIUM 100 MG CAPSULE PO PRN (08:21)
[2017-05-22] MEDS: ASPIRIN 81 MG TAB.CHEW PO SCH (08:21)
[2017-05-22] MEDS: FAMOTIDINE 20 MG TABLET PO SCH (08:21)
[2017-05-22] MEDS: LISINOPRIL 20 MG TABLET PO SCH (08:21)
--- NOTE | 2017-05-22 09:25 | PN ---
DATE: 05/21/2017 SUBJECTIVE: An 86-year-old female in with generalized weakness, hypertensive urgency. The patient is feeling somewhat better this morning, but still very weak. PHYSICAL EXAMINATION: VITAL SIGNS: Show her blood pressure as high as 205/86 (NC), pulse 70, respiratory rate 16, afebrile. GENERAL: The patient is alert. Lungs are diminished. Denies chest pain, shortness of breath. LUNGS: Diminished throughout. CARDIOVASCULAR: Regular sinus rhythm. ABDOMEN: Soft, nontender. EXTREMITIES: No clubbing, cyanosis, or edema. IMPRESSION: Hypertensive urgency, generalized weakness, labile hypertension, anemia of chronic disease, leukopenia, , hyponatremia. PLAN: We will go ahead and continue to monitor the patient, accordingly get her blood pressure down, make further evaluation. We will get her blood pressure down and make further adjustments on her medication possible skilled unit. LANNY MAGALLON MD DR: JERRI/richard JOB#: [id number] / [id number]
[2017-05-22] MEDS ORDERED: NIFE30TA17 PO (10:02)
[2017-05-22 11:11] VITALS: BP 188/79
--- NOTE | 2017-05-22 12:19 | NUR ---
NSG NOTE; DISCHARGE TO [facility] AT 1205 VIA W/C ACCOMP BY TRANSPORT PERSONNEL. PAPER COPY OF CHART SENT WITH PT
--- NOTE | 2017-05-22 23:44 | DS ---
DATE OF DISCHARGE: 05/22/2017 HOSPITAL COURSE: The patient is an 86-year-old female who came in with generalized weakness and failure to thrive. The patient in turn felt lightheaded and so forth. The patient was having difficulty mobilizing. The patient's labs were basically unremarkable, but she did have generalized weakness. It looked like she was dehydrated. As a result of this, the patient also was noted to have elevated urgent hypertension. Adjusted on her Procardia, nifedipine. The patient made good progress during the rest of her hospitalization, was feeling better at time of discharge and was discharged to the medical facility in [facility] for further rehabilitation. The patient will be on a regular diet. Activity is PT, OT and make further evaluation at that facility. IMPRESSION: Hypertensive urgency, generalized weakness, labile hypertension, anemia of chronic disease, leukopenia, hyponatremia. PLAN: As above. LANNY MAGALLON MD DR: JERRI/richard JOB#: [id number] / [id number]
== END 2017-05-22 12:05 | DRG 641 ==
LOC: ER 16:22 → 1 SOUTH 18:57
PROVIDERS: ADMIT Family Medicine; ATTEND Family Medicine
DX: E86.0 Dehydration (principal); J44.9 Chronic obstructive pulmonary disease, unspecified; D63.8 Anemia in other chronic diseases classified elsewhere; I16.0 Hypertensive urgency; E87.1 Hypo-osmolality and hyponatremia; I95.1 Orthostatic hypotension; I10 Essential (primary) hypertension; D72.819 Decreased white blood cell count, unspecified; E78.00 Pure hypercholesterolemia, unspecified; E89.0 Postprocedural hypothyroidism; I25.10 Atherosclerotic heart disease of native coronary artery without angina pectoris; K58.9 Irritable bowel syndrome, unspecified; R62.7 Adult failure to thrive; F32.9 Major depressive disorder, single episode, unspecified; F41.9 Anxiety disorder, unspecified; Z82.49 Family history of ischemic heart disease and other diseases of the circulatory system; Z85.850 Personal history of malignant neoplasm of thyroid; Z86.73 Personal history of transient ischemic attack (TIA), and cerebral infarction without residual deficits; Z90.710 Acquired absence of both cervix and uterus; Z87.440 Personal history of urinary (tract) infections; Z80.42 Family history of malignant neoplasm of prostate; Z95.5 Presence of coronary angioplasty implant and graft; Z90.89 Acquired absence of other organs; Z88.8 Allergy status to other drugs, medicaments and biological substances; Z91.041 Radiographic dye allergy status; Z79.899 Other long term (current) drug therapy; I25.2 Old myocardial infarction
CPT/HCPCS: 36415; 71045; 80048; 80076; 81001; 82553; 83690; 83735; 83880; 84443; 84484; 85025; 87804; 93005; J0360; 97110; 97535; J7030

== ENCOUNTER 2017-08-06 15:46 | Inpatient (IN) | payer MEDICARE ==
[~2017-08-06] VITALS: Ht 154.9 cm; Wt 60.9 kg
[~2017-08-06 15:46] MED LIST changes: +OLME20TA17 PO; -OLME20TA19 PO
--- NOTE | 2017-08-06 16:01 | EKG ---
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
[2017-08-06 17:30] LABS: BASO % 1 % (0-3); EOS # 0.1 x10^3/uL (0.0-0.7); EOS % 2 % (0-3); HEMATOCRIT 34.9 % (36.0-47.0); LYMPH # 0.8 x10^3/uL (1.0-4.8); LYMPH % 13 % (24-48); MEAN CORPUSCULAR HEMOGLOBIN 31 pg (25-35); MEAN CORPUSCULAR HGB CONC 34 g/dL (31-37); MEAN CORPUSCULAR VOLUME 89 fL (79-100); MONO # 0.5 x10^3/uL (0.0-1.1); MONO % 8 % (0-9); NEUT # 4.7 x10^3uL (1.8-7.7); NEUT % 77 % (31-73); PLATELET COUNT 168 x10^3/uL (140-400); RED BLOOD COUNT 3.93 x10^6/uL (3.50-5.40); RED CELL DISTRIBUTION WIDTH 13.9 % (11.5-14.5); WHITE BLOOD COUNT 6.1 x10^3/uL (4.0-11.0)
--- NOTE | 2017-08-06 17:55 | PHYS DOC ---
Past History Past Medical History: CAD, CVA, Hypothyroid, IBS, [place], UTI Past Surgical History: Cancer Surgery, Tonsillectomy Alcohol Use: None Drug Use: None Adult General Chief Complaint Chief Complaint: abnormal blood pressure HPI HPI 86-year-old female patient with history of frequent emergency room visits who lives at home and has home healthcare brought in by EMS because of multiple complaining. Patient states her blood pressure was checked by home health nurse this morning and was okay but this afternoon her blood pressure was high and she called 911. She denies chest pain, shortness of breath, fever and chills. Patient states she had a bowel movement today that was like her usual. She is a poor historian. Pt. very anxious. Complaints fatigue and generalized weakness. Review of Systems Review of Systems Constitutional: Denies fever or chills [] Eyes: Denies change in visual acuity, redness, or eye pain [] HENT: Denies nasal congestion or sore throat [] Respiratory: Denies cough or shortness of breath [] Cardiovascular: No additional information not addressed in HPI [] GI: Denies abdominal pain, nausea, vomiting, bloody stools or diarrhea [] : Denies dysuria or hematuria [] Musculoskeletal: Denies back pain or joint pain []Complaints of Fatigue Integument: Denies rash or skin lesions [] Neurologic: Denies headache, focal weakness or sensory changes [] Endocrine: Denies polyuria or polydipsia [] All other systems were reviewed and found to be within normal limits, except as documented in this note. Family History Family History Not currently available Current Medications Current Medications See Nursing for home meds Allergies Allergies Allergies Coded Allergies Type Severity Reaction Last Updated Verified Beta-Blockers (Beta-Adrenergic Bloc Allergy Intermediate Bradycardia 07/01/16 Yes amlodipine Allergy Intermediate ADEMA 03/24/17 Yes atorvastatin Allergy Intermediate 05/28/16 Yes chlorthalidone Allergy Intermediate hyponatremia 07/01/16 Yes clonidine Allergy Intermediate bradycardia 07/01/16 Yes iodine Allergy Intermediate 05/28/16 Yes Physical Exam Physical Exam Constitutional: No acute distress, non-toxic appearance, anxious. [] HENT: Normocephalic, atraumatic, bilateral external ears normal, oropharynx dry , no oral exudates, nose normal. [] Eyes: PERRLA, EOMI, conjunctiva normal, no discharge. [] Neck: Normal range of motion, no tenderness, supple, no stridor. [] Cardiovascular:Heart rate regular rhythm, no murmur []PMI to Lt. Lungs & Thorax: Bilateral breath sounds clear to auscultation [] Abdomen: Bowel sounds normal, soft, no tenderness, no masses, no pulsatile masses. [] Skin: Warm, dry, no erythema, no rash. [] Back: No tenderness, no CVA tenderness. [] Extremities: No tenderness, no cyanosis, no clubbing, ROM intact, no edema. [] Complaints of generalize fatigue and weakness. Pt. very weak on transfers per nursing, unsteady on her feet. Neurologic: Alert and oriented X 2, no gross motor or sensory function deficits , no gross focal deficits noted. [] Psychologic: Anxious, depressed. Current Patient Data Vital Signs Vital Signs Date Time Temp Pulse Resp B/P (MAP) Pulse Ox O2 Delivery O2 Flow Rate FiO2 08/06/17 17:43 76 20 164/62 (96) 94 Room Air 08/06/17 16:14 97.7 Lab Results Laboratory Tests Test 08/06/17 16:05 White Blood Count 6.1 x10^3/uL (4.0-11.0) Red Blood Count 3.93 x10^6/uL (3.50-5.40) Hemoglobin 12.0 g/dL (12.0-15.5) Hematocrit 34.9 % (36.0-47.0) L Mean Corpuscular Volume 89 fL (79-100) Mean Corpuscular Hemoglobin 31 pg (25-35) Mean Corpuscular Hemoglobin Concent 34 g/dL (31-37) Red Cell Distribution Width 13.9 % (11.5-14.5) Platelet Count 168 x10^3/uL (140-400) Neutrophils (%) (Auto) 77 % (31-73) H Lymphocytes (%) (Auto) 13 % (24-48) L Monocytes (%) (Auto) 8 % (0-9) Eosinophils (%) (Auto) 2 % (0-3) Basophils (%) (Auto) 1 % (0-3) Neutrophils # (Auto) 4.7 x10^3uL (1.8-7.7) Lymphocytes # (Auto) 0.8 x10^3/uL (1.0-4.8) L Monocytes # (Auto) 0.5 x10^3/uL (0.0-1.1) Eosinophils # (Auto) 0.1 x10^3/uL (0.0-0.7) Basophils # (Auto) 0.0 x10^3/uL (0.0-0.2) EKG EKG EKG interpreted by me. EKG at 1556 showed normal sinus rhythm at rate of 86, left axis deviation, left anterior fascicular block, abnormal T wave in lateral leads, no acute ST and T-wave abnormalities[] Occasional PVC Radiology/Procedures Radiology/Procedures [] Course & Med Decision Making Course & Med Decision Making Pertinent Labs are pending. Patient care transferred to Dr. Manuel at 1800.[] Discussed presentation, testing and tx. plan with Dr. Magallon- admit for further eval. and tx. Impression. 1. Weakness and Fatigue 2. HTN 3. Dehydration 4. Hyponatremia 5. Anxiety 6. Elevated Creat. and BUN Dragon Disclaimer Dragon Disclaimer This electronic medical record was generated, in whole or in part, using a voice recognition dictation system. Departure Departure: Impression: Primary Impression: Uncontrolled hypertension Referrals: LANNY MAGALLON MD (PCP) NICHO VALENZUELA MD Aug 06, 2017 17:55 JOSE CARLOS MANUEL MD Aug 06, 2017 21:12
[2017-08-06 18:10] LABS: ALBUMIN 3.6 g/dL (3.4-5.0); ALBUMIN/GLOBULIN RATIO 1.1 (1.0-1.7); CALCIUM 8.6 mg/dL (8.5-10.1); CREATININE 1.1 mg/dL (0.6-1.0); POTASSIUM 3.6 mmol/L (3.5-5.1); TOTAL BILIRUBIN 0.4 mg/dL (0.2-1.0)
[2017-08-06] MEDS ORDERED: IV RINGERS SOLUTION,LACTATED 1,000 ML IV ONE ×2 (19:00→19:45)
[2017-08-06] MEDS ORDERED: ONDANSETRON PF 4 MG/2 ML VIAL. IV PRN (19:45)
[2017-08-06 19:59] LABS: BILIRUBIN,URINE NEG (NEG); CLARITY,URINE CLEAR; COLOR,URINE STRAW; GLUCOSE,URINE NEG (NEG)
[2017-08-06 20:00] LABS: BACTERIA,URINE 0 /HPF (0-FEW); NITRITE,URINE NEG (NEG); RBC,URINE OCC /HPF (0-2); SQUAMOUS EPITHELIAL CELL,UR OCC /LPF; UROBILINOGEN,URINE 0.2 mg/dL (0.2 mg/dL); WBC,URINE OCC /HPF (0-4)
[2017-08-06 22:05] VITALS: BP 138/63
[2017-08-06] MEDS ORDERED: FAMO20TA5 PO (22:59)
[2017-08-06] MEDS ORDERED: NITROGLYCERIN SUBLINGUAL 0.4 MG BOTTLE OF 25. SL PRN (23:00)
[2017-08-06] MEDS ORDERED: HYDROCORTISONE ACETATE 25 MG SUPP.RECT RC PRN (23:00)
[2017-08-06] MEDS ORDERED: CALCIUM CARBONATE 500 MG TAB.CHEW PO PRN (23:00)
[2017-08-06] MEDS ORDERED: NIFE60TA16 PO (23:00)
[2017-08-06] MEDS ORDERED: POLYETHYLENE GLYCOL 3350 17 GM PACKET. PO PRN (23:00)
[2017-08-06] MEDS ORDERED: ACETAMINOPHEN 325 MG TABLET PO PRN (23:00)
[2017-08-06] MEDS ORDERED: DOCUSATE SODIUM 100 MG CAPSULE PO PRN (23:00)
[2017-08-06] MEDS ORDERED: OLME20TA17 PO (23:05)
[2017-08-06] MEDS: PRAVASTATIN 20 MG TABLET. PO SCH (23:23)
[2017-08-06] MEDS ORDERED: LIDOCAINE 5% TOPICAL OINTMENT 35GM TUBE. TP PRN (23:30)
[2017-08-07 06:08] VITALS: BP 145/57
[2017-08-07] MEDS: LEVOTHYROXINE 100 MCG TABLET PO SCH (06:11)
[2017-08-07 06:43] LABS: BASO # 0.1 x10^3/uL (0.0-0.2); BASO % 1 % (0-3); EOS # 0.1 x10^3/uL (0.0-0.7); EOS % 2 % (0-3); HEMATOCRIT 30.8 % (36.0-47.0); HEMOGLOBIN 10.8 g/dL (12.0-15.5); LYMPH # 0.6 x10^3/uL (1.0-4.8); LYMPH % 17 % (24-48); MEAN CORPUSCULAR HEMOGLOBIN 31 pg (25-35); MEAN CORPUSCULAR HGB CONC 35 g/dL (31-37); MEAN CORPUSCULAR VOLUME 89 fL (79-100); MONO # 0.5 x10^3/uL (0.0-1.1); MONO % 13 % (0-9); NEUT # 2.5 x10^3uL (1.8-7.7); NEUT % 67 % (31-73); PLATELET COUNT 162 x10^3/uL (140-400); RED BLOOD COUNT 3.46 x10^6/uL (3.50-5.40); RED CELL DISTRIBUTION WIDTH 13.8 % (11.5-14.5); WHITE BLOOD COUNT 3.7 x10^3/uL (4.0-11.0)
[2017-08-07 07:17] LABS: CALCIUM 8.6 mg/dL (8.5-10.1); CREATININE 0.9 mg/dL (0.6-1.0); GFR 59.2; POTASSIUM 3.8 mmol/L (3.5-5.1)
[2017-08-07] MEDS: FAMOTIDINE 20 MG TABLET PO SCH (08:58)
[2017-08-07] MEDS: ASPIRIN 81 MG TAB.CHEW PO SCH (08:58)
[2017-08-07] MEDS: LISINOPRIL 20 MG TABLET PO SCH ×2 (08:59→21:52)
[2017-08-07] MEDS ORDERED: LOSARTAN 50 MG TABLET. PO SCH (09:00)
[2017-08-07 10:31] VITALS: BP 155/62
--- NOTE | 2017-08-07 12:57 | HP ---
ADMIT DATE: 08/06/2017 HISTORY OF PRESENT ILLNESS: An 86-year-old female brought in through the Emergency Room, apparently been out raking leaves, got increasingly weak and elevated blood pressure greater than 200. She said she was very lightheaded, had gotten dehydrated while she was out in the yard, raking leaves on a warmer day. She was generalized fatigue and weakness. The patient was a little bit confused and disoriented. As a result of this, was brought in to the hospital for further evaluation and treatment and acute mental status change and dehydration. PAST MEDICAL HISTORY: Coronary artery disease, stroke, hypothyroidism, IBS, [place], UTI, tinnitus, tonsillectomy, adenoidectomy, CVA, heart attack, cardiac stent placement x 2, hypercholesterolemia ,hemorrhoids, GERD, reproductive disorders, hysterectomy, renal disease, urinary tract infection, musculoskeletal problems, hypothyroidism, thyroid cancer, thyroidectomy, depression. PAST SURGICAL HISTORY: Thyroid cancer surgery, tonsillectomy. VACCINATION: Pneumococcal and flu vaccines up-to-date. FAMILY HISTORY: Brother with prostate cancer. Son with hypertension. Brother, father and mother all with some form of cancer. ALLERGIES: TO BETA-BLOCKERS, AMLODIPINE, ATORVASTATIN, CHLORTHALIDONE, CLONIDINE, AND IODINE SOCIAL HISTORY: The patient denies smoking, alcohol or drug use. CODE STATUS: She is a DNR. MEDICATIONS: The patient's medications from home have been reviewed. REVIEW OF SYSTEMS: The patient notes denies headaches or visual changes, but extremely lightheaded, dizzy, generalized weakness, feels like she is going to pass out. Denies chest pain, abdominal pain. Denies any melena, hematochezia, or hematemesis and neurologically intact. PHYSICAL EXAMINATION: GENERAL: This is a very pleasant white female, looking stated age, a little bit weakened and confused. VITAL SIGNS: The patient's blood pressure is ____, respiratory rate 18, pulse 70, afebrile, good oxygen saturation. HEENT: The patient's head was atraumatic, normocephalic. Eyes: PERRLA without jaundice. Mouth and throat were normal. NECK: Supple, no JVD or thyromegaly. LUNGS: Clear to auscultation. CARDIOVASCULAR: Regular sinus rhythm, S1, S2, without murmur, rub, thrill, or extra heart sound. ABDOMEN: Soft, nontender, no rebound or guarding. Positive bowel sounds, no hepatosplenomegaly was noted. EXTREMITIES: No clubbing, cyanosis or edema. NEUROLOGIC: The patient was alert, but slightly confused and disoriented. LABORATORY AND DIAGNOSTIC DATA: The patient's white count is 3.7, hemoglobin 10 and 30. Chemistries: 139, 3.8. BUN and creatinine is stable at 28, 1.1. Blood sugar is slightly elevated. The patient otherwise, the patient's urine was unremarkable. Imaging was done in through the Emergency Room is unremarkable. IMPRESSION: In any case, impression is dehydration, generalized weakness, acute mental status change probably from dehydration. PLAN: The patient will be admitted, placed on IV fluids, make further evaluation on her as indicated. LANNY MAGALLON MD DR: JERRI/richard JOB#: [id number] / [id number]
[2017-08-07] MEDS: HEPARIN PF for SUB-Q USE 5,000 UNIT/0.5 ML VIAL. SQ SCH ×2 (14:31→21:55)
[2017-08-07 15:05] VITALS: BP 162/61
[2017-08-07 18:25] VITALS: BP 160/71
[2017-08-07] MEDS: PRAVASTATIN 20 MG TABLET. PO SCH (21:51)
[2017-08-07 23:06] VITALS: BP 132/58
[2017-08-08 03:49] VITALS: BP 145/70
[2017-08-08] MEDS: LEVOTHYROXINE 100 MCG TABLET PO SCH (06:22)
[2017-08-08] MEDS: HEPARIN PF for SUB-Q USE 5,000 UNIT/0.5 ML VIAL. SQ SCH (06:25)
[2017-08-08] MEDS: ASPIRIN 81 MG TAB.CHEW PO SCH (08:30)
[2017-08-08] MEDS: LISINOPRIL 20 MG TABLET PO SCH (08:30)
[2017-08-08] MEDS: FAMOTIDINE 20 MG TABLET PO SCH (08:30)
[2017-08-08 08:31] VITALS: BP 145/70
[2017-08-08] MEDS ORDERED: LOSARTAN 50 MG TABLET. PO PRN (09:00)
--- NOTE | 2017-08-08 20:51 | DS ---
DATE OF DISCHARGE: 08/08/2017 HOSPITAL COURSE: An 86-year-old female came in through the Emergency Room. She was raking leaves, increasing weakness, elevated blood pressure greater than 200, was very lightheaded, got dehydrated, generalized weakness where she could stand on her own 2 feet. As a result of this, she was brought in to the hospital, given IV fluids. She was shown to be slightly anemic at 10.8. Her chemistries were basically unremarkable. The patient made excellent progress during the rest of her hospitalization, showed some rehydration with IV fluids. She made excellent progress, received PT, OT recommended to go to nursing facilities and she refused. She will be discharged home. See MRAD. Decreased activity and home health will follow her there. IMPRESSION: Dehydration, generalized weakness, failure to thrive. LANNY MAGALLON MD DR: JERRI/richard JOB#: [id number] / [id number]
== END 2017-08-08 11:22 | disposition home or self-care (01) | DRG 640 ==
LOC: ER 15:46 → 1 SOUTH 20:16
PROVIDERS: ADMIT Family Medicine; ATTEND Family Medicine
DX: E87.1 Hypo-osmolality and hyponatremia (principal); G93.41 Metabolic encephalopathy; E86.0 Dehydration; D64.9 Anemia, unspecified; E78.00 Pure hypercholesterolemia, unspecified; E89.0 Postprocedural hypothyroidism; I10 Essential (primary) hypertension; I25.10 Atherosclerotic heart disease of native coronary artery without angina pectoris; K21.9 Gastro-esophageal reflux disease without esophagitis; I25.2 Old myocardial infarction; K58.9 Irritable bowel syndrome, unspecified; R62.7 Adult failure to thrive; Z66 Do not resuscitate; F32.9 Major depressive disorder, single episode, unspecified; F41.9 Anxiety disorder, unspecified; Z80.42 Family history of malignant neoplasm of prostate; Z85.850 Personal history of malignant neoplasm of thyroid; Z86.73 Personal history of transient ischemic attack (TIA), and cerebral infarction without residual deficits; Z90.710 Acquired absence of both cervix and uterus; Z95.5 Presence of coronary angioplasty implant and graft; Z87.440 Personal history of urinary (tract) infections; Z88.6 Allergy status to analgesic agent; Z88.1 Allergy status to other antibiotic agents; Z88.8 Allergy status to other drugs, medicaments and biological substances; Z90.49 Acquired absence of other specified parts of digestive tract; Z82.49 Family history of ischemic heart disease and other diseases of the circulatory system
CPT/HCPCS: 36415; 80048; 80053; 81001; 82553; 83605; 83690; 84443; 84484; 85025; 93005; 96360; 96361; G0238; J7120; 97530; 99285-25

== ENCOUNTER 2017-09-01 12:35 | Inpatient (IN) | payer MEDICARE ==
[~2017-09-01] VITALS: Ht 157.5 cm; Wt 59.5 kg
[~2017-09-01 12:35] MED LIST changes: +NIFE60TA16 PO; +RANI150T21 PO; -RANI150T6 PO
[2017-09-01 13:17] LABS: BASO % 1 % (0-3); EOS % 0 % (0-3); HEMATOCRIT 36.2 % (36.0-47.0); HEMOGLOBIN 12.6 g/dL (12.0-15.5); LYMPH # 0.5 x10^3/uL (1.0-4.8); LYMPH % 11 % (24-48); MEAN CORPUSCULAR HEMOGLOBIN 31 pg (25-35); MEAN CORPUSCULAR HGB CONC 35 g/dL (31-37); MEAN CORPUSCULAR VOLUME 88 fL (79-100); MONO # 0.4 x10^3/uL (0.0-1.1); MONO % 8 % (0-9); NEUT # 4.1 x10^3uL (1.8-7.7); NEUT % 80 % (31-73); PLATELET COUNT 194 x10^3/uL (140-400); RED BLOOD COUNT 4.12 x10^6/uL (3.50-5.40); RED CELL DISTRIBUTION WIDTH 13.5 % (11.5-14.5); WHITE BLOOD COUNT 5.1 x10^3/uL (4.0-11.0)
[2017-09-01 13:28] LABS: ALBUMIN 3.7 g/dL (3.4-5.0); ALBUMIN/GLOBULIN RATIO 1.1 (1.0-1.7); CALCIUM 8.6 mg/dL (8.5-10.1); CREATININE 1.1 mg/dL (0.6-1.0); POTASSIUM 3.8 mmol/L (3.5-5.1); TOTAL BILIRUBIN 0.8 mg/dL (0.2-1.0); TOTAL PROTEIN 7.1 g/dL (6.4-8.2)
[2017-09-01 15:37] LABS: AMPHETAMINE/METHAMPHETAMINE NEG (NEG); BARBITURATES NEG (NEG); BENZODIAZEPINES NEG (NEG); CANNABINOIDS NEG (NEG); COCAINE NEG (NEG); METHADONE NEG (NEG); OPIATES NEG (NEG); PHENCYCLIDINE NEG (NEG)
--- NOTE | 2017-09-01 15:59 | RAD ---
PQRS Compliance Statement: One or more of the following individualized dose reduction techniques were utilized for this examination: 1. Automated exposure control 2. Adjustment of the mA and/or kV according to patient size 3. Use of iterative reconstruction technique CT head without contrast 09/01/2017 1:45 PM INDICATION: Generalized weakness COMPARISON: CT head March 23, 2017 TECHNIQUE: Multiple axial CT images of the head were obtained from skull base through the vertex without intravenous contrast. FINDINGS: Head: Ventricles, sulci and basal cisterns are within normal limits. There is no hydrocephalus. There is a remote lacunar infarct involving the left thalamus. Low-attenuation in the periventricular white matter is suggestive of chronic small vessel ischemic changes. Villatoro-white matter differentiation is normal. There is no acute intracranial hemorrhage. There is no mass, mass effect or midline shift. Posterior fossa is normal in appearance. Atherosclerotic calcification is identified involving the cavernous segments of internal carotid arteries and vertebral arteries. Visualized portions of the orbits are normal. Paranasal sinuses are well aerated. Mastoid air cells are well aerated. Scalp and calvaria are normal. IMPRESSION: No acute intracranial hemorrhage. Low attenuation the periventricular white matter is suggestive of chronic small vessel ischemic changes Electronically signed by: Brooke Ann MD (09/01/2017 3:55 PM) [id number]
--- NOTE | 2017-09-01 16:03 | RAD ---
Chest radiograph 09/01/2017 1:35 PM INDICATION: Generalized weakness COMPARISON: Chest radiograph May 19, 2017 TECHNIQUE: Frontal view of the chest is provided. FINDINGS: The cardiomediastinal silhouette is within normal limits. Surgical clips project over the right upper chest and neck. There are no pleural effusions. There is no pulmonary vascular congestion. There is no pneumothorax. The lungs are clear. No significant osseous abnormality is identified. IMPRESSION: No acute cardiopulmonary process. Electronically signed by: Brooke Ann MD (09/01/2017 3:58 PM) [id number]
--- NOTE | 2017-09-01 17:51 | EKG ---
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
[2017-09-01] MEDS ORDERED: ACETAMINOPHEN 325 MG TABLET PO PRN (18:30)
[2017-09-01] MEDS ORDERED: DOCUSATE SODIUM 100 MG CAPSULE PO PRN (18:30)
[2017-09-01] MEDS ORDERED: CALCIUM CARBONATE 500 MG TAB.CHEW PO PRN (18:30)
[2017-09-01] MEDS ORDERED: POLYETHYLENE GLYCOL 3350 17 GM PACKET. PO PRN (18:30)
[2017-09-01 19:15] VITALS: BP 163/58
[2017-09-01] MEDS: PRAVASTATIN 20 MG TABLET. PO SCH (21:20)
[2017-09-01] MEDS: LISINOPRIL 20 MG TABLET PO SCH (21:20)
[2017-09-01 23:10] VITALS: BP 142/62
[2017-09-02 04:20] VITALS: BP 140/58
[2017-09-02] MEDS: LEVOTHYROXINE 100 MCG TABLET PO SCH (04:30)
[2017-09-02] MEDS ORDERED: TRIAMCINOLONE ACETONIDE 40 MG/ML VIAL. IM ONE (09:00)
[2017-09-02] MEDS: ASPIRIN 81 MG TAB.CHEW PO SCH (10:51)
[2017-09-02] MEDS: LISINOPRIL 20 MG TABLET PO SCH ×2 (10:51→20:59)
[2017-09-02] MEDS: FAMOTIDINE 20 MG TABLET PO SCH (10:52)
[2017-09-02 11:00] VITALS: BP 142/62
[2017-09-02] MEDS: IV NORMAL SALINE 1,000ML 1,000 ML IV SCH ×2 (11:01→22:05)
[2017-09-02 15:03] VITALS: BP 138/59
[2017-09-02] MEDS: LOSARTAN 50 MG TABLET. PO SCH (15:20)
[2017-09-02 15:27] VITALS: BP 171/54
--- NOTE | 2017-09-02 18:14 | HP ---
ADMIT DATE: 09/01/2017 HISTORY OF PRESENT ILLNESS: This is one of several admissions for this 86-year-old female, who came in through the Emergency Room, apparently was out working, got overheated, passed out. She was seen in the Emergency Room, she was extremely weak and tired and as a result of this, the patient was admitted to the hospital for further evaluation, rehydration and possible social service placement as this patient has multiple problems trying to live on her own there. PAST MEDICAL HISTORY: Coronary artery disease, stroke, hypothyroidism, IBS, [place], UTI, tinnitus, tonsillectomy, adenoidectomy, CVA, heart attack, cardiac stent placement, hypercholesterolemia, hemorrhoids, ____, reproductive disorders, hysterectomy, renal disease, urinary tract infection, musculoskeletal problems, hypothyroidism, thyroid cancer, thyroidectomy, depression. VACCINATIONS: The patient's vaccinations are pneumococcal and flu up-to-date. FAMILY HISTORY: Brother with prostate cancer. Son with hypertension. Brother, father, and mother all have some form of cancer. ALLERGIES: Beta blockers, amlodipine, atorvastatin, chlorthalidone, clonidine, and iodine. SOCIAL HISTORY: The patient lives alone. Denies smoking, alcohol, drug use, chewing tobacco. The patient is a DNR. MEDICATIONS: Have been reviewed in the chart. REVIEW OF SYSTEMS: The patient denies any headaches, visual changes, generalized weakness, lightheaded or dizziness and generalized weakness. Overall denies chest pain, abdominal pain. Denies any nausea, vomiting, melena, hematochezia, or hematemesis. PHYSICAL EXAMINATION: GENERAL: This is a pleasant white female, looking stated age, very weak, frail appearing. VITAL SIGNS: Blood pressure 160/60, respiratory rate 18, pulse 62, afebrile. HEENT: The patient's head was atraumatic, normocephalic. Eyes: PERRLA without jaundice. Mouth and throat were normal. NECK: Supple, without JVD, carotid bruit, or thyromegaly. LUNGS: The patient's lungs were diminished throughout, poor movement of air. CARDIOVASCULAR: Regular sinus rhythm, S1, S2, without murmur, rub, thrill, or extra heart sounds. ABDOMEN: The patient's abdomen is soft, nontender, no rebound or guarding. Positive bowel sounds, no hepatosplenomegaly was noted. EXTREMITIES: Without clubbing, cyanosis nor edema. NEUROLOGIC: The patient was alert and oriented x 3. Speech fluent, spontaneous, appropriate, although somewhat confused and disoriented with her memory. She can carry on a basic conversation. IMPRESSION: Otherwise, the patient was admitted for further evaluation, generalized weakness, failure to thrive, syncope and probable dehydration. The patient will be admitted, placed on IV fluids and make further evaluation on her. Also, chronic anemia, chronic kidney disease stage 3, and type 2 diabetes, poorly controlled. PLAN: As above, continue to monitor the patient. PT, OT and make further evaluation on her as indicated. LANNY MAGALLON MD DR: JERRI/richard JOB#: [id number] / [id number]
[2017-09-02 20:00] VITALS: BP_SYST 14; BP_SYST 141; BP_DIAS 57
[2017-09-02] MEDS: PRAVASTATIN 20 MG TABLET. PO SCH (20:57)
[2017-09-02] MEDS: traMADol 50 MG TABLET PO PRN (20:58)
[2017-09-03] MEDS: LEVOTHYROXINE 100 MCG TABLET PO SCH (05:38)
[2017-09-03 05:45] VITALS: BP 170/74
[2017-09-03 07:41] LABS: BASO % 1 % (0-3); EOS % 1 % (0-3); HEMATOCRIT 34.9 % (36.0-47.0); HEMOGLOBIN 12.2 g/dL (12.0-15.5); LYMPH # 0.5 x10^3/uL (1.0-4.8); LYMPH % 10 % (24-48); MEAN CORPUSCULAR HEMOGLOBIN 31 pg (25-35); MEAN CORPUSCULAR HGB CONC 35 g/dL (31-37); MEAN CORPUSCULAR VOLUME 89 fL (79-100); MONO # 0.4 x10^3/uL (0.0-1.1); MONO % 7 % (0-9); NEUT # 4.4 x10^3uL (1.8-7.7); NEUT % 82 % (31-73); PLATELET COUNT 184 x10^3/uL (140-400); RED BLOOD COUNT 3.93 x10^6/uL (3.50-5.40); RED CELL DISTRIBUTION WIDTH 13.4 % (11.5-14.5); WHITE BLOOD COUNT 5.3 x10^3/uL (4.0-11.0)
[2017-09-03 07:46] LABS: CALCIUM 8.3 mg/dL (8.5-10.1); CREATININE 1.1 mg/dL (0.6-1.0); POTASSIUM 4.2 mmol/L (3.5-5.1)
[2017-09-03] MEDS: LOSARTAN 50 MG TABLET. PO SCH (08:17)
[2017-09-03] MEDS: LISINOPRIL 20 MG TABLET PO SCH ×2 (08:19→19:39)
[2017-09-03] MEDS: ASPIRIN 81 MG TAB.CHEW PO SCH (08:19)
[2017-09-03] MEDS: FAMOTIDINE 20 MG TABLET PO SCH (08:19)
[2017-09-03 11:00] VITALS: BP 145/63
[2017-09-03] MEDS: IV NORMAL SALINE 1,000ML 1,000 ML IV SCH (11:25)
[2017-09-03 15:00] VITALS: BP 194/72
[2017-09-03] MEDS ORDERED: NIFEdipine 10 MG CAPSULE PO SCH (17:15)
[2017-09-03] MEDS ORDERED: NIFEdipine 10 MG CAPSULE PO PRN (17:45)
[2017-09-03 19:31] VITALS: BP 170/63
[2017-09-03] MEDS: traMADol 50 MG TABLET PO PRN (19:39)
[2017-09-03] MEDS: PRAVASTATIN 20 MG TABLET. PO SCH (19:40)
[2017-09-03 22:44] VITALS: BP 128/73
[2017-09-04] MEDS: IV NORMAL SALINE 1,000ML 1,000 ML IV SCH (00:45)
[2017-09-04] MEDS: LEVOTHYROXINE 100 MCG TABLET PO SCH (05:41)
[2017-09-04 05:48] VITALS: BP 179/71
[2017-09-04] MEDS: FAMOTIDINE 20 MG TABLET PO SCH (07:57)
[2017-09-04] MEDS: ASPIRIN 81 MG TAB.CHEW PO SCH (07:58)
[2017-09-04] MEDS: LISINOPRIL 20 MG TABLET PO SCH (07:59)
[2017-09-04] MEDS: LOSARTAN 50 MG TABLET. PO SCH (07:59)
[2017-09-04 11:00] VITALS: BP 175/67
[2017-09-04 13:37] VITALS: BP 179/71
--- NOTE | 2017-09-04 18:24 | DS ---
DATE OF DISCHARGE: 09/04/2017 HOSPITAL COURSE: An 86-year-old female who came in with change in mental status, general confusion as she usually does. The patient apparently got overheated, passed out and was brought in through the Emergency Room. The patient was brought and started on IV fluids. CT of the head was unremarkable as was the chest x-ray. Chemistries were basically unremarkable except for slightly low sodium of 131. The patient made excellent progress during the rest of her hospitalization. She was recommended to go to assisted living. She refused, warned of the possible complications there. IMMUNIZATIONS: Up-to-date. The patient is still a full code. The patient will be monitored carefully, make further evaluation on her as indicated. IMPRESSION: Change in mental status, generalized weakness, hyponatremia, failure to thrive, dementia. DISPOSITION: The patient will be discharged home. MEDICATIONS: See EMRAD. ACTIVITY: Decreased activity and make further evaluation on her as an outpatient. She has home health to follow. LANNY MAGALLON MD DR: JERRI/richard JOB#: [id number] / [id number]
== END 2017-09-04 13:45 | disposition home or self-care (01) | DRG 923 ==
LOC: ER 12:35 → 1 SOUTH 15:15 → ER 16:10
PROVIDERS: ADMIT Family Medicine; ATTEND Family Medicine
DX: T67.9XXA Effect of heat and light, unspecified, initial encounter (principal); E11.22 Type 2 diabetes mellitus with diabetic chronic kidney disease; E11.65 Type 2 diabetes mellitus with hyperglycemia; E87.1 Hypo-osmolality and hyponatremia; D64.9 Anemia, unspecified; F03.90 Unspecified dementia, unspecified severity, without behavioral disturbance, psychotic disturbance, mood disturbance, and anxiety; I25.10 Atherosclerotic heart disease of native coronary artery without angina pectoris; I25.2 Old myocardial infarction; K58.9 Irritable bowel syndrome, unspecified; E03.9 Hypothyroidism, unspecified; F32.9 Major depressive disorder, single episode, unspecified; X30.XXXA Exposure to excessive natural heat, initial encounter; R62.7 Adult failure to thrive; E78.00 Pure hypercholesterolemia, unspecified; Z66 Do not resuscitate; Z60.2 Problems related to living alone; N18.3 Chronic kidney disease, stage 3 (moderate); Z80.42 Family history of malignant neoplasm of prostate; Z85.850 Personal history of malignant neoplasm of thyroid; Z86.73 Personal history of transient ischemic attack (TIA), and cerebral infarction without residual deficits; Z90.710 Acquired absence of both cervix and uterus; Z95.5 Presence of coronary angioplasty implant and graft; Z88.6 Allergy status to analgesic agent; Z88.4 Allergy status to anesthetic agent; Z88.8 Allergy status to other drugs, medicaments and biological substances; Y93.89 Activity, other specified; Y92.89 Other specified places as the place of occurrence of the external cause; Y99.8 Other external cause status; Z82.49 Family history of ischemic heart disease and other diseases of the circulatory system; Z79.4 Long term (current) use of insulin; Z90.49 Acquired absence of other specified parts of digestive tract
CPT/HCPCS: 36415; 70450; 71045; 80048; 80053; 80307; 83605; 85025; 85610; 93005; J3301; 97110; 97535; 99285-25; G0479; J7030

== ENCOUNTER 2017-09-22 14:19 | Inpatient (IN) | payer MEDICARE ==
[~2017-09-22] VITALS: Ht 154.9 cm; Wt 57.6 kg
[2017-09-22 14:50] LABS: BASO % 0 % (0-3); EOS % 0 % (0-3); HEMATOCRIT 36.3 % (36.0-47.0); HEMOGLOBIN 12.8 g/dL (12.0-15.5); LYMPH # 0.5 x10^3/uL (1.0-4.8); LYMPH % 8 % (24-48); MEAN CORPUSCULAR HEMOGLOBIN 31 pg (25-35); MEAN CORPUSCULAR HGB CONC 35 g/dL (31-37); MEAN CORPUSCULAR VOLUME 88 fL (79-100); MONO # 0.4 x10^3/uL (0.0-1.1); MONO % 7 % (0-9); NEUT # 4.9 x10^3uL (1.8-7.7); NEUT % 84 % (31-73); PLATELET COUNT 189 x10^3/uL (140-400); RED BLOOD COUNT 4.14 x10^6/uL (3.50-5.40); RED CELL DISTRIBUTION WIDTH 13.5 % (11.5-14.5); WHITE BLOOD COUNT 5.9 x10^3/uL (4.0-11.0)
[2017-09-22 15:03] LABS: ALBUMIN 3.7 g/dL (3.4-5.0); CALCIUM 8.7 mg/dL (8.5-10.1); CREATININE 0.9 mg/dL (0.6-1.0); DIRECT BILIRUBIN 0.2 mg/dL (0.0-0.2); GFR 59.2; POTASSIUM 3.9 mmol/L (3.5-5.1); TOTAL BILIRUBIN 0.7 mg/dL (0.2-1.0); TOTAL PROTEIN 6.9 g/dL (6.4-8.2)
[2017-09-22] MEDS ORDERED: IV NORMAL SALINE 500ML 500 ML IV ONE (15:15)
[2017-09-22] MEDS ORDERED: MORPHINE SULFATE 4 MG/ML DISP.SYRIN. IV PRN (15:30)
[2017-09-22] MEDS ORDERED: ONDANSETRON ODT 4 MG TAB.RAPDIS PO PRN (15:30)
[2017-09-22] MEDS: IV NORMAL SALINE 1,000ML 1,000 ML IV SCH ×3 (15:31→22:08)
--- NOTE | 2017-09-22 15:36 | EKG ---
[address] [address] Test Date: 2017-09-22 Test Time: 15:23:32 Pat Name: STEPHANIE HOUSTON Department: Room: Gender: F Stores Naval: : 1930 Requested By: SUMAYA EUBANKS Order Number: [id number] Reading MD: Measurements Intervals [place] Rate: 73 P: 60 [place]: 246 QRS: -28 QRSD: 98 T: 57 QT: 392 QTc: 436 Interpretive Statements SINUS RHYTHM PROLONGED [place] INTERVAL LEFTWARD AXIS T ABNORMALITY IN HIGH LATERAL LEADS ABNORMAL ECG RI6.01 No previous ECG available for comparison
--- NOTE | 2017-09-22 15:46 | PHYS DOC ---
Past History Past Medical History: CAD, Cancer, CVA, Depression, Hypothyroid, Hypotension, [place], Renal Disease, UTI Past Surgical History: Cancer Surgery, Hysterectomy, Tonsillectomy Alcohol Use: None Drug Use: None Adult General Chief Complaint Chief Complaint: HYPERTENSION HPI HPI 86-year-old female presenting to the emergency department today for high blood pressure. She arrives by EMS. She reports taking her blood pressure this morning to me but denied that she did to the nurse. She is a patient of Dr. Stubbs's. She reports her blood pressure was about 190 at home. She denies chest pain headache vision changes shortness of breath or oliguria. She denies any symptoms other than being mildly anxious because her blood pressures high. Review of systems is negative for chest pain shortness of breath abdominal pain nausea vomiting fevers or chills. All other review of systems is negative unless otherwise noted in history of present illness. ED course: 86-year-old female presenting to the emergency department today with high blood pressure. EKG obtained and reviewed by myself shows sinus rhythm with a regular rate. ST segments are congruent. Not suggestive of ACS. blood pressure came down to 162 in the emergency department without intervention. Blood work shows normal CBC. Chemistry panel shows sodium of 126 down from 135 earlier this month. Troponin within normal limits. Chloride also low. Likely hypovolemic hyponatremia. We will admit the patient to Dr. Stubbs for further evaluation treatment and care. Dr. Stubbs accepts this patient for admission. Review of Systems Review of Systems SEE ABOVE. Current Medications Current Medications Current Medications Medications (Trade) Dose Ordered Sig/Umesh Start Time Stop Time Status Last Admin Dose Admin Morphine Sulfate (Morphine 4mg Syringe) 2 mg PRN Q2HR PRN 09/22/17 15:30 Ondansetron HCl (Zofran Odt) 4 mg PRN Q4HRS PRN 09/22/17 15:30 Sodium Chloride 1,000 ml @ 100 mls/hr Q10H 09/22/17 15:30 09/23/17 15:29 09/22/17 15:32 100 MLS/HR Allergies Allergies Allergies Coded Allergies Type Severity Reaction Last Updated Verified Beta-Blockers (Beta-Adrenergic Bloc Allergy Intermediate Bradycardia 07/01/16 Yes amlodipine Allergy Intermediate ADEMA 03/24/17 Yes atorvastatin Allergy Intermediate 05/28/16 Yes chlorthalidone Allergy Intermediate hyponatremia 07/01/16 Yes clonidine Allergy Intermediate bradycardia 07/01/16 Yes iodine Allergy Intermediate 05/28/16 Yes Physical Exam Physical Exam SEE ABOVE Constitutional: Well developed, well nourished, no acute distress, non-toxic appearance. HENT: Normocephalic, atraumatic, bilateral external ears normal, oropharynx moist, no oral exudates, nose normal. [] Eyes: PERRLA, EOMI, conjunctiva normal, no discharge. [] Neck: Normal range of motion, no tenderness, supple, no stridor. Cardiovascular:Heart rate regular rhythm, no murmur [] Lungs & Thorax: Bilateral breath sounds clear to auscultation [] Abdomen: Bowel sounds normal, soft, no tenderness, no masses, no pulsatile masses. Skin: Warm, dry, no erythema, no rash. [] Back: No tenderness, no CVA tenderness. [] Extremities: No tenderness, no cyanosis, no clubbing, ROM intact, no edema. Neurologic: Alert and oriented X 3, normal motor function, normal sensory function, no focal deficits noted. [] Psychologic: Affect normal, judgement normal, mood normal. [] Current Patient Data Vital Signs Vital Signs Date Time Temp Pulse Resp B/P (MAP) Pulse Ox O2 Delivery O2 Flow Rate FiO2 09/22/17 15:26 76 20 162/74 (103) 95 Room Air 09/22/17 14:20 97.6 Lab Results Laboratory Tests Test 09/22/17 14:37 White Blood Count 5.9 x10^3/uL (4.0-11.0) Red Blood Count 4.14 x10^6/uL (3.50-5.40) Hemoglobin 12.8 g/dL (12.0-15.5) Hematocrit 36.3 % (36.0-47.0) Mean Corpuscular Volume 88 fL (79-100) Mean Corpuscular Hemoglobin 31 pg (25-35) Mean Corpuscular Hemoglobin Concent 35 g/dL (31-37) Red Cell Distribution Width 13.5 % (11.5-14.5) Platelet Count 189 x10^3/uL (140-400) Neutrophils (%) (Auto) 84 % (31-73) H Lymphocytes (%) (Auto) 8 % (24-48) L Monocytes (%) (Auto) 7 % (0-9) Eosinophils (%) (Auto) 0 % (0-3) Basophils (%) (Auto) 0 % (0-3) Neutrophils # (Auto) 4.9 x10^3uL (1.8-7.7) Lymphocytes # (Auto) 0.5 x10^3/uL (1.0-4.8) L Monocytes # (Auto) 0.4 x10^3/uL (0.0-1.1) Eosinophils # (Auto) 0.0 x10^3/uL (0.0-0.7) Basophils # (Auto) 0.0 x10^3/uL (0.0-0.2) Sodium Level 126 mmol/L (136-145) L Potassium Level 3.9 mmol/L (3.5-5.1) Chloride Level 91 mmol/L (98-107) L Carbon Dioxide Level 23 mmol/L (21-32) Anion Gap 12 (6-14) Blood Urea Nitrogen 19 mg/dL (7-20) Creatinine 0.9 mg/dL (0.6-1.0) Estimated GFR (Cockcroft-Gault) 59.2 Glucose Level 114 mg/dL (70-99) H Calcium Level 8.7 mg/dL (8.5-10.1) Total Bilirubin 0.7 mg/dL (0.2-1.0) Direct Bilirubin 0.2 mg/dL (0.0-0.2) Aspartate Amino Transferase (AST) 13 U/L (15-37) L Alanine Aminotransferase (ALT) 16 U/L (14-59) Alkaline Phosphatase 68 U/L (46-116) Troponin I Quantitative < 0.017 ng/mL (0-0.055) Total Protein 6.9 g/dL (6.4-8.2) Albumin 3.7 g/dL (3.4-5.0) Lipase 130 U/L (73-393) EKG EKG [] Radiology/Procedures Radiology/Procedures [] Course & Med Decision Making Course & Med Decision Making Pertinent Labs and Imaging studies reviewed. (See chart for details) [] Dragon Disclaimer Dragon Disclaimer This electronic medical record was generated, in whole or in part, using a voice recognition dictation system. Departure Departure: Impression: Primary Impression: Hyponatremia Additional Impression: Hypertension Disposition: 09 ADMITTED INPATIENT Admitting Physician: Paco Alas Condition: STABLE Referrals: PACO ALAS MD (PCP) Problem Qualifiers SUMAYA EUBANKS MD September 22, 2017 15:46
[2017-09-22 16:36] LABS: BILIRUBIN,URINE NEG (NEG); CLARITY,URINE CLEAR; COLOR,URINE STRAW; GLUCOSE,URINE NEG (NEG); NITRITE,URINE NEG (NEG); RBC,URINE OCC /HPF (0-2); UROBILINOGEN,URINE 0.2 mg/dL (0.2 mg/dL)
[2017-09-22 16:37] LABS: BACTERIA,URINE 0 /HPF (0-FEW); SQUAMOUS EPITHELIAL CELL,UR OCC /LPF
[2017-09-22 16:59] VITALS: BP 167/68
--- NOTE | 2017-09-22 18:00 | NUR ---
The patient, STEPHANIE HOUSTON, 86 y/o, F admitted by LANNY MAGALLON MD, was given written information regarding hospital policies, unit procedures and contact persons. Valuables were checked and left in room. Patient denies complaints upon admission states that she was out in the greenhouse and was not feeling well so she called EMS. Patient able to verbalize POC and needs. Will continue to monitor.
[2017-09-22 20:14] VITALS: BP 154/68
[2017-09-22] MEDS ORDERED: ACETAMINOPHEN 325 MG TABLET PO PRN (20:45)
[2017-09-22] MEDS ORDERED: CALCIUM CARBONATE 500 MG TAB.CHEW PO PRN (20:45)
[2017-09-22] MEDS ORDERED: NITROGLYCERIN SUBLINGUAL 0.4 MG BOTTLE OF 25. SL PRN (20:45)
[2017-09-22] MEDS ORDERED: LIDOCAINE 5% TOPICAL OINTMENT 35GM TUBE. TP PRN (21:00)
[2017-09-22] MEDS ORDERED: DOCUSATE SODIUM 100 MG CAPSULE PO PRN (21:00)
[2017-09-22] MEDS ORDERED: HYDROCORTISONE ACETATE 25 MG SUPP.RECT PR PRN (21:00)
[2017-09-22] MEDS ORDERED: PRAVASTATIN 20 MG TABLET. PO SCH (21:00)
[2017-09-22] MEDS: LISINOPRIL 20 MG TABLET PO SCH (22:11)
[2017-09-22] MEDS: HEPARIN PF for SUB-Q USE 5,000 UNIT/0.5 ML VIAL. SQ SCH (22:14)
[2017-09-22 23:00] VITALS: BP 147/59
[2017-09-23 03:00] VITALS: BP 142/61
[2017-09-23 05:57] LABS: BASO % 1 % (0-3); EOS % 1 % (0-3); HEMOGLOBIN 11.1 g/dL (12.0-15.5); LYMPH # 0.6 x10^3/uL (1.0-4.8); LYMPH % 18 % (24-48); MEAN CORPUSCULAR HEMOGLOBIN 31 pg (25-35); MEAN CORPUSCULAR HGB CONC 35 g/dL (31-37); MEAN CORPUSCULAR VOLUME 89 fL (79-100); MONO # 0.4 x10^3/uL (0.0-1.1); MONO % 12 % (0-9); NEUT # 2.4 x10^3uL (1.8-7.7); NEUT % 68 % (31-73); PLATELET COUNT 183 x10^3/uL (140-400); RED BLOOD COUNT 3.61 x10^6/uL (3.50-5.40); RED CELL DISTRIBUTION WIDTH 13.4 % (11.5-14.5); WHITE BLOOD COUNT 3.6 x10^3/uL (4.0-11.0)
[2017-09-23] MEDS ORDERED: LEVOTHYROXINE 100 MCG TABLET PO SCH (06:00)
[2017-09-23 06:02] LABS: CALCIUM 7.9 mg/dL (8.5-10.1); GFR 52.4; POTASSIUM 4.5 mmol/L (3.5-5.1)
[2017-09-23] MEDS: LISINOPRIL 20 MG TABLET PO SCH (08:51)
[2017-09-23 08:52] VITALS: BP 142/61
[2017-09-23] MEDS: HEPARIN PF for SUB-Q USE 5,000 UNIT/0.5 ML VIAL. SQ SCH (08:57)
--- NOTE | 2017-09-23 08:59 | NUR ---
Heparin held this AM, patient states that she gets reacurrent nose bleeds while in the hospital. Patient doing well this morning. [employer] and Dr. Alas in with patient this morning, spoke with patient in regards to readmissions. Plan is to discharge today with a new home health agency. Patient refuses to discharge to an assisted living or detention at this time. Patient stable and denies complaints at this time.
[2017-09-23] MEDS ORDERED: ASPIRIN 81 MG TAB.CHEW PO SCH (09:00)
[2017-09-23] MEDS ORDERED: FAMOTIDINE 20 MG TABLET PO SCH (09:00)
[2017-09-23] MEDS ORDERED: LOSARTAN 50 MG TABLET. PO PRN (09:00)
[2017-09-23] MEDS ORDERED: POLYETHYLENE GLYCOL 3350 17 GM PACKET. PO PRN (09:00)
--- NOTE | 2017-09-23 09:41 | NUR ---
Patient discharged at this time, left via wheelchair to personal vehicle with son. IV discontinued and belongings left with patient. Plan is to DC with [facility].
--- NOTE | 2017-09-29 18:09 | HP ---
ADMIT DATE: 09/22/2017 HISTORY OF PRESENT ILLNESS: An 86-year-old female who came in through the Emergency Department for high blood pressure, came in via EMS. The patient is a little bit confused, first denies that she was taking her blood pressure in the diet. The patient reports the blood pressure of 190. She denies any chest pain, headache, visual changes. The rest of her problems and shortness of breath and alike. The patient was brought into the Emergency Room. EKG was basically stable. MEDICATIONS: She normally takes were reviewed and include Pravachol, hydralazine 100 mg 3 times a day, nitroglycerin, Nitrostat, nifedipine 60 mg, lisinopril 40 mg, Benicar 20 mg, aspirin 81 mg, acetaminophen, calcium carbonate, docusate sodium, MiraLax, Zantac 150 mg daily, levofloxacin, hydrocortisone, lidocaine cream, adverse reactions to beta blockers, amlodipine, Lipitor, chlorthalidone, clonidine, and iodine. SOCIAL HISTORY: Unremarkable. No fever. Denies any smoking, alcohol or drug use. FAMILY HISTORY: Noncontributory. REVIEW OF SYSTEMS: As noted outside of her high blood pressure. The patient was basically unremarkable in that regard. The patient was admitted on 09/22/2017, discharged on 09/23/2017. LABORATORY DATA: The patient's cardiac enzymes were basically unremarkable. They were reviewed. Her sodium was slightly low at 126; however, it came right up to 134 with a little bit of fluid. The patient made good progress during the rest of her hospitalization. PHYSICAL EXAMINATION: VITAL SIGNS: I did not mention of blood pressure was 150/60, respiratory rate 18, pulse 62, afebrile. GENERAL: The patient is alert and oriented, baseline for her. HEENT: Mouth and throat were normal. NECK: Supple. LUNGS: Clear. CARDIOVASCULAR: Regular sinus rhythm. 2/6 systolic ejection murmur. ABDOMEN: Soft, nontender. EXTREMITIES: No clubbing, cyanosis or edema. NEUROLOGIC: Baseline. Labs were discussed earlier. The patient made good progress. She was discharged to home. She will continue on her home medications, see [facility]. Decreased activity and try not to call EMS for everything, trying to get her placed in a nursing facility is not to her liking. Although, we have talked to the family about the situation. LANNY MAGALLON MD DR: Glenda JOB#: [id number] / [id number]
== END 2017-09-23 09:45 | disposition home health service (06) | DRG 641 ==
LOC: ER 14:19 → 1 SOUTH 16:16
PROVIDERS: ADMIT Family Medicine; ATTEND Family Medicine
DX: E87.1 Hypo-osmolality and hyponatremia (principal); E03.9 Hypothyroidism, unspecified; I10 Essential (primary) hypertension; I25.10 Atherosclerotic heart disease of native coronary artery without angina pectoris; F32.9 Major depressive disorder, single episode, unspecified; Z86.73 Personal history of transient ischemic attack (TIA), and cerebral infarction without residual deficits; Z90.710 Acquired absence of both cervix and uterus; Z87.440 Personal history of urinary (tract) infections; I25.2 Old myocardial infarction; Z90.49 Acquired absence of other specified parts of digestive tract; Z88.6 Allergy status to analgesic agent; Z88.1 Allergy status to other antibiotic agents; Z88.8 Allergy status to other drugs, medicaments and biological substances
CPT/HCPCS: 36415; 80048; 80076; 81001; 83690; 84484; 85025; 93005; J7040; 99285-25; J7030

== ENCOUNTER 2017-09-29 02:10 | Inpatient (IN) | payer MEDICARE ==
[~2017-09-29] VITALS: Ht 157.5 cm; Wt 56.0 kg
--- NOTE | 2017-09-29 02:22 | ED.ADGEN ---
Past History Past Medical History: CAD, Cancer, CVA, Depression, Hypothyroid, Hypotension, [place], Renal Disease, UTI Past Surgical History: Cancer Surgery, Hysterectomy, Tonsillectomy Alcohol Use: None Drug Use: None Adult General Chief Complaint Chief Complaint ".. I am so nauseate tonight.. It gotten worse since I was in Dr. Alas office today.. " " It feels like my heart is skipping..." HPI HPI Patient is a 86 year old female who presents with above hx of nausea and dysrhythmia. Pt. states nausea has gotten much worse the last two days. 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 PVC and second-degree AV block with dropped QRS. Pt. states she unable to tolerate any food tonight because of nausea and vomiting. Pt. Hx. multiple medical problems. Hx. of chronic CHF,CAD, [place], . Pt. denies any intake bad food, travel or specific ill contacts. Pt. denies any change of meds recently. Pt. normally follows with Dr. Alas. Review of Systems Review of Systems Constitutional: Denies fever or chills [] Eyes: Denies change in visual acuity, redness, or eye pain [] HENT: Denies nasal congestion or sore throat [] Respiratory: Denies cough . Complaints of shortness of breath [] Cardiovascular: No additional information not addressed in HPI [] GI: Denies abdominal pain, , bloody stools or diarrhea [] Complaints of nausea and vomiting : Denies dysuria or hematuria [] Musculoskeletal: Denies back pain or joint pain [] Integument: Denies rash or skin lesions [] Neurologic: Denies headache, focal weakness or sensory changes [] Endocrine: Denies polyuria or polydipsia [] All other systems were reviewed and found to be within normal limits, except as documented in this note. Family History Family History Non-contributory Current Medications Current Medications Current Medications Medications (Trade) Dose Ordered Sig/Umesh Start Time Stop Time Status Last Admin Dose Admin Aspirin (Children'S Aspirin) 324 mg 1X ONCE 09/29/17 02:45 09/29/17 02:46 DC 09/29/17 03:04 324 MG Famotidine (Pepcid) 20 mg 1X ONCE 09/29/17 02:45 09/29/17 02:46 DC 09/29/17 03:07 20 MG Ondansetron HCl (Zofran Odt) 8 mg 1X ONCE 09/29/17 02:45 09/29/17 02:46 DC 09/29/17 03:09 8 MG Allergies Allergies Allergies Coded Allergies Type Severity Reaction Last Updated Verified Beta-Blockers (Beta-Adrenergic Bloc Allergy Intermediate Bradycardia 07/01/16 Yes amlodipine Allergy Intermediate ADEMA 03/24/17 Yes atorvastatin Allergy Intermediate 05/28/16 Yes chlorthalidone Allergy Intermediate hyponatremia 07/01/16 Yes clonidine Allergy Intermediate bradycardia 07/01/16 Yes iodine Allergy Intermediate 05/28/16 Yes Physical Exam Physical Exam Constitutional: moderate distress, non-toxic appearance. [] HENT: Normocephalic, atraumatic, bilateral external ears normal, oropharynx moist, no oral exudates, nose normal. [] Eyes: PERRLA, EOMI, conjunctiva normal, no discharge. [] Neck: Normal range of motion, no tenderness, supple, no stridor. JVD Cardiovascular: Irregular Heart rateand rhythm, no murmur [] PVC per monitor Lungs & Thorax: Bilateral breath sounds scattered crackles on auscultation [] scar Abdomen: Bowel sounds normal, soft, generalized abdomen tenderness, no masses, no pulsatile masses. Scar. Skin: Warm, dry, no erythema, ichthyosis Skin horns. Back: No tenderness, no CVA tenderness. [] Extremities: No tenderness, no cyanosis, no clubbing, ROM intact, no edema. [] Arthritic changes Neurologic: Alert and oriented X 3, moves all extremities on request. Decreased distal sensory feet, no gross focal deficits over baseline per pt. Psychologic: Affect anxious, judgement normal, mood depressed Current Patient Data Vital Signs Vital Signs Date Time Temp Pulse Resp B/P (MAP) Pulse Ox O2 Delivery O2 Flow Rate FiO2 09/29/17 04:20 71 20 137/72 (93) 98 Room Air 09/29/17 02:15 97.8 Lab Results Laboratory Tests Test 09/29/17 03:18 White Blood Count 4.3 x10^3/uL (4.0-11.0) Red Blood Count 4.03 x10^6/uL (3.50-5.40) Hemoglobin 12.5 g/dL (12.0-15.5) Hematocrit 34.8 % (36.0-47.0) L Mean Corpuscular Volume 86 fL (79-100) Mean Corpuscular Hemoglobin 31 pg (25-35) Mean Corpuscular Hemoglobin Concent 36 g/dL (31-37) Red Cell Distribution Width 13.4 % (11.5-14.5) Platelet Count 184 x10^3/uL (140-400) Neutrophils (%) (Auto) 73 % (31-73) Lymphocytes (%) (Auto) 13 % (24-48) L Monocytes (%) (Auto) 13 % (0-9) H Eosinophils (%) (Auto) 1 % (0-3) Basophils (%) (Auto) 1 % (0-3) Neutrophils # (Auto) 3.2 x10^3uL (1.8-7.7) Lymphocytes # (Auto) 0.5 x10^3/uL (1.0-4.8) L Monocytes # (Auto) 0.5 x10^3/uL (0.0-1.1) Eosinophils # (Auto) 0.0 x10^3/uL (0.0-0.7) Basophils # (Auto) 0.0 x10^3/uL (0.0-0.2) Prothrombin Time 9.6 SEC (9.4-11.4) Prothrombin Time INR 0.9 (0.9-1.1) PTT 25 SEC (23-33) D-Dimer (Annette) 1.86 mg/L (0.00-0.50) H Sodium Level 124 mmol/L (136-145) L Potassium Level 4.2 mmol/L (3.5-5.1) Chloride Level 91 mmol/L (98-107) L Carbon Dioxide Level 27 mmol/L (21-32) Anion Gap 6 (6-14) Blood Urea Nitrogen 21 mg/dL (7-20) H Creatinine 1.1 mg/dL (0.6-1.0) H Estimated GFR (Cockcroft-Gault) 47.0 Glucose Level 96 mg/dL (70-99) Calcium Level 8.7 mg/dL (8.5-10.1) Magnesium Level 1.9 mg/dL (1.8-2.4) Total Bilirubin 0.7 mg/dL (0.2-1.0) Direct Bilirubin 0.2 mg/dL (0.0-0.2) Aspartate Amino Transferase (AST) 17 U/L (15-37) Alanine Aminotransferase (ALT) 18 U/L (14-59) Alkaline Phosphatase 65 U/L (46-116) Creatine Kinase 60 U/L (26-192) Creatine Kinase MB (Mass) 3.4 ng/mL (0.0-3.6) Creatine Kinase MB Relative Index 5.7 % (0-4) H Troponin I Quantitative < 0.017 ng/mL (0-0.055) NV-Cfu-L-Type Natriuretic Peptide 541 pg/mL (0-449) H Total Protein 6.7 g/dL (6.4-8.2) Albumin 3.5 g/dL (3.4-5.0) Lipase 322 U/L (73-393) EKG EKG My interpretation of EKG strip paramedics shows a sinus rhythm, . There are prolonged FL interval first-degree block. Nonspecific T-wave changes in lateral leads.[] My interpretation of EKG shows sinus rate 73 with lst degree AV block and anteroseptal and T changes. Radiology/Procedures Radiology/Procedures My interpretation of chest x-ray shows[]chronic changes, Apical clips on Rt. , DJD. Abdomen film shows stools and upper portion of abdomen. No stool in lower portion. No obvious signs of ileus or air fluid levels. CT of abdomen pending at time of admission-pending hydration Course & Med Decision Making Course & Med Decision Making Pertinent Labs and Imaging studies reviewed. (See chart for details) Discussed presentation, testing and tx.plan Dr. Alas- Admit. CT pending at time of admit.. UA pending at time of admit. [] Final Impression Final Impression 1. Nausea and vomiting 2. Dysrhythmia[] 3. Hyponatremia 4. Abd. Pain 5. Elevated D-dimer 6. Weakness 7. Depressed Affect Dragon Disclaimer Dragon Disclaimer This electronic medical record was generated, in whole or in part, using a voice recognition dictation system. JOSE CARLOS REILLY MD Sep 29, 2017 02:22
[2017-09-29] MEDS ORDERED: ASPIRIN 81 MG TAB.CHEW PO ONE (02:45)
[2017-09-29] MEDS ORDERED: ONDANSETRON ODT 4 MG TAB.RAPDIS PO ONE (02:45)
[2017-09-29] MEDS ORDERED: FAMOTIDINE 20 MG TABLET PO ONE (02:45)
--- NOTE | 2017-09-29 02:45 | EKG ---
[address] [address] Test Date: 2017-09-29 Test Time: 02:38:48 Pat Name: STEPHANIE HOUSTON Department: Room: Gender: F Pipe Chipper: EDGAR : 1930 Requested By: JOSE CARLOS REILLY Order Number: [id number] Reading MD: Measurements Intervals Rogers Rate: 73 P: 90 LA: 254 QRS: 3 QRSD: 90 T: 81 QT: 396 QTc: 440 Interpretive Statements SINUS RHYTHM PROLONGED LA INTERVAL QRS(T) CONTOUR ABNORMALITY CONSIDER ANTEROSEPTAL MYOCARDIAL DAMAGE T ABNORMALITY IN HIGH LATERAL LEADS ABNORMAL ECG RI6.01 Compared to ECG 09/01/2017 13:36:34 T-wave abnormality now present
--- NOTE | 2017-09-29 03:02 | RAD ---
Indication: Shortness of breath TECHNIQUE: Portable AP upright chest x-ray COMPARISON: 09/02/2017 FINDINGS: Heart is normal in size. Lungs are hyperinflated without focal consolidation. Surgical clips are seen projecting over the right lung apex. No pneumothorax or pleural effusion. Visualized bony thorax within normal limits. IMPRESSION: No acute cardiopulmonary process. Electronically signed by: Justyn Sheth DO (09/29/2017 2:58 AM) [id number]
[2017-09-29 03:46] LABS: BASO % 1 % (0-3); EOS % 1 % (0-3); HEMATOCRIT 34.8 % (36.0-47.0); HEMOGLOBIN 12.5 g/dL (12.0-15.5); LYMPH # 0.5 x10^3/uL (1.0-4.8); LYMPH % 13 % (24-48); MEAN CORPUSCULAR HEMOGLOBIN 31 pg (25-35); MEAN CORPUSCULAR HGB CONC 36 g/dL (31-37); MEAN CORPUSCULAR VOLUME 86 fL (79-100); MONO # 0.5 x10^3/uL (0.0-1.1); MONO % 13 % (0-9); NEUT # 3.2 x10^3uL (1.8-7.7); NEUT % 73 % (31-73); PLATELET COUNT 184 x10^3/uL (140-400); RED BLOOD COUNT 4.03 x10^6/uL (3.50-5.40); RED CELL DISTRIBUTION WIDTH 13.4 % (11.5-14.5); WHITE BLOOD COUNT 4.3 x10^3/uL (4.0-11.0)
[2017-09-29 04:12] LABS: ALBUMIN 3.5 g/dL (3.4-5.0); CALCIUM 8.7 mg/dL (8.5-10.1); CREATININE 1.1 mg/dL (0.6-1.0); DIRECT BILIRUBIN 0.2 mg/dL (0.0-0.2); MAGNESIUM 1.9 mg/dL (1.8-2.4); POTASSIUM 4.2 mmol/L (3.5-5.1); TOTAL BILIRUBIN 0.7 mg/dL (0.2-1.0); TOTAL PROTEIN 6.7 g/dL (6.4-8.2)
--- NOTE | 2017-09-29 04:20 | RAD ---
Indication: Nausea vomiting and abdominal pain. TECHNIQUE: 3 views of the abdomen COMPARISON: None FINDINGS: Heart is normal in size. No evidence of free intraperitoneal air. No abnormally dilated bowel loops or air-fluid levels. Mild to moderate colonic stool burden in the proximal colon. This visualized bones are within normal limits. No abnormal calcific densities projecting over the kidneys or expected course of the ureters. IMPRESSION: No radiographic evidence of bowel obstruction. Electronically signed by: Justyn Sheth DO (09/29/2017 4:17 AM) [id number]
[2017-09-29] MEDS ORDERED: IV NORMAL SALINE 1,000ML 1,000 ML IV ONE (04:45)
[2017-09-29] MEDS ORDERED: ONDANSETRON ODT 4 MG TAB.RAPDIS PO PRN (04:45)
[2017-09-29] MEDS ORDERED: ENOXAPARIN ** NOTE DOSE ** SYRINGE SQ ONE (05:00)
[2017-09-29] MEDS ORDERED: IV RINGERS SOLUTION,LACTATED 1,000 ML IV ONE (05:00)
[2017-09-29 05:17] LABS: BACTERIA,URINE 0 /HPF (0-FEW); BILIRUBIN,URINE NEG (NEG); CLARITY,URINE CLEAR; COLOR,URINE YELLOW; GLUCOSE,URINE NEG (NEG); NITRITE,URINE NEG (NEG); RBC,URINE 0 /HPF (0-2); SQUAMOUS EPITHELIAL CELL,UR OCC /LPF; UROBILINOGEN,URINE 0.2 mg/dL (0.2 mg/dL); WBC,URINE RARE /HPF (0-4)
[2017-09-29] MEDS ORDERED: IOHEXOL 240 MG/ML 50ML VIAL. ONE (05:25)
--- NOTE | 2017-09-29 05:45 | NUR ---
Admission: The patient, STEPHANIE HOUSTON, 86 y/o, F admitted by LANNY MAGALLON MD, was given written information regarding hospital policies, unit procedures and contact persons. Pt arrived to room 123 via gurney, accompanied by [facility] and nursing sup. Dx: N/V, abd pain. Pt reports feeling increasingly nauseated after visiting Dr. Magallon's office yesterday. Pt recently admitted on 09/22/17. Lives at home alone with services. Pt oriented to unit and patient room. Discussed POC, V/U. Valuables were checked and logged. Left in room with patient. Addendum: 09/29/17 at 0620 by GARIMA LORENZO RN Pt reports she has not been visited by HH since her last admission. Will consult for assistance.
[2017-09-29 06:02] VITALS: BP 146/78
--- NOTE | 2017-09-29 08:14 | RAD ---
PQRS Compliance Statement: One or more of the following individualized dose reduction techniques were utilized for this examination: 1. Automated exposure control 2. Adjustment of the mA and/or kV according to patient size 3. Use of iterative reconstruction technique CT abdomen/pelvis without contrast 09/29/2017 7:26 AM INDICATION: Abdominal pain with nausea COMPARISON: None available TECHNIQUE: Multiple axial CT images of the abdomen and pelvis were obtained without intravenous contrast. Coronal and sagittal reformats are provided. FINDINGS: Bandlike density in the left lower lobe and right middle lobe favors subsegmental atelectasis or scarring. Heart size is within normal limits. Dense coronary artery vascular calcifications are present. Evaluation of the solid abdominal viscera is limited by lack of intravenous contrast. There is an 8.7 cm cyst involving the inferior right hepatic lobe. Lamellated gallstones are identified within the gallbladder measuring up to 2.5 cm. Additional smaller gallstones are identified within the neck of the gallbladder. No adjacent inflammatory changes are present. Adrenal glands and spleen are normal in appearance. There is mild fatty atrophy of the pancreas. Abdominal aorta is normal in course and caliber with dense atherosclerotic calcification. There are no pathologically enlarged lymph nodes in abdomen or pelvis. There is no free fluid or free intraperitoneal air. There is asymmetric atrophy of the left kidney measuring approximately 5.7 cm in craniocaudal dimension as compared to the contralateral right kidney measuring 9.9 cm. There is no definite hydronephrosis. No suspicious renal masses are visualized. No renal calculi are identified. No calculi are identified in the kidneys or ureters. There is a 4 mm calculus in the dependent portion of the left urinary bladder. Urinary bladder is distended measuring 14.4 x 14.3 x 14.9 cm. There is mild colonic diverticulosis. Oral contrast was administered. Opacified bowel loops demonstrate normal mucosal fold pattern. Small and large bowel are normal in caliber. There is no evidence for bowel obstruction. There are no pericolonic inflammatory changes. Appendix is not definitively visualized. No suspicious osseous lesions are identified. There is mild dextroconvex scoliosis of the right lumbar spine with apex dextrocurvature at L1-L2. IMPRESSION: 1. There is a 4 mm calculus in the dependent portion of the left urinary bladder. This may represent a recently passed calculus. 2. There is significant urinary retention with bladder measuring 14.4 x 14.3 x 14.9 cm. 3. Asymmetric atrophy of the left kidney. 4. Moderate to advanced atherosclerotic changes. Electronically signed by: Brooke Ann MD (09/29/2017 8:10 AM) [id number]
[2017-09-29] MEDS ORDERED: ACETAMINOPHEN 325 MG TABLET PO PRN (09:00)
[2017-09-29] MEDS ORDERED: LOSARTAN 50 MG TABLET. PO PRN (09:00)
[2017-09-29] MEDS: LEVOTHYROXINE 100 MCG TABLET PO SCH ×2 (09:00→09:59)
[2017-09-29] MEDS ORDERED: NITROGLYCERIN SUBLINGUAL 0.4 MG BOTTLE OF 25. SL PRN (09:00)
[2017-09-29] MEDS ORDERED: DIBUCAINE RECTAL OINTMENT 28GM TUBE. RC PRN (09:00)
[2017-09-29] MEDS: ASPIRIN 81 MG TAB.CHEW PO SCH (09:00)
[2017-09-29] MEDS ORDERED: HYDROCORTISONE ACETATE 25 MG SUPP.RECT RC PRN (09:00)
[2017-09-29] MEDS ORDERED: CALCIUM CARBONATE 500 MG TAB.CHEW PO PRN (09:00)
[2017-09-29] MEDS ORDERED: POLYETHYLENE GLYCOL 3350 17 GM PACKET. PO PRN (09:30)
[2017-09-29] MEDS: FAMOTIDINE 20 MG TABLET PO SCH (09:30)
[2017-09-29] MEDS: LISINOPRIL 20 MG TABLET PO SCH ×2 (09:59→21:32)
[2017-09-29 11:00] VITALS: BP 157/78
--- NOTE | 2017-09-29 13:11 | PDOC2 ---
CONSULT Date of Admission DATE: 09/29/17 TIME: 13:00 Reason for Consult: Elevated BNP. Referring Physician: Paco lAas MD Chief Complaint Nausea. Source: Patient Problem List Problems Medical Problems: (1) Abdominal pain Status: Acute History of Present Illness She has a history of a coronary artery disease with drug eluting stent placement to left anterior descending coronary artery on 04/10/2011 and a previous stent to an unknown vessel in about 1999, a previous myocardial infarction, previous stroke with mild residual right sided weakness, hypertension, hyperlipidemia, stage 3 chronic kidney disease, thyroid carcinoma now status post thyroidectomy and radiation, hyponatremia, and gastroesophageal reflux disease. She states that she has had a 3-4 day history of nausea. She denies any vomiting or abdominal pain. She has chronic constipation which is unchanged. She denies any diarrhea, fever, or chills. Because of the severe nausea, she came to the hospital for further evaluation. Since coming to the hospital she has had mild improvement of the nausea but this has not resolved. She still denies any vomiting. She was found have mild elevation of the BNP level and a Cardiology consultation was requested. She also states that she feels as though she may have some urinary retention at times. She denies any polyuria or dysuria. She has chronic mild ankle edema which is unchanged and usually resolves by the following day. She denies chest pain, dyspnea, paroxysmal nocturnal dyspnea, orthopnea, palpitations, lightheadedness, or syncope. Cardiovascular: CAD, HTN, hyperipidemia CENTRAL NERVOUS SYSTEM: CVA GI: GERD Heme/Onc: Cancer ENT: Other (History of thyroid carcinoma.) Renal/: Chronic renal insuff, Urinary Incontinence Family History She does not know of any family history of premature coronary artery disease. Smoke: No ALCOHOL: none Current Medications Current Medications Aspirin (Children'S Aspirin) 324 mg 1X ONCE PO Last administered on 09/29/17at 03:04; Start 09/29/17 at 02:45; Stop 09/29/17 at 02:46; Status DC Ondansetron HCl (Zofran Odt) 8 mg 1X ONCE PO Last administered on 09/29/17at 03: 09; Start 09/29/17 at 02:45; Stop 09/29/17 at 02:46; Status DC Famotidine (Pepcid) 20 mg 1X ONCE PO Last administered on 09/29/17at 03:07; Start 09/29/17 at 02:45; Stop 09/29/17 at 02:46; Status DC Sodium Chloride 1,000 ml @ 1,000 mls/hr 1X ONCE IV Last administered on at 05:04; Start 09/29/17 at 04:45; Stop 09/29/17 at 05:44; Status DC Enoxaparin Sodium (Lovenox 60mg Syringe) 60 mg 1X ONCE SQ Last administered on 09/29/17at 05:04; Start 09/29/17 at 05:00; Stop 09/29/17 at 05:01; Status DC Lactated Ringer's 1,000 ml @ 75 mls/hr 1X ONCE IV Last administered on at 09:58; Start 09/29/17 at 05:00; Stop 09/29/17 at 18:19 Ondansetron HCl (Zofran Odt) 8 mg QIDPRN PRN PO n/v; Start 09/29/17 at 04:45 Enoxaparin Sodium (Lovenox 30mg Syringe) 30 mg BID SQ ; Start 09/29/17 at 21:00 Iohexol (Omnipaque 240 Mg/ml) 50 ml STK-MED ONCE .ROUTE ; Start 09/29/17 at 05:25 ; Stop 09/29/17 at 05:26; Status DC Acetaminophen (Tylenol) 650 mg PRN Q6HRS PRN PO PAIN; Start 09/29/17 at 09:00 Calcium Carbonate/ Glycine (Tums) 200 mg PRN AFTMEALHC PRN PO INDIGESTION; Start 09/29/17 at 09:00 Levothyroxine Sodium (Synthroid) 100 mcg DAILY06 PO ; Start 09/29/17 at 09:00 Lisinopril (Prinivil) 40 mg BID PO Last administered on 09/29/17at 09:59; Start 09/29/17 at 09:00 Nitroglycerin (Nitrostat) 0.4 mg PRN Q15MIN PRN SL CHEST PAIN; Start 09/29/17 at 09:00 Aspirin (Children'S Aspirin) 81 mg DAILYWBKFT PO ; Start 09/29/17 at 09:00 Docusate Sodium (Colace) 100 mg PRN DAILY PRN PO CONSTIPATION; Start 09/29/17 at 09:15 Hydralazine HCl (Apresoline) 100 mg TID PO Last administered on 09/29/17at 10:00 ; Start 09/29/17 at 09:15 Hydrocortisone Acetate (Anucort-Hc) 1 mg BID PRN RC HEMORRHOIDS; Start 09/29/17 at 09:00 Dibucaine (Nupercainal) 1 darian PRN TID PRN RC HEMORRHOID PAIN; Start 09/29/17 at 09:00 Nifedipine (Procardia Xl) 60 mg DAILY PO Last administered on 09/29/17at 10:01; Start 09/29/17 at 09:30 Losartan Potassium (Cozaar) 100 mg PRN DAILY PRN PO HIGH BLOOD PRESSURE; Start 09/29/17 at 09:00 Polyethylene Glycol (miraLAX) 17 gm PRN DAILY PRN PO CONSTIPATION; Start at 09:30 Pravastatin Sodium (Pravachol) 80 mg QHS PO ; Start 09/29/17 at 21:00 Famotidine (Pepcid) 20 mg DAILY PO ; Start 09/29/17 at 09:30 Heparin Sodium (Porcine) (Heparin Sq) 5,000 unit Q8HRS SQ ; Start 09/29/17 at 14: 00 Active Scripts Active Hydralazine Hcl 50 Mg Tablet 100 Mg PO TID Lisinopril 20 Mg Tablet 40 Mg PO BID Reported Benicar (Olmesartan Medoxomil) 20 Mg Tablet 20 Mg PO PRN DAILY PRN LAST DOSE GIVEN: DATE: NOT GIVEN TODAY TIME: NEXT DOSE DUE: DATE: August TIME: IF AND WHEN NEEDED Nifedipine Er (Nifedipine) 60 Mg Tab.er.24 60 Mg PO DAILY LAST DOSE GIVEN: DATE: TODAY TIME: AM NEXT DOSE DUE: DATE: TOMORROW TIME: AM Anusol-Hc (Hydrocortisone Acetate) 25 Mg Supp.rect 1 Supp RC BID PRN LAST DOSE GIVEN: NOT GIVEN THIS ADMISSION NEXT DOSE DUE: DATE: TODAY TIME: IF NEEDED Anecream (Lidocaine) 5 Gm Cream..g. 1 Darian TP PRN TID PRN LAST DOSE GIVEN: NOT GIVEN THIS ADMISSION NEXT DOSE DUE: DATE: TODAY TIME: IF NEEDED Miralax (Polyethylene Glycol 3350) 17 Gm Powd.pack 17 Gm PO PRN DAILY PRN LAST DOSE GIVEN: NOT GIVEN THIS ADMISSION NEXT DOSE DUE: DATE: TODAY TIME: IF NEEDED Colace (Docusate Sodium) 100 Mg Capsule 100 Mg PO PRN DAILY PRN LAST DOSE GIVEN: DATE: YESTERDAY TIME: AM NEXT DOSE DUE: DATE: TODAY TIME: IF NEEDED Zantac (Ranitidine Hcl) 150 Mg Tablet 150 Mg PO DAILY LAST DOSE GIVEN: DATE: TIME: AM NEXT DOSE DUE: DATE: TOMORROW TIME: AM Tums (Calcium Carbonate) 200 Mg Tab.chew 200 Mg PO PRN AFTMEALHC PRN LAST DOSE GIVEN: NOT GIVEN THIS ADMISSION NEXT DOSE DUE: DATE: TODAY TIME: IF NEEDED Tylenol (Acetaminophen) 325 Mg Tablet 2 Tab PO PRN Q6HRS PRN LAST DOSE GIVEN: DATE: NOT GIVEN TODAY NEXT DOSE DUE: DATE: TIME: IF AND WHEN NEEDED Levothyroxine Sodium 100 Mcg Tablet 1 Tab PO DAILY06 LAST DOSE GIVEN: DATE: TIME: AM NEXT DOSE DUE: DATE: TOMORROW TIME: AM Pravastatin Sodium 80 Mg Tablet 1 Tab PO QHS LAST DOSE GIVEN: DATE: YESTER TIME: AT BEDTIME NEXT DOSE DUE: DATE: TODAY TIME: AT BEDTIME Nitrostat (Nitroglycerin) 0.4 Mg Tab.subl 0.4 Mg SL PRN Q15MIN PRN LAST DOSE GIVEN: NOT GIVEN THIS ADMISSION NEXT DOSE DUE: DATE: TIME: IF NEEDED Aspirin 81 Mg Tab.chew 81 Mg PO DAILY LAST DOSE GIVEN: DATE: TIME: AM NEXT DOSE DUE: DATE: TOM TIME: AM Allergies: Coded Allergies: Beta-Blockers (Beta-Adrenergic Bloc (Verified Allergy, Intermediate, Bradycardia, 07/01/16) amlodipine (Verified Allergy, Intermediate, ADEMA, 03/24/17) atorvastatin (Verified Allergy, Intermediate, 05/28/16) chlorthalidone (Verified Allergy, Intermediate, hyponatremia, 07/01/16) clonidine (Verified Allergy, Intermediate, bradycardia, 07/01/16) iodine (Verified Allergy, Intermediate, 05/28/16) Review of System Review of 10 organ systems is as per the history of present illness, otherwise negative General: Alert, Oriented X3, Cooperative, No acute distress HEENT: Atraumatic, EOMI, Mucous membr. moist/pink Lungs: Clear to auscultation, Normal air movement Heart: Regular rate, Normal S1, Normal S2, Other ( 2/6 systolic ejection murmur.) Abdomen: Normal bowel sounds, Soft, No tenderness, No hepatospenomegaly, No masses Extremities: No clubbing, No cyanosis, Normal pulses, Other ( Trace bilateral pretibial edema.) Skin: No rashes Neuro: Normal speech, Strength at 5/5 X4 ext, Normal tone, Cranial nerves 3-12 NL Psych/Mental Status: Mental status NL, Mood NL VITALS Vital Signs Date Time Temp Pulse Resp B/P (MAP) Pulse Ox O2 Delivery O2 Flow Rate FiO2 09/29/17 10:01 78 146/78 09/29/17 08:00 Room Air 09/29/17 06:02 97.5 20 97 Labs Laboratory Tests Test 09/29/17 03:18 09/29/17 04:55 White Blood Count 4.3 x10^3/uL (4.0-11.0) Red Blood Count 4.03 x10^6/uL (3.50-5.40) Hemoglobin 12.5 g/dL (12.0-15.5) Hematocrit 34.8 % (36.0-47.0) Mean Corpuscular Volume 86 fL (79-100) Mean Corpuscular Hemoglobin 31 pg (25-35) Mean Corpuscular Hemoglobin Concent 36 g/dL (31-37) Red Cell Distribution Width 13.4 % (11.5-14.5) Platelet Count 184 x10^3/uL (140-400) Neutrophils (%) (Auto) 73 % (31-73) Lymphocytes (%) (Auto) 13 % (24-48) Monocytes (%) (Auto) 13 % (0-9) Eosinophils (%) (Auto) 1 % (0-3) Basophils (%) (Auto) 1 % (0-3) Neutrophils # (Auto) 3.2 x10^3uL (1.8-7.7) Lymphocytes # (Auto) 0.5 x10^3/uL (1.0-4.8) Monocytes # (Auto) 0.5 x10^3/uL (0.0-1.1) Eosinophils # (Auto) 0.0 x10^3/uL (0.0-0.7) Basophils # (Auto) 0.0 x10^3/uL (0.0-0.2) Prothrombin Time 9.6 SEC (9.4-11.4) Prothromb Time International Ratio 0.9 (0.9-1.1) Activated Partial Thromboplast Time 25 SEC (23-33) D-Dimer (Annette) 1.86 mg/L (0.00-0.50) Sodium Level 124 mmol/L (136-145) Potassium Level 4.2 mmol/L (3.5-5.1) Chloride Level 91 mmol/L (98-107) Carbon Dioxide Level 27 mmol/L (21-32) Anion Gap 6 (6-14) Blood Urea Nitrogen 21 mg/dL (7-20) Creatinine 1.1 mg/dL (0.6-1.0) Estimated GFR (Cockcroft-Gault) 47.0 Glucose Level 96 mg/dL (70-99) Calcium Level 8.7 mg/dL (8.5-10.1) Magnesium Level 1.9 mg/dL (1.8-2.4) Total Bilirubin 0.7 mg/dL (0.2-1.0) Direct Bilirubin 0.2 mg/dL (0.0-0.2) Aspartate Amino Transf (AST/SGOT) 17 U/L (15-37) Alanine Aminotransferase (ALT/SGPT) 18 U/L (14-59) Alkaline Phosphatase 65 U/L (46-116) Creatine Kinase 60 U/L (26-192) Creatine Kinase MB (Mass) 3.4 ng/mL (0.0-3.6) Creatine Kinase MB Relative Index 5.7 % (0-4) Troponin I Quantitative < 0.017 ng/mL (0-0.055) YV-Ooc-Z-Type Natriuretic Peptide 541 pg/mL (0-449) Total Protein 6.7 g/dL (6.4-8.2) Albumin 3.5 g/dL (3.4-5.0) Lipase 322 U/L (73-393) Urine Collection Type Unknown Urine Color Yellow Urine Clarity Clear Urine pH 6.5 Urine Specific Earling <=1.005 Urine Protein Neg (NEG-TRACE) Urine Glucose (UA) Neg mg/dL (NEG) Urine Ketones (Stick) Neg mg/dL (NEG) Urine Blood Neg (NEG) Urine Nitrite Neg (NEG) Urine Bilirubin Neg (NEG) Urine Urobilinogen Dipstick 0.2 mg/dL (0.2 mg/dL) Urine Leukocyte Esterase Neg (NEG) Urine RBC 0 /HPF (0-2) Urine WBC Rare /HPF (0-4) Urine Squamous Epithelial Cells Occ /LPF Urine Bacteria 0 /HPF (0-FEW) Images LUNG VENT/PERFUSION SCAN (06/15/2016): Exam is low probability for pulmonary embolism. BILATERAL RENAL DUPLEX (05/26/2016): Suboptimal evaluation of the left kidney due to overlying bowel gas which appears somewhat smaller as compared to the right. Simple right renal cyst. No convincing evidence of renal artery stenosis seen. HOLTER MONITOR (05/25/2016): 1. Sinus bradycardia with an average heart rate of 44 beats per minute. 2. First-degree atrioventricular block with intermittent Wenckebach, predominantly during nighttime hours. 3. Increased ventricular ectopic activity totaling 182. 4. Increased supraventricular ectopic activity totaling 712, which included some blocked premature atrial complexes. 5. Maximum pause of 2.3 seconds secondary to a blocked premature atrial complex. 6. The patient reported 1 episode of being out of breath and dizzy when she was answering the door. Her heart rate was 42 beats per minute. The patient reported another episode of feeling sick at which time her heart rate was 48 beats per minute. 7. The above would be consistent with chronotropic incompetence and may be considered for pacemaker implant. ELECTROCARDIOGRAM (11/14/2015): Sinus rhythm with borderline left axis deviation and nonspecific lateral T wave changes. ECHOCARDIOGRAM IMPRESSION (12/25/2014): 1. Normal left ventricular systolic function, with an estimated ejection fraction of 65%. 2. No significant valvular abnormalities. 3. No significant change compared to the previous study, dated 04/09/2011. CT CHEST (12/21/2014): 1. Large neck mass extending anterior to the thyroid gland consistent with biopsy proven thyroid malignancy. Enlarged right supraclavicular lymph node is highly suspicious for lymph node metastasis. 2. Indeterminate pulmonary nodules the largest measuring 5 mm. Metastatic disease not excluded. Attention on [address] or per clinical protocol as well as nuclear medicine I-131 scan to assess size and determine malignant stability. 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 3. Indeterminate right hepatic lobe lesion. This could be further evaluated with liver MRI given presence of malignancy. ECHOCARDIOGRAM IMPRESSION (07/11/2014): There is normal left ventricular chamber size and wall thickness with normal regional and global left ventricular systolic function with an estimated ejection fraction of 66%. The left ventricular diastolic parameters appear normal. There is moderate posterior mitral annular calcification. There is mild-moderate mitral regurgitation. The estimated pulmonary artery systolic pressure is normal at 26 mmHg. Compared to the report (images were not available for review) of the study dated 04/21/2013 , the pulmonary artery pressure appears improved. ECHOCARDIOGRAM IMPRESSION (04/21/2013): 1. Normal LV systolic function with visually estimated EF of 60% to 65%. There are no wall motion abnormalities noted. 2. Borderline concentric left ventricular hypertrophy. 3. Unable to determine diastolic dysfunction because of mitral regurgitation. 4. The patient has at least moderate mitral regurgitation. This is an eccentric jet that is posteriorly directed. This may be underestimated based on this study. There is no mitral stenosis. 5. Mild pulmonary hypertension with mild tricuspid regurgitation with RV systolic pressure of 39 mmHg. 6. Borderline ascending aortic enlargement measuring 3.7 cm. HOLTER MONITOR IMPRESSION (04/21/2013): 1. Overall, the technical quality of the Holter monitor is fair. 2. Predominant rhythm is normal sinus rhythm with frequent sinus bradycardia. The patient had occasional premature atrial contractions and premature ventricular contractions. The patient had rare blocked premature atrial contractions and few premature ventricular contractions with compensatory pauses. 3. There were no significant pauses noted. 4. Overall, it appears as a borderline Holter monitor report. There are no symptoms noted. ANKLE/BRACHIAL INDEX IMPRESSION (07/02/2011): Bilateral extremity ankle/arm index is moderately abnormal, suggestive of hemodynamically non-critical peripheral artery disease. Assessment/Plan Elevated BNP level. The BNP level is just above normal. She is not having any dyspnea and her chest x-ray is clear. I do not believe this represents congestive heart failure. Rather, this is probably mild elevation of the BNP due to her chronic kidney disease. I recommend she continue on the present cardiac medications. Coronary artery disease. She is status post revascularization. She is not having any angina. She should be continued on her regular outpatient cardiac medications. Essential hypertension. Blood pressure appears reasonably controlled with the present medications. Hypercholesterolemia. Continue statin medication. Disposition. At this point in time there do not appear to be any acute, active cardiac issues. As such, Cardiology will sign off. Please call if you have other questions or concerns. BERNARD GILLESPIE Jr, MD Sep 29, 2017 13:11
--- NOTE | 2017-09-29 14:53 | RAD ---
Bilateral Lower Extremity Venous Doppler Ultrasound Indication: Dyspnea, elevated d-dimer. Comparison: March 24, 2017. Procedure: Color Doppler, spectral Doppler, and grayscale images with and without compression are obtained in the area of the common femoral vein, superficial femoral vein - femoral vein junction, main femoral vein (superficial femoral vein) and popliteal vein. Veins of the proximal calf are also imaged. Findings: There is normal duplex flow, color flow and compressibility of all visualized vein segments. There is no evidence of deep venous thrombosis. Impression: No evidence of lower extremity deep venous thrombosis. Electronically signed by: Angus Heck MD (09/29/2017 2:50 PM) [place] [id number]
[2017-09-29 15:00] VITALS: BP 157/75
[2017-09-29] MEDS: HEPARIN PF for SUB-Q USE 5,000 UNIT/0.5 ML VIAL. SQ SCH ×2 (15:36→22:00)
[2017-09-29 19:30] VITALS: BP 132/68
--- NOTE | 2017-09-29 19:36 | HP ---
ADMIT DATE: 09/29/2017 HISTORY OF PRESENT ILLNESS: An 86-year-old female with multiple admissions, comes in today has been seen. Apparently, she called for EMS, felt like her heart was racing, apparently initially the paramedics strip showed frequent PVCs, second-degree AV block with dropping QRS. The patient also had some nausea and vomiting. Denied chest pain. The patient has multiple histories. PAST MEDICAL HISTORY: Coronary artery disease, cancer, CVA, depression, hypothyroidism, hypertension, CT, renal disease, UTIs, cancer surgery, hysterectomy, tonsillectomy, adenoidectomy. She has had a heart attack, cardiac stent placements, hypercholesterolemia, hemorrhoids, reproductive disorders, hysterectomy, renal disease, urinary tract infection, musculoskeletal problems, hypothyroidism, thyroid cancer, thyroidectomy and depression. VACCINES: Pneumococcal flu up-to-date. FAMILY HISTORY: Brother with prostate cancer. Son with hypertension. Brother, father, mother, all have some form of cancer. ALLERGIES: BETA BLOCKERS, NORVASC, LIPITOR, CHLORTHALIDONE, CLONIDINE, AND IODINE. SOCIAL HISTORY: Lives alone. Denies smoking, alcohol or drug use. She is a DNR. MEDICATIONS: Reviewed in the chart and they include pravastatin 40, hydralazine 50, nitroglycerin 0.4, nifedipine 60, lisinopril 20, Benicar 20, aspirin 81, Tylenol 325, calcium carbonate 200, docusate sodium 100 mg, MiraLax, Zantac 150, levothyroxine, Anusol-HC, Lido cream and a cream for hemorrhoids. REVIEW OF SYSTEMS: Noted palpitations; as noted above in the HPI, otherwise, denies abdominal pain, had some nausea. Denies any problem with bowels or bladder. Neurologically baseline for this individual. PHYSICAL EXAMINATION: GENERAL: This is an elderly white female. VITAL SIGNS: Blood pressure 146/78, pulse 78, respiratory rate 20, oxygen saturation good and she is afebrile. HEENT: The patient's head was atraumatic, normocephalic. Eyes: PERRLA without jaundice. Mouth and throat were normal. NECK: Supple, no JVD, carotid bruits. No thyromegaly. LUNGS: Diminished, but clear to auscultation. CARDIOVASCULAR: S1, S2 with a 2/6 systolic ejection murmur. ABDOMEN: Soft, nontender, no rebound or guarding. Positive bowel sounds, no hepatosplenomegaly. EXTREMITIES: No clubbing, cyanosis or edema. NEUROLOGIC: The patient was alert and oriented x 3. The patient's speech was baseline for her, alert and oriented, although a little bit slow in her speech. Her memory is slightly diminished. Otherwise, good mood overall. ASSESSMENT: The patient was admitted for further evaluation. We will consult Cardiology and make further evaluation on her as indicated. No evidence of ventricular arrhythmias. Continue to monitor the patient, hopefully able to place her into some type of a nursing facility as the patient is having problems with maintaining living at home. LANNY MAGALLON MD DR: JERRI/richard JOB#: [id number] / [id number]
[2017-09-29] MEDS ORDERED: ENOXAPARIN 30 MG/0.3 ML SYRINGE. SQ SCH (21:00)
[2017-09-29 21:29] VITALS: BP 131/83
[2017-09-29] MEDS: PRAVASTATIN 20 MG TABLET. PO SCH (21:33)
[2017-09-29 23:21] VITALS: BP 142/55
[2017-09-30] MEDS: LEVOTHYROXINE 100 MCG TABLET PO SCH (05:05)
[2017-09-30] MEDS: HEPARIN PF for SUB-Q USE 5,000 UNIT/0.5 ML VIAL. SQ SCH ×3 (05:10→21:35)
[2017-09-30 05:13] VITALS: BP 133/64
[2017-09-30 06:46] LABS: BASO % 1 % (0-3); EOS # 0.1 x10^3/uL (0.0-0.7); EOS % 2 % (0-3); HEMATOCRIT 32.2 % (36.0-47.0); HEMOGLOBIN 11.5 g/dL (12.0-15.5); LYMPH # 0.4 x10^3/uL (1.0-4.8); LYMPH % 13 % (24-48); MEAN CORPUSCULAR HEMOGLOBIN 31 pg (25-35); MEAN CORPUSCULAR HGB CONC 36 g/dL (31-37); MEAN CORPUSCULAR VOLUME 88 fL (79-100); MONO # 0.4 x10^3/uL (0.0-1.1); MONO % 13 % (0-9); NEUT # 2.2 x10^3uL (1.8-7.7); NEUT % 71 % (31-73); PLATELET COUNT 170 x10^3/uL (140-400); RED BLOOD COUNT 3.65 x10^6/uL (3.50-5.40); RED CELL DISTRIBUTION WIDTH 13.8 % (11.5-14.5); WHITE BLOOD COUNT 3.1 x10^3/uL (4.0-11.0)
[2017-09-30 06:49] LABS: CALCIUM 8.3 mg/dL (8.5-10.1); GFR 52.4
[2017-09-30] MEDS: ASPIRIN 81 MG TAB.CHEW PO SCH (09:15)
[2017-09-30] MEDS: LISINOPRIL 20 MG TABLET PO SCH ×2 (09:15→21:28)
[2017-09-30] MEDS: FAMOTIDINE 20 MG TABLET PO SCH (09:16)
[2017-09-30 17:08] VITALS: BP 154/73
--- NOTE | 2017-09-30 18:29 | PDOC ---
Exam Note: Jaswant Note: Please also refer to the separate dictated note~for this date of service dictated separately.~Patient seen individually. Discussed the patient with Nursing staff reviewed the chart.~Reviewed interim history and current functioning. Reviewed vital signs,~Labs/ Radiology~and current medications noted below. Continue current treatment with the changes noted in the dictated addendum note Assessment: Vital Signs: Vital Signs Date Time Temp Pulse Resp B/P (MAP) Pulse Ox O2 Delivery O2 Flow Rate FiO2 09/30/17 17:08 98.1 72 18 154/73 (100) 97 09/30/17 09:00 Room Air I&O Intake and Output 09/30/17 07:00 Intake Total 2095.11 ml Output Total 400 ml Balance 1695.11 ml Intake Oral 1120 ml IV Total 975.11 ml Output Urine Total 400 ml # Voids 1 Labs: Laboratory Tests Test 09/30/17 06:14 White Blood Count 3.1 x10^3/uL (4.0-11.0) L Red Blood Count 3.65 x10^6/uL (3.50-5.40) Hemoglobin 11.5 g/dL (12.0-15.5) L Hematocrit 32.2 % (36.0-47.0) L Mean Corpuscular Volume 88 fL (79-100) Mean Corpuscular Hemoglobin 31 pg (25-35) Mean Corpuscular Hemoglobin Concent 36 g/dL (31-37) Red Cell Distribution Width 13.8 % (11.5-14.5) Platelet Count 170 x10^3/uL (140-400) Neutrophils (%) (Auto) 71 % (31-73) Lymphocytes (%) (Auto) 13 % (24-48) L Monocytes (%) (Auto) 13 % (0-9) H Eosinophils (%) (Auto) 2 % (0-3) Basophils (%) (Auto) 1 % (0-3) Neutrophils # (Auto) 2.2 x10^3uL (1.8-7.7) Lymphocytes # (Auto) 0.4 x10^3/uL (1.0-4.8) L Monocytes # (Auto) 0.4 x10^3/uL (0.0-1.1) Eosinophils # (Auto) 0.1 x10^3/uL (0.0-0.7) Basophils # (Auto) 0.0 x10^3/uL (0.0-0.2) Sodium Level 132 mmol/L (136-145) L Potassium Level 4.0 mmol/L (3.5-5.1) Chloride Level 99 mmol/L (98-107) Carbon Dioxide Level 28 mmol/L (21-32) Anion Gap 5 (6-14) L Blood Urea Nitrogen 11 mg/dL (7-20) Creatinine 1.0 mg/dL (0.6-1.0) Estimated GFR (Cockcroft-Gault) 52.4 Glucose Level 90 mg/dL (70-99) Calcium Level 8.3 mg/dL (8.5-10.1) L Current Medications: Meds: Current Medications Aspirin (Children'S Aspirin) 324 mg 1X ONCE PO Last administered on 09/29/17at 03:04; Start 09/29/17 at 02:45; Stop 09/29/17 at 02:46; Status DC Ondansetron HCl (Zofran Odt) 8 mg 1X ONCE PO Last administered on 09/29/17at 03: 09; Start 09/29/17 at 02:45; Stop 09/29/17 at 02:46; Status DC Famotidine (Pepcid) 20 mg 1X ONCE PO Last administered on 09/29/17at 03:07; Start 09/29/17 at 02:45; Stop 09/29/17 at 02:46; Status DC Sodium Chloride 1,000 ml @ 1,000 mls/hr 1X ONCE IV Last administered on at 05:04; Start 09/29/17 at 04:45; Stop 09/29/17 at 05:44; Status DC Enoxaparin Sodium (Lovenox 60mg Syringe) 60 mg 1X ONCE SQ Last administered on 09/29/17at 05:04; Start 09/29/17 at 05:00; Stop 09/29/17 at 05:01; Status DC Lactated Ringer's 1,000 ml @ 75 mls/hr 1X ONCE IV Last administered on at 09:58; Start 09/29/17 at 05:00; Stop 09/29/17 at 18:19; Status DC Ondansetron HCl (Zofran Odt) 8 mg QIDPRN PRN PO n/v; Start 09/29/17 at 04:45 Enoxaparin Sodium (Lovenox 30mg Syringe) 30 mg BID SQ ; Start 09/29/17 at 21:00; Stop 09/29/17 at 21:00; Status DC Iohexol (Omnipaque 240 Mg/ml) 50 ml STK-MED ONCE .ROUTE ; Start 09/29/17 at 05:25 ; Stop 09/29/17 at 05:26; Status DC Acetaminophen (Tylenol) 650 mg PRN Q6HRS PRN PO PAIN; Start 09/29/17 at 09:00 Calcium Carbonate/ Glycine (Tums) 200 mg PRN AFTMEALHC PRN PO INDIGESTION; Start 09/29/17 at 09:00 Levothyroxine Sodium (Synthroid) 100 mcg DAILY06 PO Last administered on at 05:05; Start 09/29/17 at 09:00 Lisinopril (Prinivil) 40 mg BID PO Last administered on 09/30/17at 09:15; Start 09/29/17 at 09:00 Nitroglycerin (Nitrostat) 0.4 mg PRN Q15MIN PRN SL CHEST PAIN; Start 09/29/17 at 09:00 Aspirin (Children'S Aspirin) 81 mg DAILYWBKFT PO Last administered on 09/30/17at 09:15; Start 09/29/17 at 09:00 Docusate Sodium (Colace) 100 mg PRN DAILY PRN PO CONSTIPATION; Start 09/29/17 at 09:15 Hydralazine HCl (Apresoline) 100 mg TID PO Last administered on 09/30/17at 13:52 ; Start 09/29/17 at 09:15 Hydrocortisone Acetate (Anucort-Hc) 1 mg BID PRN RC HEMORRHOIDS; Start 09/29/17 at 09:00 Dibucaine (Nupercainal) 1 darian PRN TID PRN RC HEMORRHOID PAIN; Start 09/29/17 at 09:00 Nifedipine (Procardia Xl) 60 mg DAILY PO Last administered on 09/29/17at 10:01; Start 09/29/17 at 09:30 Losartan Potassium (Cozaar) 100 mg PRN DAILY PRN PO HIGH BLOOD PRESSURE; Start 09/29/17 at 09:00 Polyethylene Glycol (miraLAX) 17 gm PRN DAILY PRN PO CONSTIPATION; Start at 09:30 Pravastatin Sodium (Pravachol) 80 mg QHS PO Last administered on 09/29/17at 21:33 ; Start 09/29/17 at 21:00 Famotidine (Pepcid) 20 mg DAILY PO Last administered on 09/30/17at 09:16; Start 09/29/17 at 09:30 Heparin Sodium (Porcine) (Heparin Sq) 5,000 unit Q8HRS SQ Last administered on 09/30/17at 14:00; Start 09/29/17 at 14:00 Active Scripts Active Hydralazine Hcl 50 Mg Tablet 100 Mg PO TID Lisinopril 20 Mg Tablet 40 Mg PO BID Reported Benicar (Olmesartan Medoxomil) 20 Mg Tablet 20 Mg PO PRN DAILY PRN LAST DOSE GIVEN: DATE: NOT GIVEN TODAY TIME: NEXT DOSE DUE: DATE: AUGUST TAKE TODAY TIME: IF AND WHEN NEEDED Nifedipine Er (Nifedipine) 60 Mg Tab.er.24 60 Mg PO DAILY LAST DOSE GIVEN: DATE: TODAY TIME: AM NEXT DOSE DUE: DATE: TOMORROW TIME: AM Anusol-Hc (Hydrocortisone Acetate) 25 Mg Supp.rect 1 Supp RC BID PRN LAST DOSE GIVEN: NOT GIVEN THIS ADMISSION NEXT DOSE DUE: DATE: TODAY TIME: IF NEEDED Anecream (Lidocaine) 5 Gm Cream..g. 1 Darian TP PRN TID PRN LAST DOSE GIVEN: NOT GIVEN THIS ADMISSION NEXT DOSE DUE: DATE: TODAY TIME: IF NEEDED Miralax (Polyethylene Glycol 3350) 17 Gm Powd.pack 17 Gm PO PRN DAILY PRN LAST DOSE GIVEN: NOT GIVEN THIS ADMISSION NEXT DOSE DUE: DATE: TODAY TIME: IF NEEDED Colace (Docusate Sodium) 100 Mg Capsule 100 Mg PO PRN DAILY PRN LAST DOSE GIVEN: DATE: YESTERDAY TIME: AM NEXT DOSE DUE: DATE: TODAY TIME: IF NEEDED Zantac (Ranitidine Hcl) 150 Mg Tablet 150 Mg PO DAILY LAST DOSE GIVEN: DATE: TODAY TIME: AM NEXT DOSE DUE: DATE: TOMORROW TIME: AM Tums (Calcium Carbonate) 200 Mg Tab.chew 200 Mg PO PRN AFTMEALHC PRN LAST DOSE GIVEN: NOT GIVEN THIS ADMISSION NEXT DOSE DUE: DATE: TODAY TIME: IF NEEDED Tylenol (Acetaminophen) 325 Mg Tablet 2 Tab PO PRN Q6HRS PRN LAST DOSE GIVEN: DATE: NOT GIVEN TODAY NEXT DOSE DUE: DATE: TODAY TIME: IF AND WHEN NEEDED Levothyroxine Sodium 100 Mcg Tablet 1 Tab PO DAILY06 LAST DOSE GIVEN: DATE: TODAY TIME: AM NEXT DOSE DUE: DATE: TOMORROW TIME: AM Pravastatin Sodium 80 Mg Tablet 1 Tab PO QHS LAST DOSE GIVEN: DATE: YESTERDAY TIME: AT BEDTIME NEXT DOSE DUE: DATE: TODAY TIME: AT BEDTIME Nitrostat (Nitroglycerin) 0.4 Mg Tab.subl 0.4 Mg SL PRN Q15MIN PRN LAST DOSE GIVEN: NOT GIVEN THIS ADMISSION NEXT DOSE DUE: DATE: TODAY TIME: IF NEEDED Aspirin 81 Mg Tab.chew 81 Mg PO DAILY LAST DOSE GIVEN: DATE: TODAY TIME: AM NEXT DOSE DUE: DATE: TOMORR TIME: AM I have reviewed the current psychotropics carefully including drug interactions. Risk benefit ratio favors no change other than as noted in my dictated progress note. Diagnosis: Problems: (1) Anxiety disorder (2) Major depressive disorder, recurrent episode MELVIN DALTON MD Sep 30, 2017 18:29
[2017-09-30 19:55] VITALS: BP 144/63
[2017-09-30] MEDS: PRAVASTATIN 20 MG TABLET. PO SCH (21:28)
[2017-09-30 22:40] VITALS: BP 146/68
--- NOTE | 2017-10-01 01:14 | PN ---
DATE: 09/30/2017 SUBJECTIVE: An 86-year-old female who came in for possible ventricular arrhythmias as well as continued problems with her senile dementia, Alzheimer's type and further evaluation of her depression. Discussed with the patient her inability to take care of her home, her multiple admissions to the hospital, requires her to be probably for her safety sake be placed in a nursing facility. Her sodium has come up from 124-132 as well and that may have had some effect on her as well. Her BNP was slightly elevated, but she shows no signs of heart failure. She denies any chest pain, shortness of breath, or dyspnea. Chest x-ray was normal. PHYSICAL EXAMINATION: VITAL SIGNS: Blood pressure 150/70, respiratory rate 18, pulse 100, afebrile. GENERAL: The patient is alert, but disoriented to some degree. LUNGS: Diminished throughout, poor movement of air, but clear. CARDIOVASCULAR: Regular sinus rhythm. ABDOMEN: Soft, nontender. The patient is walking with PT, OT, but lacks good judgment in terms of what was necessary. Apparently, her house requires a great deal repair work. She is obviously not capable of maintaining a home any longer safely anyway and has been recommended to her family that the patient be placed in a nursing facility. IMPRESSION: Ventricular arrhythmias, SIADH, dementia, Alzheimer type. PLAN: As above. LANNY MAGALLON MD DR: JERRI/richard JOB#: [id number] / [id number]
[2017-10-01 05:52] VITALS: BP 153/78
[2017-10-01] MEDS: LEVOTHYROXINE 100 MCG TABLET PO SCH (06:08)
[2017-10-01] MEDS: HEPARIN PF for SUB-Q USE 5,000 UNIT/0.5 ML VIAL. SQ SCH ×3 (06:14→20:39)
[2017-10-01] MEDS: LISINOPRIL 20 MG TABLET PO SCH ×2 (08:36→20:39)
[2017-10-01] MEDS: ASPIRIN 81 MG TAB.CHEW PO SCH (08:36)
[2017-10-01] MEDS: FAMOTIDINE 20 MG TABLET PO SCH (08:45)
[2017-10-01 11:06] VITALS: BP 182/70
[2017-10-01 15:24] VITALS: BP 172/73
--- NOTE | 2017-10-01 16:06 | PDOC ---
Exam Note: Jaswant Note: Please also refer to the separate dictated note~for this date of service dictated separately.~Patient seen individually. Discussed the patient with Nursing staff reviewed the chart.~Reviewed interim history and current functioning. Reviewed vital signs,~Labs/ Radiology~and current medications noted below. Continue current treatment with the changes noted in the dictated addendum note Assessment: Vital Signs: Vital Signs Date Time Temp Pulse Resp B/P (MAP) Pulse Ox O2 Delivery O2 Flow Rate FiO2 10/01/17 15:24 98.0 72 20 172/73 (106) 97 Room Air I&O Intake and Output 10/01/17 07:00 Intake Total 1900 ml Balance 1900 ml Intake Oral 1900 ml # Voids 2 Current Medications: Meds: Current Medications Aspirin (Children'S Aspirin) 324 mg 1X ONCE PO Last administered on 09/29/17at 03:04; Start 09/29/17 at 02:45; Stop 09/29/17 at 02:46; Status DC Ondansetron HCl (Zofran Odt) 8 mg 1X ONCE PO Last administered on 09/29/17at 03: 09; Start 09/29/17 at 02:45; Stop 09/29/17 at 02:46; Status DC Famotidine (Pepcid) 20 mg 1X ONCE PO Last administered on 09/29/17at 03:07; Start 09/29/17 at 02:45; Stop 09/29/17 at 02:46; Status DC Sodium Chloride 1,000 ml @ 1,000 mls/hr 1X ONCE IV Last administered on at 05:04; Start 09/29/17 at 04:45; Stop 09/29/17 at 05:44; Status DC Enoxaparin Sodium (Lovenox 60mg Syringe) 60 mg 1X ONCE SQ Last administered on 09/29/17at 05:04; Start 09/29/17 at 05:00; Stop 09/29/17 at 05:01; Status DC Lactated Ringer's 1,000 ml @ 75 mls/hr 1X ONCE IV Last administered on at 09:58; Start 09/29/17 at 05:00; Stop 09/29/17 at 18:19; Status DC Ondansetron HCl (Zofran Odt) 8 mg QIDPRN PRN PO n/v; Start 09/29/17 at 04:45 Enoxaparin Sodium (Lovenox 30mg Syringe) 30 mg BID SQ ; Start 09/29/17 at 21:00; Stop 09/29/17 at 21:00; Status DC Iohexol (Omnipaque 240 Mg/ml) 50 ml STK-MED ONCE .ROUTE ; Start 09/29/17 at 05:25 ; Stop 09/29/17 at 05:26; Status DC Acetaminophen (Tylenol) 650 mg PRN Q6HRS PRN PO PAIN Last administered on at 08:44; Start 09/29/17 at 09:00 Calcium Carbonate/ Glycine (Tums) 200 mg PRN AFTMEALHC PRN PO INDIGESTION; Start 09/29/17 at 09:00 Levothyroxine Sodium (Synthroid) 100 mcg DAILY06 PO Last administered on at 06:08; Start 09/29/17 at 09:00 Lisinopril (Prinivil) 40 mg BID PO Last administered on 10/01/17at 08:36; Start 09/29/17 at 09:00 Nitroglycerin (Nitrostat) 0.4 mg PRN Q15MIN PRN SL CHEST PAIN; Start 09/29/17 at 09:00 Aspirin (Children'S Aspirin) 81 mg DAILYWBKFT PO Last administered on 10/01/17at 08:36; Start 09/29/17 at 09:00 Docusate Sodium (Colace) 100 mg PRN DAILY PRN PO CONSTIPATION; Start 09/29/17 at 09:15 Hydralazine HCl (Apresoline) 100 mg TID PO Last administered on 10/01/17at 14:07 ; Start 09/29/17 at 09:15 Hydrocortisone Acetate (Anucort-Hc) 1 mg BID PRN RC HEMORRHOIDS; Start 09/29/17 at 09:00 Dibucaine (Nupercainal) 1 darian PRN TID PRN RC HEMORRHOID PAIN; Start 09/29/17 at 09:00 Nifedipine (Procardia Xl) 60 mg DAILY PO Last administered on 10/01/17at 08:36; Start 09/29/17 at 09:30 Losartan Potassium (Cozaar) 100 mg PRN DAILY PRN PO HIGH BLOOD PRESSURE; Start 09/29/17 at 09:00 Polyethylene Glycol (miraLAX) 17 gm PRN DAILY PRN PO CONSTIPATION Last administered on 10/01/17at 08:43; Start 09/29/17 at 09:30 Pravastatin Sodium (Pravachol) 80 mg QHS PO Last administered on 09/30/17at 21:28 ; Start 09/29/17 at 21:00 Famotidine (Pepcid) 20 mg DAILY PO Last administered on 10/01/17at 08:45; Start 09/29/17 at 09:30 Heparin Sodium (Porcine) (Heparin Sq) 5,000 unit Q8HRS SQ Last administered on 10/01/17at 06:14; Start 09/29/17 at 14:00 Citalopram Hydrobromide (CeleXA) 10 mg DAILY PO ; Start 10/02/17 at 09:00 Active Scripts Active Hydralazine Hcl 50 Mg Tablet 100 Mg PO TID Lisinopril 20 Mg Tablet 40 Mg PO BID Reported Benicar (Olmesartan Medoxomil) 20 Mg Tablet 20 Mg PO PRN DAILY PRN LAST DOSE GIVEN: DATE: NOT GIVEN TODAY TIME: NEXT DOSE DUE: DATE: AUGUST TAKE TIME: IF AND WHEN NEEDED Nifedipine Er (Nifedipine) 60 Mg Tab.er.24 60 Mg PO DAILY LAST DOSE GIVEN: DATE: TODAY TIME: AM NEXT DOSE DUE: DATE: TOMORROW TIME: AM Anusol-Hc (Hydrocortisone Acetate) 25 Mg Supp.rect 1 Supp RC BID PRN LAST DOSE GIVEN: NOT GIVEN THIS ADMISSION NEXT DOSE DUE: DATE: TODAY TIME: IF NEEDED Anecream (Lidocaine) 5 Gm Cream..g. 1 Darian TP PRN TID PRN LAST DOSE GIVEN: NOT GIVEN THIS ADMISSION NEXT DOSE DUE: DATE: TODAY TIME: IF NEEDED Miralax (Polyethylene Glycol 3350) 17 Gm Powd.pack 17 Gm PO PRN DAILY PRN LAST DOSE GIVEN: NOT GIVEN THIS ADMISSION NEXT DOSE DUE: DATE: TODAY TIME: IF NEEDED Colace (Docusate Sodium) 100 Mg Capsule 100 Mg PO PRN DAILY PRN LAST DOSE GIVEN: DATE: YESTERDAY TIME: AM NEXT DOSE DUE: DATE: TODAY TIME: IF NEEDED Zantac (Ranitidine Hcl) 150 Mg Tablet 150 Mg PO DAILY LAST DOSE GIVEN: DATE: TODAY TIME: AM NEXT DOSE DUE: DATE: TOMORROW TIME: AM Tums (Calcium Carbonate) 200 Mg Tab.chew 200 Mg PO PRN AFTMEALHC PRN LAST DOSE GIVEN: NOT GIVEN THIS ADMISSION NEXT DOSE DUE: DATE: TODAY TIME: IF NEEDED Tylenol (Acetaminophen) 325 Mg Tablet 2 Tab PO PRN Q6HRS PRN LAST DOSE GIVEN: DATE: NOT GIVEN TODAY NEXT DOSE DUE: DATE: TODAY TIME: IF AND WHEN NEEDED Levothyroxine Sodium 100 Mcg Tablet 1 Tab PO DAILY06 LAST DOSE GIVEN: DATE: TODAY TIME: AM NEXT DOSE DUE: DATE: TOMORROW TIME: AM Pravastatin Sodium 80 Mg Tablet 1 Tab PO QHS LAST DOSE GIVEN: DATE: YESTERDAY TIME: AT BEDTIME NEXT DOSE DUE: DATE: TODAY TIME: AT BEDTIME Nitrostat (Nitroglycerin) 0.4 Mg Tab.subl 0.4 Mg SL PRN Q15MIN PRN LAST DOSE GIVEN: NOT GIVEN THIS ADMISSION NEXT DOSE DUE: DATE: TODAY TIME: IF NEEDED Aspirin 81 Mg Tab.chew 81 Mg PO DAILY LAST DOSE GIVEN: DATE: TODAY TIME: AM NEXT DOSE DUE: DATE: TOMORROW TIME: AM I have reviewed the current psychotropics carefully including drug interactions. Risk benefit ratio favors no change other than as noted in my dictated progress note. Diagnosis: Problems: (1) Major depressive disorder, recurrent episode (2) Anxiety disorder MELVIN DALTON MD Oct 01, 2017 16:06
[2017-10-01 19:15] VITALS: BP 139/64
[2017-10-01] MEDS: PRAVASTATIN 20 MG TABLET. PO SCH (20:37)
[2017-10-01] MEDS: DOCUSATE SODIUM 100 MG CAPSULE PO PRN (20:37)
--- NOTE | 2017-10-01 20:47 | CONS ---
DATE OF CONSULTATION: 09/30/2017 This note covers elements not covered in my initial note of 09/30/2017. IDENTIFYING DATA: The patient is an 86-year-old female, seen [facility] at [facility] for a psychiatric consult requested by Dr. Alas to evaluate for depression and anxiety. The patient has had multiple admissions with complaints of racing heart. The patient called the EMS, felt like her heart was racing. The paramedics strip showed frequent PVCs second-degree AV block with drop in QRS. The patient also had some nausea and vomiting. The patient minimizes any of her symptoms of mood or anxiety. CHIEF COMPLAINT: "Paramedical problems, but no psychiatric problems." HISTORY OF PRESENT ILLNESS: The patient does have a history of coronary artery disease, cancer, CVA, hypothyroidism, hypertension, status post [place], renal disease, UTI, cancer surgery, hysterectomy, tonsillectomy, adenoidectomy and history of depression. She has had cardiac stent placements, hypercholesterolemia, hemorrhoids, reproductive disorders, hysterectomy, renal disease. She minimizes mood and anxiety symptoms, but on close questioning, she has had times when she gets depressed, extremely anxious. She lives alone by herself, further isolates and worse since these mood symptoms. No suicidal or homicidal ideation. No alcohol or drug abuse. PAST PSYCHIATRIC HISTORY: Treatment for depression, anxiety. PAST MEDICAL HISTORY: As above. DRUG ALLERGIES: BETA-BLOCKERS, NORVASC, LIPITOR, CHLORTHALIDONE, CLONIDINE, IODINE. SOCIAL HISTORY: Lives alone, has Meals on Wheels and family help deliver groceries to her. No alcohol or smoking. 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 FAMILY HISTORY: Brother with prostate cancer, son with hypertension. Brother, father, mother, all have some form of cancer. CURRENT PSYCHOTROPICS: Negative. MENTAL STATUS EXAM: The patient was seen individually at some length in her room. She is reasonably oriented, anxious, somewhat dysphoric mood, which she minimizes. Cognitively reasonably intact. Speech has some latency, coherent. Abstraction fair, computation impaired, language function intact. No active psychotic symptoms, suicidal or homicidal ideation. IMPRESSION: From a psychiatric standpoint, adjustment disorder with depressed mood and anxiety versus major depressive disorder; anxiety disorder, unspecified. Rest medical history noted above. PLAN: From a psychiatric standpoint, I would recommend initiation of Lexapro 5 mg a day. Even though the patient minimizes her mood symptoms, I feel this would help both her mood and anxiety symptoms. She should start outpatient at the [facility] with psychotherapy at discharge. Dr. Alas, thank you for the opportunity to participate in your patient's care. We will follow with you. MELVIN DALTON MD DR: KELLY/richard JOB#: [id number] / [id number]
[2017-10-02 01:00] VITALS: BP 123/63
[2017-10-02] MEDS: LEVOTHYROXINE 100 MCG TABLET PO SCH (05:29)
[2017-10-02] MEDS: HEPARIN PF for SUB-Q USE 5,000 UNIT/0.5 ML VIAL. SQ SCH (05:37)
[2017-10-02 06:05] VITALS: BP 155/71
--- NOTE | 2017-10-02 06:17 | PN ---
DATE: 10/01/2017 SUBJECTIVE: The patient came in with hyponatremia. She is resting fairly comfortably, making fairly good progress overall. Still very weak, still a little bit showing poor judgment and will be taken to a rehab facility. Otherwise, the patient is resting fairly comfortably. She has fallen several times that no doubt ____ her some of the elevated tests. In any case, the patient denied any chest pain or shortness of breath. PHYSICAL EXAMINATION: VITAL SIGNS: Blood pressure 172/73 (NC), respiratory rate 20, pulse 70, afebrile, and 97%-99% on room air. GENERAL: The patient is alert, but slightly confused, showing poor judgment. LUNGS: Diminished, but clear. CARDIOVASCULAR: Regular sinus rhythm, S1, S2, without murmur. ABDOMEN: Soft. The patient receiving PT, OT for rehabilitation care. The patient will probably be discharged tomorrow back to a rehab facility for continued care at that institution. IMPRESSION: Therefore, SIADH, generalized weakness, ventricular arrhythmias, dementia with Alzheimer type. PLAN: Continue rehabilitation. LANNY MAGALLON MD DR: JERRI/richard JOB#: [id number] / [id number]
[2017-10-02] MEDS: PRAVASTATIN 20 MG TABLET. PO SCH (08:25)
[2017-10-02] MEDS: ASPIRIN 81 MG TAB.CHEW PO SCH (08:26)
[2017-10-02] MEDS: LISINOPRIL 20 MG TABLET PO SCH (08:26)
[2017-10-02] MEDS: FAMOTIDINE 20 MG TABLET PO SCH (08:27)
[2017-10-02] MEDS: DOCUSATE SODIUM 100 MG CAPSULE PO PRN (08:27)
[2017-10-02 08:28] VITALS: BP 155/71
[2017-10-02] MEDS: CITALOPRAM 10 MG TABLET. PO SCH ×2 (08:28→09:00)
--- NOTE | 2017-10-02 09:15 | NUR ---
Patient D/C to [facility]. Patients IV d/c'd, tele monitor removed. Patient and Patient's son given D/C information. Patient is escorted out via wheelchair accompanied by RN. Report called to Marisa ROSADO at [facility]. Patient belongings sent with patient.
--- NOTE | 2017-10-02 14:05 | PN ---
DATE: 10/01/2017 PSYCHIATRIC PROGRESS NOTE This late entry 10/01/2017 covers elements not covered in my initial note of 10/01/2017. SUBJECTIVE: Met with the patient in the evening in her room at length. Per nursing report, the patient will be transferred to [facility] on 10/02/2017. In the interim, she minimizes being depressed, but ambulation impaired with walker. REVIEW OF SYSTEMS: No CV, , pulmonary, eye system symptoms on review. MENTAL STATUS EXAM: Reasonably oriented. Speech is coherent, rapid at times. She is unhappy going to the skilled facility because she states she has been there on two separate occasions and was unhappy with her roommates and staff. I processed this with her at some length. Abstraction fair, computation impaired, language function intact. She denies being depressed, but remains somewhat anxious, dysphoric in her mood. LABORATORY DATA: Reviewed. IMPRESSION: Adjustment disorder with depressed mood and anxiety, major depressive disorder, recurrent, in partial remission. PLAN: Continue Celexa 10 mg a day, no other change from a psychiatric standpoint, discussed at length with her. MAN Neo DALTON MD DR: KELLY/richard JOB#: [id number] / [id number]
== END 2017-10-02 09:15 | DRG 644 ==
LOC: ER 02:10 → 1 SOUTH 04:20
PROVIDERS: ADMIT Family Medicine; ATTEND Family Medicine
DX: E22.2 Syndrome of inappropriate secretion of antidiuretic hormone (principal); I13.0 Hypertensive heart and chronic kidney disease with heart failure and stage 1 through stage 4 chronic kidney disease, or unspecified chronic kidney disease; F33.9 Major depressive disorder, recurrent, unspecified; I69.351 Hemiplegia and hemiparesis following cerebral infarction affecting right dominant side; I49.9 Cardiac arrhythmia, unspecified; F33.41 Major depressive disorder, recurrent, in partial remission; E78.00 Pure hypercholesterolemia, unspecified; E89.0 Postprocedural hypothyroidism; F02.80 Dementia in other diseases classified elsewhere, unspecified severity, without behavioral disturbance, psychotic disturbance, mood disturbance, and anxiety; R79.89 Other specified abnormal findings of blood chemistry; I25.10 Atherosclerotic heart disease of native coronary artery without angina pectoris; I44.1 Atrioventricular block, second degree; N18.3 Chronic kidney disease, stage 3 (moderate); I50.9 Heart failure, unspecified; K21.9 Gastro-esophageal reflux disease without esophagitis; E78.5 Hyperlipidemia, unspecified; F43.23 Adjustment disorder with mixed anxiety and depressed mood; G30.9 Alzheimer's disease, unspecified; K59.09 Other constipation; Z66 Do not resuscitate; Z90.710 Acquired absence of both cervix and uterus; Z95.5 Presence of coronary angioplasty implant and graft; Z87.440 Personal history of urinary (tract) infections; Z80.42 Family history of malignant neoplasm of prostate; I25.2 Old myocardial infarction; Z85.850 Personal history of malignant neoplasm of thyroid; Z90.89 Acquired absence of other organs; Z88.8 Allergy status to other drugs, medicaments and biological substances; Z91.041 Radiographic dye allergy status; Z79.899 Other long term (current) drug therapy
CPT/HCPCS: 36415; 71045; 74021; 74176; 80048; 80076; 81001; 82553; 83690; 83735; 83880; 84443; 84484; 85025; 85379; 85610; 85730; 93005; 93970; 96360; 96372; J1650; J7120; Q0162; 97110; 97530; 97535; 99285-25; J7030

== ENCOUNTER 2018-01-18 10:37 | Inpatient (IN) | payer MEDICARE ==
[~2018-01-18] VITALS: Ht 157.5 cm; Wt 61.9 kg
[~2018-01-18 10:37] MED LIST changes: -AMLO5TAB2 PO; +AMLO5TAB7 PO
[2018-01-18 11:32] VITALS: BP 163/70
[2018-01-18 11:53] LABS: BASO % 1 % (0-3); EOS % 0 % (0-3); HEMOGLOBIN 12.6 g/dL (12.0-15.5); LYMPH # 0.6 x10^3/uL (1.0-4.8); LYMPH % 10 % (24-48); MEAN CORPUSCULAR HEMOGLOBIN 30 pg (25-35); MEAN CORPUSCULAR HGB CONC 34 g/dL (31-37); MEAN CORPUSCULAR VOLUME 88 fL (79-100); MONO # 0.5 x10^3/uL (0.0-1.1); MONO % 8 % (0-9); NEUT # 4.8 x10^3uL (1.8-7.7); NEUT % 81 % (31-73); PLATELET COUNT 200 x10^3/uL (140-400); RED CELL DISTRIBUTION WIDTH 13.5 % (11.5-14.5); WHITE BLOOD COUNT 5.9 x10^3/uL (4.0-11.0)
--- NOTE | 2018-01-18 11:58 | EKG ---
[address] [address] Test Date: 2018-01-18 Test Time: 11:57:25 Pat Name: STEPHANIE HOUSTON Department: Room: 120 A Gender: F Gore Seamer: : [id number] Requested By: LANNY MAGALLON Order Number: [id number] Reading MD: Rishi Culver Measurements Intervals [place] Rate: 75 P: 2 LA: 230 QRS: -31 QRSD: 90 T: 72 QT: 398 QTc: 447 Interpretive Statements SINUS RHYTHM PROLONGED LA INTERVAL ABNORMAL LEFT AXIS DEVIATION T ABNORMALITY IN HIGH LATERAL LEADS RI6.01 Unconfirmed report Compared to ECG 09/29/2017 02:38:48 Left-axis deviation now present T-wave abnormality still present Electronically Signed On 01-19-2018 15:20:35 CDT by Rishi Culver
[2018-01-18] MEDS ORDERED: NON FORMULARY ITEM (Polyethylene Glycol 3350 (Miralax) 17 GM) PO PRN (12:45)
[2018-01-18] MEDS ORDERED: ACETAMINOPHEN 325 MG TABLET PO PRN (12:45)
[2018-01-18] MEDS ORDERED: NITROGLYCERIN SUBLINGUAL 0.4 MG BOTTLE OF 25. SL PRN (12:45)
[2018-01-18] MEDS ORDERED: OLMESARTAN MEDOXOMIL 20 MG PO PRN (12:45)
[2018-01-18] MEDS ORDERED: HYDROCORTISONE ACETATE RC PRN (12:45)
[2018-01-18] MEDS ORDERED: DOCUSATE SODIUM 100 MG PO PRN (12:45)
[2018-01-18] MEDS ORDERED: CALCIUM CARBONATE 500 MG TAB.CHEW PO PRN (12:45)
[2018-01-18] MEDS ORDERED: LIDOCAINE TP PRN (12:45)
[2018-01-18 12:53] LABS: ALBUMIN 3.9 g/dL (3.4-5.0); ALBUMIN/GLOBULIN RATIO 1.1 (1.0-1.7); CALCIUM 9.5 mg/dL (8.5-10.1); CREATININE 0.9 mg/dL (0.6-1.0); GFR 59.1; POTASSIUM 3.9 mmol/L (3.5-5.1); TOTAL BILIRUBIN 0.7 mg/dL (0.2-1.0); TOTAL PROTEIN 7.4 g/dL (6.4-8.2)
[2018-01-18] MEDS: IV NORMAL SALINE 1,000ML 1,000 ML IV SCH (13:28)
--- NOTE | 2018-01-18 14:21 | RAD ---
CT Head without contrast 01/18/2018 1:03 PM Indication: Lightheadness Comparison: CT head without contrast March 15, 2017 Findings: No intracranial hemorrhage is seen. No evidence of acute territorial infarct is seen. Note that CT is limited in sensitivity for acute ischemia. Age-related atrophic changes are noted. Redemonstration of evidence of prior lacunar infarct in the left frontal lobe is unchanged. Extensive patchy periventricular and inflammatory hypoattenuation is similar to prior exam. Finding is nonspecific but most commonly relates to chronic small vessel disease. No abnormal extra axial fluid collection is identified. No mass effect or midline shift is seen. No acute osseous abnormalities are seen. Impression: No evidence of acute intracranial abnormality or acute change from prior study CT DOSING PQRS STATEMENT: One or more of the following individualized dose reduction techniques were utilized for this examination: 1. Automated exposure control 2. Adjustment of the mA and/or kV according to patient size 3. Use of iterative reconstruction technique Electronically signed by: Oleg Lopez MD (01/18/2018 2:17 PM) [id number]
[2018-01-18] MEDS: HEPARIN PF for SUB-Q USE 5,000 UNIT/0.5 ML VIAL. SQ SCH ×2 (14:43→21:49)
[2018-01-18 15:19] VITALS: BP 155/69
--- NOTE | 2018-01-18 18:13 | RAD ---
Right lower extremity venous duplex study 01/18/2018 Clinical History: Right leg swelling and pain. Technique: Using a combination of real time ultrasound imaging and color-flow and pulse Doppler imaging techniques along with graded compression and augmentation, duplex evaluation of the deep venous system of the right lower extremity was performed. Multiple images were obtained. Findings: There is no sonographic evidence of deep venous thrombosis involving the visualized deep venous structures of the right lower extremity. Impression: Negative study. Electronically signed by: Darrell Orozco MD (01/18/2018 6:09 PM) [id number]
[2018-01-18 19:28] VITALS: BP 154/72
[2018-01-18] MEDS: FAMOTIDINE 20 MG TABLET PO SCH (19:55)
[2018-01-18] MEDS: LISINOPRIL 20 MG TABLET PO SCH (19:57)
[2018-01-18] MEDS ORDERED: NON FORMULARY ITEM (Pravastatin Sodium 1 TAB) PO SCH (21:00)
[2018-01-18] MEDS ORDERED: PRAVASTATIN 20 MG TABLET. PO SCH (21:00)
[2018-01-18 22:09] VITALS: BP 151/76
[2018-01-19] MEDS: IV NORMAL SALINE 1,000ML 1,000 ML IV SCH ×2 (00:50→14:01)
[2018-01-19 00:52] LABS: COLOR,URINE YELLOW
[2018-01-19 00:53] LABS: BACTERIA,URINE 0 /HPF (0-FEW); BILIRUBIN,URINE NEG (NEG); CLARITY,URINE CLEAR; GLUCOSE,URINE NEG (NEG); NITRITE,URINE NEG (NEG); RBC,URINE 0 /HPF (0-2); SQUAMOUS EPITHELIAL CELL,UR OCC /LPF; UROBILINOGEN,URINE 0.2 mg/dL (0.2 mg/dL); WBC,URINE 0 /HPF (0-4)
[2018-01-19] MEDS: HEPARIN PF for SUB-Q USE 5,000 UNIT/0.5 ML VIAL. SQ SCH ×2 (05:28→14:00)
[2018-01-19 05:40] VITALS: BP 153/70
[2018-01-19] MEDS ORDERED: LEVOTHYROXINE 100 MCG TABLET PO SCH (06:00)
[2018-01-19 06:38] LABS: BASO % 1 % (0-3); EOS # 0.1 x10^3/uL (0.0-0.7); EOS % 2 % (0-3); HEMATOCRIT 33.1 % (36.0-47.0); HEMOGLOBIN 11.3 g/dL (12.0-15.5); LYMPH # 0.7 x10^3/uL (1.0-4.8); LYMPH % 18 % (24-48); MEAN CORPUSCULAR HEMOGLOBIN 30 pg (25-35); MEAN CORPUSCULAR HGB CONC 34 g/dL (31-37); MEAN CORPUSCULAR VOLUME 88 fL (79-100); MONO # 0.5 x10^3/uL (0.0-1.1); MONO % 14 % (0-9); NEUT # 2.5 x10^3uL (1.8-7.7); NEUT % 65 % (31-73); PLATELET COUNT 180 x10^3/uL (140-400); RED BLOOD COUNT 3.74 x10^6/uL (3.50-5.40); RED CELL DISTRIBUTION WIDTH 13.6 % (11.5-14.5); WHITE BLOOD COUNT 3.9 x10^3/uL (4.0-11.0)
[2018-01-19 06:43] LABS: CALCIUM 8.7 mg/dL (8.5-10.1); GFR 52.3; POTASSIUM 3.8 mmol/L (3.5-5.1)
[2018-01-19] MEDS: FAMOTIDINE 20 MG TABLET PO SCH (08:15)
[2018-01-19] MEDS: LISINOPRIL 20 MG TABLET PO SCH (08:16)
[2018-01-19] MEDS ORDERED: ASPIRIN 81 MG TAB.CHEW PO SCH (09:00)
[2018-01-19] MEDS ORDERED: NON FORMULARY ITEM (Ranitidine Hcl (Zantac) 150 MG) PO SCH (09:00)
[2018-01-19] MEDS ORDERED: NON FORMULARY ITEM (Nifedipine (Nifedipine Er) 60 MG) PO SCH (09:00)
[2018-01-19 10:21] VITALS: BP 151/54
[2018-01-19 14:03] VITALS: BP 151/54
[2018-01-19] MEDS ORDERED: SULF1TAB24 PO (14:06)
--- NOTE | 2018-01-19 17:27 | CONS ---
DATE OF CONSULTATION: REFERRING PHYSICIAN: Paco Alas M.D. REASON FOR CONSULTATION: Generalized weakness and dizziness with lightheadedness. HISTORY OF PRESENT ILLNESS: This is an 87-year-old right-handed female, who was admitted on account of severe pain, weakness, and swelling of the right lower extremity for at least 6 weeks. The patient has difficulty to walk due to generalized weakness. She also complains of constant posterior sinus drainage prevent her from sleeping. She complains of lightheadedness, dysphagia, and intermittent chest pain. Initial nonenhanced head CT scan revealed no evidence of acute intracranial process, but it shows maxillary sinusitis along with chronic small vessel ischemic changes. The patient has been ambulated with a walker at home. She denies any recent fall or head injuries. [facility] a [facility] ago after she had extensive physical therapy, after she sustained a stroke resulted in right-sided weakness. The patient stated the swelling and pain of the right leg is due to strenuous physical therapy and lifting weight using right lower extremity. Subsequently, she started having gradual swelling and painful leg. She also complains of teeth problems including pain and loose teeth. The patient needs extensive dental care, but she does not have insurance coverage service. PAST MEDICAL HISTORY: Significant for thyroid cancer, hyperlipidemia, coronary artery disease, stroke affected her right side, chronic kidney disease stage III, urinary tract infections, incontinence, depressions, and anxiety, cardiac valvular disease. PAST SURGICAL HISTORY: Significant for appendectomy, partial hysterectomy, hemorrhoidectomy, urethroplasty, stent placements, due to cancer. SOCIAL HISTORY: The patient lives independently. She denies smoking, alcohol drinking, or illicit drug use. FAMILY HISTORY: Siblings had coronary artery disease, cancer, and prostate cancer as well. CURRENT MEDICATIONS: Aspirin 81 mg daily, levothyroxine 100 mcg daily, Pepcid 20 mg b.i.d., pravastatin 80 mg at bedtime, lisinopril 40 mg b.i.d., hydralazine 100 mg t.i.d. for severe hypertension, nitroglycerin 0.4 p.r.n. sublingually, Tums, Tylenol, Rocephin IV. ALLERGIES: BETA BLOCKERS, AMLODIPINE, and LIPITOR. REVIEW OF SYSTEMS: A 10-point review of system was performed as mentioned above in history of present illness. PHYSICAL EXAMINATION: GENERAL: A well-developed, well-nourished white female, not in acute distress. VITAL SIGNS: She weighs 132 pounds. Blood pressure 155/69, respiratory rate 20, pulse is 77, temperature 97.1, oxygen saturation 98% on room air. HEENT: Normocephalic, atraumatic, otherwise unremarkable. NECK: Supple. Negative for carotid bruit, lymphadenopathy or thyromegaly. LUNGS: Clear to A and P. CARDIOVASCULAR: Regular rate and rhythm, normal S1, S2. There is a 2/6 systolic murmur. ABDOMEN: Soft. Bowel sounds positive. EXTREMITIES: There is swelling, warmth, tender to touch of the lower extremity from mid leg to the ankle along with 2+ pitting edema. NEUROLOGICAL EXAMINATION: Mental Status: The patient is alert and oriented x 3. The speech is fluent. There is no language dysfunction. Memory, judgment, and abstract thinking are fair. The patient denies hallucination or delusion. Cranial Nerves: Visual dukes are full. The pupils are reactive to light and accommodation. The extraocular movements are intact. There is no nystagmus. There is no facial, motor, or sensory deficit. Hearing is diminished over the right side. The palate is elevated symmetrically. The palate is elevated symmetrically. Sternocleidomastoid muscles are powerful bilaterally. The patient shrugs her shoulders symmetrically, protrudes her tongue in the midline without fasciculation or atrophy. Motor: No focal muscle bulk was seen. The tone is normal. The strength is 4/5 in the right lower extremity. The strength elsewhere was 5/5 throughout. Sensory examination revealed diminished pinprick and light touch senses in patchy distributions in both lower extremities, more prominent on the right side. Deep tendon reflexes were symmetric and hypoactive with absent Achilles responses. Gait: The stance is unsteady. The patient uses a walker for ambulation. DIAGNOSTIC DATA: Initial nonenhanced head CT scan revealed no evidence of acute intracranial process, but shows chronic small vessel ischemic changes with maxillary sinusitis. Ultrasound venous Doppler study today revealed no evidence of DVT. LABORATORY DATA: CBC revealed white blood cells of 5.9 thousand, hemoglobin 12.6, hematocrit 37, platelet count 200,000. Chemistry revealed sodium of 132, potassium 3.9, chloride 96, CO2 of 25, BUN 18, creatinine 0.9, glucose 118, calcium 9.5. Liver enzymes are normal. Troponin level is normal. TSH is normal at 0.92. Coagulation, D-dimer is high at 0.69. IMPRESSION: 1. Generalized weakness. 2. Wound and swelling of the right lower extremity with negative venous Doppler study for deep venous thrombosis, probably due to cellulitis. 3. Extensive dental problem, hypertension, hyperlipidemia, coronary artery disease, chronic kidney disease, and gastroesophageal reflux disease, and history of stroke resulted in mild right lower extremity paresis. RECOMMENDATIONS: 1. Treat the underlying cellulitis, right lower extremity, and possible systemic infections. 2. Urinalysis. 3. Treat the underlying maxillary sinus. 4. Physical therapy as tolerated. 5. Continue with IV fluid and correct mild hyponatremia. M Radha SANTILLAN MD DR: MESERET/richard JOB#: [id number] / [id number]
--- NOTE | 2018-01-20 01:13 | PN ---
DATE: SUBJECTIVE: The patient feels much better than yesterday. She denies any new medical neurological complaints. The patient stated her pain has been improved dramatically overnight. OBJECTIVE: GENERAL: Well-developed and well-nourished female, not in acute distress. VITAL SIGNS: Afebrile, blood pressure 153/70, respiratory rate 18, pulse is 68 and regular, temperature is 98.4, and oxygen saturation is 96% on room air. HEENT: Normocephalic and atraumatic, otherwise unremarkable. NECK: Supple. Negative for carotid bruit, lymphadenopathy or thyromegaly. LUNGS: Clear to A and P. CARDIOVASCULAR: Regular rate and rhythm. Normal S1, S2. There is a 2/6 systolic murmur. ABDOMEN: Soft. Bowel sounds positive. EXTREMITIES: Decreased swelling of the right lower extremity but it is still warm to touch. Less tender than yesterday. NEUROLOGIC: Normal mental status and intact cranial nerves. There is no focal motor or sensory deficit. Deep tendon reflexes were symmetric and hypoactive with absent Achilles responses. Gait is not tested. LABORATORY DATA: CBC revealed white blood cells of 3900, hemoglobin 11.3, hematocrit 33.1, and platelet count 180,000. Chemistry revealed sodium of 137, potassium of 3.8, chloride 102, CO2 of 29, BUN 16, creatinine 1, glucose 91, and calcium 8.7. IMPRESSION: 1. Pain and swelling of the right lower extremity - improved. 2. Generalized weakness - improved. 3. Multiple medical problems include hypertension, depression and anxiety. RECOMMENDATIONS: 1. Continue with current management initiated by Dr. Alas. 2. Physical therapy evaluation. 3. The patient is neurologically stable. M Radha SANTILLAN MD DR: MESERET/richard JOB#: [id number] / [id number]
== END 2018-01-19 15:30 | disposition home or self-care (01) | DRG 603 ==
LOC: 1 SOUTH 11:13
PROVIDERS: ADMIT Family Medicine; ATTEND Family Medicine
DX: L03.115 Cellulitis of right lower limb (principal); E87.1 Hypo-osmolality and hyponatremia; E78.5 Hyperlipidemia, unspecified; F32.9 Major depressive disorder, single episode, unspecified; F41.9 Anxiety disorder, unspecified; G83.11 Monoplegia of lower limb affecting right dominant side; I12.9 Hypertensive chronic kidney disease with stage 1 through stage 4 chronic kidney disease, or unspecified chronic kidney disease; I25.10 Atherosclerotic heart disease of native coronary artery without angina pectoris; J32.0 Chronic maxillary sinusitis; K21.9 Gastro-esophageal reflux disease without esophagitis; N18.3 Chronic kidney disease, stage 3 (moderate); R13.10 Dysphagia, unspecified; Z82.49 Family history of ischemic heart disease and other diseases of the circulatory system; Z86.73 Personal history of transient ischemic attack (TIA), and cerebral infarction without residual deficits; Z90.710 Acquired absence of both cervix and uterus; Z85.850 Personal history of malignant neoplasm of thyroid; Z90.49 Acquired absence of other specified parts of digestive tract; Z88.8 Allergy status to other drugs, medicaments and biological substances
CPT/HCPCS: 36415; 70450; 80048; 80053; 81001; 82550; 83605; 83880; 84443; 84484; 85025; 85379; 87086; 93005; 93971; J0696; J7030

== ENCOUNTER 2018-01-20 17:15 | Emergency (ER) | payer MEDICARE ==
[~2018-01-20 17:15] MED LIST changes: +SULF1TAB24 PO
[2018-01-20] MEDS ORDERED: MECLIZINE 12.5 MG TABLET. PO PRN (17:45)
--- NOTE | 2018-01-20 17:54 | ED.ADGEN ---
Past History Past Medical History: CAD, CHF, Other Past Surgical History: Hysterectomy, Other Alcohol Use: None Drug Use: None Adult General Chief Complaint Chief Complaint Dental pain [facility] HPI Patient is a 87-year-old female recently released from this facility yesterday for generalized weakness fatigue, right lower extremity swelling, sinusitis postnasal drip and possible cellulitis or lower extremity. Patient denies change of condition since discharge but states she return to the ER today because of difficulty eating. Patient has chronic. Down disease with widespread dental caries and I need of an oral maxillofacial surgeon to extract her teeth. This patient reports makes it difficult for her to chew and swallow. Patient is otherwise able to stand and walk and get around with use of a walker at home. No other acute symptoms or complaints. Patient's PCP is Dr. Stubbs.[] Review of Systems Review of Systems ROS as per HPI All other systems were reviewed and found to be within normal limits, except as documented in this note. Current Medications Current Medications Current Medications Medications (Trade) Dose Ordered Sig/Umesh Start Time Stop Time Status Last Admin Dose Admin Meclizine HCl (Antivert) 25 mg PRN Q6HRS PRN 01/20/18 17:45 Allergies Allergies Allergies Coded Allergies Type Severity Reaction Last Updated Verified Beta-Blockers (Beta-Adrenergic Bloc Allergy Intermediate Bradycardia 07/01/16 Yes amlodipine Allergy Intermediate ADEMA 03/24/17 Yes atorvastatin Allergy Intermediate 05/28/16 Yes chlorthalidone Allergy Intermediate hyponatremia 07/01/16 Yes clonidine Allergy Intermediate bradycardia 07/01/16 Yes iodine Allergy Intermediate 05/28/16 Yes Physical Exam Physical Exam Constitutional: Well developed, well nourished, dishevelled, poor hygiene. [] HENT: Normocephalic, atraumatic, bilateral external ears normal, oropharynx moist, periodontal disease, widespread caries,, nose normal. [] Eyes: PERRLA, EOMI, conjunctiva normal. [] Neck: Normal range of motion, no tenderness, supple, no lymphadenopathy.. [] Cardiovascular:Heart rate regular rhythm, no murmur [] Lungs & Thorax: Bilateral breath sounds clear to auscultation [] Abdomen: Bowel sounds normal, soft, no tenderness. [] Skin: Warm, dry. [] Back: No tenderness. [] Extremities: No tenderness, no edema. [] Neurologic: Alert and oriented X 3, normal motor function, normal sensory function, no focal deficits noted. [] Psychologic: Affect normal, judgement normal, mood normal. [] EKG EKG [] Radiology/Procedures Radiology/Procedures [] Course & Med Decision Making Course & Med Decision Making Pertinent Labs and Imaging studies reviewed. (See chart for details) [Patient with widespread dental caries and request for dental extraction. Patient g is able to tolerate oral intake. This patient that this is not a service provided at this facility and that there is not a dentist on staff. The patient's instructed that she'll need to follow up with the community dentist to arrange for treatment on an outpatient basis. Will discharge patient with a prescription oral rinse. Basic labs reviewed.] Final Impression Final Impression [1. Dental Caries 2. Periodontal disease] Emiliano Disclaimer Emiliano Disclaimer This electronic medical record was generated, in whole or in part, using a voice recognition dictation system. ROGE METZGER DO Jan 20, 2018 17:54
--- NOTE | 2018-01-20 17:58 | EKG ---
[address] [address] Test Date: 2018-01-20 Test Time: 17:42:45 Pat Name: STEPHANIE HOUSTON Department: Room: Gender: F Educational Aide: : 1930 Requested By: ROGE METZGER Order Number: [id number] Reading MD: Abilio Iqbal Measurements Intervals [place] Rate: 76 P: 90 NE: 214 QRS: -33 QRSD: 92 T: 84 QT: 412 QTc: 468 Interpretive Statements SINUS RHYTHM ABNORMAL LEFT AXIS DEVIATION LEFT ANTERIOR FASCICULAR BLOCK T ABNORMALITY IN HIGH LATERAL LEADS ABNORMAL ECG Electronically Signed On 01-24-2018 12:03:38 CDT by Abilio Iqbal
[2018-01-20 18:22] VITALS: BP 134/70
== END 2018-01-20 19:03 | disposition home or self-care (01) ==
LOC: ER 17:15
DX: K02.9 Dental caries, unspecified (principal); K05.6 Periodontal disease, unspecified; I25.10 Atherosclerotic heart disease of native coronary artery without angina pectoris; I50.9 Heart failure, unspecified; Z88.8 Allergy status to other drugs, medicaments and biological substances; Z91.041 Radiographic dye allergy status
CPT/HCPCS: 93005; 99283

== ENCOUNTER 2018-02-06 13:41 | Emergency (ER) | payer MEDICARE ==
[~2018-02-06] VITALS: Ht 157.5 cm; Wt 56.7 kg
--- NOTE | 2018-02-06 14:54 | PHYS DOC ---
Past History Past Medical History: Other Past Surgical History: Other Alcohol Use: None Drug Use: None Adult General Chief Complaint Chief Complaint: MECHANICAL FALL HPI HPI Patient is a 87 year old female who presents with pinning of a fall and pain in her head and. Patient states she had an accidental fall from a standing position in her kitchen because of slippery floor and hit her head and keep without loss of consciousness. Patient states EMS presented to her home but she decided to not come to the hospital but her pain gradually getting worse and she brought in by family members to emergency room. Patient denies nausea and vomiting, fever and chills, focal neuro deficit, history of frequent falls. Review of Systems Review of Systems Constitutional: Denies fever or chills [] Eyes: Denies change in visual acuity, redness, or eye pain [] HENT: Denies nasal congestion or sore throat [] Respiratory: Denies cough or shortness of breath [] Cardiovascular: No additional information not addressed in HPI [] GI: Denies abdominal pain, nausea, vomiting, bloody stools or diarrhea [] : Denies dysuria or hematuria [] Musculoskeletal: Denies back pain, reports joint pain [] Integument: Denies rash or skin lesions [] Neurologic: Reports headache, denies focal weakness or sensory changes [] Endocrine: Denies polyuria or polydipsia [] All other systems were reviewed and found to be within normal limits, except as documented in this note. Allergies Allergies Allergies Coded Allergies Type Severity Reaction Last Updated Verified Beta-Blockers (Beta-Adrenergic Bloc Allergy Intermediate Bradycardia 07/01/16 Yes amlodipine Allergy Intermediate ADEMA 03/24/17 Yes atorvastatin Allergy Intermediate 05/28/16 Yes chlorthalidone Allergy Intermediate hyponatremia 07/01/16 Yes clonidine Allergy Intermediate bradycardia 07/01/16 Yes iodine Allergy Intermediate 05/28/16 Yes Physical Exam Physical Exam Constitutional: Well developed, well nourished, mild distress, non-toxic appearance. [] HENT: Normocephalic, left parietal scalp contusion, bilateral external ears normal, oropharynx moist, no oral exudates, nose normal. [] Eyes: PERRLA, EOMI, conjunctiva normal, no discharge. [] Neck: Normal range of motion, no tenderness, supple, no stridor. [] Cardiovascular:Heart rate regular rhythm, no murmur [] Lungs & Thorax: Bilateral breath sounds clear to auscultation [] Abdomen: Bowel sounds normal, soft, no tenderness, no masses, no pulsatile masses. [] Skin: Warm, dry, no erythema, no rash. [] Back: No tenderness, no CVA tenderness. [] Extremities: Right hip without deformity, limited range of motion of bilateral lower extremity because of chronic pain,, no cyanosis, no clubbing, no edema. [ ] Neurologic: Alert and oriented X 3, normal motor function, normal sensory function, no focal deficits noted. [] Psychologic: Affect normal, judgement normal, mood normal. [] Current Patient Data Vital Signs Vital Signs Date Time Temp Pulse Resp B/P (MAP) Pulse Ox O2 Delivery O2 Flow Rate FiO2 02/06/18 13:49 98.4 83 18 98 Room Air EKG EKG [] Radiology/Procedures Radiology/Procedures [address] [id number] IMAGING REPORT Signed PATIENT: STEPHANIE HOUSTON ACCOUNT: [id number] : 1930 LOCATION: ER AGE: 87 SEX: F EXAM STATUS: REG ER ORD. PHYSICIAN: NICHO VALENZUELA MD REASON: fall PROCEDURE: CT HEAD AND CERVICAL SPINE WO RS Compliance Statement: One or more of the following individualized dose reduction techniques were utilized for this examination: 1. Automated exposure control 2. Adjustment of the mA and/or kV according to patient size 3. Use of iterative reconstruction technique CT HEAD AND CERVICAL SPINE WITHOUT CONTRAST History: fell this am Comparison: CT head without contrast, January 18, 2018. Procedure: Axial images are obtained of the head from the skull base through the vertex without IV contrast. Noncontrast helical CT of the cervical spine was performed. Axial, sagittal, and coronal reconstructions were obtained. Findings: The ventricles and sulci are prominent, consistent with age-related cerebral atrophy. There is periventricular white matter hypoattenuation. This is a nonspecific finding but is commonly due to chronic small vessel ischemic disease in a patient of this age. Small old left quinn radiata infarct. No mass-effect, midline shift, hemorrhage or obvious acute infarction is identified. Basilar cisterns are patent. Bone windows demonstrate no significant calvarial abnormality. Mucosal thickening bilateral maxillary sinus. No air-fluid level. Mastoid air cells are well aerated. There is no evidence of acute fracture or acute malalignment of the cervical spine. Moderate multilevel facet hypertrophy. There is mild grade 1 anterolisthesis of C3 on C4, C4 on C5, and C7 on T1. There is disc space narrowing and degenerative endplate spurring in the cervical spine, most advanced at C5/C6 and C6/C7. The craniovertebral junction is normal. There are bilateral carotid bulb calcifications. There are surgical clips of the right neck. The visualized lung apices are clear. IMPRESSION: 1. No acute intracranial abnormality. 2. No acute fracture of the cervical spine. Electronically signed by: Julio Cesar Troy MD (02/06/2018 3:07 PM) [facility] DICTATED AND SIGNED BY: JULIO CESAR TROY MD DATE: 02/06/181457 CC: LANNY MAGALLON MD; NICHO VALENZUELA MD ~ [place] [address] IMAGING REPORT Signed PATIENT: STEPHANIE HOUSTON ACCOUNT: [id number] : 1930 LOCATION: ER AGE: 87 SEX: F EXAM STATUS: REG ER ORD. PHYSICIAN: NICHO VALENZUELA MD REASON: fall PROCEDURE: HIP RIGHT 2V WITH PELVIS Indication: Fall. TECHNIQUE: AP pelvis and 2 views of the right hip joint COMPARISON: None FINDINGS/ impression: The hip joint is symmetric bilaterally. No acute fracture or dislocation. Minimal bilateral hip joint arthritis. Mild degenerative changes in the visualized lower lumbar spine. SI joints within normal limits. Electronically signed by: Justyn Sheth DO (02/06/2018 3:00 PM) [facility] DICTATED AND SIGNED BY: JUSTYN SHETH DO DATE: 02/06/181457 CC: LANNY MAGALLON MD; NICHO VALENZUELA MD ~ Course & Med Decision Making Course & Med Decision Making Pertinent Imaging studies reviewed. (See chart for details) Evaluation of patient in ER showed 87-year-old female patient with a fall and injury to head and heat. Patient had left scalp contusion painful range of motion of right hip. CT of head and cervical spine and right hip x-ray was unremarkable. Patient did not want to have pain medication in ER. Instruction for prevention of falls was given and patient and her family feeling comfortable to go home with continue home medication. Dragon Disclaimer Dragon Disclaimer This electronic medical record was generated, in whole or in part, using a voice recognition dictation system. Departure Departure: Impression: Primary Impression: Scalp contusion Additional Impressions: Strain of right hip Fall at home Disposition: HOME, SELF-CARE (at 1546) Condition: STABLE Referrals: LANNY MAGALLON MD (PCP) Patient Instructions: Contusion, Fall Prevention and Home Safety, Hip Injury Additional Instructions: Continue home medication Apply ice on the affected area Follow-up with your primary care physician in 3-5 days Return to ER if not getting better Problem Qualifiers NICHO VALENZUELA MD Feb 06, 2018 14:54
--- NOTE | 2018-02-06 15:03 | RAD ---
Indication: Fall. TECHNIQUE: AP pelvis and 2 views of the right hip joint COMPARISON: None FINDINGS/ impression: The hip joint is symmetric bilaterally. No acute fracture or dislocation. Minimal bilateral hip joint arthritis. Mild degenerative changes in the visualized lower lumbar spine. SI joints within normal limits. Electronically signed by: Justyn Sheth DO (02/06/2018 3:00 PM) [facility]
--- NOTE | 2018-02-06 15:10 | RAD ---
PQRS Compliance Statement: One or more of the following individualized dose reduction techniques were utilized for this examination: 1. Automated exposure control 2. Adjustment of the mA and/or kV according to patient size 3. Use of iterative reconstruction technique CT HEAD AND CERVICAL SPINE WITHOUT CONTRAST History: fell this am Comparison: CT head without contrast, January 18, 2018. Procedure: Axial images are obtained of the head from the skull base through the vertex without IV contrast. Noncontrast helical CT of the cervical spine was performed. Axial, sagittal, and coronal reconstructions were obtained. Findings: The ventricles and sulci are prominent, consistent with age-related cerebral atrophy. There is periventricular white matter hypoattenuation. This is a nonspecific finding but is commonly due to chronic small vessel ischemic disease in a patient of this age. Small old left quinn radiata infarct. No mass-effect, midline shift, hemorrhage or obvious acute infarction is identified. Basilar cisterns are patent. Bone windows demonstrate no significant calvarial abnormality. Mucosal thickening bilateral maxillary sinus. No air-fluid level. Mastoid air cells are well aerated. There is no evidence of acute fracture or acute malalignment of the cervical spine. Moderate multilevel facet hypertrophy. There is mild grade 1 anterolisthesis of C3 on C4, C4 on C5, and C7 on T1. There is disc space narrowing and degenerative endplate spurring in the cervical spine, most advanced at C5/C6 and C6/C7. The craniovertebral junction is normal. There are bilateral carotid bulb calcifications. There are surgical clips of the right neck. The visualized lung apices are clear. IMPRESSION: 1. No acute intracranial abnormality. 2. No acute fracture of the cervical spine. Electronically signed by: Julio Cesar Troy MD (02/06/2018 3:07 PM) [facility]
[2018-02-06 15:28] VITALS: BP 140/87
== END 2018-02-06 16:14 | disposition home or self-care (01) ==
LOC: ER 13:41
DX: S76.011A Strain of muscle, fascia and tendon of right hip, initial encounter (principal); S00.03XA Contusion of scalp, initial encounter; Z88.8 Allergy status to other drugs, medicaments and biological substances; Z91.041 Radiographic dye allergy status; W01.198A Fall on same level from slipping, tripping and stumbling with subsequent striking against other object, initial encounter; Y93.89 Activity, other specified; Y92.090 Kitchen in other non-institutional residence as the place of occurrence of the external cause; Y99.8 Other external cause status
CPT/HCPCS: 70450; 72125; 73502; 99284-25

== ENCOUNTER 2018-09-03 18:52 | Inpatient (IN) | payer MEDICARE ==
[~2018-09-03] VITALS: Ht 157.5 cm; Wt 60.0 kg
[~2018-09-03 18:52] MED LIST changes: +AMLO5TAB10 PO; -AMLO5TAB7 PO; -CHLO25TA PO; +CHLO25TA9 PO
--- NOTE | 2018-09-03 19:00 | ED.ADGEN ---
Past History Past Medical History: Other Past Surgical History: Other Alcohol Use: None Drug Use: None Adult General Chief Complaint Chief Complaint ".. I am gene weak all over.. this cough will not go away.. I am just really tired..." HPI HPI Patient is a 87 year old female who presents with above hx and complaints of generalized weakness, coughing and fatigue.. Pt. resident of [facility]. Pt. hx of multiple medical issuesm dysphasia, ME, chronic dyspnea, arteriosclerotic heart disease, CHF, hyper cholesterol, irritable bowel syndrome,,, cerebral infarctions, hypothyroidism, hyperglycemia, allergic rhinitis, recurrent epistaxis, deconditioning, urinary tract infections, malignant neoplasm of the thyroid gland, major depressive disorder, tendinitis, prophylaxis vaginal vault after hysterectomy, GERD. She normally follows with Dr. Alas. Review of Systems Review of Systems Constitutional: Denies fever or chills [] Eyes: Denies change in visual acuity, redness, or eye pain [] HENT: Denies nasal congestion or sore throat [] Respiratory: Intermittent nonproductive cough and shortness of breath [] Cardiovascular: No additional information not addressed in HPI [] GI: Denies abdominal pain, nausea, vomiting, bloody stools or diarrhea [] : Denies dysuria or hematuria [] Musculoskeletal: Denies back pain or joint pain. Complaints of generalized weakness Integument: Denies rash or skin lesions [] Neurologic: Denies headache, focal weakness or sensory changes [] Endocrine: Denies polyuria or polydipsia [] All other systems were reviewed and found to be within normal limits, except as documented in this note. Family History Family History Noncontributory Current Medications Current Medications Current Medications Medications (Trade) Dose Ordered Sig/Umesh Start Time Stop Time Status Last Admin Dose Admin Aspirin (Children'S Aspirin) 324 mg 1X ONCE 09/03/18 19:30 09/03/18 19:31 DC 09/03/18 21:37 324 MG Azithromycin (Zithromax) 500 mg 1X ONCE 09/03/18 21:00 09/03/18 21:08 DC 09/03/18 21:37 500 MG Erythromycin (Romycin) 0.25 inch QID 09/03/18 22:00 09/04/18 00:13 0.25 INCH Furosemide (Lasix) 40 mg 1X ONCE 09/03/18 21:00 09/03/18 21:08 DC 09/03/18 21:35 40 MG Lactated Ringer's 1,000 ml @ 100 mls/hr Q10H 09/03/18 19:30 09/04/18 05:29 09/03/18 21:34 100 MLS/HR Magnesium Sulfate 50 ml @ 25 mls/hr 1X ONCE 09/03/18 22:00 09/03/18 23:59 DC 09/03/18 21:35 25 MLS/HR Ondansetron HCl (Zofran) 4 mg PRN Q4HRS PRN 09/03/18 21:00 09/04/18 20:59 09/03/18 21:36 4 MG Allergies Allergies Allergies Coded Allergies Type Severity Reaction Last Updated Verified Beta-Blockers (Beta-Adrenergic Bloc Allergy Intermediate Bradycardia 07/01/16 Yes amlodipine Allergy Intermediate ADEMA 03/24/17 Yes atorvastatin Allergy Intermediate 05/28/16 Yes chlorthalidone Allergy Intermediate hyponatremia 07/01/16 Yes clonidine Allergy Intermediate bradycardia 07/01/16 Yes iodine Allergy Intermediate 05/28/16 Yes Physical Exam Physical Exam Constitutional: Moderately acute distress, non-toxic appearance. [] HENT: Normocephalic, atraumatic, bilateral external ears normal, oropharynx moist, no oral exudates, nose normal. [] Eyes: PERRLA, EOMI, mild conjunctivitis, no discharge. [] Glasses. Neck: Normal range of motion, no tenderness, supple, no stridor. [] Cardiovascular:Heart rate regular rhythm, no murmur , PMI to the left.[] Lungs & Thorax: Bilateral breath sounds equal apex scattered wheezes auscultation [] Abdomen: Bowel sounds normal, soft, no tenderness, no masses, no pulsatile masses. [] Skin: Warm, dry, no erythema, no rash. Poor turgor Back: No tenderness, no CVA tenderness. [] Extremities: No tenderness, no cyanosis, no clubbing, ROM intact, no edema. [] Pretty changes. Neurologic: Alert and oriented X 3, normal motor function, normal sensory function, no focal deficits noted. [] Psychologic: Affect anxious, judgement normal, mood normal. [] Current Patient Data Vital Signs Vital Signs Date Time Temp Pulse Resp B/P (MAP) Pulse Ox O2 Delivery O2 Flow Rate FiO2 09/03/18 22:00 78 22 163/70 (101) 94 Room Air 09/03/18 19:00 98.7 Lab Results Laboratory Tests Test 09/03/18 19:20 09/03/18 19:47 09/03/18 20:45 White Blood Count 3.6 x10^3/uL (4.0-11.0) L Red Blood Count 4.15 x10^6/uL (3.50-5.40) Hemoglobin 12.4 g/dL (12.0-15.5) Hematocrit 36.1 % (36.0-47.0) Mean Corpuscular Volume 87 fL (79-100) Mean Corpuscular Hemoglobin 30 pg (25-35) Mean Corpuscular Hemoglobin Concent 34 g/dL (31-37) Red Cell Distribution Width 13.7 % (11.5-14.5) Platelet Count 189 x10^3/uL (140-400) Neutrophils (%) (Auto) 61 % (31-73) Lymphocytes (%) (Auto) 13 % (24-48) L Monocytes (%) (Auto) 23 % (0-9) H Eosinophils (%) (Auto) 2 % (0-3) Basophils (%) (Auto) 2 % (0-3) Neutrophils # (Auto) 2.2 x10^3uL (1.8-7.7) Lymphocytes # (Auto) 0.5 x10^3/uL (1.0-4.8) L Monocytes # (Auto) 0.8 x10^3/uL (0.0-1.1) Eosinophils # (Auto) 0.1 x10^3/uL (0.0-0.7) Basophils # (Auto) 0.1 x10^3/uL (0.0-0.2) Prothrombin Time 9.3 SEC (9.4-11.4) L Prothrombin Time INR 0.9 (0.9-1.1) PTT 29 SEC (23-33) D-Dimer (Annette) 0.44 mg/L (0.00-0.50) Sodium Level 128 mmol/L (136-145) L Potassium Level 3.7 mmol/L (3.5-5.1) Chloride Level 92 mmol/L (98-107) L Carbon Dioxide Level 28 mmol/L (21-32) Anion Gap 8 (6-14) Blood Urea Nitrogen 14 mg/dL (7-20) Creatinine 0.9 mg/dL (0.6-1.0) Estimated GFR (Cockcroft-Gault) 59.1 Glucose Level 97 mg/dL (70-99) Lactic Acid Level 0.7 mmol/L (0.4-2.0) Calcium Level 8.8 mg/dL (8.5-10.1) Magnesium Level 1.6 mg/dL (1.8-2.4) L Total Bilirubin 0.5 mg/dL (0.2-1.0) Direct Bilirubin 0.2 mg/dL (0.0-0.2) Aspartate Amino Transferase (AST) 13 U/L (15-37) L Alanine Aminotransferase (ALT) 13 U/L (14-59) L Alkaline Phosphatase 83 U/L (46-116) Creatine Kinase 35 U/L (26-192) Troponin I Quantitative 0.021 ng/mL (0-0.055) EK-Gkn-U-Type Natriuretic Peptide 1017 pg/mL (0-449) H Total Protein 7.2 g/dL (6.4-8.2) Albumin 3.5 g/dL (3.4-5.0) Lipase 68 U/L (73-393) L Urine Collection Type Void Urine Color Yellow Urine Clarity Clear Urine pH 7.0 Urine Specific [place] 1.010 Urine Protein 100 mg/dl (NEG-TRACE) Urine Glucose (UA) Neg mg/dL (NEG) Urine Ketones (Stick) Neg mg/dL (NEG) Urine Blood Neg (NEG) Urine Nitrite Neg (NEG) Urine Bilirubin Neg (NEG) Urine Urobilinogen Dipstick 0.2 mg/dL (0.2 mg/dL) Urine Leukocyte Esterase Small (NEG) Urine RBC 3-5 /HPF (0-2) Urine WBC 11-20 /HPF (0-4) Urine Squamous Epithelial Cells Few /LPF Urine Transitional Epithelial Cells Occ /LPF Urine Bacteria 0 /HPF (0-FEW) Influenza Type A (Rapid) Negative (NEGATIVE) Influenza Type B (Rapid) Negative (NEGATIVE) Group A Streptococcus Rapid Negative (NEGATIVE) EKG EKG My interpretation EKG shows a sinus rhythm at 70 bpm. There when necessary intervals. Left axis deviation. 6:00. No findings acute STEMI of contralateral changes.[] Radiology/Procedures Radiology/Procedures My interpretation chest x-ray shows cardiomegaly. Some increased cephalization. Chronic changes.[] Course & Med Decision Making Course & Med Decision Making Pertinent Labs and Imaging studies reviewed. (See chart for details). Patient admitted to Dr. Stubbs for further evaluation and treatment. [] Final Impression Final Impression 1. Viral Syndrome [place] 23 2. CHF- Diastolic Dysfunction BNP 1,017 3. Hypomagnesium 1.6 4. [Bronchitis 5. Hyponatremia 128 Dragon Disclaimer Dragon Disclaimer This electronic medical record was generated, in whole or in part, using a voice recognition dictation system. Discharge Summary Visit Information Final Diagnosis Problems Medical Problems: (1) Bronchitis Status: Acute Brief Hospital Course Allergies Allergies Coded Allergies Type Severity Reaction Last Updated Verified Beta-Blockers (Beta-Adrenergic Bloc Allergy Intermediate Bradycardia 07/01/16 Yes amlodipine Allergy Intermediate ADEMA 03/24/17 Yes atorvastatin Allergy Intermediate 05/28/16 Yes chlorthalidone Allergy Intermediate hyponatremia 07/01/16 Yes clonidine Allergy Intermediate bradycardia 07/01/16 Yes iodine Allergy Intermediate 05/28/16 Yes Vital Signs Vital Signs Date Time Temp Pulse Resp B/P (MAP) Pulse Ox O2 Delivery O2 Flow Rate FiO2 09/03/18 22:00 78 22 163/70 (101) 94 Room Air 09/03/18 19:00 98.7 Lab Results Laboratory Tests Test 09/03/18 19:20 09/03/18 19:47 09/03/18 20:45 White Blood Count 3.6 x10^3/uL (4.0-11.0) Red Blood Count 4.15 x10^6/uL (3.50-5.40) Hemoglobin 12.4 g/dL (12.0-15.5) Hematocrit 36.1 % (36.0-47.0) Mean Corpuscular Volume 87 fL (79-100) Mean Corpuscular Hemoglobin 30 pg (25-35) Mean Corpuscular Hemoglobin Concent 34 g/dL (31-37) Red Cell Distribution Width 13.7 % (11.5-14.5) Platelet Count 189 x10^3/uL (140-400) Neutrophils (%) (Auto) 61 % (31-73) Lymphocytes (%) (Auto) 13 % (24-48) Monocytes (%) (Auto) 23 % (0-9) Eosinophils (%) (Auto) 2 % (0-3) Basophils (%) (Auto) 2 % (0-3) Neutrophils # (Auto) 2.2 x10^3uL (1.8-7.7) Lymphocytes # (Auto) 0.5 x10^3/uL (1.0-4.8) Monocytes # (Auto) 0.8 x10^3/uL (0.0-1.1) Eosinophils # (Auto) 0.1 x10^3/uL (0.0-0.7) Basophils # (Auto) 0.1 x10^3/uL (0.0-0.2) Prothrombin Time 9.3 SEC (9.4-11.4) Prothromb Time International Ratio 0.9 (0.9-1.1) Activated Partial Thromboplast Time 29 SEC (23-33) D-Dimer (Annette) 0.44 mg/L (0.00-0.50) Sodium Level 128 mmol/L (136-145) Potassium Level 3.7 mmol/L (3.5-5.1) Chloride Level 92 mmol/L (98-107) Carbon Dioxide Level 28 mmol/L (21-32) Anion Gap 8 (6-14) Blood Urea Nitrogen 14 mg/dL (7-20) Creatinine 0.9 mg/dL (0.6-1.0) Estimated GFR (Cockcroft-Gault) 59.1 Glucose Level 97 mg/dL (70-99) Lactic Acid Level 0.7 mmol/L (0.4-2.0) Calcium Level 8.8 mg/dL (8.5-10.1) Magnesium Level 1.6 mg/dL (1.8-2.4) Total Bilirubin 0.5 mg/dL (0.2-1.0) Direct Bilirubin 0.2 mg/dL (0.0-0.2) Aspartate Amino Transf (AST/SGOT) 13 U/L (15-37) Alanine Aminotransferase (ALT/SGPT) 13 U/L (14-59) Alkaline Phosphatase 83 U/L (46-116) Creatine Kinase 35 U/L (26-192) Troponin I Quantitative 0.021 ng/mL (0-0.055) LK-Gbq-F-Type Natriuretic Peptide 1017 pg/mL (0-449) Total Protein 7.2 g/dL (6.4-8.2) Albumin 3.5 g/dL (3.4-5.0) Lipase 68 U/L (73-393) Urine Collection Type Void Urine Color Yellow Urine Clarity Clear Urine pH 7.0 Urine Specific [place] 1.010 Urine Protein 100 mg/dl (NEG-TRACE) Urine Glucose (UA) Neg mg/dL (NEG) Urine Ketones (Stick) Neg mg/dL (NEG) Urine Blood Neg (NEG) Urine Nitrite Neg (NEG) Urine Bilirubin Neg (NEG) Urine Urobilinogen Dipstick 0.2 mg/dL (0.2 mg/dL) Urine Leukocyte Esterase Small (NEG) Urine RBC 3-5 /HPF (0-2) Urine WBC 11-20 /HPF (0-4) Urine Squamous Epithelial Cells Few /LPF Urine Transitional Epithelial Cells Occ /LPF Urine Bacteria 0 /HPF (0-FEW) Influenza Type A (Rapid) Negative (NEGATIVE) Influenza Type B (Rapid) Negative (NEGATIVE) Group A Streptococcus Rapid Negative (NEGATIVE) Brief Hospital Course Ms. Flores is a 87 old female who presented with generalize weakness, hypo natremia and magnesium, CHF. Admitted Dr. Alas Discharge Information Condition at Discharge: Improved Dischare Medications Current Medications Aspirin (Children'S Aspirin) 324 mg 1X ONCE PO Last administered on 09/03/18at 21:37; Admin Dose 324 MG; Start 09/03/18 at 19:30; Stop 09/03/18 at 19:31; Status DC Lactated Ringer's 1,000 ml @ 100 mls/hr Q10H IV Last administered on 09/03/18at 21:34; Admin Dose 100 MLS/HR; Start 09/03/18 at 19:30; Stop 09/04/18 at 05:29 Furosemide (Lasix) 40 mg 1X ONCE IVP Last administered on 09/03/18at 21:35; Admin Dose 40 MG; Start 09/03/18 at 21:00; Stop 09/03/18 at 21:08; Status DC Azithromycin (Zithromax) 500 mg 1X ONCE PO Last administered on 09/03/18at 21:37; Admin Dose 500 MG; Start 09/03/18 at 21:00; Stop 09/03/18 at 21:08; Status DC Ondansetron HCl (Zofran) 4 mg PRN Q4HRS PRN IV NAUSEA/VOMITING Last administ ered on 09/03/18at 21:36; Admin Dose 4 MG; Start 09/03/18 at 21:00; Stop 09/04/18 at 20:59 Magnesium Sulfate 50 ml @ 25 mls/hr 1X ONCE IV Last administered on 09/03/18at 21:35; Admin Dose 25 MLS/HR; Start 09/03/18 at 22:00; Stop 09/03/18 at 23:59; Status DC Erythromycin (Romycin) 0.25 inch QID OU Last administered on 09/04/18at 00:13; Admin Dose 0.25 INCH; Start 09/03/18 at 22:00 Active Scripts Active Hydralazine Hcl 50 Mg Tablet 100 Mg PO TID Lisinopril 20 Mg Tablet 40 Mg PO BID Reported Benicar (Olmesartan Medoxomil) 20 Mg Tablet 20 Mg PO PRN DAILY PRN LAST DOSE GIVEN: DATE: NOT GIVEN TODAY TIME: NEXT DOSE DUE: DATE: MAY TAKE TODAY TIME: IF AND WHEN NEEDED Nifedipine Er (Nifedipine) 60 Mg Tab.er.24 60 Mg PO BID LAST DOSE GIVEN: DATE: TODAY TIME: AM NEXT DOSE DUE: DATE: TOMORROW TIME: AM Miralax (Polyethylene Glycol 3350) 17 Gm Powd.pack 17 Gm PO PRN DAILY PRN LAST DOSE GIVEN: NOT GIVEN THIS ADMISSION NEXT DOSE DUE: DATE: TODAY TIME: IF NEEDED Colace (Docusate Sodium) 100 Mg Capsule 100 Mg PO BID LAST DOSE GIVEN: DATE: YESTERDAY TIME: AM NEXT DOSE DUE: DATE: TODAY TIME: IF NEEDED Zantac (Ranitidine Hcl) 150 Mg Tablet 150 Mg PO BID LAST DOSE GIVEN: DATE: TODAY TIME: AM NEXT DOSE DUE: DATE: TOMORROW TIME: AM Tylenol (Acetaminophen) 325 Mg Tablet 2 Tab PO PRN Q6HRS PRN LAST DOSE GIVEN: DATE: NOT GIVEN TODAY NEXT DOSE DUE: DATE: TODAY TIME: IF AND WHEN NEEDED Pravastatin Sodium 80 Mg Tablet 1 Tab PO QHS LAST DOSE GIVEN: DATE: YESTERDAY TIME: AT BEDTIME NEXT DOSE DUE: DATE: TODAY TIME: AT BEDTIME Nitrostat (Nitroglycerin) 0.4 Mg Tab.subl 0.4 Mg SL PRN Q15MIN PRN LAST DOSE GIVEN: NOT GIVEN THIS ADMISSION NEXT DOSE DUE: DATE: TODAY TIME: IF NEEDED Aspirin 81 Mg Tab.chew 81 Mg PO DAILY LAST DOSE GIVEN: DATE: TODAY TIME: AM NEXT DOSE DUE: DATE: TOMORROW TIME: AM Dragon Disclaimer This chart was dictated in whole or in part using Voice Recognition software in a busy, high-work load, and often noisy Emergency Department environment. It ma y contain unintended and wholly unrecognized errors or omissions. JOSE CARLOS REILLY MD September 03, 2018 19:00
[2018-09-03] MEDS ORDERED: IV RINGERS SOLUTION,LACTATED 1,000 ML IV SCH (19:30)
[2018-09-03] MEDS ORDERED: ASPIRIN 81 MG TAB.CHEW PO ONE (19:30)
--- NOTE | 2018-09-03 19:39 | RAD ---
AP portable chest radiograph 09/03/2018 Clinical History: Cough. An AP erect portable digital radiograph of the chest was obtained. Comparison study is dated 09/29/2017. Surgical clips are seen within the upper chest, unchanged. The cardiac silhouette is mildly enlarged. The thoracic aorta is tortuous. Atherosclerotic calcification of the thoracic aorta is seen. No acute pulmonary infiltrate is noted. No pneumothorax or pleural effusion is seen. Degenerative changes are seen involving the thoracic spine. IMPRESSION: No acute abnormality is seen. Electronically signed by: Darrell Orozco MD (09/03/2018 7:35 PM) [facility]
[2018-09-03 19:41] LABS: BASO # 0.1 x10^3/uL (0.0-0.2); BASO % 2 % (0-3); EOS # 0.1 x10^3/uL (0.0-0.7); EOS % 2 % (0-3); HEMATOCRIT 36.1 % (36.0-47.0); HEMOGLOBIN 12.4 g/dL (12.0-15.5); LYMPH # 0.5 x10^3/uL (1.0-4.8); LYMPH % 13 % (24-48); MEAN CORPUSCULAR HEMOGLOBIN 30 pg (25-35); MEAN CORPUSCULAR HGB CONC 34 g/dL (31-37); MEAN CORPUSCULAR VOLUME 87 fL (79-100); MONO # 0.8 x10^3/uL (0.0-1.1); MONO % 23 % (0-9); NEUT # 2.2 x10^3uL (1.8-7.7); NEUT % 61 % (31-73); PLATELET COUNT 189 x10^3/uL (140-400); RED BLOOD COUNT 4.15 x10^6/uL (3.50-5.40); RED CELL DISTRIBUTION WIDTH 13.7 % (11.5-14.5); WHITE BLOOD COUNT 3.6 x10^3/uL (4.0-11.0)
[2018-09-03 20:01] LABS: ALBUMIN 3.5 g/dL (3.4-5.0); CALCIUM 8.8 mg/dL (8.5-10.1); CREATININE 0.9 mg/dL (0.6-1.0); DIRECT BILIRUBIN 0.2 mg/dL (0.0-0.2); GFR 59.1; MAGNESIUM 1.6 mg/dL (1.8-2.4); POTASSIUM 3.7 mmol/L (3.5-5.1); TOTAL BILIRUBIN 0.5 mg/dL (0.2-1.0); TOTAL PROTEIN 7.2 g/dL (6.4-8.2)
[2018-09-03 20:13] LABS: BILIRUBIN,URINE NEG (NEG); CLARITY,URINE CLEAR; COLOR,URINE YELLOW; GLUCOSE,URINE NEG (NEG); NITRITE,URINE NEG (NEG); UROBILINOGEN,URINE 0.2 mg/dL (0.2 mg/dL)
[2018-09-03 20:14] LABS: BACTERIA,URINE 0 /HPF (0-FEW); SQUAMOUS EPITHELIAL CELL,UR FEW /LPF
[2018-09-03] MEDS ORDERED: ONDANSETRON PF 4 MG/2 ML VIAL. IV PRN (21:00)
[2018-09-03] MEDS ORDERED: FUROSEMIDE 40 MG/4 ML VIAL IVP ONE (21:00)
[2018-09-03] MEDS ORDERED: AZITHROMYCIN 250 MG TABLET. PO ONE (21:00)
[2018-09-03 21:23] LABS: INFLUENZA A PATIENT NEGATIVE (NEGATIVE); INFLUENZA B PATIENT NEGATIVE (NEGATIVE)
[2018-09-03] MEDS ORDERED: MAGNESIUM SULFATE 2GM 50 ML IV ONE (22:00)
--- NOTE | 2018-09-03 23:45 | NUR ---
The patient, STEPHANIE HOUSTON, 87 y/o, F admitted by LANNY MAGALLON MD, was given written information regarding hospital policies, unit procedures and contact persons. Valuables were checked and logged. Call light in place. Will continue to monitor.
[2018-09-03 23:49] VITALS: BP 150/75
[2018-09-04] MEDS: ERYTHROMYCIN 0.5% OPHTH OINTMENT 1GM TUBE. OU SCH ×5 (00:13→20:26)
[2018-09-04] MEDS ORDERED: LEVO50TA5 PO (00:35)
[2018-09-04] MEDS ORDERED: NITROGLYCERIN SUBLINGUAL 0.4 MG BOTTLE OF 25. SL PRN (00:45)
[2018-09-04] MEDS ORDERED: POLYETHYLENE GLYCOL 3350 17 GM PACKET. PO PRN (01:00)
[2018-09-04] MEDS: DOCUSATE SODIUM 100 MG CAPSULE PO SCH ×3 (01:08→20:26)
[2018-09-04] MEDS: LISINOPRIL 20 MG TABLET PO SCH ×3 (01:08→20:27)
[2018-09-04] MEDS: ACETAMINOPHEN 325 MG TABLET PO PRN ×3 (01:08→20:38)
[2018-09-04] MEDS: FAMOTIDINE 20 MG TABLET PO SCH ×2 (01:09→20:25)
[2018-09-04] MEDS: PRAVASTATIN 20 MG TABLET. PO SCH ×2 (01:09→20:52)
--- NOTE | 2018-09-04 04:12 | NUR ---
[facility] cardio consult paged at this time for routine consult and will go out at 0700.
[2018-09-04] MEDS ORDERED: ALBUTEROL SULFATE 2.5 MG/3 ML NEBU. ONE (05:36)
[2018-09-04] MEDS: IPRATRPIUM/ALBUTEROL 0.5/2.5MG 3 ML NEBU. NEB SCH ×4 (05:43→20:18)
[2018-09-04 06:00] VITALS: BP 146/64
[2018-09-04] MEDS: LEVOTHYROXINE 50 MCG TABLET PO SCH (06:02)
[2018-09-04 06:52] LABS: BASO % 1 % (0-3); EOS % 2 % (0-3); HEMATOCRIT 34.9 % (36.0-47.0); HEMOGLOBIN 12.1 g/dL (12.0-15.5); LYMPH # 0.7 x10^3/uL (1.0-4.8); LYMPH % 23 % (24-48); MEAN CORPUSCULAR HEMOGLOBIN 30 pg (25-35); MEAN CORPUSCULAR HGB CONC 35 g/dL (31-37); MEAN CORPUSCULAR VOLUME 87 fL (79-100); MONO # 0.7 x10^3/uL (0.0-1.1); MONO % 25 % (0-9); NEUT # 1.4 x10^3uL (1.8-7.7); NEUT % 49 % (31-73); PLATELET COUNT 176 x10^3/uL (140-400); RED BLOOD COUNT 4.02 x10^6/uL (3.50-5.40); RED CELL DISTRIBUTION WIDTH 13.8 % (11.5-14.5); WHITE BLOOD COUNT 2.9 x10^3/uL (4.0-11.0)
[2018-09-04 07:01] LABS: CALCIUM 8.5 mg/dL (8.5-10.1); CREATININE 1.1 mg/dL (0.6-1.0); GFR 46.9; POTASSIUM 3.3 mmol/L (3.5-5.1)
--- NOTE | 2018-09-04 07:02 | EKG ---
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
[2018-09-04] MEDS: ASPIRIN 81 MG TAB.CHEW PO SCH (08:08)
[2018-09-04] MEDS: POTASSIUM CHLORIDE 20 MEQ TABLET.ER. PO SCH (08:09)
[2018-09-04] MEDS: LACTOBACILLUS RHAMNOSUS GG 1 CAPSULE. PO SCH ×2 (08:09→20:25)
[2018-09-04] MEDS: methylPREDNISolone SOD SUCC PF 40 MG/ML VIAL. IV SCH (08:10)
[2018-09-04] MEDS: LOSARTAN 50 MG TABLET. PO SCH (08:10)
--- NOTE | 2018-09-04 08:25 | PDOC ---
PROVIDER NOTE PROVIDER NOTE PROVIDER NOTE CARDIOLOGY CONSULTATION NOTE: Reason for consultation: Elevated BNP Consulting Physician: Dr. Alas CC: Cough, weakness HPI: 87 y.o w/extensive history as noted below presenting with cough and weakness for 3 days with sputum production. Denies any chest pain, orthopnea, PND or LE edema. No syncope or palpitations. No angina. No fevers or chills. Lives in a assisted living facility. No other recent cardiac issues. Pmhx: 1. CAD s/p PCI remotely (Follows with Dr. Holman) 2. HTN 3. CVA with right sided weakness. 4. DLP 5. PAD s/p carotid endart 6. Diastolic HF 7. Frailty Sochx: Had three children. Retired. No smoking or alcohol use. No illicit drug use. Fam hx: NC ALL: Multiple including bblocker, statin, iodine, clonidine, chlorthalidone and amlodipine) Current CV meds: Lisinopril 40mg bid Hydralazine 100mg TID Losartan 100mg daily Nifedipine prn ROS: As noted above in HPI. Physical Exam: AF, BP 140/80s, HR 80's, RR-16, Pox-95% on 2L. She appears weak and frail. Normal heart tones. 3/6 MR murmur No wheezing. Soft abd No LE edema 2+ radial/DP pulses. No focal neurologic deficits. Weak throughout. No Skin lesions. Labs reviewed. Mild neutropenia. Normal Cr. Trop negative Elevated BNP EKG wnl CXR unremarkable. Impression: 1. Elevated BNP - likely due to viral syndrome. No clear diastolic HF ongoing based on no edema on exam, no fluid on CXR. 2. CAD/PAD/HTN Plan: 1. Supportive care from CV standpoint. No further CV testing needed. Defer any diuresis. Treat viral syndrome/bronchitis as currently doing 2. Check echo and carotid doppler. 3. f/u with Dr. Holman on an outpt basis. 4. Regarding her combination rufus-inh and ARB therapy, will defer to PCP but would consider taking one of the drugs off, she may be on both due to resistant hypertension and her multiple allergies but could consider doxazosin after taking off losartan. Thanks. Pls call with questions. GROVER GARCIA MD September 04, 2018 08:25
[2018-09-04 11:09] VITALS: BP 148/64
[2018-09-04] MEDS ORDERED: PIP/TAZO PER PHARMACY MC PRN (12:30)
[2018-09-04] MEDS ORDERED: ELECTROLYTE (ICU) PROTOCOL. MC PRN (12:30)
[2018-09-04] MEDS ORDERED: VANCOMYCIN PER PHARMACY MC PRN (13:00)
[2018-09-04] MEDS ORDERED: VANCOMYCIN 1.5 GM in IV NORMAL SALINE 500ML 500 ML IV ONE (13:30)
--- NOTE | 2018-09-04 14:25 | HP ---
ADMIT DATE: 09/04/2018 HISTORY OF PRESENT ILLNESS: The patient looks like she was admitted 09/03/2018 through the Emergency Room. She is a [facility]. Last 3 days has been quite ill with shortness of breath and chest discomfort. The patient came in with coughing, shortness of breath, and chest pain. The patient was seen in the Emergency Room, admitted for exacerbation of her COPD as well as workup on her chest pain. Dr. Nails has already evaluated her chest pain. The patient was admitted for breathing treatments, aggressive IV antibiotic therapy. She is spiking temperatures up to 101.3 and has noted was in a nursing facility. PAST MEDICAL HISTORY: The patient's history includes thyroid disease, tinnitus, tonsillectomy, adenoidectomy, history of CVA, numbness, heart attack, cardiac surgery with stents x 2, hypercholesterolemia, irritable bowel, hemorrhoidectomy, hysterectomy, renal disease, incontinence, urinary retention, endocrine disorders, hypothyroidism, thyroid cancer, thyroidectomy, psychiatric problems such as depression and thyroid cancer with thyroidectomy as noted. FAMILY HISTORY: Brother with prostate cancer and son with hypertension and father and mother with cancer. ADVERSE REACTIONS: BETA BLOCKERS, AMLODIPINE, ATORVASTATIN, CHLORTHALIDONE, CLONIDINE and IODINE. MEDICATIONS: The patient's reconciliation of medication are down in the usual fashion. See those in the chart were verified. SOCIAL HISTORY: Denies smoking, alcohol or drug use. Lives at the nursing facility. Denies any problems there. The patient is a full code. REVIEW OF SYSTEMS: Increased shortness of breath and chest discomfort off and on for the last 3-4 days and coughing. The patient denies any headaches, visual changes, blurred vision, double vision. Denies any melena, hematochezia, or hematemesis. Neurologically baseline for her. PHYSICAL EXAMINATION: GENERAL: This is a very pleasant white female, in no apparent distress. VITAL SIGNS: Blood pressure 148/64, pulse 97, temperature 101.5, oxygen saturation down to 91%. HEENT: The patient's head was atraumatic, normocephalic. Eyes: PERRLA without jaundice. The mouth and throat were normal. NECK: Supple, without JVD, carotid bruits. No thyromegaly. LUNGS: The patient's lungs were diminished throughout, poor movement of air, some rales and rhonchi were noted. CARDIOVASCULAR: Tachycardic. ABDOMEN: Soft, nontender, no rebounding, no guarding. Positive bowel sounds, no hepatosplenomegaly. EXTREMITIES: No clubbing, cyanosis, nor edema. NEUROLOGIC: The patient was alert and oriented x 3, moving all extremities well and baseline there. LABORATORY DATA: So far have been basically stable. White count is down to 2.9 with the hemoglobin and hematocrit 12/34. No obvious left shift. The patient's sodium was 133.3, put on electrolyte replacement. Creatinine slightly elevated at 1.1. TSH low at 0.155. BNP elevated to 1000. Procalcitonin pending. Lactic acid shows an increase, although she does probably meet sepsis criteria. IMPRESSION: Sepsis, acute respiratory infection of unknown etiology, leukopenia. We will continue to be monitored carefully, make further evaluation. We will put her on Zosyn and vancomycin, pleural sepsis protocol from a nursing facility, try to get sputum specimen, acute respiratory, aggressive pulmonary toilet. LANNY MAGALLON MD DR: JERRI/richard JOB#: [id number] / [id number]
--- NOTE | 2018-09-04 15:39 | NUR ---
Pharmacy Vancomycin Dosing Note S:Consulted to monitor and dose vancomycin started . O:STEPHANIE HOUSTON is a 87 year old F with Pneumonia, . Height: 5 feet, 2 inches Weight: 58.037166 kg Gar[place]di Body Weight: Adjusted Body Weight: Dosing Weight: Actual Other Antibiotics: ZOSYN 2.25GM Q6HRS LABS: Last BUN: 13 Last Creatinine: 1.1 Creatinine Clearance: Last WBC: 2.9 Last Procalcitonin: Tmax (past 24 hours): Microbiology: I/O: Drug Levels: Last level: on at Last dose given 09/04/18 at 1430 Vancomycin Dosing: Loading Dose: 1500 mg x1 Dosing Weight: Actual Target Trough: 15-20 A: Based on: P: 1. Begin Vancomycin 1000 mg IV q24h 2. Follow up Trough level on 09/06/18 at 1400 3. Pharmacy will continue to monitor, follow and adjust therapy as needed. JESSIE MARTI RP, 09/04/18 [id number]
[2018-09-04 16:00] VITALS: BP 164/68
[2018-09-04] MEDS: PIPERACILLIN/TAZOBACTAM 2.25 GM in IV NORMAL SALINE 50ML 50 ML IV SCH ×2 (18:30→23:06)
[2018-09-04 19:07] VITALS: BP 147/68
--- NOTE | 2018-09-04 20:53 | NUR ---
Pravastatin not available in the omnicell, looked in every [facility]ell in this hospital and it is not available, called pharmacy after hours at [facility] and they said they must have ran out. Patient will have to skip this dose.
[2018-09-04] MEDS ORDERED: AZITHROMYCIN 250 MG TABLET. PO SCH (21:00)
--- NOTE | 2018-09-04 21:00 | NUR ---
Went over plan of care with patient, patient resting at this time, no complaints at this time. Call light within reach. TM.
[2018-09-04 22:46] VITALS: BP 116/64
[2018-09-05] MEDS: IPRATRPIUM/ALBUTEROL 0.5/2.5MG 3 ML NEBU. NEB SCH ×4 (05:14→20:14)
[2018-09-05] MEDS: PIPERACILLIN/TAZOBACTAM 2.25 GM in IV NORMAL SALINE 50ML 50 ML IV SCH ×3 (05:24→17:27)
[2018-09-05] MEDS: LEVOTHYROXINE 50 MCG TABLET PO SCH (05:25)
[2018-09-05 05:55] VITALS: BP 138/63
[2018-09-05 06:31] LABS: BASO % 1 % (0-3); EOS % 0 % (0-3); HEMATOCRIT 32.6 % (36.0-47.0); HEMOGLOBIN 11.4 g/dL (12.0-15.5); LYMPH # 0.6 x10^3/uL (1.0-4.8); LYMPH % 12 % (24-48); MEAN CORPUSCULAR HEMOGLOBIN 31 pg (25-35); MEAN CORPUSCULAR HGB CONC 35 g/dL (31-37); MEAN CORPUSCULAR VOLUME 88 fL (79-100); MONO # 0.9 x10^3/uL (0.0-1.1); MONO % 20 % (0-9); NEUT # 3.1 x10^3uL (1.8-7.7); NEUT % 67 % (31-73); PLATELET COUNT 175 x10^3/uL (140-400); RED BLOOD COUNT 3.72 x10^6/uL (3.50-5.40); RED CELL DISTRIBUTION WIDTH 13.9 % (11.5-14.5); WHITE BLOOD COUNT 4.6 x10^3/uL (4.0-11.0)
[2018-09-05 06:41] LABS: CALCIUM 7.9 mg/dL (8.5-10.1); CREATININE 1.1 mg/dL (0.6-1.0); GFR 46.9; POTASSIUM 3.9 mmol/L (3.5-5.1)
[2018-09-05] MEDS: LISINOPRIL 20 MG TABLET PO SCH ×2 (08:24→22:14)
[2018-09-05] MEDS: LOSARTAN 50 MG TABLET. PO SCH (08:24)
[2018-09-05] MEDS: LACTOBACILLUS RHAMNOSUS GG 1 CAPSULE. PO SCH ×2 (08:24→22:13)
[2018-09-05] MEDS: ASPIRIN 81 MG TAB.CHEW PO SCH (08:25)
[2018-09-05] MEDS: POTASSIUM CHLORIDE 20 MEQ TABLET.ER. PO SCH (08:25)
[2018-09-05] MEDS: ERYTHROMYCIN 0.5% OPHTH OINTMENT 1GM TUBE. OU SCH ×4 (08:25→21:00)
[2018-09-05] MEDS: DOCUSATE SODIUM 100 MG CAPSULE PO SCH ×2 (08:25→22:13)
[2018-09-05] MEDS: methylPREDNISolone SOD SUCC PF 40 MG/ML VIAL. IV SCH (08:26)
[2018-09-05 11:09] VITALS: BP 147/63
[2018-09-05] MEDS ORDERED: VANCOMYCIN 1 GM in IV NORMAL SALINE 250ML 250 ML IV SCH (14:30)
[2018-09-05 15:15] VITALS: BP 135/71
[2018-09-05 20:14] VITALS: BP 145/70
[2018-09-05] MEDS ORDERED: NON-FORMULARY PO SCH (21:00)
[2018-09-05] MEDS: FAMOTIDINE 20 MG TABLET PO SCH (22:13)
[2018-09-05 22:45] VITALS: BP 135/63
[2018-09-06] MEDS: PIPERACILLIN/TAZOBACTAM 2.25 GM in IV NORMAL SALINE 50ML 50 ML IV SCH ×2 (00:34→06:03)
--- NOTE | 2018-09-06 01:46 | PN ---
DATE: 09/05/2018 SUBJECTIVE: The patient admitted with sepsis. She is resting fairly comfortably this morning. Temperatures has come down, yesterday was as high as 101.5 with a pulse roughly 97. The patient otherwise seems to be making good progress overall. She is continued on IV antibiotic therapy. Urine culture is still pending. OBJECTIVE: LUNGS: Diminished, but clear. CARDIOVASCULAR: Regular sinus rhythm. ABDOMEN: Soft, nontender. EXTREMITIES: No clubbing, cyanosis, or edema. NEUROLOGIC: Intact. IMPRESSION: Therefore, sepsis, unknown etiology. PLAN: Continue to monitor her accordingly and make further evaluation on her as indicated. LANNY MAGALLON MD DR: JERRI/richard JOB#: [id number] / [id number]
[2018-09-06 05:02] VITALS: BP 148/73
[2018-09-06] MEDS: IPRATRPIUM/ALBUTEROL 0.5/2.5MG 3 ML NEBU. NEB SCH ×2 (05:24→11:14)
[2018-09-06] MEDS: LEVOTHYROXINE 50 MCG TABLET PO SCH (06:03)
[2018-09-06] MEDS: ACETAMINOPHEN 325 MG TABLET PO PRN (06:03)
[2018-09-06] MEDS: LISINOPRIL 20 MG TABLET PO SCH (08:51)
[2018-09-06] MEDS: DOCUSATE SODIUM 100 MG CAPSULE PO SCH (08:52)
[2018-09-06] MEDS: LACTOBACILLUS RHAMNOSUS GG 1 CAPSULE. PO SCH (08:52)
[2018-09-06] MEDS: ASPIRIN 81 MG TAB.CHEW PO SCH (08:52)
[2018-09-06] MEDS: POTASSIUM CHLORIDE 20 MEQ TABLET.ER. PO SCH (08:52)
[2018-09-06] MEDS: methylPREDNISolone SOD SUCC PF 40 MG/ML VIAL. IV SCH (08:52)
[2018-09-06] MEDS: LOSARTAN 50 MG TABLET. PO SCH (08:52)
[2018-09-06] MEDS: ERYTHROMYCIN 0.5% OPHTH OINTMENT 1GM TUBE. OU SCH (08:54)
--- NOTE | 2018-09-06 09:10 | NUR ---
Dr. Alas here this morning to see patient, plan is to discharge home with home health services and follow up in office in 1 week. IV removed at this time. Patient aware of discharge plan.
[2018-09-06] MEDS ORDERED: ASPI-630 PO (09:18)
[2018-09-06] MEDS ORDERED: ERYT1OIN6 OU (09:18)
[2018-09-06] MEDS ORDERED: POTA20TA4 PO (09:18)
[2018-09-06] MEDS ORDERED: IPRA3AMP29 NEB (09:18)
[2018-09-06 10:35] VITALS: BP 153/64
--- NOTE | 2018-09-06 11:28 | NUR ---
Patient discharged at this time via wheelchair back to [facility]. Report given to MARIELA Grissom. IV removed and Belongings left with patient. Plan is to DC with home health services.
--- NOTE | 2018-09-06 19:04 | DS ---
DATE OF DISCHARGE: 09/06/2018 HOSPITAL COURSE: This is an 87-year-old female came in with increased shortness of breath. The patient was examined, she was found to have possible sepsis with acute respiratory infection of unknown etiology, some leukopenia. The patient made excellent progress during the rest of her hospitalization. There was no obvious infection found anywhere. Procalcitonin was less than 0.1, so unlikely it was a respiratory infection. In any case, the patient made excellent progress during the rest of her hospitalization. She refused further antibiotic therapy and according to all her vital signs being within range as well as her other labs showing marked improvement, the patient was discharged back to the nursing facility. She will be kept on breathing treatments. See her MRAD. She will be on a heart healthy diet, decreased activity. She did have some nosebleeds while she was in, so that may be related to her aspirin, so we are going to cut that down to just twice a week. IMPRESSION: Acute on top of chronic exacerbation of chronic obstructive pulmonary disease with mild hypoxia, essential hypertension, hyperthyroidism, chronic kidney disease stage 3, leukopenia. The patient continued to be monitored as an outpatient and make further evaluation on her. LANNY MAGALLON MD DR: JERRI/richard JOB#: [id number] / [id number]
== END 2018-09-06 11:30 | disposition home health service (06) | DRG 872 ==
LOC: ER 18:52 → ICU 22:25 → 1 SOUTH 09-04 12:15
PROVIDERS: ADMIT Family Medicine; ATTEND Family Medicine
DX: A41.9 Sepsis, unspecified organism (principal); J44.1 Chronic obstructive pulmonary disease with (acute) exacerbation; I50.30 Unspecified diastolic (congestive) heart failure; I13.0 Hypertensive heart and chronic kidney disease with heart failure and stage 1 through stage 4 chronic kidney disease, or unspecified chronic kidney disease; D72.819 Decreased white blood cell count, unspecified; E78.00 Pure hypercholesterolemia, unspecified; E89.0 Postprocedural hypothyroidism; K21.9 Gastro-esophageal reflux disease without esophagitis; K58.9 Irritable bowel syndrome, unspecified; R09.02 Hypoxemia; F32.9 Major depressive disorder, single episode, unspecified; H93.19 Tinnitus, unspecified ear; E78.5 Hyperlipidemia, unspecified; R54 Age-related physical debility; B34.9 Viral infection, unspecified; J22 Unspecified acute lower respiratory infection; N18.3 Chronic kidney disease, stage 3 (moderate); I25.2 Old myocardial infarction; Z80.42 Family history of malignant neoplasm of prostate; Z85.850 Personal history of malignant neoplasm of thyroid; Z86.73 Personal history of transient ischemic attack (TIA), and cerebral infarction without residual deficits; Z90.710 Acquired absence of both cervix and uterus; Z88.8 Allergy status to other drugs, medicaments and biological substances; Z91.041 Radiographic dye allergy status
CPT/HCPCS: 36415; 71045; 80048; 80076; 81001; 82550; 83605; 83690; 83735; 83880; 84145; 84443; 84484; 85025; 85379; 85610; 85730; 87040; 87070; 87086; 87641; 87804; 87880; 93005; 94640; 96365; 96366; 96375; J0456; J0696; J1940; J2405; J2543; J2920; J3370; J3475; J7040; J7050; J7120; J7620; 99285-25